=== PATIENT | male | born 1995 | race Caucasian/White ===

== ENCOUNTER 2018-01-24 08:36 | Emergency (ER) | payer SELFPAY ==
--- NOTE | 2018-01-24 09:44 | EDPHYS ---
Physician Documentation [facility] Name: Nilesh Ordonez Age: 22 yrs Sex: Male : 1995 Arrival Date: 01/24/2018 Time: 08:39 Bed 7 Private MD: out of town, doctor ED Physician Poncho Calderón HPI: 01/24 09:47 This 22 yrs old Male presents to ER via Ambulatory with complaints of Ear kdr Pain, Vomiting, Cough. 09:47 The patient presents with pain, mild. The complaints affect the right ear. Onset: The kdr symptoms/episode began/occurred The patient states that he has had intermittent cough, congestion for the past month. Over the last few days, he has had increasing right ear pain. He denies any other related s/s. Modifying factors: The symptoms are alleviated by nothing, the symptoms are aggravated by nothing. Associated signs and symptoms: Pertinent positives: cough, Pertinent negatives: fever, lightheadedness, nausea, sinus trouble, shortness of breath, sore throat, tinnitus, vertigo, vomiting. Severity of symptoms: At their worst the symptoms were mild moderate just prior to arrival, in the emergency department the symptoms are unchanged. The patient has experienced similar episodes in the past, a few times. The patient has not recently seen a physician. Historical: - Allergies: 08:53 NKA; iw - Home Meds: 08:53 albuterol sulfate 2.5 mg /3 mL (0.083 %) Inhl nebu QID PRN [Active]; ProAir HFA 90 iw mcg/actuation inhalation HFAA 2 puffs [Active]; - PMHx: 08:53 Asthma; iw - PSHx: 08:53 None; iw - Immunization history:: Adult Immunizations unknown. - Social history:: Smoking status: Patient/guardian denies using tobacco. - Ebola Screening: : Patient negative for fever greater than or equal to 101.5 degrees Fahrenheit, and additional compatible Ebola Virus Disease symptoms Patient denies exposure to infectious person Patient denies travel to an Ebola-affected area in the 21 days before illness onset No symptoms or risks identified at this time. ROS: 09:47 Constitutional: Negative for fever, chills, and weight loss, Eyes: Negative for injury, kdr pain, redness, and discharge, Neck: Negative for injury, pain, and swelling, Cardiovascular: Negative for chest pain, palpitations, and edema, Respiratory: Negative for shortness of breath, cough, wheezing, and pleuritic chest pain, Abdomen/GI: Negative for abdominal pain, nausea, vomiting, diarrhea, and constipation, Back: Negative for injury and pain. 09:47 ENT: Positive for ear pain, of the right ear. Exam: 09:47 Constitutional: This is a well developed, well nourished patient who is awake, alert, kdr and in no acute distress. Head/Face: Normocephalic, atraumatic. Eyes: Pupils equal round and reactive to light, extra-ocular motions intact. Lids and lashes normal. Conjunctiva and sclera are non-icteric and not injected. Cornea within normal limits. Periorbital areas with no swelling, redness, or edema. Neck: Trachea midline, no thyromegaly or masses palpated, and no cervical lymphadenopathy. Supple, full range of motion without nuchal rigidity, or vertebral point tenderness. No Meningismus. Chest/axilla: Normal chest wall appearance and motion. Nontender with no deformity. No lesions are appreciated. Cardiovascular: Regular rate and rhythm with a normal S1 and S2. No gallops, murmurs, or rubs. Normal PMI, no JVD. No pulse deficits. 09:47 ENT: External ear(s): are unremarkable, Ear canal(s): are normal, TM's: bulging, dullness, on the right, Examination of the other ear shows no obvious abnormality, Mouth: is normal, Posterior pharynx: is normal, Voice: is normal. Vital Signs: 08:53 BP 132 / 78; Pulse 82; Resp 16 S; Temp 98.2(O); Pulse Ox 100% on R/A; Weight 145.15 kg; iw Height 5 ft. 11 in. (180.34 cm); Pain 8/10; 08:53 Body Mass Index 44.63 (145.15 kg, 180.34 cm) iw MDM: 09:43 Patient medically screened. kdr 09:47 Data reviewed: vital signs, nurses notes. Counseling: I had a detailed discussion with kdr the patient and/or guardian regarding: the historical points, exam findings, and any diagnostic results supporting the discharge/admit diagnosis, the need for outpatient follow up. Special discussion: I discussed with the patient/guardian in detail that at this point there is no indication for admission to the hospital. It is understood, however, that if the symptoms persist or worsen the patient needs to return immediately for re-evaluation. ED course: The patient was stable and non-toxic in the ED. D/w patient the need for ENT follow-up. Administered Medications: No medications were administered Disposition: 01/24/18 09:43 Discharged to Home. Impression: Acute upper respiratory infection, unspecified, Viral illness, right ear pain/congestion. - Condition is Stable. - Discharge Instructions: Viral Infections, Upper Respiratory Infection, Adult, [id number]. - Prescriptions for Zyrtec 10 mg Oral Tablet - take 1 tablet by ORAL route once daily As needed; 20 tablet. Tramadol 50 mg Oral Tablet - take 1 tablet by ORAL route every 8 hours as needed; 12 tablet. Medrol (Soham) 4 mg Oral Tablets, Dose Pack - take 1 tablet by ORAL route as directed - follow package instructions; 1 packet. - Medication Reconciliation Form, Thank You Letter form. - Follow up: Private Physician; When: 2 - 3 days; Reason: If symptoms return, Further diagnostic work-up, Recheck today's complaints, Continuance of care, Re-evaluation by your physician. Follow up: Nargis Silva MD; When: 1 - 2 days; Reason: If symptoms return, Further diagnostic work-up, Recheck today's complaints, Continuance of care, Re-evaluation by your physician. - Problem is new. - Symptoms are unchanged. Signatures: Poncho Calderón MD MD [facility] Dolores Larose RN RN Chelsey Hall RN RN Corrections: (The following items were deleted from the chart) 09:43 09:43 01/24/2018 09:43 Discharged to Home. Impression: Acute upper respiratory kdr infection, unspecified; Viral illness, right ear pain/congestion. Condition is Stable. Forms are Medication Reconciliation Form, Thank You Letter, Antibiotic Education, Prescription Opioid Use. Follow up: Private Physician; When: 2 - 3 days; Reason: If symptoms return, Further diagnostic work-up, Recheck today's complaints, Continuance of care, Re-evaluation by your physician. Follow up: Nargis Silva; When: 1 - 2 days; Reason: If symptoms return, Further diagnostic work-up, Recheck today's complaints, Continuance of care, Re-evaluation by your physician. kdr 09:55 09:43 01/24/2018 09:43 Discharged to Home. Impression: Acute upper respiratory hb infection, unspecified; Viral illness, right ear pain/congestion. Condition is Stable. Forms are Medication Reconciliation Form, Thank You Letter, Antibiotic Education, Prescription Opioid Use. Follow up: Private Physician; When: 2 - 3 days; Reason: If symptoms return, Further diagnostic work-up, Recheck today's complaints, Continuance of care, Re-evaluation by your physician. Follow up: Nargis Silva; When: 1 - 2 days; Reason: If symptoms return, Further diagnostic work-up, Recheck today's complaints, Continuance of care, Re-evaluation by your physician. Problem is new. Symptoms are unchanged. kdr
--- NOTE | 2018-01-24 09:44 | ER ---
Nurse's Notes [facility] Name: Nilesh Ordonez Age: 22 yrs Sex: Male : 1995 Arrival Date: 01/24/2018 Time: 08:39 Bed 7 Private MD: out of town, doctor Diagnosis: Acute upper respiratory infection, unspecified;Viral illness, right ear pain/congestion Presentation: 01/24 08:49 Presenting complaint: Patient states: c/o right ear pain since this morning, also has iw had cough X 3-4 weeks, productive, has been taking OTC meds with no relief, pt states he vomits phlegm every morning, denies fever. Transition of care: patient was not received from another setting of care. Onset of symptoms was December 2017. Risk Assessment: Do you want to hurt yourself or someone else? Patient reports no desire to harm self or others. Initial Sepsis Screen: Does the patient meet any 2 criteria? No. Patient's initial sepsis screen is negative. Does the patient have a suspected source of infection? No. Patient's initial sepsis screen is negative. Care prior to arrival: None. 08:49 Method Of Arrival: Ambulatory iw 08:49 Acuity: IRVIN 3 iw Historical: - Allergies: 08:53 NKA; iw - Home Meds: 08:53 albuterol sulfate 2.5 mg /3 mL (0.083 %) Inhl nebu QID PRN [Active]; ProAir HFA 90 iw mcg/actuation inhalation HFAA 2 puffs [Active]; - PMHx: 08:53 Asthma; iw - PSHx: 08:53 None; iw - Immunization history:: Adult Immunizations unknown. - Social history:: Smoking status: Patient/guardian denies using tobacco. - Ebola Screening: : Patient negative for fever greater than or equal to 101.5 degrees Fahrenheit, and additional compatible Ebola Virus Disease symptoms Patient denies exposure to infectious person Patient denies travel to an Ebola-affected area in the 21 days before illness onset No symptoms or risks identified at this time. Screenin:15 Abuse screen: Denies threats or abuse. Denies injuries from another. Nutritional hb screening: No deficits noted. Tuberculosis screening: No symptoms or risk factors identified. Fall Risk None identified. Assessment: 09:00 General: Appears in no apparent distress. Behavior is calm, cooperative. Pain: Pain hb currently is 8 out of 10 on a pain scale. Neuro: Level of Consciousness is awake, alert, obeys commands, Oriented to person, place, time, situation. Cardiovascular: Capillary refill < 3 seconds Patient's skin is warm and dry. Respiratory: Airway is patent Trachea midline Respiratory effort is even, unlabored, Respiratory pattern is regular, symmetrical, Breath sounds are clear bilaterally. EENT: Reports pain in right ear. Vital Signs: 08:53 BP 132 / 78; Pulse 82; Resp 16 S; Temp 98.2(O); Pulse Ox 100% on R/A; Weight 145.15 kg; iw Height 5 ft. 11 in. (180.34 cm); Pain 8/10; 08:53 Body Mass Index 44.63 (145.15 kg, 180.34 cm) iw ED Course: 08:39 Patient arrived in ED. mr 08:39 out of town, doctor is Private Physician. mr 08:52 Triage completed. iw 08:53 Arm band placed on. iw 09:00 Patient has correct armband on for positive identification. Bed in low position. Call hb light in reach. Side rails up X 1. 09:15 Chelsey Hall, RN is Primary Nurse. hb 09:27 Poncho Calderón MD is Attending Physician. kdr 09:42 Nargis Silva MD is Referral Physician. kdr 09:54 No provider procedures requiring assistance completed. Patient did not have IV access hb during this emergency room visit. Administered Medications: No medications were administered Outcome: 09:43 Discharge ordered by . kdr 09:54 Discharged to home ambulatory, with friend. hb 09:54 Condition: stable 09:54 Discharge instructions given to patient, Instructed on discharge instructions, follow up and referral plans. medication usage, Demonstrated understanding of instructions, follow-up care, medications, Prescriptions given X 3. 09:55 Patient left the ED. hb Signatures: Poncho Calderón MD MD kdr Rivera, Maria mr Williams, Irene, RN RN iw Chelsey Hall, RN RN hb
== END 2018-01-24 09:55 | disposition home or self-care (01) ==
LOC: ER 08:36
DX: J06.9 Acute upper respiratory infection, unspecified (principal); J45.909 Unspecified asthma, uncomplicated; B34.9 Viral infection, unspecified; H92.01 Otalgia, right ear
CPT/HCPCS: 99282

== ENCOUNTER 2018-03-28 21:13 | Emergency (ER) | payer SELFPAY ==
[2018-03-28] MEDS ORDERED: NA CHLORIDE 0.9% 1,000 ML ONE (22:10)
[2018-03-28 22:20] LABS: Absolute Lymphocytes (CBC) 1.6 K/uL (0.7-4.9); Absolute Monocytes 0.7 K/uL (0.1-1.3); Absolute Neutrophil 7.3 K/uL (1.8-8.0); Basophils % 0.5 % (0-1.3); Eosinophils % 1.8 % (0-4.4); Hematocrit 46.4 % (39.6-49.0); Lymphocytes % 16.6 % (15.3-44.8); MCH 27.8 pg (27.0-35.0); RBC Red Blood Cell Count 5.59 M/uL (4.33-5.43)
[2018-03-28 22:26] LABS: Urine Blood NEGATIVE (NEG); Urine Glucose NEGATIVE (NEG); Urine Protein TRACE (NEG); Urine Specific Gravity 1.025 (1.005-1.030)
[2018-03-28 22:33] LABS: ALT/SGPT 53 U/L (12-78); AST/SGOT 44 U/L (15-37); Albumin 3.7 g/dL (3.4-5.0); Alkaline Phosphatase 80 U/L (45-117); Amylase Level 22 U/L (25-115); BUN Blood Urea Nitrogen 10 mg/dL (7-18); Bicarbonate 30 mmol/L (21-32); Bilirubin Direct 0.2 mg/dL (0-0.2); Glucose Level 179 mg/dL (74-106); Lipase 71 U/L (73-393); Potassium 3.4 mmol/L (3.5-5.1); Protein, Total 8.1 g/dL (6.4-8.2); Sodium Level 136 mmol/L (136-145)
[2018-03-28 22:41] LABS: Urine Culture Reflex Order NOT NEEDED
[2018-03-28 22:42] LABS: Urine Bacteria <20 /HPF (NONE SEEN); Urine RBC <5 /HPF (NONE SEEN)
--- NOTE | 2018-03-28 23:09 | ER ---
Nurse's Notes [facility] Name: Nilesh Ordonez Age: 23 yrs Sex: Male : 1995 Arrival Date: 03/28/2018 Time: 21:13 Bed 7 Private MD: Diagnosis: Vomiting;Fever, unspecified;Obesity, unspecified;Hypokalemia Presentation: 03/28 21:20 Presenting complaint: Patient states: Vomiting yesterday x 3 episodes and diarrhea aj since 0500 this AM with headache and reported low grade fever of 100.0. Transition of care: patient was not received from another setting of care. Onset of symptoms was March 27, 2018. Risk Assessment: Do you want to hurt yourself or someone else? Patient reports no desire to harm self or others. Initial Sepsis Screen: Does the patient meet any 2 criteria? No. Patient's initial sepsis screen is negative. Does the patient have a suspected source of infection? No. Patient's initial sepsis screen is negative. Care prior to arrival: None. 21:20 Method Of Arrival: Ambulatory aj 21:20 Acuity: IRVIN 3 aj Triage Assessment: 21:22 General: Appears in no apparent distress. comfortable, obese, Behavior is calm, aj cooperative, appropriate for age. Pain: Complains of pain in face. Neuro: Level of Consciousness is awake, alert, obeys commands, Oriented to person, place, time, situation, Appropriate for age. Respiratory: Reports shortness of breath on exertion Airway is patent Respiratory effort is even, unlabored, Respiratory pattern is regular, symmetrical, GI: Reports diarrhea, nausea, vomiting. Derm: Skin is intact, is healthy with good turgor, Skin is pink, warm \T\ dry. normal. Historical: - Allergies: 21:22 NKA; aj - Home Meds: 21:22 albuterol sulfate 2.5 mg /3 mL (0.083 %) Inhl nebu QID PRN [Active]; Singulair Oral aj [Active]; ProAir HFA 90 mcg/actuation inhalation HFAA 2 puffs [Active]; Singulair 10 mg Oral tab 1 tab once daily [Active]; Caitlyn 180 mg Oral tab 1 tab once daily [Active]; - PMHx: 21:22 Asthma; Seasonal Allergies; aj - PSHx: 21:22 None; aj - Immunization history:: Adult Immunizations up to date. - Social history:: Smoking status: Patient/guardian denies using tobacco, Patient uses alcohol, occasionally. - Ebola Screening: : Patient negative for fever greater than or equal to 101.5 degrees Fahrenheit, and additional compatible Ebola Virus Disease symptoms Patient denies exposure to infectious person Patient denies travel to an Ebola-affected area in the 21 days before illness onset No symptoms or risks identified at this time. Screenin:44 Abuse screen: Denies threats or abuse. Denies injuries from another. Nutritional lp1 screening: No deficits noted. Tuberculosis screening: No symptoms or risk factors identified. Fall Risk None identified. Assessment: 21:43 General: Appears in no apparent distress. Behavior is appropriate for age. Pain: lp1 Complains of pain in head Pain currently is 7 out of 10 on a pain scale. Quality of pain is described as aching. Neuro: Level of Consciousness is awake, alert, obeys commands, Gait is steady, Reports headache. Cardiovascular: Patient's skin is warm and dry. Respiratory: Reports shortness of breath on exertion Respiratory effort is even, unlabored, Breath sounds are clear bilaterally. GI: Abdomen is obese, Reports diarrhea, nausea, vomiting. : No signs and/or symptoms were reported regarding the genitourinary system. EENT: No signs and/or symptoms were reported regarding the EENT system. Derm: Skin is pink, warm \T\ dry. Musculoskeletal: Circulation, motion, and sensation intact. 03/29 00:15 Reassessment: Patient is alert, oriented x 3, equal unlabored respirations, skin bb warm/dry/pink. pt verbalized understanding of and agrees to plan of care discharge instructions given pt ambulated with steady gait to exit accompanied by family. Vital Signs: 03/28 21:22 BP 117 / 94; Pulse 96; Resp 20; Temp 98.4; Pulse Ox 98% on R/A; Weight 147.42 kg; aj Height 5 ft. 11 in. (180.34 cm); 22:09 BP 130 / 60; Pulse 102; Resp 18; Pulse Ox 98% on R/A; mt 03/29 00:17 BP 122 / 80; Pulse 96; Resp 18 S; Temp 98.3(O); Pulse Ox 97% on R/A; bb 03/28 21:22 Body Mass Index 45.33 (147.42 kg, 180.34 cm) ED Course: 03/28 21:13 Patient arrived in ED. ds1 21:21 Triage completed. aj 21:22 Arm band placed on left wrist. Patient placed in an exam room. 21:40 Foster Morris MD is Attending Physician. [facility] 21:43 Shabnam Price, JOSE is Primary Nurse. lp1 22:09 Urine collected: clean catch specimen, josh colored. Inserted saline lock: 22 gauge in lp1 left antecubital area, using aseptic technique. Blood collected. 22:13 Patient has correct armband on for positive identification. Placed in gown. Bed in low lp1 position. Pulse ox on. NIBP on. 22:42 Patient moved to radiology via wheelchair. lp1 22:47 Chest Pa And Lat (2 Views) XRAY In Process Unspecified. EDFL 23:04 Flu and/or RSV swab sent to lab. lp1 23:26 No provider procedures requiring assistance completed. [facility] 03/29 00:17 IV discontinued, intact, bleeding controlled, No redness/swelling at site. Pressure bb dressing applied. Administered Medications: 03/28 22:10 Drug: NS 0.9% 1000 ml Route: IV; Rate: 1000 ml; Site: left antecubital; 1 03/29 00:16 Follow up: IV Status: Order to discontinue infusion; IV Intake: 900ml 03/28 22:13 CANCELLED (Duplicate Order): NS 0.9% 1000 ml IV at 1 bolus Per protocol; 1000 mL bolus [facility] 03/29 00:04 Drug: Potassium Effervescent Tablet 25 mEq Route: PO; bb 00:16 Follow up: Response: No adverse reaction bb 00:05 Not Given (Patient Refused): Zofran 4 mg IVP once; over 2 minutes bb Intake: 00:16 IV: 900ml; Total: 900ml. bb Outcome: 03/28 23:08 Discharge ordered by . [facility] 03/29 00:17 Discharged to home ambulatory, with family. bb Condition: stable Discharge instructions given to patient, Instructed on discharge instructions, follow up and referral plans. medication usage, Demonstrated understanding of instructions, follow-up care, medications, Prescriptions given X 1. 00:18 Patient left the ED. bb Signatures: Dispatcher [employer] EDMS ElizondoRadha RN RN aj Anderson, Corey, MD MD cha Sanford, Demi ds1 Erin Lyles, RN RN bb Shabnam Price RN RN lp1 Cathie Urbina ms
--- NOTE | 2018-03-28 23:09 | EDPHYS ---
Physician Documentation [facility] Name: Nilesh Ordonez Age: 23 yrs Sex: Male : 1995 Arrival Date: 03/28/2018 Time: 21:13 Bed 7 Private MD: ED Physician Foster Morris HPI: 03/28 22:13 This 23 yrs old Male presents to ER via Ambulatory with complaints of padmini Nausea/Vomiting/Diarrhea, Headache. 22:13 The patient presents to the emergency department with nausea, vomiting. Onset: The padmini symptoms/episode began/occurred 2 day(s) ago. Possible causes: unknown. The symptoms are aggravated by nothing. The symptoms are alleviated by nothing. Associated signs and symptoms: The patient has no apparent associated signs or symptoms. Severity of symptoms: At their worst the symptoms were. The patient has not experienced similar symptoms in the past. Historical: - Allergies: 21:22 NKA; aj - Home Meds: 21:22 albuterol sulfate 2.5 mg /3 mL (0.083 %) Inhl nebu QID PRN [Active]; Singulair Oral aj [Active]; ProAir HFA 90 mcg/actuation inhalation HFAA 2 puffs [Active]; Singulair 10 mg Oral tab 1 tab once daily [Active]; Caitlyn 180 mg Oral tab 1 tab once daily [Active]; - PMHx: 21:22 Asthma; Seasonal Allergies; aj - PSHx: 21:22 None; aj - Immunization history:: Adult Immunizations up to date. - Social history:: Smoking status: Patient/guardian denies using tobacco, Patient uses alcohol, occasionally. - Ebola Screening: : Patient negative for fever greater than or equal to 101.5 degrees Fahrenheit, and additional compatible Ebola Virus Disease symptoms Patient denies exposure to infectious person Patient denies travel to an Ebola-affected area in the 21 days before illness onset No symptoms or risks identified at this time. ROS: 22:14 Constitutional: Negative for fever, chills, and weight loss, Eyes: Negative for injury, padmini pain, redness, and discharge, ENT: Negative for injury, pain, and discharge, Neck: Negative for injury, pain, and swelling, Cardiovascular: Negative for chest pain, palpitations, and edema, Back: Negative for injury and pain, : Negative for injury, bleeding, discharge, and swelling, MS/Extremity: Negative for injury and deformity, Skin: Negative for injury, rash, and discoloration, Neuro: Negative for headache, weakness, numbness, tingling, and seizure. 22:14 Respiratory: Positive for cough. 22:14 Abdomen/GI: Positive for nausea and vomiting. Exam: 22:14 Constitutional: This is a well developed, well nourished patient who is awake, alert, padmini and in no acute distress. Head/Face: Normocephalic, atraumatic. Eyes: Pupils equal round and reactive to light, extra-ocular motions intact. Lids and lashes normal. Conjunctiva and sclera are non-icteric and not injected. Cornea within normal limits. Periorbital areas with no swelling, redness, or edema. ENT: Nares patent. No nasal discharge, no septal abnormalities noted. Tympanic membranes are normal and external auditory canals are clear. Oropharynx with no redness, swelling, or masses, exudates, or evidence of obstruction, uvula midline. Mucous membranes moist. Neck: Trachea midline, no thyromegaly or masses palpated, and no cervical lymphadenopathy. Supple, full range of motion without nuchal rigidity, or vertebral point tenderness. No Meningismus. Chest/axilla: Normal chest wall appearance and motion. Nontender with no deformity. No lesions are appreciated. Cardiovascular: Regular rate and rhythm with a normal S1 and S2. No gallops, murmurs, or rubs. Normal PMI, no JVD. No pulse deficits. Respiratory: Lungs have equal breath sounds bilaterally, clear to auscultation and percussion. No rales, rhonchi or wheezes noted. No increased work of breathing, no retractions or nasal flaring. Abdomen/GI: Soft, non-tender, with normal bowel sounds. No distension or tympany. No guarding or rebound. No evidence of tenderness throughout. Back: No spinal tenderness. No costovertebral tenderness. Full range of motion. Male : Normal genitalia with no discharge or lesions. Skin: Warm, dry with normal turgor. Normal color with no rashes, no lesions, and no evidence of cellulitis. MS/ Extremity: Pulses equal, no cyanosis. Neurovascular intact. Full, normal range of motion. Neuro: Awake and alert, GCS 15, oriented to person, place, time, and situation. Cranial nerves II-XII grossly intact. Motor strength 5/5 in all extremities. Sensory grossly intact. Cerebellar exam normal. Normal gait. Psych: Awake, alert, with orientation to person, place and time. Behavior, mood, and affect are within normal limits. 22:14 Musculoskeletal/extremity: Tendon exam: specific tendon testing normal through active and passive range of motion DVT Exam: No signs of deep vein thrombosis. no pain, no swelling, no tenderness, negative Homans' sign noted on exam, no appreciated bluish discoloration, no erythema, no increased warmth. 22:16 Neck: ROM/movement: is normal, no acute changes, Meningeal signs: are not present, padmini Kernig's sign is negative, Brudzinski's sign is negative. Vital Signs: 21:22 BP 117 / 94; Pulse 96; Resp 20; Temp 98.4; Pulse Ox 98% on R/A; Weight 147.42 kg; Height 5 ft. 11 in. (180.34 cm); 22:09 BP 130 / 60; Pulse 102; Resp 18; Pulse Ox 98% on R/A; md 03/29 00:17 BP 122 / 80; Pulse 96; Resp 18 S; Temp 98.3(O); Pulse Ox 97% on R/A; 03/28 21:22 Body Mass Index 45.33 (147.42 kg, 180.34 cm) MDM: 03/28 21:40 Patient medically screened. [facility] 22:15 Data reviewed: vital signs, nurses notes, lab test result(s), radiologic studies, CT [facility] scan. 03/28 21:31 Order name: Amylase, Serum; Complete Time: 23:07 03/28 21:31 Order name: Basic Metabolic Panel; Complete Time: 23:07 03/28 21:31 Order name: CBC with Diff; Complete Time: 23: 03/28 21:31 Order name: Creatinine for Radiology; Complete Time: 23: 03/28 21:31 Order name: Hepatic Function; Complete Time: 23:03/28 21:31 Order name: Lipase; Complete Time: 23:07 03/28 21:31 Order name: Urine Microscopic Only; Complete Time: 23:07 03/28 22:06 Order name: Urine Dipstick--Ancillary (enter results); Complete Time: 23:07 ms 03/28 22:13 Order name: Chest Pa And Lat (2 Views) XRAY [facility] 03/28 22:13 Order name: Blood Culture Adult (2) [facility] 03/28 22:17 Order name: Urine Culture [facility] 03/28 22:17 Order name: Flu [facility] 03/28 21:31 Order name: IV Saline Lock; Complete Time: 22:03 03/28 21:31 Order name: Labs collected and sent; Complete Time: 22:03 03/28 21:31 Order name: Urine Dipstick-Ancillary (obtain specimen); Complete Time: 22:43 bb Administered Medications: 22:10 Drug: NS 0.9% 1000 ml Route: IV; Rate: 1000 ml; Site: left antecubital; 1 03/29 00:16 Follow up: IV Status: Order to discontinue infusion; IV Intake: 900ml 03/28 22:13 CANCELLED (Duplicate Order): NS 0.9% 1000 ml IV at 1 bolus Per protocol; 1000 mL bolus [facility] 03/29 00:04 Drug: Potassium Effervescent Tablet 25 mEq Route: PO; bb 00:16 Follow up: Response: No adverse reaction bb 00:05 Not Given (Patient Refused): Zofran 4 mg IVP once; over 2 minutes bb Disposition: 03/28/18 23:08 Discharged to Home. Impression: Vomiting, Fever, unspecified, Obesity, unspecified, Hypokalemia. - Condition is Fair. - Discharge Instructions: Potassium Content of Foods, Fever, Adult, Nausea and Vomiting, Adult, Obesity, Adult, Nausea and Vomiting, Adult, [id number], Hypokalemia, Obesity, Adult, [id number]. - Prescriptions for Zofran 4 mg Oral Tablet - take 1 tablet by ORAL route every 12 hours As needed; 20 tablet. - Medication Reconciliation Form, Thank You Letter, Antibiotic Education, Prescription Opioid Use, Work release form form. - Follow up: Private Physician; When: 2 - 3 days; Reason: Recheck today's complaints, Continuance of care, Re-evaluation by your physician. - Problem is new. - Symptoms have improved. Signatures: Dispatcher [employer] EDRadha Bhatti RN RN aj Anderson, Corey, MD MD cha Ballard, Brenda, RN RN Shabnam Espinal, RN RN lp1 Corrections: (The following items were deleted from the chart) 03/28 22:13 22:13 NS 0.9% 1000 ml IV at 1 bolus Per protocol; 1000 mL bolus ordered. padmini lp1 03/29 00:18 03/28 23:08 03/28/2018 23:08 Discharged to Home. Impression: Vomiting; Fever, bb unspecified; Obesity, unspecified; Hypokalemia. Condition is Fair. Discharge Instructions: Fever, Adult, Nausea and Vomiting, Adult, Obesity, Adult, Nausea and Vomiting, Adult, [id number], Obesity, Adult, [id number]. Prescriptions for Zofran 4 mg Oral Tablet - take 1 tablet by ORAL route every 12 hours As needed; 20 tablet. and Forms are Medication Reconciliation Form, Thank You Letter, Antibiotic Education, Prescription Opioid Use. Follow up: Private Physician; When: 2 - 3 days; Reason: Recheck today's complaints, Continuance of care, Re-evaluation by your physician. Problem is new. Symptoms have improved. padmini
[2018-03-29] MEDS ORDERED: POTASSIUM 25 MEQ EFFERV TAB ONE (00:08)
--- NOTE | 2018-03-29 07:10 | RAD REPORT ---
EXAM DESCRIPTION: RAD - Chest Pa And Lat (2 Views) - 03/28/2018 10:54 pm CLINICAL HISTORY: Abdominal pain, cough, popping, fever COMPARISON: May 2017 TECHNIQUE: PA and lateral views of the chest were obtained. FINDINGS: The lungs are underinflated. Interstitial markings are prominent at least in part due to t he shallow inspiration. Medial left base markings are prominent but not clearly different. Heart si ze is normal and central vasculature is within normal limits. No pleural effusion or pneumothorax se en. No acute bony finding noted. No aortic abnormality. IMPRESSION: No definite acute cardiopulmonary process seen. Shallow inspiration accentuates lung markings potentially masking early infiltrate.
== END 2018-03-29 00:18 | disposition home or self-care (01) ==
LOC: ER 21:13
DX: E87.6 Hypokalemia (principal); R50.9 Fever, unspecified; E66.9 Obesity, unspecified; J45.909 Unspecified asthma, uncomplicated
CPT/HCPCS: 36415; 71046; 80048; 80076; 81003; 81015; 82150; 83690; 85025; 87040; 87086; 87088; 87804; 96360; 96361; 99284; J7030

== ENCOUNTER 2018-04-06 11:49 | Emergency (ER) | payer SELFPAY ==
[2018-04-06 12:42] LABS: Urine Blood NEGATIVE (NEG); Urine Glucose NEGATIVE (NEG); Urine Protein NEGATIVE (NEG); Urine Specific Gravity 1.025 (1.005-1.030)
--- NOTE | 2018-04-06 12:44 | ER ---
Nurse's Notes [facility] Name: Nilesh Ordonez Age: 23 yrs Sex: Male : 1995 Arrival Date: 04/06/2018 Time: 11:51 Bed 13 Private MD: Diagnosis: Cadidiasis of the penile head Presentation: 04/06 11:54 Presenting complaint: Patient states: "I think I have a yeast infection." Pt points to sv the groin. Transition of care: patient was not received from another setting of care. Onset of symptoms was April 05, 2018. Care prior to arrival: None. 11:54 Method Of Arrival: Ambulatory sv 11:54 Acuity: IRVIN 5 sv 12:15 Onset: The symptoms/episode began/occurred acutely. Anaphylaxis evaluation, no signs or jl7 symptoms of anaphylaxis were noted. Risk Assessment: Do you want to hurt yourself or someone else? Patient reports no desire to harm self or others. Initial Sepsis Screen: Does the patient meet any 2 criteria? No. Patient's initial sepsis screen is negative. Does the patient have a suspected source of infection? No. Patient's initial sepsis screen is negative. Historical: - Allergies: 11:55 NKA; sv - Home Meds: 11:55 Singulair Oral [Active]; albuterol sulfate 2.5 mg /3 mL (0.083 %) Inhl nebu QID PRN sv [Active]; Caitlyn 180 mg Oral tab 1 tab once daily [Active]; ProAir HFA 90 mcg/actuation inhalation HFAA 2 puffs [Active]; - PMHx: 11:55 Asthma; seasonal allergies; sv - PSHx: 11:55 None; sv - Immunization history:: Adult Immunizations up to date. - Social history:: Smoking status: Patient/guardian denies using tobacco. - Ebola Screening: : No symptoms or risks identified at this time. - Family history:: not pertinent. - Hospitalizations: : No recent hospitalization is reported. Screenin:15 Abuse screen: Denies threats or abuse. Denies injuries from another. Nutritional jl7 screening: No deficits noted. Tuberculosis screening: No symptoms or risk factors identified. Fall Risk None identified. Assessment: 12:15 General: Appears in no apparent distress. uncomfortable, Behavior is calm, cooperative, jl7 appropriate for age. Pain: Denies pain. Neuro: Level of Consciousness is awake, alert, obeys commands, Oriented to person, place, time, situation. Cardiovascular: Patient's skin is warm and dry. Respiratory: Airway is patent Respiratory effort is even, unlabored, Breath sounds are clear bilaterally. GI: No signs and/or symptoms were reported involving the gastrointestinal system. : Penile discharge is white, Reports penile itching. Derm: Skin is pink, warm \\T\\ dry. Vital Signs: 11:56 BP 138 / 92; Pulse 87; Resp 18; Temp 97.8; Pulse Ox 99% ; Weight 147.42 kg; Height 5 sv ft. 11 in. (180.34 cm); 12:55 BP 135 / 90; Pulse 85; Resp 16 S; Pulse Ox 99% on R/A; jl7 11:56 Body Mass Index 45.33 (147.42 kg, 180.34 cm) sv ED Course: 11:51 Patient arrived in ED. as 11:55 Triage completed. sv 11:56 Arm band placed on right wrist. sv 12:00 Rao Norton MD is Attending Physician. wa 12:15 Patient has correct armband on for positive identification. Bed in low position. Call jl7 light in reach. Side rails up X 1. Pulse ox on. NIBP on. 12:17 Marylou Smiley RN is Primary Nurse. jl7 12:32 Urine collected: clean catch specimen, josh colored. jl7 13:06 No provider procedures requiring assistance completed. Patient did not have IV access jl7 during this emergency room visit. Administered Medications: No medications were administered Point of Care Testing: Blood Glucose: 12:32 Blood Glucose: 180 mg/dL; jl7 Ranges: Outcome: 12:43 Discharge ordered by . wa 13:06 Discharged to home ambulatory. jl7 13:06 Condition: stable 13:06 Discharge instructions given to patient, Instructed on discharge instructions, follow up and referral plans. medication usage, Demonstrated understanding of instructions, follow-up care, medications, Prescriptions given X 2. 13:07 Patient left the ED. jl7 Signatures: Nargis Thornton RN Ce Landin Jahala, RN RN jl7 Appiah, William, MD MD wa
--- NOTE | 2018-04-06 12:44 | EDPHYS ---
Physician Documentation [facility] Name: Nilesh Ordonez Age: 23 yrs Sex: Male : 1995 Arrival Date: 04/06/2018 Time: 11:51 Bed 13 Private MD: ED Physician Rao Norton HPI: 04/06 12:29 This 23 yrs old Male presents to ER via Ambulatory with complaints of Itching.wa 12:29 The patient presents with "I think I have a yeast infection". Onset: The wa symptoms/episode began/occurred 2 day(s) ago. Modifying factors: The symptoms are alleviated by nothing, the symptoms are aggravated by nothing. Associated signs and symptoms: Pertinent positives: itching of penile head. denies dysuria or frequency, Pertinent negatives: abdominal pain, diarrhea, dysuria, fever, hematuria, nausea, vomiting. Severity of symptoms: At their worst the symptoms were moderate, in the emergency department the symptoms are actually worse. The patient has not experienced similar symptoms in the past. The patient has not recently seen a physician. c/o itching and white discharge at head of penis. not circumcised. states only sexually active with fiancee, unprotected. Historical: - Allergies: 11:55 NKA; sv - Home Meds: 11:55 Singulair Oral [Active]; albuterol sulfate 2.5 mg /3 mL (0.083 %) Inhl nebu QID PRN sv [Active]; Caitlyn 180 mg Oral tab 1 tab once daily [Active]; ProAir HFA 90 mcg/actuation inhalation HFAA 2 puffs [Active]; - PMHx: 11:55 Asthma; seasonal allergies; sv - PSHx: 11:55 None; sv - Immunization history:: Adult Immunizations up to date. - Social history:: Smoking status: Patient/guardian denies using tobacco. - Ebola Screening: : No symptoms or risks identified at this time. - Family history:: not pertinent. - Hospitalizations: : No recent hospitalization is reported. ROS: 12:33 Constitutional: Negative for fever, chills, and weight loss, Eyes: Negative for injury, wa pain, redness, and discharge, ENT: Negative for injury, pain, and discharge, Neck: Negative for injury, pain, and swelling, Cardiovascular: Negative for chest pain, palpitations, and edema, Respiratory: Negative for shortness of breath, cough, wheezing, and pleuritic chest pain, Abdomen/GI: Negative for abdominal pain, nausea, vomiting, diarrhea, and constipation, Back: Negative for injury and pain, MS/Extremity: Negative for injury and deformity, Skin: Negative for injury, rash, and discoloration, Neuro: Negative for headache, weakness, numbness, tingling, and seizure. 12:33 : Positive for penile head rash and itching, Negative for urinary symptoms, urinary frequency, hematuria, burning with urination, difficulty urinating, foul smelling urine. Exam: 12:34 Constitutional: This is a well developed, well nourished patient who is awake, alert, wa and in no acute distress. Head/Face: Normocephalic, atraumatic. Eyes: Pupils equal round and reactive to light, extra-ocular motions intact. Lids and lashes normal. Conjunctiva and sclera are non-icteric and not injected. Cornea within normal limits. Periorbital areas with no swelling, redness, or edema. ENT: Nares patent. No nasal discharge, no septal abnormalities noted. Tympanic membranes are normal and external auditory canals are clear. Oropharynx with no redness, swelling, or masses, exudates, or evidence of obstruction, uvula midline. Mucous membranes moist. Neck: Trachea midline, no thyromegaly or masses palpated, and no cervical lymphadenopathy. Supple, full range of motion without nuchal rigidity, or vertebral point tenderness. No Meningismus. Cardiovascular: Regular rate and rhythm with a normal S1 and S2. No gallops, murmurs, or rubs. Normal PMI, no JVD. No pulse deficits. Respiratory: Lungs have equal breath sounds bilaterally, clear to auscultation and percussion. No rales, rhonchi or wheezes noted. No increased work of breathing, no retractions or nasal flaring. Abdomen/GI: Soft, non-tender, with normal bowel sounds. No distension or tympany. No guarding or rebound. No evidence of tenderness throughout. Back: No spinal tenderness. No costovertebral tenderness. Full range of motion. Skin: Warm, dry with normal turgor. Normal color with no rashes, no lesions, and no evidence of cellulitis. MS/ Extremity: Pulses equal, no cyanosis. Neurovascular intact. Full, normal range of motion. Neuro: Awake and alert, GCS 15, oriented to person, place, time, and situation. Cranial nerves II-XII grossly intact. Motor strength 5/5 in all extremities. Sensory grossly intact. Cerebellar exam normal. Normal gait. Psych: Awake, alert, with orientation to person, place and time. Behavior, mood, and affect are within normal limits. 12:34 : Male external genitalia: noted discharge at head of penis consistent with evette. Vital Signs: 11:56 BP 138 / 92; Pulse 87; Resp 18; Temp 97.8; Pulse Ox 99% ; Weight 147.42 kg; Height 5 sv ft. 11 in. (180.34 cm); 12:55 BP 135 / 90; Pulse 85; Resp 16 S; Pulse Ox 99% on R/A; jl7 11:56 Body Mass Index 45.33 (147.42 kg, 180.34 cm) sv MDM: 12:00 Patient medically screened. nd 12:35 Differential diagnosis: evette at head of penis. denies h/o DM. will accucheck and UA. nd needs treatment of candidiasis. 12:42 Data reviewed: vital signs, nurses notes. Test interpretation: by ED physician or nd midlevel provider: UA normal. 12:42 Test interpretation: by ED physician or midlevel provider: accucheck 180. nd 04/06 12:21 Order name: Urine Microscopic Only nd 04/06 12:39 Order name: Urine Dipstick--Ancillary (enter results) [facility] 04/06 12:21 Order name: Urine Dipstick-Ancillary (obtain specimen); Complete Time: 12:32 nd 04/06 12:21 Order name: Accucheck Blood Glucose; Complete Time: 12:32 nd 04/06 12:57 Order name: Urine Culture EDMS Administered Medications: No medications were administered Point of Care Testing: Blood Glucose: 12:32 Blood Glucose: 180 mg/dL; jl7 Ranges: Critical Glucose Levels:Adult <50 mg/dl or >400 mg/dl <40 mg/dl or >180 mg/dl Disposition: 04/06/18 12:43 Discharged to Home. Impression: Cadidiasis of the penile head. - Condition is Stable. - Prescriptions for Clotrimazole 1 % Topical Cream - Apply to affected area 1 application by TOPICAL route every 12 hours; 15 gram. Diflucan 150 mg Oral Tablet - take 1 tablet by ORAL route one time for 1 day; 1 tablet. - Medication Reconciliation Form, Thank You Letter, Antibiotic Education, Prescription Opioid Use form. - Follow up: Private Physician; When: 2 - 3 days; Reason: Re-evaluation by your physician. - Problem is new. - Symptoms are unchanged. - Notes: pull foreskin back gently and do sitz baths as described. apply topical cream until completely resolved. you need to see your doctor to be ruled out for diabetes Signatures: Dispatcher [employer] EDNargis Guan, RN RN sv Marylou Smiley RN RN jl7 Rao Norton MD MD wa Corrections: (The following items were deleted from the chart) 13:07 12:43 04/06/2018 12:43 Discharged to Home. Impression: Cadidiasis of the penile head. jl7 Condition is Stable. Forms are Medication Reconciliation Form, Thank You Letter, Antibiotic Education, Prescription Opioid Use. Follow up: Private Physician; When: 2 - 3 days; Reason: Re-evaluation by your physician. Problem is new. Symptoms are unchanged. wa
[2018-04-06 12:56] LABS: Urine Bacteria <20 /HPF (NONE SEEN); Urine Culture Reflex Order REFLEXED; Urine RBC <5 /HPF (NONE SEEN)
== END 2018-04-06 13:07 | disposition home or self-care (01) ==
LOC: ER 11:49
DX: B37.49 Other urogenital candidiasis (principal); J45.909 Unspecified asthma, uncomplicated
CPT/HCPCS: 81003; 81015; 82962; 87086; 87088; 99283

== ENCOUNTER 2018-05-26 17:52 | Emergency (ER) | payer SELFPAY ==
[2018-05-26] MEDS ORDERED: NA CHLORIDE 0.9% 1,000 ML ONE (18:47)
[2018-05-26 19:01] LABS: Absolute Lymphocytes (CBC) 3.5 K/uL (0.7-4.9); Absolute Monocytes 0.6 K/uL (0.1-1.3); Absolute Neutrophil 7.4 K/uL (1.8-8.0); Basophils % 0.7 % (0-1.3); Hematocrit 44.6 % (39.6-49.0); Lymphocytes % 29.9 % (15.3-44.8); MCH 27.9 pg (27.0-35.0); MCV 82.4 fL (80-100); MPV 11.5 fL (7.6-11.3); RBC Red Blood Cell Count 5.41 M/uL (4.33-5.43)
--- NOTE | 2018-05-26 19:14 | RAD REPORT ---
EXAM DESCRIPTION: RAD - Chest Pa And Lat (2 Views) - 05/26/2018 6:44 pm CLINICAL HISTORY: Cough and congestion COMPARISON: March 28 TECHNIQUE: PA and lateral views of the chest were obtained. FINDINGS: The lungs are clear. Heart size is normal and central vasculature is within normal limit s. No pleural effusion or pneumothorax seen. No acute bony finding noted. No aortic abnormality. IMPRESSION: No acute cardiopulmonary process. No significant change from comparison.
[2018-05-26 19:20] LABS: Urine Blood 1+ (NEG); Urine Glucose 3+ (NEG); Urine Protein NEGATIVE (NEG); Urine Specific Gravity 1.015 (1.005-1.030)
[2018-05-26 19:38] LABS: BUN Blood Urea Nitrogen 11 mg/dL (7-18); Bicarbonate 27 mmol/L (21-32); Glucose Level 391 mg/dL (74-106); Potassium 4.1 mmol/L (3.5-5.1); Sodium Level 136 mmol/L (136-145)
--- NOTE | 2018-05-26 19:48 | EDPHYS ---
Physician Documentation [facility] Name: Nilesh Ordonez Age: 23 yrs Sex: Male : 1995 Arrival Date: 05/26/2018 Time: 17:55 Bed 19 Private MD: ED Physician Foster Morris HPI: 05/26 18:18 This 23 yrs old Male presents to ER via Ambulatory with complaints of jmm Testicular Problem. 18:18 The patient presents with redness. Onset: The symptoms/episode began/occurred jmm gradually, 1 week(s) ago. Modifying factors: The symptoms are alleviated by nothing, the symptoms are aggravated by nothing. Associated signs and symptoms: Pertinent negatives: fever. Patient complains of cough for approx 1 week with a rash to his penis. Patient has had a similar episode before and has applied antifungal cream with no relief. Patient denies fever, vomiting, shortness of breath. . Historical: - Allergies: 17:58 NKA; la1 - Home Meds: 18:24 albuterol sulfate 2.5 mg /3 mL (0.083 %) Inhl nebu QID PRN [Active]; Caitlyn 180 mg hj Oral tab 1 tab once daily [Active]; ProAir HFA 90 mcg/actuation inhalation HFAA 2 puffs [Active]; Singulair Oral [Active]; Singulair 10 mg Oral tab 1 tab once daily [Active]; - PMHx: 17:58 Asthma; seasonal allergies; la1 - PSHx: 18:24 None; hj - Immunization history:: Adult Immunizations up to date. - Social history:: Smoking status: Patient/guardian denies using tobacco. - Ebola Screening: : No symptoms or risks identified at this time. ROS: 18:18 Constitutional: Negative for fever, chills, and weight loss, Cardiovascular: Negative jmm for chest pain, palpitations, and edema. 18:18 Respiratory: Positive for cough. 18:18 Skin: Positive for rash. 18:18 All other systems are negative. Exam: 18:18 Constitutional: This is a well developed, well nourished patient who is awake, alert, jmm and in no acute distress. Head/Face: atraumatic. Chest/axilla: Normal chest wall appearance and motion. Cardiovascular: Regular rate and rhythm. No edema appreciated 18:18 ENT: TM's: are normal, Posterior pharynx: is normal. 18:18 Respiratory: the patient does not display signs of respiratory distress, Respirations: normal, Breath sounds: are clear throughout. 18:18 Abdomen/GI: Inspection: abdomen appears normal, Bowel sounds: normal, Palpation: abdomen is soft and non-tender. 18:18 Skin: erythema noted to the glans penis. 18:18 Neuro: Orientation: is normal, Mentation: is normal, Memory: is normal. 18:18 Psych: Behavior/mood is pleasant, cooperative. Vital Signs: 17:58 BP 149 / 84; Pulse 106; Resp 18; Temp 97.6; Pulse Ox 98% on R/A; Weight 136.08 kg; la1 Height 5 ft. 11 in. (180.34 cm); 19:00 BP 138 / 72; Pulse 94; Resp 18; Pulse Ox 98% on R/A; lp1 17:58 Body Mass Index 41.84 (136.08 kg, 180.34 cm) la1 MDM: 18:18 Patient medically screened. [facility] 19:46 Data reviewed: vital signs, nurses notes. Counseling: I had a detailed discussion with violeta the patient and/or guardian regarding: the historical points, exam findings, and any diagnostic results supporting the discharge/admit diagnosis, lab results, the need for outpatient follow up, to return to the emergency department if symptoms worsen or persist or if there are any questions or concerns that arise at home. 19:46 Data interpreted: Pulse oximetry: on room air is 98 %. Interpretation: normal. [facility] 19:46 ED course: Patient does not have an anion gap. Vitals normal. I do not currently [facility] suspect dka. patient prescribed initial dose of metformin. Patient states he will follow up with his PCP on Monday for reevaluation. Patient also prescribed nystatin for candidal penile infection. Patient given strict return precautions. Patient understood and agrees with the plan of care. . 05/26 18:33 Order name: CBC with Diff; Complete Time: 19:13 [facility] 05/26 18:33 Order name: BMP; Complete Time: 19:39 [facility] 05/26 18:22 Order name: Fingerstick Glucose; Complete Time: 18:31 [facility] 05/26 18:22 Order name: Chest Pa And Lat (2 Views) XRAY; Complete Time: 19:28 [facility] 05/26 18:47 Order name: Urine Dipstick--Ancillary (enter results); Complete Time: 19:28 ag 05/26 18:22 Order name: Urine Dipstick-Ancillary (obtain specimen); Complete Time: 18:30 [facility] 05/26 18:33 Order name: Saline Lock; Complete Time: 18:55 jm Administered Medications: 18:55 Drug: NS 0.9% 1000 ml Route: IV; Rate: 1 bolus; Site: right forearm; hj 20:13 Follow up: IV Status: Completed infusion; IV Intake: 1000ml lp1 Point of Care Testing: Blood Glucose: 18:29 Blood Glucose: 369 mg/dL; mh5 Ranges: Critical Glucose Levels:Adult <50 mg/dl or >400 mg/dl <40 mg/dl or >180 mg/dl Disposition: 05/26/18 19:47 Discharged to Home. Impression: Hyperglycemia, unspecified, Candidiasis of other urogenital sites. - Condition is Stable. - Discharge Instructions: Hyperglycemia, Jock Itch. - Prescriptions for nystatin 100,000 unit/gram Topical ointment - apply 1 application by TOPICAL route 2 times per day; 1 tube. Metformin 500 mg Oral Tablet Sustained Release 24 hr - take 1 tablet by ORAL route once daily with evening meal; 20 tablet. - Medication Reconciliation Form, Thank You Letter, Antibiotic Education, Prescription Opioid Use form. - Follow up: Private Physician; When: 2 - 3 days; Reason: Recheck today's complaints, Continuance of care, Re-evaluation by your physician. - Notes: Please follow up with your primary care provider in 1 to 2 days for reevaluation. Please return to the ED if you develop shortness of breath, vomiting, or any other concerning symptoms. Addendum: 05/28/2018 07:19 Co-signature as Attending Physician, Foster Morris MD I agree with the assessment and c gaston plan of care. Signatures: Dispatcher [employer] Foster Ahn MD MD cha Mickail, Joel, PA PA Shabnam Alexander, RN RN lp1 Michael Catalan RN RN la1 Thomas Vann RN RN hj Corrections: (The following items were deleted from the chart) 05/26 20:13 19:47 05/26/2018 19:47 Discharged to Home. Impression: Hyperglycemia, unspecified; lp1 Candidiasis of other urogenital sites. Condition is Stable. Forms are Medication Reconciliation Form, Thank You Letter, Antibiotic Education, Prescription Opioid Use. Follow up: Private Physician; When: 2 - 3 days; Reason: Recheck today's complaints, Continuance of care, Re-evaluation by your physician. violeta
--- NOTE | 2018-05-26 19:48 | ER ---
Nurse's Notes [facility] Name: Nilesh Ordonez Age: 23 yrs Sex: Male : 1995 Arrival Date: 05/26/2018 Time: 17:55 Bed 19 Private MD: Diagnosis: Hyperglycemia, unspecified;Candidiasis of other urogenital sites Presentation: 05/26 17:57 Presenting complaint: Patient states: Cough congestion and rash on genitals. Transition la1 of care: patient was not received from another setting of care. Onset of symptoms was May 26, 2018. Risk Assessment: Do you want to hurt yourself or someone else? Patient reports no desire to harm self or others. Initial Sepsis Screen: Does the patient meet any 2 criteria? No. Patient's initial sepsis screen is negative. Does the patient have a suspected source of infection? No. Patient's initial sepsis screen is negative. Care prior to arrival: None. 17:57 Method Of Arrival: Ambulatory la1 17:57 Acuity: IRVIN 4 la1 Triage Assessment: 18:22 General: Appears in no apparent distress. uncomfortable, Behavior is calm, cooperative, hj appropriate for age. Pain: Complains of pain in testicle. Historical: - Allergies: 17:58 NKA; la1 - Home Meds: 18:24 albuterol sulfate 2.5 mg /3 mL (0.083 %) Inhl nebu QID PRN [Active]; Caitlyn 180 mg hj Oral tab 1 tab once daily [Active]; ProAir HFA 90 mcg/actuation inhalation HFAA 2 puffs [Active]; Singulair Oral [Active]; Singulair 10 mg Oral tab 1 tab once daily [Active]; - PMHx: 17:58 Asthma; seasonal allergies; la1 - PSHx: 18:24 None; hj - Immunization history:: Adult Immunizations up to date. - Social history:: Smoking status: Patient/guardian denies using tobacco. - Ebola Screening: : No symptoms or risks identified at this time. Screenin:22 Abuse screen: Denies threats or abuse. Denies injuries from another. Nutritional hj screening: No deficits noted. Tuberculosis screening: No symptoms or risk factors identified. Fall Risk None identified. Assessment: 18:17 Reassessment: see triage for assessment;. hj 19:30 General: Appears in no apparent distress. Neuro: Level of Consciousness is awake, lp1 alert, obeys commands. Cardiovascular: Patient's skin is warm and dry. Respiratory: Respiratory effort is even, unlabored. GI: Abdomen is obese. : No signs and/or symptoms were reported regarding the genitourinary system. EENT: No signs and/or symptoms were reported regarding the EENT system. Derm: Skin is pink, warm \T\ dry. Musculoskeletal: Circulation, motion, and sensation intact. Vital Signs: 17:58 BP 149 / 84; Pulse 106; Resp 18; Temp 97.6; Pulse Ox 98% on R/A; Weight 136.08 kg; la1 Height 5 ft. 11 in. (180.34 cm); 19:00 BP 138 / 72; Pulse 94; Resp 18; Pulse Ox 98% on R/A; lp1 17:58 Body Mass Index 41.84 (136.08 kg, 180.34 cm) la1 ED Course: 17:55 Patient arrived in ED. tw3 17:58 Triage completed. la1 17:59 Arm band placed on left wrist. la1 18:03 Rene Aguayo PA is PHCP. [facility] 18:03 Foster Morris MD is Attending Physician. [facility] 18:19 Thomas Vann, RN is Primary Nurse. hj 18:23 Patient has correct armband on for positive identification. Bed in low position. Call hj light in reach. Side rails up X 1. Adult w/ patient. 18:44 Chest Pa And Lat (2 Views) XRAY In Process Unspecified. EDMS 18:55 Initial lab(s) drawn, by me, sent to lab. Inserted saline lock: 22 gauge in right hj forearm, using aseptic technique. Blood collected. 19:08 Urine collected: clean catch specimen, cloudy. 5 19:55 X-ray completed. jb2 20:12 No provider procedures requiring assistance completed. IV discontinued, No lp1 redness/swelling at site. Pressure dressing applied. Administered Medications: 18:55 Drug: NS 0.9% 1000 ml Route: IV; Rate: 1 bolus; Site: right forearm; hj 20:13 Follow up: IV Status: Completed infusion; IV Intake: 1000ml lp1 Point of Care Testing: Blood Glucose: 18:29 Blood Glucose: 369 mg/dL; 5 Ranges: Intake: 20:13 IV: 1000ml; Total: 1000ml. lp1 Outcome: 19:47 Discharge ordered by . violeta 20:12 Discharged to home ambulatory. lp1 20:12 Condition: good 20:12 Discharge instructions given to patient, Instructed on discharge instructions, follow up and referral plans. medication usage, Demonstrated understanding of instructions, follow-up care, medications, Prescriptions given X 2. 20:13 Patient left the ED. lp1 Signatures: Dispatcher [employer] EDMS Rene Aguayo PA PA jmm Buechter, Jesse 2 Shabnam Price RN RN lp1 Michael Catalan RN RN la1 Thomas Vann RN RN Berta Fay 5 Luci Arellano 3 Corrections: (The following items were deleted from the chart) 17:58 17:57 Acuity: IRVIN 5 la1 la1
== END 2018-05-26 20:13 | disposition home or self-care (01) ==
LOC: ER 17:52
DX: B37.49 Other urogenital candidiasis (principal); R73.9 Hyperglycemia, unspecified; J45.909 Unspecified asthma, uncomplicated
CPT/HCPCS: 36415; 71046; 80048; 81003; 82962; 85025; 96360; 99284; J7030

== ENCOUNTER 2018-05-30 19:12 | Emergency (ER) | payer SELFPAY ==
--- NOTE | 2018-05-30 21:05 | EDPHYS ---
Physician Documentation [facility] Name: Nilesh Ordonez Age: 23 yrs Sex: Male : 1995 Arrival Date: 05/30/2018 Time: 19:13 Bed 19 Private MD: ED Physician Foster Morris HPI: 05/30 21:00 This 23 yrs old Male presents to ER via Ambulatory with complaints of Penile pm1 Problem. 21:00 The patient presents with rash to penile area. pm1 21:00 Onset: The symptoms/episode began/occurred 11 day(s) ago. Modifying factors: The pm1 symptoms are alleviated by nothing, the symptoms are aggravated by nothing. Associated signs and symptoms: Pertinent negatives: abdominal pain, dysuria, fever, nausea, vomiting. Severity of symptoms: in the emergency department the symptoms are unchanged. The patient has experienced a previous episode, approximately 2 months ago. The patient has been recently seen at the [facility] Emergency Department, this week, same complaint. Patient seen here 4 days ago and diagnosed with hyperglycemia and candidal infection of urogenital area. Prescribed nystatin topical and metformin. Patient has not started taking metformin. Patient reports no improvement and returning for reevaluation . Historical: - Allergies: 19:31 NKA; fc - Home Meds: 19:31 albuterol sulfate 2.5 mg /3 mL (0.083 %) Inhl nebu QID PRN [Active]; ProAir HFA 90 fc mcg/actuation inhalation HFAA 2 puffs [Active]; Singulair 10 mg oral tab 1 tab once daily [Active]; - PMHx: 19:31 Asthma; seasonal allergies; fc - PSHx: 19:31 None; fc - Immunization history:: Last tetanus immunization: up to date Flu vaccine is not up to date. - Social history:: Smoking status: Patient/guardian denies using tobacco, Patient/guardian denies using alcohol, street drugs. - Ebola Screening: : Patient negative for fever greater than or equal to 101.5 degrees Fahrenheit, and additional compatible Ebola Virus Disease symptoms Patient denies exposure to infectious person Patient denies travel to an Ebola-affected area in the 21 days before illness onset. ROS: 21:00 Constitutional: Negative for fever, chills, and weight loss, Eyes: Negative for injury, pm1 pain, redness, and discharge, ENT: Negative for injury, pain, and discharge, Neck: Negative for injury, pain, and swelling, Cardiovascular: Negative for chest pain, palpitations, and edema, Respiratory: Negative for shortness of breath, cough, wheezing, and pleuritic chest pain, Abdomen/GI: Negative for abdominal pain, nausea, vomiting, diarrhea, and constipation, Back: Negative for injury and pain, MS/Extremity: Negative for injury and deformity. 21:00 Neuro: Negative for headache, weakness, numbness, tingling, and seizure. 21:00 Skin: Positive for rash, of the groin. Exam: 21:00 Constitutional: This is a well developed, well nourished patient who is awake, alert, pm1 and in no acute distress. Head/Face: Normocephalic, atraumatic. Eyes: Pupils equal round and reactive to light, extra-ocular motions intact. Lids and lashes normal. Conjunctiva and sclera are non-icteric and not injected. Cornea within normal limits. Periorbital areas with no swelling, redness, or edema. ENT: Nares patent. No nasal discharge, no septal abnormalities noted. Tympanic membranes are normal and external auditory canals are clear. Oropharynx with no redness, swelling, or masses, exudates, or evidence of obstruction, uvula midline. Mucous membranes moist. Neck: Trachea midline, no thyromegaly or masses palpated, and no cervical lymphadenopathy. Supple, full range of motion without nuchal rigidity, or vertebral point tenderness. No Meningismus. Chest/axilla: Normal chest wall appearance and motion. Nontender with no deformity. No lesions are appreciated. Cardiovascular: Regular rate and rhythm with a normal S1 and S2. No gallops, murmurs, or rubs. Normal PMI, no JVD. No pulse deficits. Respiratory: Lungs have equal breath sounds bilaterally, clear to auscultation and percussion. No rales, rhonchi or wheezes noted. No increased work of breathing, no retractions or nasal flaring. Abdomen/GI: Soft, non-tender, with normal bowel sounds. No distension or tympany. No guarding or rebound. No evidence of tenderness throughout. Back: No spinal tenderness. No costovertebral tenderness. Full range of motion. 21:00 Skin: Warm, dry with normal turgor. Normal color with no rashes, no lesions, and no evidence of cellulitis. MS/ Extremity: Pulses equal, no cyanosis. Neurovascular intact. Full, normal range of motion. 21:00 : Male external genitalia: red scaly rash to glans of penis and distal shaft. 21:00 Neuro: Orientation: is normal, Motor: is normal, Gait: is steady, at a normal pace, without difficulty. Vital Signs: 19:31 BP 142 / 104; Pulse 104; Resp 20; Temp 97.9(O); Pulse Ox 98% on R/A; Weight 136.08 kg fc (R); Height 5 ft. 11 in. (180.34 cm) (R); Pain 5/10; 20:52 BP 140 / 83; Pulse 89; Resp 18; Pulse Ox 99% ; ea 21:24 BP 138 / 70; Pulse 80; Resp 18; Temp 98; Pulse Ox 98% on R/A; Pain 4/10; ea 19:31 Body Mass Index 41.84 (136.08 kg, 180.34 cm) MDM: 19:44 Patient medically screened. pm1 20:16 Data reviewed: vital signs. Data interpreted: Pulse oximetry: on room air is 98 %. pm1 Interpretation: normal. 21:04 Counseling: I had a detailed discussion with the patient and/or guardian regarding: the pm1 historical points, exam findings, and any diagnostic results supporting the discharge/admit diagnosis, the need for outpatient follow up, to return to the emergency department if symptoms worsen or persist or if there are any questions or concerns that arise at home. 05/30 20:14 Order name: Finger Stick; Complete Time: 20:18 pm1 Administered Medications: No medications were administered Point of Care Testing: Blood Glucose: 20:17 Blood Glucose: 302 mg/dL; ea Ranges: Critical Glucose Levels:Adult <50 mg/dl or >400 mg/dl <40 mg/dl or >180 mg/dl Disposition: 05/31 06:47 Co-signature as Attending Physician, Foster Morris MD I agree with the assessment and padmini plan of care. Disposition: 05/30/18 21:05 Discharged to Home. Impression: Hyperglycemia, unspecified, Candidiasis of other urogenital sites. - Condition is Stable. - Discharge Instructions: Hyperglycemia, Blood Glucose Monitoring, Adult, Genital Yeast Infection, Male. - Prescriptions for Clotrimazole 1 % Topical Cream - Apply to affected area 1 application by TOPICAL route every 12 hours; 15 gram. Diflucan 150 mg Oral Tablet - take 1 tablet by ORAL route one time for 1 day; 1 tablet. Metformin 500 mg Oral Tablet Sustained Release 24 hr - take 1 tablet by ORAL route once daily with evening meal; 20 tablet. - Medication Reconciliation Form, Thank You Letter, Antibiotic Education form. - Follow up: Emergency Department; When: As needed; Reason: Worsening of condition. Follow up: Private Physician; When: 2 - 3 days; Reason: Recheck today's complaints, Continuance of care, Re-evaluation by your physician. - Problem is new. - Symptoms have improved. Signatures: Foster Morris MD MD cha Chretien, Felicia RN JOSE fc Samir Whalen NP [employer] TECHNICIAN pm1 Gardenia Machado RN RN ea Corrections: (The following items were deleted from the chart) 05/30 21:06 21:05 05/30/2018 21:05 Discharged to Home. Impression: Tinea cruris; Hyperglycemia, pm1 unspecified. Condition is Stable. Forms are Medication Reconciliation Form, Thank You Letter, Antibiotic Education, Prescription Opioid Use. Follow up: Emergency Department; When: As needed; Reason: Worsening of condition. Follow up: Private Physician; When: 2 - 3 days; Reason: Recheck today's complaints, Continuance of care, Re-evaluation by your physician. Problem is new. Symptoms have improved. pm1 21:25 21:06 05/30/2018 21:05 Discharged to Home. Impression: Hyperglycemia, unspecified; ea Candidiasis of other urogenital sites. Condition is Stable. Forms are Medication Reconciliation Form, Thank You Letter, Antibiotic Education, Prescription Opioid Use. Follow up: Emergency Department; When: As needed; Reason: Worsening of condition. Follow up: Private Physician; When: 2 - 3 days; Reason: Recheck today's complaints, Continuance of care, Re-evaluation by your physician. Problem is new. Symptoms have improved. pm1
--- NOTE | 2018-05-30 21:05 | ER ---
Nurse's Notes [facility] Name: Nilesh Ordonez Age: 23 yrs Sex: Male : 1995 Arrival Date: 05/30/2018 Time: 19:13 Bed 19 Private MD: Diagnosis: Hyperglycemia, unspecified;Candidiasis of other urogenital sites Presentation: 05/30 19:29 Presenting complaint: Patient states: that he was seen on Sat and dx with jock itch and fc given Nystatin. Today the skin is now burning. Does not burn with urination just when touched. Transition of care: patient was not received from another setting of care. Onset of symptoms was May 24, 2018. Risk Assessment: Do you want to hurt yourself or someone else? Patient reports no desire to harm self or others. Initial Sepsis Screen: Does the patient meet any 2 criteria? HR > 90 bpm. No. Patient's initial sepsis screen is negative. Does the patient have a suspected source of infection? No. Patient's initial sepsis screen is negative. Care prior to arrival: None. 19:29 Method Of Arrival: Ambulatory 19:29 Acuity: IRVIN 5 fc Historical: - Allergies: 19:31 NKA; fc - Home Meds: 19:31 albuterol sulfate 2.5 mg /3 mL (0.083 %) Inhl nebu QID PRN [Active]; ProAir HFA 90 fc mcg/actuation inhalation HFAA 2 puffs [Active]; Singulair 10 mg oral tab 1 tab once daily [Active]; - PMHx: 19:31 Asthma; seasonal allergies; fc - PSHx: 19:31 None; fc - Immunization history:: Last tetanus immunization: up to date Flu vaccine is not up to date. - Social history:: Smoking status: Patient/guardian denies using tobacco, Patient/guardian denies using alcohol, street drugs. - Ebola Screening: : Patient negative for fever greater than or equal to 101.5 degrees Fahrenheit, and additional compatible Ebola Virus Disease symptoms Patient denies exposure to infectious person Patient denies travel to an Ebola-affected area in the 21 days before illness onset. Screenin:32 Abuse screen: Denies threats or abuse. Nutritional screening: No deficits noted. fc Tuberculosis screening: No symptoms or risk factors identified. Fall Risk None identified. Assessment: 19:39 General: Appears in no apparent distress. Behavior is calm, cooperative, appropriate ea for age. Pain: Complains of pain in groin. Neuro: Level of Consciousness is awake, alert, obeys commands, Oriented to person, place, time, situation. Cardiovascular: Reports Patient's skin is warm and dry. Respiratory: Airway is patent Respiratory effort is even, unlabored, Respiratory pattern is regular, symmetrical. GI: No signs and/or symptoms were reported involving the gastrointestinal system. : Reports "redness on penis head". Derm: Skin is pink, warm \\T\\ dry. Reports " I was diagnosed with jock itch but it's on the tip of my penis and it philip". 20:53 Reassessment: Patient and/or family updated on plan of care and expected duration. Pain ea level reassessed. Patient is alert, oriented x 3, equal unlabored respirations, skin warm/dry/pink. 21:23 Reassessment: Patient and/or family updated on plan of care and expected duration. Pain ea level reassessed. Patient is alert, oriented x 3, equal unlabored respirations, skin warm/dry/pink. Discharge instructions given to patient, verbalized the understanding of instruciton. Vital Signs: 19:31 BP 142 / 104; Pulse 104; Resp 20; Temp 97.9(O); Pulse Ox 98% on R/A; Weight 136.08 kg fc (R); Height 5 ft. 11 in. (180.34 cm) (R); Pain 5/10; 20:52 BP 140 / 83; Pulse 89; Resp 18; Pulse Ox 99% ; ea 21:24 BP 138 / 70; Pulse 80; Resp 18; Temp 98; Pulse Ox 98% on R/A; Pain 4/10; ea 19:31 Body Mass Index 41.84 (136.08 kg, 180.34 cm) ED Course: 19:13 Patient arrived in ED. ag3 19:30 Triage completed. fc 19:31 Arm band placed on Patient placed in an exam room, on a stretcher. fc 19:32 Patient has correct armband on for positive identification. Bed in low position. Call light in reach. 19:32 No provider procedures requiring assistance completed. fc 19:38 Gardenia Machado, JOSE is Primary Nurse. ea 19:38 Samir Whalen NP is PHCP. pm1 19:38 Foster Morris MD is Attending Physician. pm1 21:24 Patient did not have IV access during this emergency room visit. ea Administered Medications: No medications were administered Point of Care Testing: Blood Glucose: 20:17 Blood Glucose: 302 mg/dL; ea Ranges: Outcome: 21:05 Discharge ordered by . pm1 21:24 Discharged to home ambulatory, with significant other. ea 21:24 Condition: improved 21:24 Discharge instructions given to patient, Instructed on discharge instructions, follow up and referral plans. medication usage, Demonstrated understanding of instructions, follow-up care, medications, Prescriptions given X 3. 21:25 Patient left the ED. ea Signatures: Charo Louis RN RN fc Marinas, Patrick, NP DIRECTOR [facility] pm1 Gardenia Machado RN RN ea Gomez, Alice ag3
== END 2018-05-30 21:25 | disposition home or self-care (01) ==
LOC: ER 19:12
DX: B37.49 Other urogenital candidiasis (principal); R73.9 Hyperglycemia, unspecified; J45.909 Unspecified asthma, uncomplicated
CPT/HCPCS: 82962; 99282

== ENCOUNTER 2018-08-26 17:35 | Emergency (ER) | payer OTHER ==
--- NOTE | 2018-08-26 18:53 | RAD REPORT ---
EXAM DESCRIPTION: RAD - Chest Pa And Lat (2 Views) - 08/26/2018 6:21 pm CLINICAL HISTORY: COUGH Chest pain. COMPARISON: Chest Pa And Lat (2 Views) dated 05/26/2018; Chest Pa And Lat (2 Views) dated 03/28/2018; Chest Pa And Lat (2 Views) dated 05/27/2017 FINDINGS: Mild ill-defined left retrocardiac lung opacities are noted, suspicious for mild developin g pneumonia. The lungs are otherwise clear. The heart is normal in size. No displaced fractures. IMPRESSION: Mild developing left retrocardiac pneumonia suspected.
--- NOTE | 2018-08-26 19:17 | EDPHYS ---
Physician Documentation [facility] Name: Nilesh Ordonez Age: 23 yrs Sex: Male : 1995 Arrival Date: 08/26/2018 Time: 17:40 Bed 16 Private MD: None, None ED Physician Checo Bliss HPI: 08/26 19:14 This 23 yrs old Male presents to ER via Ambulatory with complaints of Chest snw Congestion, Cough. 19:14 Onset: The symptoms/episode began/occurred suddenly, 1 week(s) ago, and became snw persistent. Associated signs and symptoms: Pertinent positives: congestion, cough, shortness of breath, wheezing. Modifying factors: The patient symptoms are alleviated by nothing. It is unknown whether or not the patient has had similar symptoms in the past. The patient has not recently seen a physician. has nebs and singulair and jeramy and inhalers at home. Historical: - Allergies: 17:46 NKA; aj1 - Home Meds: 17:46 albuterol sulfate 2.5 mg /3 mL (0.083 %) Inhl nebu QID PRN [Active]; Singulair 10 mg aj1 Oral tab 1 tab once daily [Active]; - PMHx: 17:46 Asthma; seasonal allergies; aj1 - Immunization history:: Flu vaccine is up to date. - Social history:: Smoking status: Patient/guardian denies using tobacco. - Ebola Screening: : Patient denies travel to an Ebola-affected area in the 21 days before illness onset. ROS: 19:13 Eyes: Negative for injury, pain, redness, and discharge, ENT: Negative for injury, snw pain, and discharge, Neck: Negative for injury, pain, and swelling, Cardiovascular: Negative for chest pain, palpitations, and edema. 19:13 Abdomen/GI: Negative for abdominal pain, nausea, vomiting, diarrhea, and constipation, Back: Negative for injury and pain, : Negative for injury, bleeding, discharge, and swelling, MS/Extremity: Negative for injury and deformity, Skin: Negative for injury, rash, and discoloration, Neuro: Negative for headache, weakness, numbness, tingling, and seizure. 19:13 Constitutional: Positive for body aches, fatigue, malaise. 19:13 Respiratory: Positive for cough, shortness of breath, wheezing. Exam: 19:07 Head/Face: Normocephalic, atraumatic. Eyes: Pupils equal round and reactive to light, snw extra-ocular motions intact. Lids and lashes normal. Conjunctiva and sclera are non-icteric and not injected. Cornea within normal limits. Periorbital areas with no swelling, redness, or edema. ENT: Nares patent. No nasal discharge, no septal abnormalities noted. Tympanic membranes are erythematous and external auditory canals are clear. Oropharynx with no redness, swelling, or masses, exudates, or evidence of obstruction, uvula midline. Mucous membranes moist. Neck: Trachea midline, no thyromegaly or masses palpated, and no cervical lymphadenopathy. Supple, full range of motion without nuchal rigidity, or vertebral point tenderness. No Meningismus. Chest/axilla: Normal chest wall appearance and motion. Nontender with no deformity. No lesions are appreciated. Cardiovascular: Regular rate and rhythm with a normal S1 and S2. No gallops, murmurs, or rubs. Normal PMI, no JVD. No pulse deficits. 19:07 Abdomen/GI: Soft, non-tender, with normal bowel sounds. No distension or tympany. No guarding or rebound. No evidence of tenderness throughout. Back: No spinal tenderness. No costovertebral tenderness. Full range of motion. Skin: Warm, dry with normal turgor. Normal color with no rashes, no lesions, and no evidence of cellulitis. MS/ Extremity: Pulses equal, no cyanosis. Neurovascular intact. Full, normal range of motion. Neuro: Awake and alert, GCS 15, oriented to person, place, time, and situation. Cranial nerves II-XII grossly intact. Motor strength 5/5 in all extremities. Sensory grossly intact. Cerebellar exam normal. Normal gait. 19:07 Constitutional: The patient appears alert, anxious, obese, uncomfortable, unkempt. 19:07 Respiratory: the patient does not display signs of respiratory distress, Respirations: normal, Breath sounds: bronchial sounds, that are moderate, are heard in the right greater than left, + upper airway congestion. wheezing: bronchitic cough, + wheezing, right middle lobe with rhonchi. Vital Signs: 17:46 BP 133 / 64; Pulse 95; Resp 20; Temp 98.0; Pulse Ox 98% on R/A; Weight 161.03 kg (R); aj1 Height 5 ft. 11 in. (180.34 cm) (R); Pain 10/10; 19:28 BP 126 / 69; Pulse 90; Resp 18; Pulse Ox 100% on Nebulizer Mask; aa1 17:46 Body Mass Index 49.51 (161.03 kg, 180.34 cm) aj MDM: 18:49 Patient medically screened. snw 19:48 Data reviewed: vital signs, nurses notes. Data interpreted: Pulse oximetry: on room air snw is 100 %. Interpretation: normal. 08/26 17:48 Order name: Flu; Complete Time: 19:57 [facility] 08/26 17:48 Order name: Strep; Complete Time: 19:57 [facility] 08/26 17:48 Order name: XRAY Chest Pa And Lat (2 Views); Complete Time: 19:03 [facility] 08/26 19:55 Order name: Throat Culture EDMS Administered Medications: 19:27 Drug: Zithromax 500 mg Route: PO; aa1 20:05 Follow up: Response: No adverse reaction aa1 19:28 Drug: Albuterol - atroVENT (3:1) (2.5 mg - 0.5 mg) 3 ml Route: Nebulizer; aa1 20:05 Follow up: Response: No adverse reaction; Marked relief of symptoms aa1 19:28 Drug: Rocephin (cefTRIAXone) 1 grams Route: IM; Site: left deltoid; aa1 20:05 Follow up: Response: No adverse reaction aa1 Disposition: 08/26/18 19:16 Discharged to Home. Impression: Pneumonia, unspecified organism, Acute suppurative otitis media, Asthma. - Condition is Stable. - Discharge Instructions: Asthma, Adult, Otitis Media, Adult, Fever, Adult, Cool Mist Vaporizer, Cough, Adult, Asthma Attack Prevention, Adult. - Prescriptions for Zithromax 500 mg Oral Tablet - take 1 tablet by ORAL route once daily for 5 days; 5 tablet. Albuterol Sulfate 2.5 mg /3 mL (0.083 %) Inhalation Solution for Nebulization - inhale 1 unit by NEBULIZATION route every 4 hours for 7 days; 1 box. Albuterol Sulfate 90 mcg/actuation - inhale 1-2 puff by INHALATION route every 4-6 hours; 1 Inhaler. - Work release form, Medication Reconciliation Form, Thank You Letter, Antibiotic Education, Prescription Opioid Use form. - Follow up: Private Physician; When: 2 - 3 days; Reason: Recheck today's complaints, Continuance of care, Re-evaluation by your physician. Follow up: Emergency Department; When: As needed; Reason: Worsening of condition. Addendum: 08/31/2018 01:28 Co-signature as Attending Physician, Checo Bliss MD. g s Signatures: Dispatcher [employer] EDAlysha Ortiz RN RN aj1 Mireille Miguel RN RN aa1 Corrine Molina, SCREW MACHINE SET UP OPERATOR TOOL-C SCREW MACHINE SET UP OPERATOR TOOL-Csnw Checo Bliss MD MD Corrections: (The following items were deleted from the chart) 08/26 20:08 19:16 08/26/2018 19:16 Discharged to Home. Impression: Pneumonia, unspecified organism; aa1 Acute suppurative otitis media; Asthma. Condition is Stable. Forms are Medication Reconciliation Form, Thank You Letter, Antibiotic Education, Prescription Opioid Use. Follow up: Private Physician; When: 2 - 3 days; Reason: Recheck today's complaints, Continuance of care, Re-evaluation by your physician. Follow up: Emergency Department; When: As needed; Reason: Worsening of condition. snw
--- NOTE | 2018-08-26 19:17 | ER ---
Nurse's Notes [facility] Name: Nilesh Ordonez Age: 23 yrs Sex: Male : 1995 Arrival Date: 08/26/2018 Time: 17:40 Bed 16 Private MD: None, None Diagnosis: Pneumonia, unspecified organism;Acute suppurative otitis media;Asthma Presentation: 08/26 17:43 Presenting complaint: Patient states: "I've had this cough for about a week and a half aj1 now, its getting worse. I've taken Mucinex and Delsym and nothing helps. My whole body aches." Denies N/V/D. Reports fever at home of 100.4. Transition of care: patient was not received from another setting of care. Onset of symptoms was August 2018. Risk Assessment: Do you want to hurt yourself or someone else? Patient reports no desire to harm self or others. Initial Sepsis Screen: Does the patient meet any 2 criteria? HR > 90 bpm. No. Patient's initial sepsis screen is negative. Does the patient have a suspected source of infection? Yes: Productive cough/pneumonia. Care prior to arrival: None. 17:43 Method Of Arrival: Ambulatory aj1 17:43 Acuity: IRVIN 4 aj1 Triage Assessment: 17:46 General: Appears in no apparent distress. uncomfortable, Behavior is calm, cooperative, aj1 appropriate for age. Pain: Complains of pain in chest, abdomen, right leg and left leg Pain currently is 10 out of 10 on a pain scale. Neuro: Level of Consciousness is awake, alert, obeys commands. Cardiovascular: Patient's skin is warm and dry. Respiratory: Airway is patent Respiratory effort is even, unlabored, Respiratory pattern is regular, symmetrical. Historical: - Allergies: 17:46 NKA; aj1 - Home Meds: 17:46 albuterol sulfate 2.5 mg /3 mL (0.083 %) Inhl nebu QID PRN [Active]; Singulair 10 mg aj1 Oral tab 1 tab once daily [Active]; - PMHx: 17:46 Asthma; seasonal allergies; aj1 - Immunization history:: Flu vaccine is up to date. - Social history:: Smoking status: Patient/guardian denies using tobacco. - Ebola Screening: : Patient denies travel to an Ebola-affected area in the 21 days before illness onset. Screenin:00 Abuse screen: Denies threats or abuse. Nutritional screening: No deficits noted. rb1 Tuberculosis screening: No symptoms or risk factors identified. Fall Risk None identified. Assessment: 18:00 General: Appears in no apparent distress. comfortable, Behavior is calm, cooperative, rb1 Reports fever for feeling ill for. Pain: Complains of pain in generalized bodyaches. Neuro: Level of Consciousness is awake, alert, obeys commands, Oriented to person, place, time, situation. Cardiovascular: Capillary refill < 3 seconds is brisk in bilateral fingers. Respiratory: Reports shortness of breath cough that is productive, Yellow sputum Airway is patent Respiratory effort is even, unlabored, Respiratory pattern is regular, symmetrical. GI: Reports Soft stools. : No signs and/or symptoms were reported regarding the genitourinary system. Derm: Skin is pink, warm \\T\\ dry. Musculoskeletal: Range of motion: intact in all extremities. 18:00 Pain: Pain began 0100 this morning. rb1 19:28 Reassessment: Patient appears in no apparent distress at this time. Patient and/or aa1 family updated on plan of care and expected duration. Pain level reassessed. Patient is alert, oriented x 3, equal unlabored respirations, skin warm/dry/pink. Neb tx initiated. Pt ordered for d/c however flu \\T\\ strep tests have not yet resulted. Will hold d/c until results have posted. 20:06 Reassessment: Patient appears in no apparent distress at this time. Patient is alert, aa1 oriented x 3, equal unlabored respirations, skin warm/dry/pink. Flu \\T\\ strep resulted; ok to d/c at this time. Discussed d/c \\T\\ f/u instructions with pt; denies questions or concerns at this time Patient states feeling better. Vital Signs: 17:46 BP 133 / 64; Pulse 95; Resp 20; Temp 98.0; Pulse Ox 98% on R/A; Weight 161.03 kg (R); aj1 Height 5 ft. 11 in. (180.34 cm) (R); Pain 10/10; 19:28 BP 126 / 69; Pulse 90; Resp 18; Pulse Ox 100% on Nebulizer Mask; aa1 17:46 Body Mass Index 49.51 (161.03 kg, 180.34 cm) aj1 ED Course: 17:40 Patient arrived in ED. sb2 17:40 None, None is Private Physician. sb2 17:46 Triage completed. aj1 17:46 Arm band placed on Patient placed in waiting room, Patient notified of wait time. aj1 18:00 Patient has correct armband on for positive identification. Bed in low position. Call rb1 light in reach. Side rails up X 1. Pulse ox on. NIBP on. 18:02 Corrine Molina FNP-C is PHCP. snw 18:02 Checo Bliss MD is Attending Physician. snw 18:02 Marina Grissom, JOSE is Primary Nurse. rb1 18:19 XRAY Chest Pa And Lat (2 Views) In Process Unspecified. EDMS 18:55 Report given to JOSE Kendrick. rb1 20:06 No provider procedures requiring assistance completed. Patient did not have IV access aa1 during this emergency room visit. Administered Medications: 19:27 Drug: Zithromax 500 mg Route: PO; aa1 20:05 Follow up: Response: No adverse reaction aa1 19:28 Drug: Albuterol - atroVENT (3:1) (2.5 mg - 0.5 mg) 3 ml Route: Nebulizer; aa1 20:05 Follow up: Response: No adverse reaction; Marked relief of symptoms aa1 19:28 Drug: Rocephin (cefTRIAXone) 1 grams Route: IM; Site: left deltoid; aa1 20:05 Follow up: Response: No adverse reaction aa1 Outcome: 19:16 Discharge ordered by MD. snw 20:06 Discharged to home ambulatory, with significant other. aa1 20:06 Condition: good 20:06 Discharge instructions given to patient, significant other, Instructed on discharge instructions, follow up and referral plans. medication usage, Demonstrated understanding of instructions, follow-up care, medications, Prescriptions given X 3. 20:08 Patient left the ED. aa1 Signatures: Dispatcher [employer] EDMS Alysha Orozco RN RN aj1 Mireille Miguel RN RN aa1 Corrine Molina FNP-C INSPECTOR ELEVATORS-Csnw Marina Grissom, RN RN rb1 Paty Ruffin sb2 Corrections: (The following items were deleted from the chart) 19:01 18:00 Respiratory: Reports shortness of breath cough that is Airway is patent rb1 Respiratory effort is even, unlabored, Respiratory pattern is regular, symmetrical, rb1 : 18:00 GI: No signs and/or symptoms were reported involving the gastrointestinal system. rb1 rb1
[2018-08-26] MEDS ORDERED: LIDOCAINE 2% MPF 5 ML VIAL ONE (19:26)
[2018-08-26] MEDS ORDERED: CEFTRIAXONE 1000 MG/VIAL ONE (19:27)
[2018-08-26] MEDS ORDERED: ALBUTEROL 2.5 MG/3 ML NEB SOL ONE (19:27)
[2018-08-26] MEDS ORDERED: AZITHROMYCIN 250 MG TAB ONE (19:27)
[2018-08-26] MEDS ORDERED: IPRATROPIUM BROM 0.5MG/2.5ML ONE (19:27)
== END 2018-08-26 20:08 | disposition home or self-care (01) ==
LOC: ER 17:35
DX: J18.9 Pneumonia, unspecified organism (principal); H66.009 Acute suppurative otitis media without spontaneous rupture of ear drum, unspecified ear; J45.909 Unspecified asthma, uncomplicated; J30.2 Other seasonal allergic rhinitis
CPT/HCPCS: 71046; 87070; 87081; 87804; 94640; 96372; 99284

== ENCOUNTER 2018-11-23 12:46 | Emergency (ER) | payer OTHER ==
[2018-11-23] MEDS ORDERED: NA CHLORIDE 0.9% 0 ML ONE (14:09)
--- NOTE | 2018-11-23 14:19 | EDPHYS ---
Physician Documentation [facility] Name: Nilesh Ordonez Age: 23 yrs Sex: Male : 1995 Arrival Date: 11/23/2018 Time: 12:50 Bed 20 Private MD: None, None ED Physician Poncho Calderón HPI: 11/23 13:37 This 23 yrs old Male presents to ER via Ambulatory with complaints of Penile jmm Problem. 13:37 Onset: The symptoms/episode began/occurred gradually, 3 day(s) ago. Modifying factors: jmm The symptoms are alleviated by nothing, the symptoms are aggravated by nothing. This is a 23 year old male with a history hyperglycemia that presents to the ED with complaints of penile irritation. Patient states he applied nystatin from a previous infection with little relief. Patient denies fever. Denies abdominal pain. Denies dysuria. . Historical: - Allergies: 12:56 NKA; sg - Home Meds: 12:56 albuterol sulfate 2.5 mg /3 mL (0.083 %) Inhl nebu QID PRN [Active]; Singulair 10 mg sg Oral tab 1 tab once daily [Active]; Caitlyn Oral [Active]; - PMHx: 12:56 Asthma; seasonal allergies; sg - PSHx: 12:56 None; sg - Immunization history:: Adult Immunizations. - Social history:: Smoking status: Patient/guardian denies using tobacco. - Ebola Screening: : Patient negative for fever greater than or equal to 101.5 degrees Fahrenheit, and additional compatible Ebola Virus Disease symptoms Patient denies exposure to infectious person Patient denies travel to an Ebola-affected area in the 21 days before illness onset No symptoms or risks identified at this time. ROS: 13:37 Constitutional: Negative for fever, chills, and weight loss, Cardiovascular: Negative jmm for chest pain, palpitations, and edema, Respiratory: Negative for shortness of breath, cough, wheezing, and pleuritic chest pain. 13:37 : Positive for penile pain. 13:37 All other systems are negative. Exam: 13:37 Constitutional: This is a well developed, well nourished patient who is awake, alert, jmm and in no acute distress. Head/Face: atraumatic. Eyes: EOMI, no conjunctival erythema appreciated ENT: Moist Mucus Membranes Neck: Trachea midline, Supple Chest/axilla: Normal chest wall appearance and motion. Cardiovascular: Regular rate and rhythm. No edema appreciated Respiratory: Normal respirations, no respiratory distress appreciated Abdomen/GI: Non distended, soft 13:37 Skin: erythema noted to the glans, penis is retractable. 13:37 Neuro: Orientation: is normal, Mentation: is normal, Memory: is normal, Gait: is steady. 13:37 Psych: Behavior/mood is pleasant, cooperative. Vital Signs: 12:53 BP 127 / 79; Pulse 87; Resp 17; Temp 99.0; Pulse Ox 100% ; Weight 111.13 kg; Height 5 sg ft. 10 in. (177.80 cm); Pain 0/10; 12:53 Body Mass Index 35.15 (111.13 kg, 177.80 cm) sg MDM: 13:37 Patient medically screened. [facility] 14:17 Data reviewed: vital signs, nurses notes. Counseling: I had a detailed discussion with [facility] the patient and/or guardian regarding: the historical points, exam findings, and any diagnostic results supporting the discharge/admit diagnosis, the need for outpatient follow up, to return to the emergency department if symptoms worsen or persist or if there are any questions or concerns that arise at home. 14:26 ED course: Patient is alert and non toxic in appearance in the ED. patient is advised [facility] to follow up with pcp for reevaluation of blood glucose. patient is otherwise given strict return precautions. patient understood and agrees with the plan of care. . 11/23 14:08 Order name: Finger Stick; Complete Time: 14:19 [facility] Administered Medications: 14:19 Not Given (Patient Refused): NS 0.9% 1000 ml IV at 1 bolus Per protocol; 1000 mL bolus em 14:26 Drug: DiFLUcan 150 mg Route: PO; em 14:26 Follow up: Response: Medication administered at discharge. em Point of Care Testing: Blood Glucose: 14:15 Blood Glucose: 177 mg/dL; em Ranges: Critical Glucose Levels:Adult <50 mg/dl or >400 mg/dl <40 mg/dl or >180 mg/dl Disposition: 11/23/18 14:19 Discharged to Home. Impression: Candidiasis. - Condition is Stable. - Prescriptions for nystatin 100,000 unit/gram Topical ointment - apply 1 application by TOPICAL route 3 times per day; 1 Container. - Medication Reconciliation Form, Thank You Letter, Antibiotic Education, Prescription Opioid Use form. - Follow up: Private Physician; When: 2 - 3 days; Reason: Recheck today's complaints, Continuance of care, Re-evaluation by your physician. - Notes: Please follow up with your primary care provider in 1 to 2 days for reevaluation. Please return to the ED if you develop increased swelling, fever, or any other concerning conditions. Addendum: 11/26/2018 08:18 Co-signature as Attending Physician, Poncho Calderón MD I agree with the assessment and k dr plan of care. Signatures: Dispatcher [employer] EDBarrie Crowe RN RN Poncho Mason MD MD kdr Mickail, Joel, PA PA [facility] Ozzie Jasso, VICE PRESIDENT OF OPERATIONS VICE PRESIDENT OF OPERATIONS em Corrections: (The following items were deleted from the chart) 11/23 14:19 13:37 Urine Dipstick-Ancillary ordered. [facility] em 14:20 13:38 COMPREHENSIVE METABOLIC PANEL+C.LAB.BRZ ordered. [facility] EDMS 14:20 13:38 CBC+H.LAB.BRZ ordered. [facility] EDMS 14:30 14:19 11/23/2018 14:19 Discharged to Home. Impression: Candidiasis. Condition is em Stable. Forms are Medication Reconciliation Form, Thank You Letter, Antibiotic Education, Prescription Opioid Use. Follow up: Private Physician; When: 2 - 3 days; Reason: Recheck today's complaints, Continuance of care, Re-evaluation by your physician. [facility]
--- NOTE | 2018-11-23 14:19 | ER ---
Nurse's Notes [facility] Name: Nilesh Ordonez Age: 23 yrs Sex: Male : 1995 Arrival Date: 11/23/2018 Time: 12:50 Bed 20 Private MD: None, None Diagnosis: Candidiasis Presentation: 11/23 12:54 Presenting complaint: Patient states: I had some peeling around the head of my penis, sg and itching. I think it might be a yeast infection. My was seen and recently started on a pill to treat yeast infections, but mine hasnt really gotten any better. denies N/V/D/fever, reports applying hydrocortisone cream to the area. Transition of care: patient was not received from another setting of care. Onset of symptoms was November 23, 2018. Risk Assessment: Do you want to hurt yourself or someone else? Patient reports no desire to harm self or others. Initial Sepsis Screen: Does the patient meet any 2 criteria? No. Patient's initial sepsis screen is negative. Does the patient have a suspected source of infection? No. Patient's initial sepsis screen is negative. Care prior to arrival: None. 12:54 Method Of Arrival: Ambulatory sg 12:54 Acuity: IRVIN 4 sg Historical: - Allergies: 12:56 NKA; sg - Home Meds: 12:56 albuterol sulfate 2.5 mg /3 mL (0.083 %) Inhl nebu QID PRN [Active]; Singulair 10 mg sg Oral tab 1 tab once daily [Active]; Caitlyn Oral [Active]; - PMHx: 12:56 Asthma; seasonal allergies; sg - PSHx: 12:56 None; sg - Immunization history:: Adult Immunizations. - Social history:: Smoking status: Patient/guardian denies using tobacco. - Ebola Screening: : Patient negative for fever greater than or equal to 101.5 degrees Fahrenheit, and additional compatible Ebola Virus Disease symptoms Patient denies exposure to infectious person Patient denies travel to an Ebola-affected area in the 21 days before illness onset No symptoms or risks identified at this time. Screenin:24 Abuse screen: Denies threats or abuse. Nutritional screening: No deficits noted. em Tuberculosis screening: No symptoms or risk factors identified. Fall Risk None identified. Assessment: 13:24 General: Appears in no apparent distress. comfortable, Behavior is calm, cooperative, em Denies fever. Pain: Denies pain. Neuro: Level of Consciousness is awake, alert, obeys commands, Oriented to person, place, time, situation. Cardiovascular: Capillary refill < 3 seconds Patient's skin is warm and dry. Respiratory: Airway is patent Respiratory effort is even, unlabored, Respiratory pattern is regular, symmetrical. : Reports itchiness on penis, request that only the provider inspect region Denies burning with urination, discharge, urinary frequency. Derm: Skin is intact, is healthy with good turgor, Skin is pink, warm \T\ dry. Musculoskeletal: Circulation, motion, and sensation intact. Capillary refill < 3 seconds, Range of motion: intact in all extremities. 13:50 Reassessment: Patient appears in no apparent distress at this time. I agree with above iw assessment by Ozzie Jasso LVN. 14:00 Reassessment: pt currently refuses IV and labs, only wants a finger stick and to be em given a pill, provider notified, new medication orders received. Vital Signs: 12:53 BP 127 / 79; Pulse 87; Resp 17; Temp 99.0; Pulse Ox 100% ; Weight 111.13 kg; Height 5 sg ft. 10 in. (177.80 cm); Pain 0/10; 12:53 Body Mass Index 35.15 (111.13 kg, 177.80 cm) ED Course: 12:50 Patient arrived in ED. mr 12:50 None, None is Private Physician. mr 12:55 Triage completed. sg 12:57 Arm band placed on. sg 13:15 Ozzie Jasso LVN is Primary Nurse. em 13:24 Patient has correct armband on for positive identification. Placed in gown. Bed in low em position. Call light in reach. Adult w/ patient. 13:30 Rene Aguayo PA is PHCP. [facility] 13:30 Poncho Calderón MD is Attending Physician. [facility] 14:29 No provider procedures requiring assistance completed. Patient did not have IV access em during this emergency room visit. Administered Medications: 14:19 Not Given (Patient Refused): NS 0.9% 1000 ml IV at 1 bolus Per protocol; 1000 mL bolus em 14:26 Drug: DiFLUcan 150 mg Route: PO; em 14:26 Follow up: Response: Medication administered at discharge. em Point of Care Testing: Blood Glucose: 14:15 Blood Glucose: 177 mg/dL; em Ranges: Outcome: 14:19 Discharge ordered by . [facility] 14:29 Discharged to home ambulatory, with family. em 14:29 Condition: good 14:29 Discharge instructions given to patient, Instructed on discharge instructions, follow up and referral plans. medication usage, Demonstrated understanding of instructions, follow-up care, medications, Prescriptions given X 1. 14:30 Patient left the ED. em Signatures: Barrie Betts, RN RN sg Rene Aguayo PA PA jmm Rivera, Mary mr Ozzie Jasso, BUILDINGS AND GROUNDS SUPERINTENDENT BUILDINGS AND GROUNDS SUPERINTENDENT em Dolores Larose, RN RN iw
[2018-11-23] MEDS ORDERED: FLUCONAZOLE 100 MG TAB ONE (14:30)
== END 2018-11-23 14:30 | disposition home or self-care (01) ==
LOC: ER 12:46
DX: B37.9 Candidiasis, unspecified (principal); J45.909 Unspecified asthma, uncomplicated; J30.2 Other seasonal allergic rhinitis
CPT/HCPCS: 82962; 99283; J7030

== ENCOUNTER 2018-12-19 20:38 | Emergency (ER) | payer OTHER ==
--- NOTE | 2018-12-19 22:39 | EDPHYS ---
Physician Documentation [facility] Name: Nilesh Ordonez Age: 23 yrs Sex: Male : 1995 Arrival Date: 12/19/2018 Time: 20:44 Bed 11 Private MD: ED Physician Checo Bliss HPI: 12/20 01:16 This 23 yrs old Male presents to ER via Ambulatory with complaints of Cough, kb Fever, Chest Pain. 01:16 The patient or guardian reports cough, that is intermittent, described as moderate, kb with no sputum. Onset: The symptoms/episode began/occurred 5 day(s) ago. Severity of symptoms: At their worst the symptoms were moderate, in the emergency department the symptoms are unchanged. Modifying factors: The symptoms are alleviated by nothing, the symptoms are aggravated by nothing. Associated signs and symptoms: Pertinent positives: fever, rhinorrhea, sore throat, Pertinent negatives: chest pain, diarrhea, ear ache, nausea, vomiting. The patient has not experienced similar symptoms in the past. The patient has not recently seen a physician. Historical: - Allergies: 12/19 21:00 NKA; aj1 - Home Meds: 21:00 Caitlyn Oral [Active]; albuterol sulfate 2.5 mg /3 mL (0.083 %) Inhl nebu QID PRN aj1 [Active]; Singulair 10 mg Oral tab 1 tab once daily [Active]; - PMHx: 21:00 Asthma; seasonal allergies; aj1 - PSHx: 21:00 None; aj1 - Immunization history:: Flu vaccine is not up to date. - Social history:: Smoking status: Patient/guardian denies using tobacco. - Ebola Screening: : Patient denies travel to an Ebola-affected area in the 21 days before illness onset. ROS: 12/20 01:16 ENT: Negative for injury, pain, and discharge, Neck: Negative for injury, pain, and kb swelling, Cardiovascular: Negative for chest pain, palpitations, and edema, Abdomen/GI: Negative for abdominal pain, nausea, vomiting, diarrhea, and constipation, Back: Negative for injury and pain, MS/Extremity: Negative for injury and deformity, Skin: Negative for injury, rash, and discoloration, Neuro: Negative for headache, weakness, numbness, tingling, and seizure. Constitutional: Positive for body aches, chills, fatigue, fever, malaise, Negative for poor PO intake, weight loss. Respiratory: Positive for cough, Negative for dyspnea on exertion, hemoptysis, orthopnea, pleurisy, shortness of breath, sputum production, wheezing. Exam: 01:15 Constitutional: This is a well developed, well nourished patient who is awake, alert, kb and in no acute distress. Head/Face: Normocephalic, atraumatic. Chest/axilla: Normal chest wall appearance and motion. Nontender with no deformity. No lesions are appreciated. Cardiovascular: Regular rate and rhythm with a normal S1 and S2. No gallops, murmurs, or rubs. Normal PMI, no JVD. No pulse deficits. Abdomen/GI: Soft, non-tender, with normal bowel sounds. No distension or tympany. No guarding or rebound. No evidence of tenderness throughout. Back: No spinal tenderness. No costovertebral tenderness. Full range of motion. Skin: Warm, dry with normal turgor. Normal color with no rashes, no lesions, and no evidence of cellulitis. MS/ Extremity: Pulses equal, no cyanosis. Neurovascular intact. Full, normal range of motion. Neuro: Awake and alert, GCS 15, oriented to person, place, time, and situation. Cranial nerves II-XII grossly intact. Motor strength 5/5 in all extremities. Sensory grossly intact. Cerebellar exam normal. Normal gait. 01:15 Respiratory: the patient does not display signs of respiratory distress, Respirations: normal, Breath sounds: wheezing: expiratory that is mild, is heard in the right posterior upper lobe, clears after cough. Vital Signs: 12/19 21:00 BP 146 / 78; Pulse 94; Resp 20; Temp 98.6; Pulse Ox 96% on R/A; Weight 149.69 kg (R); aj1 Height 5 ft. 11 in. (180.34 cm) (R); Pain 7/10; 21:55 BP 133 / 64; Pulse 90; Resp 21; Temp 100; Pulse Ox 96% on R/A; de 21:00 Body Mass Index 46.03 (149.69 kg, 180.34 cm) aj1 MDM: 21:46 Patient medically screened. kb 22:14 Data reviewed: vital signs, nurses notes. Data interpreted: Pulse oximetry: on room air kb is 96 %. Interpretation: normal. Counseling: I had a detailed discussion with the patient and/or guardian regarding: the historical points, exam findings, and any diagnostic results supporting the discharge/admit diagnosis, lab results, radiology results, the need for outpatient follow up, a family practitioner, to return to the emergency department if symptoms worsen or persist or if there are any questions or concerns that arise at home. 22:39 ED course: Pt is upset because he wants antibiotics. Pt educated that his symptoms do kb not indicate a bacterial infection and antibiotics are not indicated for viral illnesses. Daughter being seen as well and positive for flu B. 12/20 01:17 ED course: two children at home were recently diagnosed with flu. kb 12/19 21:02 Order name: Flu; Complete Time: 21:38 aj 12/19 21:02 Order name: Strep; Complete Time: 21:38 aj 12/19 21:02 Order name: Chest Pa And Lat (2 Views) XRAY [facility] 12/19 21:36 Order name: Throat Culture [facility] 12/19 21:02 Order name: EKG - Nurse/Tech; Complete Time: 21:02 Administered Medications: 12/19 22:43 Not Given (Patient Refused): Albuterol 2.5 mg Inhalation once de 22:43 Not Given (Patient Refused): AtroVENT Aerosol 0.5 mg Inhalation once de Disposition: 12/20 02:10 Co-signature as Attending Physician, Checo Bliss MD. Disposition: 12/19/18 22:38 Discharged to Home. Impression: Bronchitis, not specified as acute or chronic. - Condition is Stable. - Discharge Instructions: Acute Bronchitis, [id number], Viral Respiratory Infection, [id number]. - Prescriptions for Tessalon Perles 100 mg Oral Capsule - take 1 capsule by ORAL route every 8 hours As needed; 15 capsule. - Medication Reconciliation Form, Thank You Letter, Antibiotic Education, Prescription Opioid Use form. - Follow up: Emergency Department; When: As needed; Reason: Worsening of condition. Follow up: Private Physician; When: 2 - 3 days; Reason: Recheck today's complaints, Continuance of care, Re-evaluation by your physician. Signatures: Dispatcher [employer] [facility] Cayla Herring FNP-C FNP-CkAlysha Mace, RN RN aj1 Erin Lyles RN RN bb Checo Bliss MD MD gs Espinosa, Donnalyn RN de Corrections: (The following items were deleted from the chart) 12/19 22:48 22:38 12/19/2018 22:38 Discharged to Home. Impression: Bronchitis, not specified as bb acute or chronic. Condition is Stable. Forms are Medication Reconciliation Form, Thank You Letter, Antibiotic Education, Prescription Opioid Use. Follow up: Emergency Department; When: As needed; Reason: Worsening of condition. Follow up: Private Physician; When: 2 - 3 days; Reason: Recheck today's complaints, Continuance of care, Re-evaluation by your physician. kb
--- NOTE | 2018-12-19 22:39 | ER ---
Nurse's Notes [facility] Name: Nilesh Ordonez Age: 23 yrs Sex: Male : 1995 Arrival Date: 12/19/2018 Time: 20:44 Bed 11 Private MD: Diagnosis: Bronchitis, not specified as acute or chronic Presentation: 12/19 20:56 Presenting complaint: Patient states: "I've been having a real bad cough and every time aj1 I cough I get chest pain, and I can't eat that much, I had some Mac and Cheese but that was it. I've been coughing up a lot of phlegm." Patient also reports fever, TMax of 101. Patient reports that he took Tylenol at 1400 today. States that he took a breathing treatment an hour ago. Breath sounds CTA. Transition of care: patient was not received from another setting of care. Onset of symptoms was December 16, 2018. Risk Assessment: Do you want to hurt yourself or someone else? Patient reports no desire to harm self or others. Initial Sepsis Screen: Does the patient meet any 2 criteria? HR > 90 bpm. No. Patient's initial sepsis screen is negative. Does the patient have a suspected source of infection? Yes: Productive cough/pneumonia. Care prior to arrival: None. 20:56 Method Of Arrival: Ambulatory aj1 20:56 Acuity: IRVIN 4 aj1 Triage Assessment: 21:00 General: Appears in no apparent distress. comfortable, Behavior is calm, cooperative, aj1 appropriate for age. Pain: Complains of pain in chest. Neuro: Level of Consciousness is awake, alert, obeys commands. Cardiovascular: Reports chest pain, with coughing Patient's skin is warm and dry. Respiratory: Reports cough that is productive, Airway is patent Respiratory effort is even, unlabored, Respiratory pattern is regular, symmetrical, Breath sounds are clear bilaterally. Historical: - Allergies: 21:00 NKA; aj1 - Home Meds: 21:00 Caitlyn Oral [Active]; albuterol sulfate 2.5 mg /3 mL (0.083 %) Inhl nebu QID PRN aj1 [Active]; Singulair 10 mg Oral tab 1 tab once daily [Active]; - PMHx: 21:00 Asthma; seasonal allergies; aj1 - PSHx: 21:00 None; aj1 - Immunization history:: Flu vaccine is not up to date. - Social history:: Smoking status: Patient/guardian denies using tobacco. - Ebola Screening: : Patient denies travel to an Ebola-affected area in the 21 days before illness onset. Screenin:41 Abuse screen: Denies threats or abuse. Nutritional screening: No deficits noted. de Tuberculosis screening: No symptoms or risk factors identified. Fall Risk None identified. Assessment: 22:04 General: Appears uncomfortable, obese, Behavior is calm, cooperative, Reports chills de for fever for feeling ill for Denies. Pain: Complains of pain in chest Pain does not radiate. Pain currently is 6 out of 10 on a pain scale. Quality of pain is described as squeezing, Pain began Is intermittent, Aggravated by cough. Pain:. Neuro: No deficits noted. Cardiovascular: Chest pain is described as quality is tightness is aggravated by coughing. Respiratory: Reports cough that is productive, whitish secretion. 22:45 Reassessment: Patient is alert, oriented x 3, equal unlabored respirations, skin bb warm/dry/pink. pt angry states he wants to leave states provider refused to give him antibiotics and he will go some where else. Offered pt to be seen by another provider here and pt stated no he wants to leave. Cayla Herring GRINDER DRESSER notified pt discharged. Vital Signs: 21:00 BP 146 / 78; Pulse 94; Resp 20; Temp 98.6; Pulse Ox 96% on R/A; Weight 149.69 kg (R); aj1 Height 5 ft. 11 in. (180.34 cm) (R); Pain 7/10; 21:55 BP 133 / 64; Pulse 90; Resp 21; Temp 100; Pulse Ox 96% on R/A; de 21:00 Body Mass Index 46.03 (149.69 kg, 180.34 cm) aj1 ED Course: 20:44 Patient arrived in ED. es 20:59 Triage completed. aj1 21:00 Arm band placed on Patient placed in waiting room. EKG completed in triage. Results aj1 shown to MD. 21:31 Chest Pa And Lat (2 Views) XRAY In Process Unspecified. EDMS 21:32 X-ray completed. Patient tolerated procedure well. Patient moved back from radiology. ls3 21:32 Cayla Herring FNP-C is [facility]. kb 21:32 Checo Bliss MD is Attending Physician. kb 22:01 Misael Best, RN is Primary Nurse. de 22:41 Patient has correct armband on for positive identification. Pulse ox on. de 22:41 No provider procedures requiring assistance completed. Patient did not have IV access de during this emergency room visit. Patient maintains SpO2 saturation greater than 95% on room air. Administered Medications: 22:43 Not Given (Patient Refused): Albuterol 2.5 mg Inhalation once de 22:43 Not Given (Patient Refused): AtroVENT Aerosol 0.5 mg Inhalation once de Outcome: 22:38 Discharge ordered by . kb 22:47 Discharged to home ambulatory, with family. bb 22:47 Condition: stable 22:47 Discharge instructions given to patient, Instructed on discharge instructions, follow up and referral plans. medication usage, Demonstrated understanding of instructions, follow-up care, medications, Prescriptions given X 1. 22:48 Patient left the ED. bb Signatures: Dispatcher [employer] [facility] Cayla Herring FNP-C FNP-CkAlysha Mace, RN RN aj1 Deedee Hunter Brenda RN RN Misael Cardenas, RN Valeria Burnett ls3
[2018-12-19] MEDS ORDERED: IPRATROPIUM BROM 0.5MG/2.5ML ONE (22:47)
[2018-12-19] MEDS ORDERED: ALBUTEROL 2.5 MG/3 ML NEB SOL ONE (22:47)
--- NOTE | 2018-12-20 06:39 | RAD REPORT ---
EXAM DESCRIPTION: RAD - Chest Pa And Lat (2 Views) - 12/19/2018 9:33 pm CLINICAL HISTORY: Chest pain, cough, fever COMPARISON: August 2018, May 2018 TECHNIQUE: PA and lateral views of the chest were obtained. FINDINGS: The lungs are clear. Heart size is normal and central vasculature is within normal limit s. No pleural effusion or pneumothorax seen. No acute bony finding noted. No aortic abnormality. No significant change from comparison. IMPRESSION: No acute cardiopulmonary process.
--- NOTE | 2018-12-20 08:34 | EKG ---
Test Date: 2018-12-19 Test Time: 21:06:24 Museum Archivist: JEWELL MEASUREMENT RESULTS: Intervals: Rate: 90 [place]: 146 QRSD: 88 QT: 344 QTc: 420 [place]: P: 40 [place]: 146 QRS: 44 T: 32 INTERPRETIVE STATEMENTS: Normal sinus rhythm Low voltage QRS Borderline ECG No previous ECG available for comparison Electronically Signed On 12-20-18 08:33:50 CDT by Julito Gage
== END 2018-12-19 22:48 | disposition home or self-care (01) ==
LOC: ER 20:38
DX: J40 Bronchitis, not specified as acute or chronic (principal)
CPT/HCPCS: 71046; 87070; 87081; 87804; 93005; 99284

== ENCOUNTER 2019-02-21 07:18 | Emergency (ER) | payer OTHER, SELFPAY ==
--- OUTSIDE RECORDS SUMMARY | 2019-02-21 07:21 | XMS REPORT ---
:1995 [facility] Address [address] [place] [address] Care Team Providers Name Role Phone Unavailable Unavailable Unavailable Problems This patient has no known problems. Allergies, Adverse Reactions, Alerts This patient has no known allergies or adverse reactions. Medications This patient has no known medications.
--- NOTE | 2019-02-21 08:16 | EDPHYS ---
Physician Documentation [facility] Name: Nilesh Ordonez Age: 23 yrs Sex: Male : 1995 Arrival Date: 02/21/2019 Time: 07:21 Bed 13 Private MD: ED Physician Poncho Calderón HPI: 02/21 08:09 This 23 yrs old Male presents to ER via Ambulatory with complaints of snw Vomiting/Diarrhea, Rash. 08:09 The patient presents to the emergency department with nausea, vomiting, diarrhea, + snw heat rash. Onset: The symptoms/episode began/occurred suddenly, 4 day(s) ago, and improved pt states he needs note to return to work. Possible causes: stomach virus or heat exhaustion. Associated signs and symptoms: Pertinent positives: diarrhea, nausea, vomiting, abdominal cramps and heat rash. It is unknown whether or not the patient has had similar symptoms in the past. The patient has not recently seen a physician. pt requests work note. Historical: - Allergies: 07:41 NKA; ph - Home Meds: 07:41 albuterol sulfate 2.5 mg /3 mL (0.083 %) Inhl nebu QID PRN [Active]; Caitlyn Oral ph [Active]; Singulair 10 mg Oral tab 1 tab once daily [Active]; - PMHx: 07:41 Asthma; seasonal allergies; ph - PSHx: 07:41 None; ph - Immunization history:: Adult Immunizations unknown. - Social history:: Smoking status: Patient/guardian denies using tobacco. - Ebola Screening: : No symptoms or risks identified at this time. ROS: 08:09 Constitutional: Negative for fever, chills, and weight loss, Eyes: Negative for injury, snw pain, redness, and discharge, ENT: Negative for injury, pain, and discharge, Neck: Negative for injury, pain, and swelling, Cardiovascular: Negative for chest pain, palpitations, and edema, Respiratory: Negative for shortness of breath, cough, wheezing, and pleuritic chest pain, Abdomen/GI: Positive for abdominal pain, nausea, vomiting, diarrhea, this week, needs a return to work note. denies constipation, Back: Negative for injury and pain, : Negative for injury, bleeding, discharge, and swelling, MS/Extremity: Negative for injury and deformity, Neuro: Negative for headache, weakness, numbness, tingling, and seizure. 08:09 Skin: Positive for "heat rash". snw Exam: 08:08 Constitutional: This is a well developed, well nourished patient who is awake, alert, snw and in no acute distress. Head/Face: Normocephalic, atraumatic. Eyes: Pupils equal round and reactive to light, extra-ocular motions intact. Lids and lashes normal. Conjunctiva and sclera are non-icteric and not injected. Cornea within normal limits. Periorbital areas with no swelling, redness, or edema. ENT: Nares patent. No nasal discharge, no septal abnormalities noted. Tympanic membranes are normal and external auditory canals are clear. Oropharynx with no redness, swelling, or masses, exudates, or evidence of obstruction, uvula midline. Mucous membranes moist. Neck: Trachea midline, no thyromegaly or masses palpated, and no cervical lymphadenopathy. Supple, full range of motion without nuchal rigidity, or vertebral point tenderness. No Meningismus. Chest/axilla: Normal chest wall appearance and motion. Nontender with no deformity. No lesions are appreciated. Cardiovascular: Regular rate and rhythm with a normal S1 and S2. No gallops, murmurs, or rubs. Normal PMI, no JVD. No pulse deficits. Respiratory: Lungs have equal breath sounds bilaterally, clear to auscultation and percussion. No rales, rhonchi or wheezes noted. No increased work of breathing, no retractions or nasal flaring. Abdomen/GI: Soft, non-tender, with normal bowel sounds. No distension or tympany. No guarding or rebound. No evidence of tenderness throughout. Back: No spinal tenderness. No costovertebral tenderness. Full range of motion. MS/ Extremity: Pulses equal, no cyanosis. Neurovascular intact. Full, normal range of motion. Neuro: Awake and alert, GCS 15, oriented to person, place, time, and situation. Cranial nerves II-XII grossly intact. Motor strength 5/5 in all extremities. Sensory grossly intact. Cerebellar exam normal. Normal gait. Psych: Awake, alert, with orientation to person, place and time. Behavior, mood, and affect are within normal limits. 08:08 Skin: Appearance: normal except for affected area, heat rash, and is diffusely located. Vital Signs: 07:39 BP 115 / 89; Pulse 74; Resp 18; Temp 97.5; Pulse Ox 96% on R/A; Weight 151.95 kg; ph Height 5 ft. 11 in. (180.34 cm); 08:30 BP 123 / 78; Pulse 72; Resp 18; Temp 98.0; Pulse Ox 97% on R/A; ph 07:39 Body Mass Index 46.72 (151.95 kg, 180.34 cm) ph MDM: 07:36 Patient medically screened. snw 08:12 Data reviewed: vital signs, nurses notes. Data interpreted: Pulse oximetry: on room air snw is 96 %. Interpretation: acceptable. Counseling: I had a detailed discussion with the patient and/or guardian regarding: the historical points, exam findings, and any diagnostic results supporting the discharge/admit diagnosis, the need for outpatient follow up, to return to the emergency department if symptoms worsen or persist or if there are any questions or concerns that arise at home. Special discussion: I have referred the patient to see his PCP for further evaluation of high blood pressure. Based on the history and exam findings, there is no indication for further emergent testing or inpatient evaluation. I discussed with the patient/guardian the need to see the primary care provider for further evaluation of the symptoms. ED course: pt with hx of asthma, allergies, eczema. Thinks he has heat rash from working outdoors. Suggested increased hydration and spray on antiperspirant to minimize rash. Administered Medications: No medications were administered Disposition: 08:35 Co-signature as Attending Physician, Poncho Calderón MD I agree with the assessment and kdr plan of care. Disposition: 02/21/19 08:15 Discharged to Home. Impression: Nausea and vomiting, Diarrhea, unspecified, Rash and other nonspecific skin eruption. - Condition is Stable. - Discharge Instructions: Allergies, Adult, Food Choices to Help Relieve Diarrhea, Adult, Diarrhea, Adult, Hypertension, Nausea and Vomiting, Adult, Rash, Hyperhidrosis, Rehydration, Adult. - Prescriptions for Zofran 4 mg Oral Tablet - take 1 tablet by ORAL route every 12 hours As needed; 20 tablet. - Work release form, Medication Reconciliation Form, Thank You Letter, Antibiotic Education, Prescription Opioid Use form. - Follow up: Private Physician; When: 2 - 3 days; Reason: Recheck today's complaints, Continuance of care, Re-evaluation by your physician. Follow up: Emergency Department; When: As needed; Reason: Worsening of condition. Signatures: Poncho Calderón MD MD kdr Corrine Molina, CHINESE INSTRUCTOR-C CHINESE INSTRUCTOR-Csnw Gracy Weaver RN RN ph Corrections: (The following items were deleted from the chart) 08:10 08:09 Constitutional: Negative for fever, chills, and weight loss, Eyes: Negative for snw injury, pain, redness, and discharge, ENT: Negative for injury, pain, and discharge, Neck: Negative for injury, pain, and swelling, Cardiovascular: Negative for chest pain, palpitations, and edema, Respiratory: Negative for shortness of breath, cough, wheezing, and pleuritic chest pain, Abdomen/GI: Positive for abdominal pain, nausea, vomiting, diarrhea, this week, needs a return to work note. denies constipation, Back: Negative for injury and pain, : Negative for injury, bleeding, discharge, and swelling, MS/Extremity: Negative for injury and deformity, Neuro: Negative for headache, weakness, numbness, tingling, and seizure, snw 08:35 08:15 02/21/2019 08:15 Discharged to Home. Impression: Nausea and vomiting; Diarrhea, ph unspecified; Rash and other nonspecific skin eruption. Condition is Stable. Forms are Medication Reconciliation Form, Thank You Letter, Antibiotic Education, Prescription Opioid Use. Follow up: Private Physician; When: 2 - 3 days; Reason: Recheck today's complaints, Continuance of care, Re-evaluation by your physician. Follow up: Emergency Department; When: As needed; Reason: Worsening of condition. snw
--- NOTE | 2019-02-21 08:16 | ER ---
Nurse's Notes [facility] Name: Nilesh Ordonez Age: 23 yrs Sex: Male : 1995 Arrival Date: 02/21/2019 Time: 07:21 Bed 13 Private MD: Diagnosis: Nausea and vomiting;Diarrhea, unspecified;Rash and other nonspecific skin eruption Presentation: 02/21 07:34 Presenting complaint: Patient states: Sent home from work 3 days ago for N/V/D and rash ph to entire body, denies abdominal pain or fever, states, " I haven't thrown up in about 24 hours.". Transition of care: patient was not received from another setting of care. Onset of symptoms was February 21, 2019. Risk Assessment: Do you want to hurt yourself or someone else? Patient reports no desire to harm self or others. Initial Sepsis Screen: Does the patient meet any 2 criteria? No. Patient's initial sepsis screen is negative. Does the patient have a suspected source of infection? No. Patient's initial sepsis screen is negative. Care prior to arrival: None. 07:34 Method Of Arrival: Ambulatory ph 07:34 Acuity: IRVIN 3 ph Historical: - Allergies: 07:41 NKA; ph - Home Meds: 07:41 albuterol sulfate 2.5 mg /3 mL (0.083 %) Inhl nebu QID PRN [Active]; Caitlyn Oral ph [Active]; Singulair 10 mg Oral tab 1 tab once daily [Active]; - PMHx: 07:41 Asthma; seasonal allergies; ph - PSHx: 07:41 None; ph - Immunization history:: Adult Immunizations unknown. - Social history:: Smoking status: Patient/guardian denies using tobacco. - Ebola Screening: : No symptoms or risks identified at this time. Screenin:45 Abuse screen: Denies threats or abuse. Denies injuries from another. Nutritional ph screening: No deficits noted. Tuberculosis screening: No symptoms or risk factors identified. Fall Risk None identified. Assessment: 07:45 General: Appears in no apparent distress. comfortable, obese, Behavior is calm, ph cooperative, appropriate for age, Denies fever. Pain: Denies pain. Neuro: Level of Consciousness is awake, alert, obeys commands, Oriented to person, place, time, situation, Denies weakness dizziness. Cardiovascular: Capillary refill < 3 seconds in bilateral fingers Patient's skin is warm and dry. Respiratory: Airway is patent Respiratory effort is even, unlabored, Respiratory pattern is regular, symmetrical. GI: Abdomen is non-distended, obese, Abd is soft and non tender X 4 quads. Reports diarrhea, nausea, vomiting, Patient currently denies abdominal pain. : No signs and/or symptoms were reported regarding the genitourinary system. Derm: Skin is intact, Skin is pink, warm \\T\\ dry. Rash noted that is red, raised, on back, chest, right arm, left arm, right leg and left leg. Musculoskeletal: Circulation, motion, and sensation intact. Range of motion: intact in all extremities. Vital Signs: 07:39 BP 115 / 89; Pulse 74; Resp 18; Temp 97.5; Pulse Ox 96% on R/A; Weight 151.95 kg; ph Height 5 ft. 11 in. (180.34 cm); 08:30 BP 123 / 78; Pulse 72; Resp 18; Temp 98.0; Pulse Ox 97% on R/A; ph 07:39 Body Mass Index 46.72 (151.95 kg, 180.34 cm) ph ED Course: 07:21 Patient arrived in ED. as 07:34 Gracy Weaver, RN is Primary Nurse. ph 07:36 Corrine Molina FNP-C is PHCP. snw 07:36 Poncho Calderón MD is Attending Physician. snw 07:39 Triage completed. ph 07:42 Arm band placed on Patient placed in an exam room, on a stretcher, on pulse oximetry. ph 07:45 Patient has correct armband on for positive identification. Bed in low position. Call ph light in reach. Pulse ox on. NIBP on. Door closed. Noise minimized. Warm blanket given. Head of bed elevated. 08:35 No provider procedures requiring assistance completed. Patient did not have IV access ph during this emergency room visit. Administered Medications: No medications were administered Outcome: 08:15 Discharge ordered by . snw 08:35 Patient left the ED. ph 08:35 Discharged to home ambulatory. ph 08:35 Condition: good 08:35 Discharge instructions given to patient, Instructed on discharge instructions, follow up and referral plans. medication usage, Demonstrated understanding of instructions, follow-up care, medications, Prescriptions given X 1. Signatures: Corrine Molina, ANIL-C DIRECTOR OF FUNDRAISING-Csnw Ce Tubbs Patricia, RN RN ph Corrections: (The following items were deleted from the chart) 10:25 07:45 Derm: Skin is intact, Skin is pink, warm \\T\\ dry. ph ph
== END 2019-02-21 08:35 | disposition home or self-care (01) ==
LOC: ER 07:18
DX: R19.7 Diarrhea, unspecified (principal); R21 Rash and other nonspecific skin eruption; J45.909 Unspecified asthma, uncomplicated
CPT/HCPCS: 99283

== ENCOUNTER 2019-02-24 02:14 | Emergency (ER) | payer SELFPAY ==
--- OUTSIDE RECORDS SUMMARY | 2019-02-24 02:16 | XMS REPORT ---
:1995 Author Organization [facility] Address [address] [place] [address] Care Team Providers Name Role Phone Unavailable Unavailable Unavailable Problems This patient has no known problems. Allergies, Adverse Reactions, Alerts This patient has no known allergies or adverse reactions. Medications This patient has no known medications.
--- NOTE | 2019-02-24 02:43 | ER ---
Nurse's Notes [facility] Name: Nilesh Ordonez Age: 23 yrs Sex: Male : 1995 Arrival Date: 02/24/2019 Time: 02:15 Bed 7 Private MD: Diagnosis: Otitis media, unspecified, right ear Presentation: 02/24 02:30 Presenting complaint: Patient states: R ear pain x 2 days. Transition of care: patient aa1 was not received from another setting of care. Onset of symptoms was February 23, 2019. Risk Assessment: Do you want to hurt yourself or someone else? Patient reports no desire to harm self or others. Initial Sepsis Screen: Does the patient meet any 2 criteria? No. Patient's initial sepsis screen is negative. Does the patient have a suspected source of infection? No. Patient's initial sepsis screen is negative. Care prior to arrival: None. 02:30 Method Of Arrival: Ambulatory aa1 02:30 Acuity: IRVIN 4 aa1 Triage Assessment: 02:31 General: Appears in no apparent distress. comfortable, Behavior is calm, cooperative, aa1 appropriate for age. Historical: - Allergies: 02:31 NKA; aa1 - Home Meds: 02:31 Caitlyn Oral [Active]; Singulair 10 mg Oral tab 1 tab once daily [Active]; aa1 - PMHx: 02:31 Asthma; seasonal allergies; aa1 - PSHx: 02:31 None; aa1 - Immunization history:: Flu vaccine is up to date. - Social history:: Smoking status: Patient/guardian denies using tobacco. - Ebola Screening: : No symptoms or risks identified at this time. Screenin:50 Abuse screen: Denies threats or abuse. Nutritional screening: No deficits noted. jd3 Tuberculosis screening: No symptoms or risk factors identified. Fall Risk Ambulatory Aid- None/Bed Rest/Nurse Assist (0 pts). Gait- Normal/Bed Rest/Wheelchair (0 pts) Mental Status- Oriented to own ability (0 pts). Total Miller Fall Scale indicates No Risk (0-24 pts). Assessment: 02:49 General: Appears in no apparent distress. comfortable, Behavior is calm, cooperative, jd3 appropriate for age. Pain: Complains of pain in right ear Quality of pain is described as aching. Neuro: Level of Consciousness is awake, alert, obeys commands, Oriented to person, place, time, situation. Cardiovascular: Capillary refill < 3 seconds Patient's skin is warm and dry. Respiratory: Airway is patent Respiratory effort is even, unlabored, Respiratory pattern is regular, symmetrical. GI: No signs and/or symptoms were reported involving the gastrointestinal system. : No signs and/or symptoms were reported regarding the genitourinary system. EENT: Tympanic membrane reddened on right ear Ear canal w/ drainage noted from right ear. Derm: Skin is intact, Skin is dry, Skin is normal, Skin temperature is warm. Musculoskeletal: Circulation, motion, and sensation intact. Range of motion: intact in all extremities. 02:52 Reassessment: Patient appears in no apparent distress at this time. Patient and/or jd3 family updated on plan of care and expected duration. Pain level reassessed. Patient is alert, oriented x 3, equal unlabored respirations, skin warm/dry/pink. reported understanding of discharge instructions. Vital Signs: 02:31 BP 126 / 81; Pulse 78; Resp 18; Temp 97.6; Pulse Ox 98% on R/A; Weight 151.95 kg; aa1 Height 5 ft. 11 in. (180.34 cm); Pain 10/10; 02:31 Body Mass Index 46.72 (151.95 kg, 180.34 cm) aa1 ED Course: 02:15 Patient arrived in ED. ds1 02:28 Foster Garcia PA is PHCP. cp 02:28 Checo Bliss MD is Attending Physician. cp 02:31 Triage completed. aa1 02:31 Arm band placed on right wrist. aa1 02:38 Haroon Houston RN is Primary Nurse. jd3 02:50 Patient has correct armband on for positive identification. Bed in low position. Call jd3 light in reach. Side rails up X 1. 02:51 No provider procedures requiring assistance completed. Patient did not have IV access jd3 during this emergency room visit. Administered Medications: 02:44 Drug: Augmentin 875 mg Route: PO; jd3 02:52 Follow up: Response: No adverse reaction jd3 02:44 Drug: Tylenol 1000 mg Route: PO; jd3 02:52 Follow up: Response: No adverse reaction jd3 02:44 Drug: Ibuprofen 800 mg Route: PO; jd3 02:52 Follow up: Response: No adverse reaction jd3 Outcome: 02:43 Discharge ordered by . romelia 02:51 Discharged to home ambulatory. jd3 02:51 Condition: stable 02:51 Discharge instructions given to patient, Instructed on discharge instructions, follow up and referral plans. medication usage, Demonstrated understanding of instructions, follow-up care, medications, Prescriptions given X 2. 02:53 Patient left the ED. jd3 Signatures: Mireille Cheney RN RN aa1 Jacquelyn Guzman ds1 Foster Garcia PA PA cp Davies, Jonathon, RN RN jd3
--- NOTE | 2019-02-24 02:43 | EDPHYS ---
Physician Documentation [facility] Name: Nilesh Ordonez Age: 23 yrs Sex: Male : 1995 Arrival Date: 02/24/2019 Time: 02:15 Bed 7 Private MD: ED Physician Checo Bliss HPI: 02/24 02:37 This 23 yrs old Male presents to ER via Ambulatory with complaints of Ear cp Pain. 02:37 The patient presents with pain, that is acute, tenderness. The complaints affect the cp right ear. Onset: The symptoms/episode began/occurred yesterday. Associated signs and symptoms: Pertinent negatives: cough, fever, sinus trouble, sore throat, vertigo. Historical: - Allergies: 02:31 NKA; aa1 - Home Meds: 02:31 Caitlyn Oral [Active]; Singulair 10 mg Oral tab 1 tab once daily [Active]; aa1 - PMHx: 02:31 Asthma; seasonal allergies; aa1 - PSHx: 02:31 None; aa1 - Immunization history:: Flu vaccine is up to date. - Social history:: Smoking status: Patient/guardian denies using tobacco. - Ebola Screening: : No symptoms or risks identified at this time. ROS: 02:38 Eyes: Negative for injury, pain, redness, and discharge. cp 02:38 Constitutional: Negative for body aches, chills, fever, poor PO intake. 02:38 ENT: Positive for ear pain, Negative for drainage from ear(s), sinus congestion, sinus pain, sore throat, difficulty swallowing, difficulty handling secretions. 02:38 Neck: Negative for pain with movement, pain at rest, stiffness. 02:38 Respiratory: Negative for cough, shortness of breath, wheezing. 02:38 Skin: Negative for rash. 02:38 Neuro: Negative for dizziness, headache. 02:38 All other systems are negative. Exam: 02:39 Head/Face: Normocephalic, atraumatic. cp 02:39 Constitutional: The patient appears in no acute distress, alert, awake, non-toxic, well developed, well nourished, obese. 02:39 Eyes: Periorbital structures: appear normal, Conjunctiva: normal, no exudate, no injection, Lids and lashes: appear normal, bilaterally. 02:39 ENT: External ear(s): pain with movement, that is mild, of the right preauricular area, Ear canal(s): cerumen impaction, that is mild, bilaterally, TM's: erythema, that is mild, on the right, Examination of the other ear shows no obvious abnormality, Nose: is normal, Mouth: Lips: moist, Oral mucosa: pink and intact, moist, Posterior pharynx: is normal, airway is patent, no erythema, no exudate, Tonsils: no enlargement, no erythema, no exudate. 02:39 Neck: ROM/movement: is normal, is supple, without pain, no range of motions limitations, no nuchal rigidity. 02:39 Chest/axilla: Inspection: normal. 02:39 Cardiovascular: Rate: normal. 02:39 Respiratory: the patient does not display signs of respiratory distress, Respirations: normal. 02:39 Skin: no rash present. Vital Signs: 02:31 BP 126 / 81; Pulse 78; Resp 18; Temp 97.6; Pulse Ox 98% on R/A; Weight 151.95 kg; aa1 Height 5 ft. 11 in. (180.34 cm); Pain 10/10; 02:31 Body Mass Index 46.72 (151.95 kg, 180.34 cm) aa1 MDM: 02:31 Patient medically screened. cp 02:35 Differential diagnosis: otitis media, otitis externa, ruptured TM, foreign body, cp cerumen impaction. 02:43 Data reviewed: vital signs, nurses notes, and as a result, I will discharge patient. cp 02:43 Counseling: I had a detailed discussion with the patient and/or guardian regarding: the cp historical points, exam findings, and any diagnostic results supporting the discharge/admit diagnosis, to return to the emergency department if symptoms worsen or persist or if there are any questions or concerns that arise at home. Administered Medications: 02:44 Drug: Augmentin 875 mg Route: PO; jd3 02:52 Follow up: Response: No adverse reaction jd3 02:44 Drug: Tylenol 1000 mg Route: PO; jd3 02:52 Follow up: Response: No adverse reaction jd3 02:44 Drug: Ibuprofen 800 mg Route: PO; jd3 02:52 Follow up: Response: No adverse reaction jd3 Disposition: 02/24/19 02:43 Discharged to Home. Impression: Otitis media, unspecified, right ear. - Condition is Stable. - Discharge Instructions: Otitis Media, Adult. - Prescriptions for Amoxicillin 875 mg Oral Tablet - take 1 tablet by ORAL route every 12 hours for 10 days; 20 tablet. Ibuprofen 800 mg Oral Tablet - take 1 tablet by ORAL route every 8 hours As needed take with food; 30 tablet. - Medication Reconciliation Form, Thank You Letter, Antibiotic Education, Prescription Opioid Use form. - Follow up: Private Physician; When: 2 - 3 days; Reason: Worsening of condition. - Problem is new. - Symptoms have improved. Addendum: 02/26/2019 09:43 Co-signature as Attending Physician, Checo Bliss MD. g s Signatures: Mireille Cheney RN RN aa1 Foster Garcia PA PA cp Starr, Gregory, MD MD gs Haroon Houston RN RN jd3 Corrections: (The following items were deleted from the chart) 02/24 02:53 02:43 02/24/2019 02:43 Discharged to Home. Impression: Otitis media, unspecified, right jd3 ear. Condition is Stable. Forms are Medication Reconciliation Form, Thank You Letter, Antibiotic Education, Prescription Opioid Use. Follow up: Private Physician; When: 2 - 3 days; Reason: Worsening of condition. Problem is new. Symptoms have improved. cp
[2019-02-24] MEDS ORDERED: ACETAMINOPHEN 500 MG TAB ONE (02:57)
[2019-02-24] MEDS ORDERED: IBUPROFEN 400 MG TAB ONE (02:57)
[2019-02-24] MEDS ORDERED: AMOX/K CLAV 875 MG TAB ONE (02:58)
== END 2019-02-24 02:53 | disposition home or self-care (01) ==
LOC: ER 02:14
DX: H66.91 Otitis media, unspecified, right ear (principal)
CPT/HCPCS: 99283

== ENCOUNTER 2020-02-13 14:04 | Emergency (ER) | payer SELFPAY ==
--- OUTSIDE RECORDS SUMMARY | 2020-02-13 18:57 | XMS REPORT | Continuity of Care Document ---
:1995 Author Organization [facility] Address [address] [place] [address] Dr. Feldman [address] [place] [id number] Care Team Providers Name Role Phone Unavailable Unavailable Unavailable Problems This patient has no known problems. Allergies, Adverse Reactions, Alerts This patient has no known allergies or adverse reactions. Medications This patient has no known medications. Procedures This patient has no known procedures. Results This patient has no known results.
== END 2020-02-13 15:18 | disposition left against medical advice (07) ==
LOC: ER 14:04
DX: Z02.89 Encounter for other administrative examinations (principal); Z53.21 Procedure and treatment not carried out due to patient leaving prior to being seen by health care provider

== ENCOUNTER 2020-03-30 04:45 | Emergency (ER) | payer SELFPAY ==
--- OUTSIDE RECORDS SUMMARY | 2020-03-30 04:47 | XMS REPORT | Continuity of Care Document ---
:1995 Author Organization [facility] Address [address] Feldman [address] [place] [id number] Care Team Providers Name Role Phone Unavailable Unavailable Unavailable Problems This patient has no known problems. Allergies, Adverse Reactions, Alerts This patient has no known allergies or adverse reactions. Medications This patient has no known medications. Procedures This patient has no known procedures. Results This patient has no known results.
--- NOTE | 2020-03-30 06:31 | EDPHYS ---
Physician Documentation [facility] Name: Nilesh Ordonez Age: 25 yrs Sex: Male : 1995 Arrival Date: 03/30/2020 Time: 04:45 Bed 18 Private MD: ED Physician Ronal Lanza HPI: 03/30 06:24 This 25 yrs old Male presents to ER via Ambulatory with complaints of Poss jmm Yeast Infection. 06:24 The patient presents with swelling, tenderness. Onset: The symptoms/episode jmm began/occurred gradually, 1 week(s) ago. Modifying factors: The symptoms are alleviated by nothing, the symptoms are aggravated by nothing. This is a 25 year old male with a history of asthma, hyperglycemia that presents to the ED with complaints of penile irriation. Denies discharge. Patient states hydrocortisone OTC cream ineffective. . Historical: - Allergies: 05:42 NKA; mt2 - Home Meds: 05:42 Caitlyn Oral [Active]; albuterol sulfate 2.5 mg /3 mL (0.083 %) Inhl nebu QID PRN for mt2 Acute Asthma Attack [Active]; - PMHx: 05:42 Asthma; seasonal allergies; mt2 - Immunization history:: Adult Immunizations up to date. - Social history:: Smoking status: Patient denies any tobacco usage or history of. Patient/guardian denies using alcohol, street drugs. ROS: 06:24 Constitutional: Negative for fever, chills, and weight loss, Cardiovascular: Negative jmm for chest pain, palpitations, and edema, Respiratory: Negative for shortness of breath, cough, wheezing, and pleuritic chest pain. 06:24 Skin: Positive for erythema. 06:24 All other systems are negative. Exam: 06:24 Constitutional: This is a well developed, well nourished patient who is awake, alert, jmm and in no acute distress. Head/Face: atraumatic. Eyes: EOMI, no conjunctival erythema appreciated ENT: Moist Mucus Membranes Neck: Trachea midline, Supple Chest/axilla: Normal chest wall appearance and motion. Cardiovascular: Regular rate and rhythm. No edema appreciated Respiratory: Normal respirations, no respiratory distress appreciated Abdomen/GI: Non distended, soft Back: Normal ROM 06:24 Skin: erythema noted to the glans of the penis. no discharge or drainage appreciated. 06:24 Neuro: Orientation: is normal, Mentation: is normal, Memory: is normal. 06:24 Psych: Behavior/mood is pleasant, cooperative. Vital Signs: 05:00 BP 120 / 72; Pulse 84; Resp 18; Temp 97.9(O); Pulse Ox 100% on R/A; Weight 154.22 kg; mt2 Pain 5/10; MDM: 06:24 Patient medically screened. [facility] 06:27 Data reviewed: vital signs, nurses notes. Counseling: I had a detailed discussion with violeta the patient and/or guardian regarding: the historical points, exam findings, and any diagnostic results supporting the discharge/admit diagnosis, the need for outpatient follow up, to return to the emergency department if symptoms worsen or persist or if there are any questions or concerns that arise at home. Refusal of service: The patient/guardian displays adequate decision making capability and despite a detailed discussion of alternatives, benefits, risks, and consequences refuses: all lab tests. ED course: PE findings consistent with candidal infection. I have taken care of the patient the patient in the past with elevated hyperglyemia in the past. Patient refused labs for further evaluation. Patient is given strict return precautions. Patient understood and agrees with the plan of care. . Administered Medications: 06:29 Drug: DiFLUcan 150 mg Route: PO; vc 06:31 Follow up: Response: No adverse reaction vc Disposition: 06:40 Co-signature as Attending Physician, Ronal Lanza MD I agree with the assessment and tw4 plan of care. Disposition: 03/30/20 06:30 Discharged to Home. Impression: Balanitis. - Condition is Stable. - Discharge Instructions: Balanitis. - Prescriptions for nystatin 100,000 unit/gram Topical ointment - apply 1 application by TOPICAL route 2 times per day; 1 tube. - Medication Reconciliation Form, Thank You Letter, Antibiotic Education, Prescription Opioid Use form. - Follow up: Private Physician; When: 2 - 3 days; Reason: Recheck today's complaints, Continuance of care, Re-evaluation by your physician. Signatures: Rene Aguayo PA PA jmm Wadley, Terrence, MD MD tw4 Gisell Silva RN RN vc Jaylin Gann RN RN mt2 Corrections: (The following items were deleted from the chart) 06:37 06:30 03/30/2020 06:30 Discharged to Home. Impression: Balanitis. Condition is Stable. mt2 Forms are Medication Reconciliation Form, Thank You Letter, Antibiotic Education, Prescription Opioid Use. Follow up: Private Physician; When: 2 - 3 days; Reason: Recheck today's complaints, Continuance of care, Re-evaluation by your physician. violeta
--- NOTE | 2020-03-30 06:31 | ER ---
Nurse's Notes [facility] Name: Nilesh Ordonez Age: 25 yrs Sex: Male : 1995 Arrival Date: 03/30/2020 Time: 04:45 Bed 18 Private MD: Diagnosis: Balanitis Presentation: 03/30 05:00 Chief complaint: Patient states: PER PT "I TH NK I HAVE A YEAST INFECTION. X 1 WEEK. mt2 DENIES DISCHARGE. NOTICE :ONE RED SPOT ON PENIS AREA. USE CORTISONE CREAM NOT EFFECTIVE. Coronavirus screen: At this time, the client does not indicate any symptoms associated with coronavirus-19. Ebola Screen: No symptoms or risks identified at this time. Initial Sepsis Screen: Does the patient meet any 2 criteria? No. Patient's initial sepsis screen is negative. Does the patient have a suspected source of infection? No. Patient's initial sepsis screen is negative. Risk Assessment: Do you want to hurt yourself or someone else? Patient reports no desire to harm self or others. Onset of symptoms was March 22, 2020. 05:00 Method Of Arrival: Ambulatory mt2 05:00 Acuity: IRVIN 4 mt2 Triage Assessment: 05:00 General: Appears uncomfortable, Behavior is cooperative. Pain: Complains of pain in mt2 groin. : Reports pain PENIS. Historical: - Allergies: 05:42 NKA; mt2 - Home Meds: 05:42 Caitlyn Oral [Active]; albuterol sulfate 2.5 mg /3 mL (0.083 %) Inhl nebu QID PRN for mt2 Acute Asthma Attack [Active]; - PMHx: 05:42 Asthma; seasonal allergies; mt2 - Immunization history:: Adult Immunizations up to date. - Social history:: Smoking status: Patient denies any tobacco usage or history of. Patient/guardian denies using alcohol, street drugs. Screenin:43 Abuse screen: Denies threats or abuse. Nutritional screening: No deficits noted. mt2 Tuberculosis screening: No symptoms or risk factors identified. Fall Risk None identified. Assessment: 06:36 Reassessment: Patient is alert, oriented x 3, equal unlabored respirations, skin mt2 warm/dry/pink. Patient states symptoms have improved. General: Appears in no apparent distress. comfortable, Behavior is cooperative. Pain: Denies pain. Vital Signs: 05:00 BP 120 / 72; Pulse 84; Resp 18; Temp 97.9(O); Pulse Ox 100% on R/A; Weight 154.22 kg; mt2 Pain 5/10; ED Course: 04:45 Patient arrived in ED. cl3 05:14 Jaylin Gann, RN is Primary Nurse. mt2 05:15 Placed in gown. Bed in low position. Call light in reach. Side rails up X 1. mt2 05:41 Triage completed. mt2 05:42 Arm band placed on right wrist. mt2 06:09 Rene Aguayo PA is PHCP. moe 06:09 Ronal Lanza MD is Attending Physician. [facility] 06:30 No provider procedures requiring assistance completed. Patient did not have IV access vc during this emergency room visit. Administered Medications: 06:29 Drug: DiFLUcan 150 mg Route: PO; vc 06:31 Follow up: Response: No adverse reaction vc Outcome: 06:30 Discharge ordered by MD. [facility] 06:30 Discharged to home ambulatory. vc 06:30 Condition: good 06:35 Discharge instructions given to mt2 06:35 Instructed on discharge instructions, follow up and referral plans. medication usage, Demonstrated understanding of instructions, follow-up care, medications, Prescriptions given X 1. 06:37 Patient left the ED. mt2 Signatures: Rene Aguayo PA PA jmm Lewis, Charde cl3 Gisell Silva RN RN vc Jaylin Gann, JOSE RN mt2
[2020-03-30] MEDS ORDERED: FLUCONAZOLE 100 MG TAB ONE (06:38)
[2020-03-30 06:42] VITALS: BP 120/72; TEMP 97.9; O2SAT 100
== END 2020-03-30 06:37 | disposition home or self-care (01) ==
LOC: ER 04:45
DX: N48.1 Balanitis (principal); J45.909 Unspecified asthma, uncomplicated
CPT/HCPCS: 99283

== ENCOUNTER 2021-01-27 17:27 | Emergency (ER) | payer SELFPAY ==
--- OUTSIDE RECORDS SUMMARY | 2021-01-27 17:30 | XMS REPORT | Continuity of Care Document ---
:1995 Author Organization [facility] t Address [address] [place] [address] Dr. Feldman [address] [place] [id number] Care Team Providers Name Role Phone Unavailable Unavailable Unavailable Problems This patient has no known problems. Allergies, Adverse Reactions, Alerts This patient has no known allergies or adverse reactions. Medications This patient has no known medications. Procedures This patient has no known procedures. Results This patient has no known results.
--- NOTE | 2021-01-27 20:06 | ER ---
Nurse's Notes [facility] Name: Nilesh Ordonez Age: 25 yrs Sex: Male : 1995 Arrival Date: 01/27/2021 Time: 17:58 Bed 16 Private MD: Diagnosis: Hyperglycemia, unspecified Presentation: 01/27 18:09 Chief complaint: Patient states: Had sex with my exgf. she said she has a UTI. I have ca1 been itching at my genitals and there's skin on the foreskin. Denies penile discharge. Denies urinary S/S. Coronavirus screen: Client denies travel out of the [place] in the last 14 days. At this time, the client does not indicate any symptoms associated with coronavirus-19. Ebola Screen: Patient negative for fever greater than or equal to 101.5 degrees Fahrenheit, and additional compatible Ebola Virus Disease symptoms Patient denies exposure to infectious person. Patient denies travel to an Ebola-affected area in the 21 days before illness onset. No symptoms or risks identified at this time. Initial Sepsis Screen: Does the patient meet any 2 criteria? No. Patient's initial sepsis screen is negative. Does the patient have a suspected source of infection? No. Patient's initial sepsis screen is negative. Risk Assessment: Do you want to hurt yourself or someone else? Patient reports no desire to harm self or others. Onset of symptoms was January 27, 2021. 18:09 Method Of Arrival: Ambulatory ca1 18:09 Acuity: IRVIN 4 ca1 Historical: - Allergies: 18:11 NKA; ca1 - PMHx: 18:11 Asthma; seasonal allergies; ca1 - PSHx: 18:11 None; ca1 - Immunization history:: Client reports having NOT received the Covid vaccine. Flu vaccine is not up to date. - Social history:: Smoking status: Patient denies any tobacco usage or history of. Screenin:14 Abuse screen: Denies threats or abuse. Denies injuries from another. Nutritional ad5 screening: No deficits noted. Tuberculosis screening: No symptoms or risk factors identified. Fall Risk None identified. Assessment: 19:38 General: Appears in no apparent distress. Behavior is calm, cooperative, appropriate ad5 for age. Pain: Denies pain. Neuro: No deficits noted. Level of Consciousness is awake, alert, obeys commands. Cardiovascular: No deficits noted. Capillary refill < 3 seconds Patient's skin is warm and dry. Respiratory: No deficits noted. Airway is patent Respiratory effort is even, unlabored, Respiratory pattern is regular, symmetrical. : Reports penile itching and scaling skin to area. Vital Signs: 18:09 BP 127 / 80; Pulse 78; Resp 18 S; Temp 98.4(O); Pulse Ox 99% on R/A; Weight 136.08 kg ca1 (R); Height 5 ft. 11 in. (180.34 cm) (R); Pain 0/10; 19:55 BP 143 / 100; Pulse 89; Resp 18 S; Pulse Ox 98% on R/A; ad5 18:09 Body Mass Index 41.84 (136.08 kg, 180.34 cm) ca1 ED Course: 17:58 Patient arrived in ED. am2 18:10 Triage completed. ca1 18:11 Arm band placed on right wrist. ca1 18:41 Rene Aguayo PA is PHCP. [facility] 18:41 Poncho Calderón MD is Attending Physician. moe 19:25 Elliot Palencia is Primary Nurse. ad5 19:38 Patient has correct armband on for positive identification. Bed in low position. Call ad5 light in reach. Pulse ox on. NIBP on. 20:15 No provider procedures requiring assistance completed. Patient did not have IV access ad5 during this emergency room visit. Administered Medications: 19:53 Drug: DiFLUcan (fluconazole) 150 mg Route: PO; ad5 Outcome: 20:05 Discharge ordered by . violeta 20:15 Discharged to home ambulatory. ad5 20:15 Condition: stable 20:15 Discharge instructions given to patient, Instructed on discharge instructions, follow up and referral plans. medication usage, Demonstrated understanding of instructions, follow-up care, medications. 20:16 Patient left the ED. ad5 Signatures: Rene Aguayo PA PA jmm Moreno, Amanda am2 Michelle Leary RN RN Elliot Mon ad5
--- NOTE | 2021-01-27 20:06 | EDPHYS ---
Physician Documentation [facility] Name: Nilesh Ordonez Age: 25 yrs Sex: Male : 1995 Arrival Date: 01/27/2021 Time: 17:58 Bed 16 Private MD: ED Physician Poncho Calderón HPI: 01/27 20:02 This 25 yrs old Male presents to ER via Ambulatory with complaints of yeast jmm infection. 20:02 Onset: The symptoms/episode began/occurred gradually. Modifying factors: The symptoms jmm are alleviated by nothing, the symptoms are aggravated by nothing. Associated signs and symptoms: Pertinent positives: dysuria, Pertinent negatives: fever. The patient has not experienced similar symptoms in the past. This is a 25 year old male with a history of dm, asthma that presents to the ED with complaints of irritation to the head of his penis. Patient has applied nystatin which has allowed for relief. Denies fever. . Historical: - Allergies: 18:11 NKA; ca1 - PMHx: 18:11 Asthma; seasonal allergies; ca1 - PSHx: 18:11 None; ca1 - Immunization history:: Client reports having NOT received the Covid vaccine. Flu vaccine is not up to date. - Social history:: Smoking status: Patient denies any tobacco usage or history of. ROS: 20:02 Constitutional: Negative for fever, chills, and weight loss, Cardiovascular: Negative jmm for chest pain, palpitations, and edema, Respiratory: Negative for shortness of breath, cough, wheezing, and pleuritic chest pain. 20:02 : Positive for urinary symptoms. 20:02 All other systems are negative. Exam: 20:02 Constitutional: This is a well developed, well nourished patient who is awake, alert, jmm and in no acute distress. Head/Face: atraumatic. Eyes: EOMI, no conjunctival erythema appreciated ENT: Moist Mucus Membranes Neck: Trachea midline, Supple Chest/axilla: Normal chest wall appearance and motion. Cardiovascular: Regular rate and rhythm. No edema appreciated Respiratory: Normal respirations, no respiratory distress appreciated Abdomen/GI: Non distended, soft Back: Normal ROM 20:02 MS/ Extremity: Moves all extremities, no obvious deformities appreciated, no edema noted to the lower extremities Neuro: Awake and alert, normal gait Psych: Behavior is normal, Mood is normal, Patient is cooperative and pleasant 20:02 Skin: mild erythema noted to the head of the penis, no discharge appreciated. Vital Signs: 18:09 BP 127 / 80; Pulse 78; Resp 18 S; Temp 98.4(O); Pulse Ox 99% on R/A; Weight 136.08 kg ca1 (R); Height 5 ft. 11 in. (180.34 cm) (R); Pain 0/10; 19:55 BP 143 / 100; Pulse 89; Resp 18 S; Pulse Ox 98% on R/A; ad5 18:09 Body Mass Index 41.84 (136.08 kg, 180.34 cm) ca1 MDM: 19:33 Patient medically screened. [facility] 20:04 Data reviewed: vital signs, nurses notes. Counseling: I had a detailed discussion with violeta the patient and/or guardian regarding: the historical points, exam findings, and any diagnostic results supporting the discharge/admit diagnosis, lab results, the need for outpatient follow up, to return to the emergency department if symptoms worsen or persist or if there are any questions or concerns that arise at home. ED course: Patient is alert and non toxic in appearance in the ED. patient advised to follow up with pcp and otherwise given strict return precautions. patient understood and agrees with the plan of care.. 01/27 20:01 Order name: Glucose, Ancillary Testing; Complete Time: 20:02 EDSD 01/27 19:48 Order name: Finger Stick; Complete Time: 19:49 [facility] 01/27 20:02 Order name: Urine Dipstick-Ancillary (obtain specimen) [facility] Administered Medications: 19:53 Drug: DiFLUcan (fluconazole) 150 mg Route: PO; ad5 Disposition: 01/28 07:29 Co-signature as Attending Physician, Poncho Calderón MD I agree with the assessment and kdr plan of care. Disposition: 01/27/21 20:05 Discharged to Home. Impression: Hyperglycemia, unspecified. - Condition is Stable. - Discharge Instructions: Hyperglycemia, Preventing Type 2 Diabetes Mellitus. - Prescriptions for Metformin 500 mg Oral Tablet - take 1 tablet by ORAL route once daily for 7 days Then take 1 tablet with morning meals AND evening meals; 21 tablet. - Medication Reconciliation Form, Thank You Letter, Antibiotic Education, Prescription Opioid Use, Work release form form. - Follow up: Private Physician; When: 2 - 3 days; Reason: Recheck today's complaints, Continuance of care, Re-evaluation by your physician. Signatures: Poncho Calderón MD MD kdr Mickail, Joel, PA PA jmm Acob, Cheryl, RN RN Elliot Mon ad5 Corrections: (The following items were deleted from the chart) 01/27 20:16 20:05 01/27/2021 20:05 Discharged to Home. Impression: Hyperglycemia, unspecified. ad5 Condition is Stable. Forms are Medication Reconciliation Form, Thank You Letter, Antibiotic Education, Prescription Opioid Use. Follow up: Private Physician; When: 2 - 3 days; Reason: Recheck today's complaints, Continuance of care, Re-evaluation by your physician. violeta
[2021-01-27] MEDS ORDERED: FLUCONAZOLE 100 MG TAB ONE (20:11)
[2021-01-27 20:42] VITALS: TEMP 98.4
[2021-01-27 20:43] VITALS: BP 143/100; O2SAT 98
== END 2021-01-27 20:16 | disposition home or self-care (01) ==
LOC: ER 17:27
DX: R73.9 Hyperglycemia, unspecified (principal)
CPT/HCPCS: 82947

== ENCOUNTER 2021-02-01 04:12 | Emergency (ER) | payer SELFPAY ==
--- OUTSIDE RECORDS SUMMARY | 2021-02-01 04:15 | XMS REPORT | Continuity of Care Document ---
:1995 Author Organization [facility] t Address [address] [place] [address] Dr. Feldman [address] [place] [id number] Care Team Providers Name Role Phone Unavailable Unavailable Unavailable Problems This patient has no known problems. Allergies, Adverse Reactions, Alerts This patient has no known allergies or adverse reactions. Medications This patient has no known medications. Procedures This patient has no known procedures. Results This patient has no known results.
[2021-02-01] MEDS ORDERED: IBUPROFEN 400 MG TAB ONE (04:59)
--- NOTE | 2021-02-01 06:21 | ER ---
Nurse's Notes [facility] Name: Nilesh Ordonez Age: 25 yrs Sex: Male : 1995 Arrival Date: 02/01/2021 Time: 04:17 Bed 14 Private MD: Diagnosis: Exudative Pharyngitis, Tonsillitis Presentation: 02/01 04:24 Chief complaint: Patient states: sore throat, shortness of breath for a few days, em denies fever. Coronavirus screen: Client denies travel out of the [place] in the last 14 days. Ebola Screen: Patient negative for fever greater than or equal to 101.5 degrees Fahrenheit, and additional compatible Ebola Virus Disease symptoms Patient denies exposure to infectious person. Patient denies travel to an Ebola-affected area in the 21 days before illness onset. No symptoms or risks identified at this time. Initial Sepsis Screen: Does the patient meet any 2 criteria? HR > 90 bpm. No. Patient's initial sepsis screen is negative. Does the patient have a suspected source of infection? No. Patient's initial sepsis screen is negative. Risk Assessment: Do you want to hurt yourself or someone else? Patient reports no desire to harm self or others. Onset of symptoms was February 01, 2021. 04:24 Method Of Arrival: Ambulatory em 04:24 Acuity: IRVIN 4 em Historical: - Allergies: 04:26 NKA; em - PMHx: 04:26 Asthma; seasonal allergies; em - PSHx: 04:26 None; em - Immunization history:: Adult Immunizations up to date. - Social history:: Smoking status: Patient denies any tobacco usage or history of. Screenin:41 Abuse screen: Denies threats or abuse. Nutritional screening: No deficits noted. em Tuberculosis screening: No symptoms or risk factors identified. Fall Risk None identified. Assessment: 04:24 General: Appears in no apparent distress. comfortable, Behavior is calm, cooperative, em appropriate for age, Denies fever. Pain: Complains of pain in throat Pain currently is 8 out of 10 on a pain scale. Neuro: Level of Consciousness is awake, alert, obeys commands, Oriented to person, place, time, situation. Cardiovascular: Capillary refill < 3 seconds Patient's skin is warm and dry. Respiratory: Airway is patent Respiratory effort is even, unlabored, Respiratory pattern is regular, symmetrical. Derm: Skin is intact, is healthy with good turgor, Skin is pink, warm \T\ dry. Musculoskeletal: Capillary refill < 3 seconds, Range of motion: intact in all extremities. Vital Signs: 04:24 BP 125 / 86; Pulse 92; Resp 18; Temp 97.2(O); Pulse Ox 97% on R/A; Weight 136.08 kg; em Height 5 ft. 11 in. (180.34 cm); Pain 8/10; 04:24 Body Mass Index 41.84 (136.08 kg, 180.34 cm) em ED Course: 04:17 Patient arrived in ED. am4 04:24 Edson Winn MD is Attending Physician. [facility] 04:26 Triage completed. em 04:26 Arm band placed on. em 04:41 Patient has correct armband on for positive identification. Bed in low position. Call em light in reach. 04:41 COVID swab sent to lab. Flu and/or RSV swab sent to lab. Strep swab sent to lab. em 04:42 No provider procedures requiring assistance completed. Patient did not have IV access em during this emergency room visit. 05:46 Ozzie Jasso, RN is Primary Nurse. em Administered Medications: 04:40 Drug: Ibuprofen 800 mg Route: PO; em 06:14 Follow up: Response: No adverse reaction em Outcome: 06:20 Discharge ordered by . [facility] 06:27 Discharged to home ambulatory. em 06:27 Condition: stable 06:27 Discharge instructions given to patient, Instructed on discharge instructions, follow up and referral plans. medication usage, Demonstrated understanding of instructions, follow-up care, medications, Prescriptions given X 2. 06:27 Patient left the ED. em Signatures: Ozzie Jasso, RN RN em Edson Winn MD MD [facility] Sandhya Tubbs [facility]
--- NOTE | 2021-02-01 06:21 | EDPHYS ---
Physician Documentation [facility] Name: Nilesh Ordonez Age: 25 yrs Sex: Male : 1995 Arrival Date: 02/01/2021 Time: 04:17 Bed 14 Private MD: ED Physician Edson Winn HPI: 02/01 04:38 This 25 yrs old Male presents to ER via Ambulatory with complaints of Sore mh7 Throat, Breathing Difficulty. 04:38 The patient presents with sore throat. The patient describes throat pain as constant. mh7 Onset: The symptoms/episode began/occurred 2 day(s) ago. Severity of symptoms: At their worst the symptoms were moderate, yesterday, in the emergency department the symptoms are unchanged. Modifying factors: The symptoms are alleviated by nothing, the symptoms are aggravated by nothing. Associated signs and symptoms: Pertinent positives: shortness of breath due to sore throat, Pertinent negatives chest pain, chills, cough, diarrhea, dysphagia, earache, fever, flu-like symptoms, headache, nausea, rhinorrhea, vomiting. The patient has experienced similar episodes in the past, a few times. Historical: - Allergies: 04:26 NKA; em - PMHx: 04:26 Asthma; seasonal allergies; em - PSHx: 04:26 None; em - Immunization history:: Adult Immunizations up to date. - Social history:: Smoking status: Patient denies any tobacco usage or history of. ROS: 04:38 Constitutional: Negative for fever, chills, and weight loss, Eyes: Negative for injury, mh7 pain, redness, and discharge, Neck: Negative for injury, pain, and swelling, Cardiovascular: Negative for chest pain, palpitations, and edema, Respiratory: Negative for shortness of breath, cough, wheezing, and pleuritic chest pain, Abdomen/GI: Negative for abdominal pain, nausea, vomiting, diarrhea, and constipation, Back: Negative for injury and pain, : Negative for injury, bleeding, discharge, and swelling, MS/Extremity: Negative for injury and deformity, Skin: Negative for injury, rash, and discoloration, Neuro: Negative for headache, weakness, numbness, tingling, and seizure, Psych: Negative for depression, anxiety, suicide ideation, homicidal ideation, and hallucinations, Allergy/Immunology: Negative for hives, rash, and allergies, Endocrine: Negative for neck swelling, polydipsia, polyuria, polyphagia, and marked weight changes, Hematologic/Lymphatic: Negative for swollen nodes, abnormal bleeding, and unusual bruising. Exam: 04:38 Constitutional: This is a well developed, well nourished patient who is awake, alert, mh7 and in no acute distress. Head/Face: Normocephalic, atraumatic. Eyes: Pupils equal round and reactive to light, extra-ocular motions intact. Lids and lashes normal. Conjunctiva and sclera are non-icteric and not injected. Cornea within normal limits. Periorbital areas with no swelling, redness, or edema. 04:38 Neck: Trachea midline, no thyromegaly or masses palpated, and no cervical lymphadenopathy. Supple, full range of motion without nuchal rigidity, or vertebral point tenderness. No Meningismus. 04:38 Chest/axilla: Normal chest wall appearance and motion. Nontender with no deformity. No lesions are appreciated. Cardiovascular: Regular rate and rhythm with a normal S1 and S2. No gallops, murmurs, or rubs. Normal PMI, no JVD. No pulse deficits. Respiratory: Lungs have equal breath sounds bilaterally, clear to auscultation and percussion. No rales, rhonchi or wheezes noted. No increased work of breathing, no retractions or nasal flaring. Abdomen/GI: Soft, non-tender, with normal bowel sounds. No distension or tympany. No guarding or rebound. No evidence of tenderness throughout. Back: No spinal tenderness. No costovertebral tenderness. Full range of motion. Skin: Warm, dry with normal turgor. Normal color with no rashes, no lesions, and no evidence of cellulitis. MS/ Extremity: Pulses equal, no cyanosis. Neurovascular intact. Full, normal range of motion. Neuro: Awake and alert, GCS 15, oriented to person, place, time, and situation. Cranial nerves II-XII grossly intact. Motor strength 5/5 in all extremities. Sensory grossly intact. Cerebellar exam normal. Normal gait. Psych: Awake, alert, with orientation to person, place and time. Behavior, mood, and affect are within normal limits. 04:38 ENT: Posterior pharynx: Airway: normal, Tonsils: bilaterally enlarged, with erythema, with exudate, Uvula: normal, swelling, is not appreciated, erythema, that is mild, exudate, that is mild, peritonsillar mass, is not appreciated, pooling of secretions, is not appreciated, Dental exam: normal, Voice: is normal. 04:38 ENT: External ear(s): are unremarkable, Ear canal(s): are normal, TM's: are normal, Nose: is normal. Vital Signs: 04:24 BP 125 / 86; Pulse 92; Resp 18; Temp 97.2(O); Pulse Ox 97% on R/A; Weight 136.08 kg; em Height 5 ft. 11 in. (180.34 cm); Pain 8/10; 04:24 Body Mass Index 41.84 (136.08 kg, 180.34 cm) em MDM: 06:15 Differential diagnosis: group A strep tonsillitis, influenza, pharyngitis, tonsillitis, mh7 uvulitis, viral syndrome. Data reviewed: vital signs, nurses notes, lab test result(s), Flu: negative. Data interpreted: Pulse oximetry: on room air is 98 %. Interpretation: normal. Counseling: I had a detailed discussion with the patient and/or guardian regarding: the historical points, exam findings, and any diagnostic results supporting the discharge/admit diagnosis, lab results, the need for outpatient follow up, to return to the emergency department if symptoms worsen or persist or if there are any questions or concerns that arise at home. Response to treatment: the patient's symptoms have resolved after treatment, the patient's blood pressure is in an acceptable range, mental status has returned to baseline, the patient no longer shows bradycardia, the patient is not short of breath, the patient is not tachycardic, the patient's pain is gone, the patient's temperature has normalized. 06:20 Patient medically screened. mh7 02/01 04:28 Order name: Flu 02/01 04:28 Order name: Strep 02/01 04:28 Order name: Influenza Screen (A ; Complete Time: 06:15 EDMS 02/01 04:28 Order name: Group A Streptococcus Rapid Sc; Complete Time: 06:15 EDMS 02/01 05:32 Order name: Throat Culture EDOR 02/01 05:57 Order name: SARS-COV-2 RT PCR; Complete Time: 06:15 EDMS Administered Medications: 04:40 Drug: Ibuprofen 800 mg Route: PO; em 06:14 Follow up: Response: No adverse reaction em Disposition: 02/01/21 06:20 Discharged to Home. Impression: Exudative Pharyngitis, Tonsillitis. - Condition is Stable. - Discharge Instructions: Tonsillitis, [id number]-lj-[id number], Pharyngitis, Xnjw-jx-Oaur. - Prescriptions for penicillin V potassium 500 mg Oral tablet - take 1 tablet by ORAL route every 8 hours; 30 tablet. Ibuprofen 800 mg Oral Tablet - take 1 tablet by ORAL route every 8 hours As needed take with food; 15 tablet. - Work release form, Medication Reconciliation Form, Thank You Letter, Antibiotic Education, Prescription Opioid Use form. - Follow up: Private Physician; When: 1 - 2 days; Reason: Worsening of condition, Recheck today's complaints, Continuance of care, Re-evaluation by your physician. - Problem is new. - Symptoms have improved. Signatures: Dispatcher [employer] [facility] Ozzie Jasso RN RN em Holmes, Maurice, MD MD mh7 Corrections: (The following items were deleted from the chart) 04:54 04:28 CORONAVIRUS+MR.LAB.BRZ ordered. [facility] 06:27 06:20 02/01/2021 06:20 Discharged to Home. Impression: Exudative Pharyngitis, em Tonsillitis. Condition is Stable. Forms are Medication Reconciliation Form, Thank You Letter, Antibiotic Education, Prescription Opioid Use. Follow up: Private Physician; When: 1 - 2 days; Reason: Worsening of condition, Recheck today's complaints, Continuance of care, Re-evaluation by your physician. Problem is new. Symptoms have improved. mh7
[2021-02-01 06:33] VITALS: BP 125/86; TEMP 97.2; O2SAT 97
== END 2021-02-01 06:27 | disposition home or self-care (01) ==
LOC: ER 04:12
DX: J03.90 Acute tonsillitis, unspecified (principal); Z20.822 Contact with and (suspected) exposure to COVID-19; J45.909 Unspecified asthma, uncomplicated
CPT/HCPCS: 87070; 87081; 87804; 99283; U0003

== ENCOUNTER 2021-02-03 10:30 | Emergency (ER) | payer SELFPAY ==
--- OUTSIDE RECORDS SUMMARY | 2021-02-03 10:31 | XMS REPORT | Continuity of Care Document ---
:1995 Author Organization [facility] t Address [address] [place] [address] Dr. Feldman [address] [place] [id number] Care Team Providers Name Role Phone Unavailable Unavailable Unavailable Problems This patient has no known problems. Allergies, Adverse Reactions, Alerts This patient has no known allergies or adverse reactions. Medications This patient has no known medications. Procedures This patient has no known procedures. Results This patient has no known results.
[2021-02-03] MEDS ORDERED: BENZONATATE 100 MG CAP PO ONE (12:01)
--- NOTE | 2021-02-03 12:27 | RAD REPORT ---
EXAM DESCRIPTION: RAD - Chest Pa And Lat (2 Views) - 02/03/2021 12:21 pm CLINICAL HISTORY: COUGH Chest pain. COMPARISON: Chest Pa And Lat (2 Views) dated 12/19/2018; Chest Pa And Lat (2 Views) dated 08/26/2018; C hest Pa And Lat (2 Views) dated 05/26/2018; Chest Pa And Lat (2 Views) dated 03/28/2018 FINDINGS: The lungs are grossly clear. The heart is normal in size. No displaced fractures.
--- NOTE | 2021-02-03 12:39 | EDPHYS ---
Physician Documentation [facility] Name: Nilesh Ordonez Age: 25 yrs Sex: Male : 1995 Arrival Date: 02/03/2021 Time: 10:32 Bed 26 Private MD: ED Physician Kole Ballard HPI: 02/03 11:25 This 25 yrs old Male presents to ER via Ambulatory with complaints of Cough. cp 11:25 The patient or guardian reports cough, described as moderate. Onset: The cp symptoms/episode began/occurred last week. 11:25 Associated signs and symptoms: Pertinent positives: sore throat, fever yesterday, cp Pertinent negatives: chest pain, diarrhea, vomiting. Severity of symptoms: in the emergency department the symptoms are unchanged despite home interventions. 11:25 Patient reports he is currently taking penicillin for sore throat that was prescribed 2 cp days ago, but cough is worse and that he had fever of 101 yesterday. Historical: - Allergies: 10:46 NKA; tw2 - Home Meds: 10:46 albuterol sulfate 2.5 mg /3 mL (0.083 %) Inhl nebu QID PRN for Acute Asthma Attack tw2 [Active]; Caitlyn Oral [Active]; - PMHx: 10:46 Asthma; seasonal allergies; tw2 - PSHx: 10:46 None; tw2 - Immunization history:: Adult Immunizations. - Social history:: Smoking status: . ROS: 11:30 Constitutional: Negative for body aches, chills, fever, poor PO intake. cp 11:30 Eyes: Negative for injury, pain, redness, and discharge. cp 11:30 ENT: Positive for sore throat, Negative for drainage from ear(s), ear pain, difficulty swallowing, difficulty handling secretions. 11:30 Cardiovascular: Negative for chest pain. 11:30 Respiratory: Positive for cough, "sounds productive", Negative for wheezing. 11:30 Abdomen/GI: Negative for abdominal pain, nausea, vomiting, and diarrhea. 11:30 Back: Negative for radiated pain. 11:30 Skin: Negative for rash. 11:30 Neuro: Negative for altered mental status, headache, weakness. 11:30 All other systems are negative. Exam: 11:35 Constitutional: The patient appears in no acute distress, alert, awake, cp non-diaphoretic, non-toxic, well developed, well nourished, obese. 11:35 Head/Face: Normocephalic, atraumatic. cp 11:35 Eyes: Periorbital structures: appear normal, Conjunctiva: normal, no exudate, no cp injection, Sclera: no appreciated abnormality, Lids and lashes: appear normal, bilaterally. 11:35 ENT: External ear(s): are unremarkable, Nose: is normal, Mouth: Lips: moist, Oral mucosa: moist, Posterior pharynx: Airway: no evidence of obstruction, patent. 11:35 Neck: ROM/movement: is normal, is supple, without pain, no range of motions cp limitations, no meningismus, Lymph nodes: no appreciated lymphadenopathy. 11:35 Chest/axilla: Inspection: normal, Palpation: is normal, no crepitus, no tenderness. 11:35 Cardiovascular: Rate: normal, Rhythm: regular. 11:35 Respiratory: the patient does not display signs of respiratory distress, Respirations: normal, no use of accessory muscles, no retractions, labored breathing, is not present, Breath sounds: bronchial sounds, that are mild, are heard diffusely, decreased breath sounds, are not appreciated, stridor, is not appreciated, wheezing: is not appreciated. 11:35 Abdomen/GI: Exam negative for discomfort, distension, guarding, Inspection: abdomen appears normal. 11:35 Back: pain, is absent, ROM is normal. Vital Signs: 10:44 BP 139 / 84; Pulse 90; Resp 19; Temp 97.9(TE); Pulse Ox 100% on R/A; tw2 MDM: 11:13 Patient medically screened. cp 11:40 Differential diagnosis: bronchitis, pneumonia, asthma exacerbation. cp 12:39 Data reviewed: vital signs, nurses notes, radiologic studies, plain films. cp 12:39 Test interpretation: by ED physician or midlevel provider: plain radiologic studies. cp Counseling: I had a detailed discussion with the patient and/or guardian regarding: the historical points, exam findings, and any diagnostic results supporting the discharge/admit diagnosis, radiology results, to return to the emergency department if symptoms worsen or persist or if there are any questions or concerns that arise at home. 02/03 11:19 Order name: XRAY Chest Pa And Lat (2 Views) cp 02/03 12:27 Order name: FRAN; Complete Time: 12:38 EDKY 02/03 12:38 Interpretation: Report reviewed. cp Administered Medications: 11:42 Drug: Tessalon Perle (benzonatate) 200 mg Route: PO; vg1 12:52 Follow up: Response: No adverse reaction vg1 Disposition: 02/03/21 12:39 Discharged to Home. Impression: Acute bronchitis. - Condition is Stable. - Discharge Instructions: Acute Bronchitis, Adult. - Prescriptions for Tessalon Perles 100 mg Oral Capsule - take 2 capsule by ORAL route every 8 hours As needed; 30 capsule. Zithromax Z- Soham 250 mg Oral Tablet - take 1 tablet by ORAL route as directed for 5 days Day 1 - take two (2) tablets one time. Day 2, 3, 4 , 5 take one (1) tablet once daily.; 6 tablet. Albuterol Sulfate 90 mcg/actuation - inhale 1-2 puff by INHALATION route every 4-6 hours; 1 Inhaler. - Medication Reconciliation Form, Work release form, Thank You Letter, Antibiotic Education, Prescription Opioid Use form. - Follow up: Private Physician; When: 2 - 3 days; Reason: Recheck today's complaints. - Problem is an ongoing problem. - Symptoms are unchanged. Addendum: 02/08/2021 07:02 Co-signature as Attending Physician, Kole Ballard MD. r n Signatures: Dispatcher [employer] [facility] Kole Ballard MD MD rn Page, Corey, PA PA cp Chioma Powell RN RN tw2 Lynnette Sequeira RN RN vg1 Corrections: (The following items were deleted from the chart) 02/03 12:49 12:39 02/03/2021 12:39 Discharged to Home. Impression: Acute bronchitis. Condition is tw2 Stable. Forms are Work release form, Medication Reconciliation Form, Thank You Letter, Antibiotic Education, Prescription Opioid Use. Follow up: Private Physician; When: 2 - 3 days; Reason: Recheck today's complaints. Problem is an ongoing problem. Symptoms are unchanged. cp
--- NOTE | 2021-02-03 12:39 | ER ---
Nurse's Notes [facility] Name: Nilesh Ordonez Age: 25 yrs Sex: Male : 1995 Arrival Date: 02/03/2021 Time: 10:32 Bed 26 Private MD: Diagnosis: Acute bronchitis Presentation: 02/03 10:44 Chief complaint: Patient states: i came in Monday with tonsillitis and it seems like it tw2 has gotten worse. my throat feels better but my cough is worse and congestion. Chief complaint: Patient states: my job said they wont let me come back to work because i did spike a fever yesterday. Coronavirus screen: cough unrelated to allergies, Client presents with at least one sign or symptom that may indicate coronavirus-19. Standard/surgical mask placed on the client. Provider contacted for isolation considerations. Ebola Screen: Patient denies travel to an Ebola-affected area in the 21 days before illness onset. Initial Sepsis Screen: Does the patient meet any 2 criteria? No. Patient's initial sepsis screen is negative. Does the patient have a suspected source of infection? No. Patient's initial sepsis screen is negative. Risk Assessment: Do you want to hurt yourself or someone else? Patient reports no desire to harm self or others. Onset of symptoms was February 03, 2021. 10:44 Method Of Arrival: Ambulatory tw2 10:44 Acuity: IRVIN 4 tw2 Triage Assessment: 10:46 General: Appears in no apparent distress. obese, well groomed, Behavior is calm, tw2 cooperative, appropriate for age. Pain: Denies pain. EENT: Reports nasal congestion nasal discharge. Historical: - Allergies: 10:46 NKA; tw2 - Home Meds: 10:46 albuterol sulfate 2.5 mg /3 mL (0.083 %) Inhl nebu QID PRN for Acute Asthma Attack tw2 [Active]; Caitlyn Oral [Active]; - PMHx: 10:46 Asthma; seasonal allergies; tw2 - PSHx: 10:46 None; tw2 - Immunization history:: Adult Immunizations. - Social history:: Smoking status: . Screenin:43 Abuse screen: Denies threats or abuse. Nutritional screening: No deficits noted. vg1 Tuberculosis screening: No symptoms or risk factors identified. Fall Risk No fall in past 12 months (0 pts). No secondary diagnosis (0 pts). No IV (0 pts). Ambulatory Aid- None/Bed Rest/Nurse Assist (0 pts). Gait- Normal/Bed Rest/Wheelchair (0 pts) Mental Status- Oriented to own ability (0 pts). Total Miller Fall Scale indicates No Risk (0-24 pts). Assessment: 11:42 General: Appears in no apparent distress. comfortable, Behavior is calm, cooperative. vg1 Neuro: Level of Consciousness is awake, alert, obeys commands, Oriented to person, place, time, situation. Cardiovascular: Patient's skin is warm and dry. Respiratory: Airway is patent Respiratory effort is even, unlabored, Breath sounds are clear bilaterally. GI: No signs and/or symptoms were reported involving the gastrointestinal system. : No signs and/or symptoms were reported regarding the genitourinary system. EENT: Throat is reddened. Derm: Skin is intact, is healthy with good turgor. Musculoskeletal: Circulation, motion, and sensation intact. 11:42 Pain: Denies pain. vg1 12:45 Reassessment: Patient appears in no apparent distress at this time. No changes from tw2 previously documented assessment. Patient and/or family updated on plan of care and expected duration. Pain level reassessed. Patient is alert, oriented x 3, equal unlabored respirations, skin warm/dry/pink. Vital Signs: 10:44 BP 139 / 84; Pulse 90; Resp 19; Temp 97.9(TE); Pulse Ox 100% on R/A; tw2 ED Course: 10:32 Patient arrived in ED. ds1 10:45 Triage completed. tw2 10:47 Arm band placed on. tw2 11:07 Foster Garcia PA is PHCP. cp 11:07 Kole Ballard MD is Attending Physician. cp 11:38 Lynnette Sequeira, JOSE is Primary Nurse. vg1 11:43 Patient has correct armband on for positive identification. Bed in low position. Call vg1 light in reach. Side rails up X 1. 12:45 No apparent distress. tw2 12:45 No provider procedures requiring assistance completed. Patient did not have IV access tw2 during this emergency room visit. Administered Medications: 11:42 Drug: Tessalon Perle (benzonatate) 200 mg Route: PO; vg1 12:52 Follow up: Response: No adverse reaction vg1 Outcome: 12:39 Discharge ordered by . romelia 12:45 Discharged to home ambulatory. tw2 12:45 Condition: stable 12:45 Discharge instructions given to patient, Instructed on discharge instructions, follow up and referral plans. medication usage, Demonstrated understanding of instructions, follow-up care, medications, Prescriptions given X 3. 12:49 Patient left the ED. tw2 Signatures: Jacquelyn Guzman ds1 Foster Garcia PA PA cp Wise, Tara, RN RN tw2 Lynnette Sequeira RN RN vg1 Corrections: (The following items were deleted from the chart) 11:59 11:42 Respiratory: Airway is patent Respiratory effort is even, unlabored, vg1 vg1
[2021-02-03 12:54] VITALS: BP 139/84; TEMP 97.9; O2SAT 100
== END 2021-02-03 12:49 | disposition home or self-care (01) ==
LOC: ER 10:30
DX: J20.9 Acute bronchitis, unspecified (principal)
CPT/HCPCS: 71046; 99283

== ENCOUNTER 2021-02-15 09:48 | Emergency (ER) | payer SELFPAY ==
--- OUTSIDE RECORDS SUMMARY | 2021-02-15 10:42 | XMS REPORT | Continuity of Care Document ---
:1995 Author Organization [facility] Address [address] [place] [address] Dr. Feldman [address] [place] [id number] Care Team Providers Name Role Phone Unavailable Unavailable Unavailable Problems This patient has no known problems. Allergies, Adverse Reactions, Alerts This patient has no known allergies or adverse reactions. Medications This patient has no known medications. Procedures This patient has no known procedures. Results This patient has no known results.
--- NOTE | 2021-02-15 11:00 | ER ---
Nurse's Notes [facility] Name: Nilesh Ordonez Age: 25 yrs Sex: Male : 1995 Arrival Date: 02/15/2021 Time: 09:50 Bed 18 Private MD: Diagnosis: Hyperglycemia, unspecified;Candidal balanitis Presentation: 02/15 10:07 Chief complaint: Patient states: Dx with yeast infection on 01/27/21, took the pill and jl7 have been putting the Nystatin cream on it but it's still there. Coronavirus screen: Client denies travel out of the [place] in the last 14 days. At this time, the client does not indicate any symptoms associated with coronavirus-19. Ebola Screen: No symptoms or risks identified at this time. Initial Sepsis Screen: Does the patient meet any 2 criteria? No. Patient's initial sepsis screen is negative. Does the patient have a suspected source of infection? No. Patient's initial sepsis screen is negative. Risk Assessment: Do you want to hurt yourself or someone else? Patient reports no desire to harm self or others. Onset of symptoms was January 27, 2021. 10:07 Method Of Arrival: Ambulatory jl7 10:07 Acuity: IRVIN 3 jl7 Historical: - Allergies: 10:10 NKA; jl7 - PMHx: 10:10 Asthma; seasonal allergies; jl7 - Immunization history:: Adult Immunizations unknown. - Social history:: Smoking status: Patient denies any tobacco usage or history of. Screenin:46 Abuse screen: Denies threats or abuse. Nutritional screening: No deficits noted. vg1 Tuberculosis screening: No symptoms or risk factors identified. Fall Risk None identified. Assessment: 10:30 General: Appears in no apparent distress. comfortable, Behavior is calm, cooperative. vg1 Pain: Complains of pain in penis Pain currently is 7 out of 10 on a pain scale. Pain began a couple of months. Neuro: Level of Consciousness is awake, alert, obeys commands, Oriented to person, place, time, situation. Cardiovascular: Patient's skin is warm and dry. Respiratory: Airway is patent Respiratory effort is even, unlabored. GI: No signs and/or symptoms were reported involving the gastrointestinal system. : No signs and/or symptoms were reported regarding the genitourinary system. EENT: No signs and/or symptoms were reported regarding the EENT system. Derm: Skin is intact, is healthy with good turgor. Musculoskeletal: Circulation, motion, and sensation intact. 11:59 Reassessment: Patient appears in no apparent distress at this time. No changes from vg1 previously documented assessment. Patient and/or family updated on plan of care and expected duration. Pain level reassessed. Patient is alert, oriented x 3, equal unlabored respirations, skin warm/dry/pink. Vital Signs: 10:07 BP 117 / 81; Pulse 77; Resp 17; Temp 98.1; Pulse Ox 98% on R/A; Weight 136.08 kg; jl7 Height 5 ft. 11 in. (180.34 cm); Pain 7/10; 10:07 Body Mass Index 41.84 (136.08 kg, 180.34 cm) jl7 ED Course: 09:50 Patient arrived in ED. rg4 10:10 Triage completed. jl7 10:10 Arm band placed on right wrist. jl7 10:22 Cay[facility] Herring [facility]C [facility] kb 10:22 Foster Morris MD is Attending Physician. kb 10:25 Lynnette Sequeira, RN is Primary Nurse. vg1 10:46 Patient has correct armband on for positive identification. Bed in low position. Call vg1 light in reach. 10:46 No provider procedures requiring assistance completed. Patient did not have IV access vg1 during this emergency room visit. Administered Medications: 10:45 Drug: DiFLUcan (fluconazole) 200 mg Route: PO; vg1 11:59 Follow up: Response: No adverse reaction vg1 Outcome: 11:00 Discharge ordered by . kb 11:59 Discharged to home ambulatory. vg1 11:59 Condition: stable 11:59 Discharge instructions given to patient, Instructed on discharge instructions, follow up and referral plans. Demonstrated understanding of instructions, follow-up care. 11:59 Patient left the ED. vg1 Signatures: Cayla Herring FNP-C FNP-Ckb Garcia, Rubi rg4 Marylou Smiley RN RN jl7 Lynnette Sequeira RN RN vg1
--- NOTE | 2021-02-15 11:00 | EDPHYS ---
Physician Documentation [facility] Name: Nilesh Ordonez Age: 25 yrs Sex: Male : 1995 Arrival Date: 02/15/2021 Time: 09:50 Bed 18 Private MD: SHARLENE Physician Foster Morris HPI: 02/15 10:39 This 25 yrs old Male presents to ER via Ambulatory with complaints of Itching.kb 10:39 The patient's rash thought to be caused by yeast. The rash is located on the head of kb penis. The rash can be described as erythematous. Onset: The symptoms/episode began/occurred 2 week(s) ago. Associated signs and symptoms: Pertinent positives: itching, Pain. Severity of symptoms: At their worst the symptoms were mild moderate in the emergency department the symptoms are unchanged. Treatment given at home: OTC lotion/cream nystatin. The patient has experienced similar episodes in the past, several times. The patient has not recently seen a physician. Pt reports he has a yeast infection on penis that started about 2 weeks ago. States he was seen here and given a pill and nystatin but symptoms continue. Also reports using monostat. Has had this several times in the past. States he hasn't been diagnosed with diabetes, but his sugar runs in the 300s. States he was given a prescription for metformin, but his father told him not to take that because of some law suit that is going on. States "I'm trying to get into a program so I can see my dad's doctor because he knows what medicine I need. It's something that would cost $500 out of pocket." Discussed lifestyle changes with pt for management until he is able to get into this dr. Pt states he has cut soda and bread out of his diet, as well as other things. . Historical: - Allergies: 10:10 NKA; jl7 - PMHx: 10:10 Asthma; seasonal allergies; jl7 - Immunization history:: Adult Immunizations unknown. - Social history:: Smoking status: Patient denies any tobacco usage or history of. ROS: 10:48 Constitutional: Negative for fever, chills, and weight loss. kb 10:48 Skin: Positive for rash, of the head of penis. 10:48 All other systems are negative. Exam: 10:48 Constitutional: This is a well developed, well nourished patient who is awake, alert, kb and in no acute distress. Head/Face: Normocephalic, atraumatic. ENT: Moist Mucous membranes Respiratory: Respirations even and unlabored. No increased work of breathing, no retractions or nasal flaring. MS/ Extremity: Pulses equal, no cyanosis. Neurovascular intact. Full, normal range of motion. Neuro: Awake and alert, GCS 15, oriented to person, place, time, and situation. Moves all extremities. Normal gait. Psych: Awake, alert, with orientation to person, place and time. Behavior, mood, and affect are within normal limits. 10:48 Skin: rash can be described as erythematous, consistent with candidiasis, on the head of penis. Vital Signs: 10:07 BP 117 / 81; Pulse 77; Resp 17; Temp 98.1; Pulse Ox 98% on R/A; Weight 136.08 kg; jl7 Height 5 ft. 11 in. (180.34 cm); Pain 7/10; 10:07 Body Mass Index 41.84 (136.08 kg, 180.34 cm) jl7 MDM: 10:22 Patient medically screened. kb 10:39 Data reviewed: vital signs, nurses notes. Data interpreted: Pulse oximetry: on room air kb is 98 %. Interpretation: normal. Counseling: I had a detailed discussion with the patient and/or guardian regarding: the historical points, exam findings, and any diagnostic results supporting the discharge/admit diagnosis, the need for outpatient follow up, a family practitioner, to return to the emergency department if symptoms worsen or persist or if there are any questions or concerns that arise at home. 02/15 10:56 Order name: Glucose, Ancillary Testing; Complete Time: 10:58 EDMS 02/15 10:36 Order name: Blood Glucose Level; Complete Time: 10:44 kb Administered Medications: 10:45 Drug: DiFLUcan (fluconazole) 200 mg Route: PO; vg1 11:59 Follow up: Response: No adverse reaction vg1 Disposition: 13:26 Co-signature as Attending Physician, Foster Morris MD I agree with the assessment and padmini plan of care. Disposition Summary: 02/15/21 11:00 Discharge Ordered Location: Home kb Condition: Stable kb Diagnosis - Hyperglycemia, unspecified kb - Candidal balanitis kb Followup: kb - With: Emergency Department - When: As needed - Reason: Worsening of condition Followup: kb - With: Private Physician - When: 2 - 3 days - Reason: Recheck today's complaints, Continuance of care, Re-evaluation by your physician Discharge Instructions: - Discharge Summary Sheet kb - Hyperglycemia, [id number] kb - Genital Yeast Infection, Male kb Forms: - Medication Reconciliation Form kb - Thank You Letter kb - Antibiotic Education kb - Prescription Opioid Use kb Signatures: Dispatcher [employer] EDCayla Arec, ANIL-C TEST PULLER-Foster Pastor MD MD cha Leal, Jahala, RN RN jl7 Lynnette Sequeira, RN RN vg1
[2021-02-15] MEDS ORDERED: FLUCONAZOLE 100 MG TAB ONE (11:01)
[2021-02-15 12:12] VITALS: BP 117/81; TEMP 98.1; O2SAT 98
== END 2021-02-15 11:59 | disposition home or self-care (01) ==
LOC: ER 09:48
DX: B37.42 Candidal balanitis (principal); R73.9 Hyperglycemia, unspecified
CPT/HCPCS: 82947; 99283

== ENCOUNTER 2021-05-18 22:22 | Emergency (ER) | payer SELFPAY ==
[2021-05-18 23:47] LABS: Urine Blood Negative (Negative); Urine Glucose 3+ (Negative); Urine Protein Negative (Negative)
--- NOTE | 2021-05-19 00:19 | EDPHYS ---
Physician Documentation [facility] Name: Nilesh Ordonez Age: 26 yrs Sex: Male : 1995 Arrival Date: 05/18/2021 Time: 22:23 Bed 18 Private MD: ED Physician Ghada Hernandez HPI: 05/19 00:11 This 26 yrs old Male presents to ER via Ambulatory with complaints of Yeast pm1 infection to groin. 00:11 The patient presents with Rash and itching. Onset: The symptoms/episode began/occurred pm1 2 day(s) ago. Modifying factors: The symptoms are alleviated by nothing, the symptoms are aggravated by nothing. Associated signs and symptoms: Pertinent negatives: fever. Severity of symptoms: in the emergency department the symptoms are unchanged. The patient has experienced similar episodes in the past, several times. The patient has not recently seen a physician. Patient presented to ER requesting medication by mouth to help with yeast infection to groin area. Patient has been applying nystatin without improvement. Historical: - Allergies: 05/18 23:20 NKA; df1 - Home Meds: 23:20 albuterol sulfate 2.5 mg /3 mL (0.083 %) Inhl nebu QID PRN for Acute Asthma Attack df1 [Active]; glimepiride 4 mg Oral tab 1 tab once daily [Active]; - PMHx: 23:20 Asthma; seasonal allergies; Diabetes mellitus; df1 - PSHx: 23:20 None; df1 - Immunization history:: Adult Immunizations up to date. - Social history:: Smoking status: Patient denies any tobacco usage or history of. ROS: 05/19 00:11 Constitutional: Negative for fever, chills, and weight loss, Cardiovascular: Negative pm1 for chest pain, palpitations, and edema, Respiratory: Negative for shortness of breath, cough, wheezing, and pleuritic chest pain, Abdomen/GI: Negative for abdominal pain, nausea, vomiting, diarrhea, and constipation, MS/Extremity: Negative for injury and deformity. Neuro: Negative for headache, weakness, numbness, tingling, and seizure. Skin: Positive for rash, of the groin. Exam: 00:11 Constitutional: This is a well developed, well nourished patient who is awake, alert, pm1 and in no acute distress. Head/Face: Normocephalic, atraumatic. 00:11 MS/ Extremity: Pulses equal, no cyanosis. Neurovascular intact. Full, normal range of motion. 00:11 Cardiovascular: Exam negative for acute changes, Rate: normal, Rhythm: regular, Pulses: no pulse deficits are appreciated. 00:11 Respiratory: Exam negative for acute changes, respiratory distress, shortness of breath. 00:11 : Male external genitalia: Patient is not circumisioned. penile discharge, is absent, tenderness, is not appreciated, Rash consistent with dialysis to glans of penis. 00:11 Neuro: Exam negative for acute changes, Orientation: is normal, Mentation: is normal, Motor: is normal, moves all fours. Vital Signs: 05/18 23:17 BP 151 / 83; Pulse 87; Resp 18; Temp 98.0; Pulse Ox 99% on R/A; Weight 136.08 kg; df1 Height 5 ft. 8 in. (172.72 cm); Pain 5/10; 05/19 00:32 BP 140 / 72; Pulse 80; Resp 18; Temp 98.0; Pulse Ox 100% on R/A; Pain 6/10; kc4 05/18 23:17 Body Mass Index 45.61 (136.08 kg, 172.72 cm) df1 MDM: 00:11 Patient medically screened. pm1 00:17 Data reviewed: vital signs. Data interpreted: Pulse oximetry: on room air is 99 %. pm1 Interpretation: normal. Counseling: I had a detailed discussion with the patient and/or guardian regarding: the historical points, exam findings, and any diagnostic results supporting the discharge/admit diagnosis, the need for outpatient follow up, a family practitioner, to return to the emergency department if symptoms worsen or persist or if there are any questions or concerns that arise at home. 05/18 23:47 Order name: Urine Dipstick-Ancillary; Complete Time: 23:57 EDMS 05/18 23:44 Order name: Urine Dipstick-Ancillary (obtain specimen); Complete Time: 23:47 df1 Administered Medications: 00:32 Drug: DiFLUcan (fluconazole) 200 mg Route: PO; kc4 00:35 Follow up: Response: No adverse reaction kc4 Disposition Summary: 10/06/21 00:18 Discharge Ordered Location: Home pm1 Problem: new pm1 Symptoms: have improved pm1 Condition: Stable pm1 Diagnosis - Balanitis pm1 Followup: pm1 - With: Emergency Department - When: As needed - Reason: Worsening of condition Followup: pm1 - With: Private Physician - When: 2 - 3 days - Reason: Recheck today's complaints, Continuance of care, Re-evaluation by your physician Discharge Instructions: - Discharge Summary Sheet pm1 - Balanitis pm1 Forms: - Medication Reconciliation Form pm1 - Thank You Letter pm1 - Antibiotic Education pm1 - Prescription Opioid Use pm1 Prescriptions: - Clotrimazole 1 % Topical Cream - Apply to affected area 1 application by TOPICAL route every 12 hours; 15 gram; pm1 Refills: 0, Product Selection Permitted Addendum: 05/20/2021 03:02 Co-signature as Attending Physician, Ghada Hernandez MD. m a2 Signatures: Dispatcher [employer] EDMS Samir Whalen, FLOR OUTSIDE MACHINIST pm1 Ghada Hernandez MD MD ma2 Luisa Crawley 4 Lorie Monsivais df1
--- NOTE | 2021-05-19 00:19 | ER ---
Nurse's Notes [facility] Name: Nilesh Ordonez Age: 26 yrs Sex: Male : 1995 Arrival Date: 05/18/2021 Time: 22:23 Bed 18 Private MD: Diagnosis: Balanitis Presentation: 05/18 23:17 Chief complaint: Patient states: yeast infection to groin x 2 days. Coronavirus screen: df1 Vaccine status: Patient reports being unvaccinated. The client reports previous COVID testing was negative. Date of collection: March 2021. Ebola Screen: Patient negative for fever greater than or equal to 101.5 degrees Fahrenheit, and additional compatible Ebola Virus Disease symptoms Patient denies exposure to infectious person. Patient denies travel to an Ebola-affected area in the 21 days before illness onset. Initial Sepsis Screen: Does the patient meet any 2 criteria? No. Patient's initial sepsis screen is negative. Risk Assessment: Do you want to hurt yourself or someone else? Patient reports no desire to harm self or others. Onset of symptoms was May 18, 2021. 23:17 Method Of Arrival: Ambulatory df1 23:17 Acuity: IRVIN 4 df1 23:20 Note Pt states itching/yeast infection to groin x 2 days. Using Nystatin at home with df1 no improvement. H/O DM. 23:53 Initial Sepsis Screen: Does the patient have a suspected source of infection? No. df1 Patient's initial sepsis screen is negative. Triage Assessment: 23:53 General: Appears in no apparent distress. Behavior is calm, cooperative. Pain: Denies df1 pain. Historical: - Allergies: 23:20 NKA; df1 - Home Meds: 23:20 albuterol sulfate 2.5 mg /3 mL (0.083 %) Inhl nebu QID PRN for Acute Asthma Attack df1 [Active]; glimepiride 4 mg Oral tab 1 tab once daily [Active]; - PMHx: 23:20 Asthma; seasonal allergies; Diabetes mellitus; df1 - PSHx: 23:20 None; df1 - Immunization history:: Adult Immunizations up to date. - Social history:: Smoking status: Patient denies any tobacco usage or history of. Screenin:52 Abuse screen: Denies threats or abuse. Nutritional screening: No deficits noted. df1 Tuberculosis screening: No symptoms or risk factors identified. Fall Risk None identified. Assessment: 23:59 Reassessment: Pt ambulate to room 18 , report received . Waiting on further orders. dc2 05/19 00:32 Reassessment: Patient is alert, oriented x 3, equal unlabored respirations, skin kc4 warm/dry/pink. Vital Signs: 05/18 23:17 BP 151 / 83; Pulse 87; Resp 18; Temp 98.0; Pulse Ox 99% on R/A; Weight 136.08 kg; df1 Height 5 ft. 8 in. (172.72 cm); Pain 5/10; 05/19 00:32 BP 140 / 72; Pulse 80; Resp 18; Temp 98.0; Pulse Ox 100% on R/A; Pain 6/10; kc4 05/18 23:17 Body Mass Index 45.61 (136.08 kg, 172.72 cm) df1 ED Course: 05/18 22:23 Patient arrived in ED. 23:20 Triage completed. df1 23:52 Patient has correct armband on for positive identification. df1 23:53 Arm band placed on right wrist. df1 23:55 Samir Whalen NP is PHCP. pm1 23:55 Ghada Hernandez MD is Attending Physician. pm1 23:59 Julia Rivas, JOSE is Primary Nurse. dc2 05/19 00:33 No provider procedures requiring assistance completed. Patient did not have IV access kc4 during this emergency room visit. Administered Medications: 00:32 Drug: DiFLUcan (fluconazole) 200 mg Route: PO; kc4 00:35 Follow up: Response: No adverse reaction kc4 Outcome: 00:18 Discharge ordered by . pm1 00:33 Discharged to home ambulatory. kc4 00:33 Condition: stable 00:33 Discharge instructions given to patient, significant other, Instructed on discharge instructions, follow up and referral plans. medication usage, Demonstrated understanding of instructions, follow-up care, medications, Prescriptions given X 1. 00:35 Patient left the ED. kc4 Signatures: Samir Whalen NP CONSULTING UTILITY FORESTER pm1 Tran Carvajal Kourtney kc4 Lorie Monsivais df1 Julia Rivas, JOSE RN dc2
[2021-05-19 00:40] VITALS: TEMP 98
[2021-05-19 00:41] VITALS: BP 140/72; O2SAT 100
[2021-05-19] MEDS ORDERED: FLUCONAZOLE 100 MG TAB ONE (00:47)
== END 2021-05-19 00:35 | disposition home or self-care (01) ==
LOC: ER 22:22
DX: N48.1 Balanitis (principal); E11.9 Type 2 diabetes mellitus without complications
CPT/HCPCS: 81003; 99283

== ENCOUNTER 2021-06-30 09:29 | Emergency (ER) | payer SELFPAY ==
--- OUTSIDE RECORDS SUMMARY | 2021-06-30 09:32 | XMS REPORT | Continuity of Care Document ---
:1995 Author Organization [facility] t Address [address] [place] [address] [address] [place] [address] Care Team Providers Name Role Phone Pcp, Does Not Have A Primary Care Physician SULEIMAN Attending Clinician Unavailable Suleiman MA Attending Clinician Gabriel WEINSTEIN Attending Clinician Unavailable Gabriel Son Attending Clinician Payers Payer Name Policy Type Policy Number Effective Date Expiration Date Janak leger [facility] [id number] 2018 00:00:00 Problems Condition Condition Condition Status Onset Resolution Last Treating Co mments Source Name Details Category Date Date Treatment Clinician Date No known No known Disease Unive rs active active ity of problems problems [facility] Allergies, Adverse Reactions, Alerts Allergy Allergy Status Severity Reaction(s) Onset Inactive Treating Comm ents Source Name Type Date Date Clinician NO KNOWN Drug Active Univers ALLERGIE Class ity of S [facility] Social History Social Habit Start Date Stop Date Quantity Comments Source Exposure to Not sure [facility] SARS-CoV-2 (event) Medica l Branch Sex Assigned At [birth year] [facility] 00:00:00 00:00:00 Medical [place] Smoking Status Start Date Stop Date Source Unknown if ever smoked [facility] Medications Ordered Filled Start Stop Current Ordering Indication Dosage Frequency Signature Comments Components Source Medication Medication Date Date Medication? Clinician (SIG) Name Name predniSONE 2020-08- No 40mg 40 mg, Univ ers (DELTASONE) 0-27 10-27 Oral, ity of tablet 40 04:15: 04:19 [place]CE[place] dose, On Medical Tue Branch 06/08/21 at 2315, RAY amoxicillin 2020-08- No 500mg 500 mg, U nivers (TRIMOX) 0-27 10-27 Oral, ity of capsule 500 04:15: 04:20 [place] dose, On Medical Tue Branch 06/08/21 at 2315, RAY
Re ason for Anti-Infec tive: Documented Infection< br>Documen thanh Infection Site: HEENT
D uration of Therapy: 7 days amoxicillin 2020-08- Yes [id number] 500mg Take 1 Univers 500 mg 0- 11-03 capsule by ity of capsule 00:00: 04:59 mouth 3 [place] 00 :00 (three) Medical times Branch daily for 7 days. predniSONE 2020-08- Yes [id number] 20mg Take 1 Univers 20 mg 0- 10-30 tablet by ity of tablet 00:00: 04:59 mouth 2 [place] 00 :00 (two) Medical times Branch daily for 3 days. ALBUTEROL Yes Inhale. Unive rs INHALE 5-09 ity of 01:35: [address] montelukast Yes 10mg Take 10 mg Univers (SINGULAIR) 5-09 by mouth ity of 10 mg 01:35: daily. [address] ALBUTEROL 0 Yes Inhale. Unive rs INHALE 5-09 ity of 01:35: [address] montelukast Yes 10mg Take 10 mg Univers (SINGULAIR) 5-09 by mouth ity of 10 mg 01:35: daily. [address] benzonatate Yes [id number] 200mg Take 1 Univers 200 mg 5-09 capsule by ity of capsule 00:00: mouth 3 [place] 00 (three) Medical times Branch daily as needed for Cough. ibuprofen Yes [id number] 800mg Take 1 U nivers 800 mg 5-09 tablet by ity of tablet 00:00: mouth [place] 00 every 8 Medical (eight) Branch hours as needed for Temp > 38.5 C (PAIN). benzonatate Yes [id number] 200mg Take 1 Univers 200 mg 5-09 capsule by ity of capsule 00:00: mouth 3 00 (three) Medical times Branch daily as needed for Cough. ibuprofen 2019-0 Yes [id number] 800mg Take 1 U nivers 800 mg 5-09 tablet by ity of tablet 00:00: mouth [place] 00 every 8 Medical (eight) Branch hours as needed for Temp > 38.5 C (PAIN). Vital Signs Vital Name Observation Time Observation Value Comments Source Systolic blood 2021-06-28 15:22:00 115 mm[Hg] [facility] Diastolic blood 2021-06-28 15:22:00 79 [facility]Hg[facility] 2021-06-28 15:22:00 83 /min [facility] Body temperature 2021-06-28 15:22:00 36.78 [facility] 2021-06-28 15:22:00 22 /min [facility] Body weight 2021-06-28 15:22:00 136.079 kg [facility] BMI 2021-06-28 15:22:00 41.84 kg/m2 [facility] Oxygen saturation in 2021-06-28 15:22:00 97 /min University of Arterial blood by [facility] Pulse oximetry Branch Heart rate 2021-06-09 04:18:20 99 /[facility] Body temperature 2021-06-09 04:18:20 37.33 [facility] Res[facility] rate 2021-06-09 04:18:20 20 /min [facility] Oxygen saturation in 2021-06-09 04:18:20 97 /min University of Arterial blood by [facility] Pulse oximetry Branch Systolic blood 2021-06-09 02:25:00 139 mm[Hg] [facility] Diastolic blood 2021-06-09 02:25:00 84 mm[Hg] [facility] Body height 2021-06-09 02:25:00 180.3 cm Universi ty [facility] Body weight 2021-06-09 02:25:00 136.079 [facility] BMI 2021-06-09 02:25:00 41.84 kg/m2 [facility] Medical [place] Procedures Procedure Date / Time Performed Performing Clinician Sour e RAPID STREP SCREEN 2021-06-28 16:07:00 Shantel Henriquez [facility] FOR GROUP A Medical Branch CONSENT/REFUSAL FOR 2021-06-28 15:15:16 Doctor Unassigned, No [facility] [place] [facility] AND Name Medical Branch TREATMENT RAPID STREP SCREEN 2021-06-09 02:28:00 Ismael Francois [facility] FOR GROUP A Medical Branch NOTICE OF PRIVACY 2021-06-09 02:17:09 Doctor Unassigned, No Univ [facility]ity [facility] PRACTICES Name Medical Branch CONSENT/REFUSAL FOR 2021-06-09 02:07:03 Doctor [facility]assigned, No [facility] Name [facility] Branch TREATMENT Encounters Start End Encounter Admission Attending Care Care Encounter Source Date/Time Date/Time Type Type Clinicians Facility Department ID 2021-06-28 2021-06-28 Emergency X [facility] ERT [id number] Univers 09:24:00 12:01:00 SHANTLE candace [facility] 2021-06-28 2021-06-28 Emergency [facility] [id number] Univers 09:24:00 12:01:00 Shantel CUEVAS [id number] i ty of [place] [id number] [facility] [id number] [place] [id number] Branch 2021-06-08 2021-06-08 Emergency X [facility] ERT [id number] Univers 21:32:00 23:24:00 NILDA candace of [facility] 2021-06-08 2021-06-08 Emergency [facility] [id number] Univers 21:32:00 23:24:00 Nilda Cuevas [id number] i ty of [place] [id number] [facility] [id number] [place] [address] Branch Results This patient has no known results.
[2021-06-30 10:45] LABS: SARS-COV-2 RT PCR NEGATIVE (NEGATIVE)
--- NOTE | 2021-06-30 10:57 | EDPHYS ---
Physician Documentation [facility] Name: Nilesh Ordonez Age: 26 yrs Sex: Male : 1995 Arrival Date: 06/30/2021 Time: 09:32 Bed 13 Private MD: ED Physician Kole Ballard HPI: 06/30 11:05 This 26 yrs old Male presents to ER via Ambulatory with complaints of Cough, kb Sore Throat, Chest Pain, Shortness Of Breath. 11:05 The patient or guardian reports cough, difficulty breathing. Onset: The kb symptoms/episode began/occurred 4 day(s) ago. Severity of symptoms: At their worst the symptoms were moderate, in the emergency department the symptoms are unchanged. Modifying factors: The symptoms are alleviated by nothing, the symptoms are aggravated by nothing. Associated signs and symptoms: Pertinent positives: sore throat. The patient has not experienced similar symptoms in the past. The patient has not recently seen a physician. Pt reports sore throat for 4 days; cough, congestion, slight shortness of breath and chest pain with cough for 2 days. . Historical: - Allergies: 09:41 NKA; aa5 - Home Meds: 09:59 glimepiride 4 mg Oral tab 1 tab once daily [Active]; kd3 10:01 albuterol sulfate 2.5 mg /3 mL (0.083 %) Inhl nebu QID PRN for Acute Asthma Attack kd3 [Active]; - PMHx: 09:41 Asthma; diabetes mellitus; seasonal allergies; aa5 - PSHx: 09:41 None; aa5 - Immunization history:: Client reports having NOT received the Covid vaccine. - Social history:: Smoking status: Patient denies any tobacco usage or history of. Smoking status: Patient denies any tobacco usage or history of. ROS: 11:08 Constitutional: Negative for fever, chills, and weight loss. kb 11:08 ENT: Positive for sore throat. 11:08 Respiratory: Positive for cough, shortness of breath, Negative for dyspnea on exertion, hemoptysis, orthopnea, pleurisy, sputum production, wheezing. 11:08 All other systems are negative. Exam: 11:08 Constitutional: This is a well developed, well nourished patient who is awake, alert, kb and in no acute distress. Head/Face: Normocephalic, atraumatic. ENT: Moist Mucous membranes Cardiovascular: Regular rate and rhythm with a normal S1 and S2. No gallops, murmurs, or rubs. No pulse deficits. Respiratory: Respirations even and unlabored. No increased work of breathing, no retractions or nasal flaring. Abdomen/GI: Soft, non-tender. No distention Skin: Warm, dry with normal turgor. Normal color. MS/ Extremity: Pulses equal, no cyanosis. Neurovascular intact. Full, normal range of motion. Neuro: Awake and alert, GCS 15, oriented to person, place, time, and situation. Moves all extremities. Normal gait. Psych: Awake, alert, with orientation to person, place and time. Behavior, mood, and affect are within normal limits. Vital Signs: 09:34 BP 126 / 84; Pulse 92; Resp 18; Temp 98.4(O); Pulse Ox 96% on R/A; Weight 136.08 kg aa5 (R); Height 5 ft. 11 in. (180.34 cm) (R); 11:09 BP 119 / 84; Pulse 68; Resp 16; Pulse Ox 100% on R/A; kd3 09:34 Body Mass Index 41.84 (136.08 kg, 180.34 cm) aa5 MDM: 09:37 Patient medically screened. kb 11:07 Data reviewed: vital signs, nurses notes. Data interpreted: Pulse oximetry: on room air kb is 96 %. Interpretation: normal. Counseling: I had a detailed discussion with the patient and/or guardian regarding: the historical points, exam findings, and any diagnostic results supporting the discharge/admit diagnosis, lab results, the need for outpatient follow up, a family practitioner, to return to the emergency department if symptoms worsen or persist or if there are any questions or concerns that arise at home. 06/30 09:40 Order name: COVID-19/FLU A+B (Document "Date of Onset" if Symptomatic); Complete Time: kb 10:47 06/30 09:40 Order name: Strep; Complete Time: 10:14 kb 06/30 10:14 Order name: Throat Culture EDMS Administered Medications: No medications were administered Disposition: 11:35 Co-signature as Attending Physician, Kole Ballard MD I agree with the assessment and rn plan of care. Attestation: The patient's history, exam findings, diagnostics, and a summary of any interventions or procedures was reviewed in detail with Cayla KIM. Disposition Summary: 06/30/21 10:56 Discharge Ordered Location: Home kb Condition: Stable kb Diagnosis - Acute upper respiratory infection, unspecified kb Followup: kb - With: Emergency Department - When: As needed - Reason: Worsening of condition Followup: kb - With: Private Physician - When: 2 - 3 days - Reason: Recheck today's complaints, Continuance of care, Re-evaluation by your physician Discharge Instructions: - Discharge Summary Sheet kb - Upper Respiratory Infection, Adult, [id number] kb - Viral Respiratory Infection, [id number] kb Forms: - Medication Reconciliation Form kb - Thank You Letter kb - Antibiotic Education kb - Prescription Opioid Use kb - Work release form bd Signatures: Dispatcher [employer] EDDC Cayla Herring FNP-C FNP-Kole Mayers MD MD rn Calderon, Audri, RN RN aa5 Ileana Cerrato, RN RN kd3
--- NOTE | 2021-06-30 10:57 | ER ---
Nurse's Notes [facility] Name: Nilesh Ordonez Age: 26 yrs Sex: Male : 1995 Arrival Date: 06/30/2021 Time: 09:32 Bed 13 Private MD: Diagnosis: Acute upper respiratory infection, unspecified Presentation: 06/30 09:34 Chief complaint: Patient states: productive cough, sore throat, mild chest pain, and aa5 SOB x 3-4 days ago. 09:34 Coronavirus screen: cough unrelated to allergies, shortness of breath. Ebola Screen: No aa5 symptoms or risks identified at this time. Initial Sepsis Screen: Does the patient meet any 2 criteria? HR > 90 bpm. Does the patient have a suspected source of infection? Yes: Productive cough/pneumonia. Risk Assessment: Do you want to hurt yourself or someone else? Patient reports no desire to harm self or others. Onset of symptoms was June 2021. 09:34 Acuity: IRVIN 3 aa5 09:34 Method Of Arrival: Ambulatory aa5 Triage Assessment: 09:57 General: Appears in no apparent distress. Behavior is calm, cooperative, appropriate kd3 for age. Historical: - Allergies: 09:41 NKA; aa5 - Home Meds: 09:59 glimepiride 4 mg Oral tab 1 tab once daily [Active]; kd3 10:01 albuterol sulfate 2.5 mg /3 mL (0.083 %) Inhl nebu QID PRN for Acute Asthma Attack kd3 [Active]; - PMHx: 09:41 Asthma; diabetes mellitus; seasonal allergies; aa5 - PSHx: 09:41 None; aa5 - Immunization history:: Client reports having NOT received the Covid vaccine. - Social history:: Smoking status: Patient denies any tobacco usage or history of. Smoking status: Patient denies any tobacco usage or history of. Screenin:56 Abuse screen: Denies threats or abuse. Denies injuries from another. Nutritional kd3 screening: No deficits noted. Tuberculosis screening: No symptoms or risk factors identified. Fall Risk None identified. Assessment: 09:56 Pain: Complains of pain in chest. Respiratory: Airway is patent Breath sounds are clear kd3 bilaterally. EENT: Throat is reddened. 09:58 Respiratory: Respiratory effort is even, unlabored. kd3 Vital Signs: 09:34 BP 126 / 84; Pulse 92; Resp 18; Temp 98.4(O); Pulse Ox 96% on R/A; Weight 136.08 kg aa5 (R); Height 5 ft. 11 in. (180.34 cm) (R); 11:09 BP 119 / 84; Pulse 68; Resp 16; Pulse Ox 100% on R/A; kd3 09:34 Body Mass Index 41.84 (136.08 kg, 180.34 cm) aa5 ED Course: 09:32 Patient arrived in ED. as 09:37 Cayla Herring FNP-C is PHCP. kb 09:37 Kole Ballard MD is Attending Physician. kb 09:39 Arm band placed on. aa5 09:41 Triage completed. aa5 09:56 Patient has correct armband on for positive identification. Bed in low position. Call kd3 light in reach. 09:56 COVID-19/FLU A+B (Document "Date of Onset" if Symptomatic) Sent. kd3 09:56 Strep Sent. kd3 10:53 Throat Culture Sent. kd3 11:18 No provider procedures requiring assistance completed. Patient did not have IV access kd3 during this emergency room visit. Administered Medications: No medications were administered Outcome: 10:56 Discharge ordered by . kb 11:18 Discharged to home ambulatory, with family. kd3 11:18 Condition: stable 11:18 Discharge instructions given to patient, Instructed on discharge instructions, follow up and referral plans. Demonstrated understanding of instructions, follow-up care. 11:19 Patient left the ED. kd3 Signatures: Cayla Herring FNP-C FNP-Ckb Martinez, Amelia as Calderon, Audri, RN RN aa5 Ileana Cerrato, RN RN kd3
[2021-06-30 11:24] VITALS: TEMP 98.4
[2021-06-30 11:26] VITALS: BP 119/84; O2SAT 100
== END 2021-06-30 11:19 | disposition home or self-care (01) ==
LOC: ER 09:29
DX: J06.9 Acute upper respiratory infection, unspecified (principal); E11.9 Type 2 diabetes mellitus without complications
CPT/HCPCS: 0240U; 87070; 87081; 99283

== ENCOUNTER 2021-12-10 00:25 | Emergency (ER) | payer BC, SELFPAY ==
--- OUTSIDE RECORDS SUMMARY | 2021-12-10 00:30 | XMS REPORT | Continuity of Care Document ---
:1995 Author Organization [facility] t Address [address] [place] [address] [address] [place] [address] Care Team Providers Name Role Phone Pcp, Does Not Have A Primary Care Physician SULEIMAN Attending Clinician Unavailable Suleiman MA Attending Clinician Gabriel WEINSTEIN Attending Clinician Unavailable Gabriel Son Attending Clinician Payers Payer Name Policy Type Policy Number Effective Date Expiration Date Janak leger [facility] [id number] 2018 00:00:00 Problems Condition Condition Condition Status Onset Resolution Last Treating Co mments Source Name Details Category Date Date Treatment Clinician Date No known No known Disease Unive rs active active ity of problems problems [facility] Allergies, Adverse Reactions, Alerts Allergy Allergy Status Severity Reaction(s) Onset Inactive Treating Comm ents Source Name Type Date Date Clinician NO KNOWN Drug Active Univers ALLERGIE Class ity of S [facility] Social History Social Habit Start Date Stop Date Quantity Comments Source Exposure to Not sure [facility] SARS-CoV-2 (event) Medica l Branch Sex Assigned At [birth year] [facility] 00:00:00 00:00:00 [facility] [place] Smoking Status Start Date Stop Date Source Unknown if ever smoked [facility] Medications Ordered Filled Start Stop Current Ordering Indication Dosage Frequency Signature Comments Components Source Medication Medication Date Date Medication? Clinician (SIG) Name Name predniSONE 2020-08- No 40mg 40 mg, Univ ers (DELTASONE) 0-27 10-27 Oral, ity of tablet 40 04:15: 04:19 [place] dose, On Medical e Branch 06/08/21 at 2315, RAY amoxicillin 2020-08- No 500mg 500 mg, U nivers (TRIMOX) 0-27 10-27 Oral, ity of capsule 500 04:15: 04[place]20 [place] dose, On Medical e Branch 06/08/21 at 2315, RAY
Re ason for Anti-Infec tive: Documented Infection< br>Documen thanh Infection Site: HEENT
D uration of Therapy: 7 days amoxicillin 2020-08- No [id number] 500mg Take 1 Univers 500 mg 0 11-03 capsule by ity of capsule 00:00: 04:59 mouth 3 [place] 00 :00 (three) Medical times [place] daily for 7 days. predniSONE 2020-08 No [id number] 20mg Take 1 Univers 20 mg 0- 10-30 tablet by ity of tablet 00:00: 04:59 mouth 2 [place] 00 :00 (two) Medical times Branch daily for 3 days. ALBUTEROL 0 Yes Inhale. Unive rs INHALE 5-09 ity of 01:35: [address] montelukast 0 Yes 10mg Take 10 mg Univers (SINGULAIR) 5-09 by mouth ity of 10 mg 01:35: daily. [address] ALBUTEROL 0 Yes Inhale. Unive rs INHALE 5-09 ity of 01:35: [address] montelukast Yes 10mg Take 10 mg Univers (SINGULAIR) 5-09 by mouth ity of 10 mg 01:35: daily. [address] benzonatate Yes [id number] 200mg Take 1 Univers 200 mg 5-09 capsule by ity of capsule 00:00: mouth 3 [place] 00 (three) Medical times Branch daily as needed for Cough. ibuprofen Yes [id number] 800mg Take 1 U nivers 800 mg 5-09 tablet by ity of tablet 00:00: mouth [place] 00 every 8 Medical (eight) Branch hours as needed for Temp > 38.5 C (PAIN). benzonatate Yes [id number] 200mg Take 1 Univers 200 mg 5-09 capsule by ity of capsule 00:00: mouth 3 00 (three) Medical times Branch daily as needed for Cough. ibuprofen 2019-0 Yes [id number] 800mg Take 1 U nivers 800 mg 5-09 tablet by ity of tablet 00:00: mouth [place] 00 every 8 Medical (eight) Branch hours as needed for Temp > 38.5 C (PAIN). Vital Signs Vital Name Observation Time Observation Value Comments Source Systolic blood 2021-06-28 15:22:00 115 mm[Hg] Univer sity of [facility] Diastolic blood 2021-06-28 15:22:00 79 [facility]Hg[facility] 2021-06-28 15:22:00 83 /min [facility] Body temperature 2021-06-28 15:22:00 36.78 [facility]ina [facility] Res[facility] rate 2021-06-28 15:22:00 22 /min [facility] Body weight 2021-06-28 15:22:[address] [facility] BMI 2021-06-28 15:22:00 41.84 kg/m2 [facility] Oxygen saturation in 2021-06-28 15:22:00 97 /min University of Arterial blood by [facility] Pulse oximetry Branch Heart rate 2021-06-09 04:18:20 99 [facility] 2021-06-09 04:18:20 37.33 Sakina [facility] Respiratory rate 2021-06-09 04:18:20 20 /min [facility] Oxygen saturation in 2021-06-09 04:18:20 97 /min University of Arterial blood by [facility] Pulse oximetry Branch Systolic blood 2021-06-09 02:25:00 139 mm[Hg] Univer sity of [facility] Diastolic blood 2021-06-09 02:25:00 84 mm[Hg] [facility] Body height 2021-06-09 02:25:00 180.3 cm Universi ty [facility] Body weight 2021-06-09 02:25:00 136.079 [facility] BMI 2021-06-09 02:25:00 41.84 kg/m2 [facility] Medical [place] Procedures Procedure Date / Time Performed Performing Clinician Sour e RAPID STREP SCREEN 2021-06-28 16:07:00 Shantel Henriquez [facility] FOR GROUP A Medical Branch CONSENT/REFUSAL FOR 2021-06-28 15:15:16 Doctor Unassigned, No [facility] [place] DIAGNOSIS AND Name Medical Branch TREATMENT RAPID STREP SCREEN 2021-06-09 02:28:00 Ismael Francois [facility] FOR GROUP A Medical Branch NOTICE OF PRIVACY 2021-06-09 02:17:09 Doctor Unassigned, No Univ ersity [facility] PRACTICES Name Medical Branch CONSENT/REFUSAL FOR 2021-06-09 02:07:03 [facility] Name [facility] Branch TREATMENT Encounters Start End Encounter Admission Attending Care Care Encounter Source Date/Time Date/Time Type Type Clinicians Facility Department ID 2021-06-28 2021-06-28 Emergency X [facility] ERT [id number] Univers 09:24:00 12:01:00 SHANTEL candace [facility] 2021-06-28 2021-06-28 Emergency [facility] [id number] Univers 09:24:00 12:01:00 Shantel CUEVAS [id number] i ty of [place] [id number] [facility] [id number] [place] [id number] Branch 2021-06-08 2021-06-08 Emergency X [facility] ERT [id number] Univers 21:32:00 23:24:00 NILDA candace of [facility] 2021-06-08 2021-06-08 Emergency [facility] [id number] Univers 21:32:00 23:24:00 Nilda Cuevas [id number] i ty of [place] [id number] [facility] [id number] [place] [address] Branch Results This patient has no known results.
[2021-12-10 02:43] LABS: Urine Blood Negative (Negative); Urine Glucose 1+ (Negative); Urine Protein Negative (Negative); Urine Specific Gravity >=1.030 (1.005-1.030); Urine pH 5.5 (5.0-7.0)
--- NOTE | 2021-12-10 02:58 | ER ---
Nurse's Notes [facility] Name: Nilesh Ordonez Age: 26 yrs Sex: Male : 1995 Arrival Date: 12/10/2021 Time: 00:29 Bed 24 Private MD: Diagnosis: Balanitis Presentation: 12/10 00:42 Chief complaint: Patient states: States, "I think I have a yeast infection on my ll3 scrotum again, Its been going on for 4-5 days, states its itchy". Coronavirus screen: Vaccine status: Patient reports receiving the 2nd dose of the covid vaccine. At this time, the client does not indicate any symptoms associated with coronavirus-19. Ebola Screen: No symptoms or risks identified at this time. Initial Sepsis Screen: Does the patient meet any 2 criteria? No. Patient's initial sepsis screen is negative. Does the patient have a suspected source of infection? No. Patient's initial sepsis screen is negative. Risk Assessment: Do you want to hurt yourself or someone else? Patient reports no desire to harm self or others. Onset of symptoms was December 05, 2021. 00:42 Method Of Arrival: Ambulatory ll3 00:42 Acuity: IRVIN 4 ll3 Triage Assessment: 00:47 General: Appears uncomfortable, Behavior is calm, cooperative. Pain: Complains of pain ll3 in groin Pain currently is 3 out of 10 on a pain scale. Derm: Reports States may have another yeast infection, c/o of pain and itchiness. Historical: - Allergies: 00:47 NKA; ll3 - Home Meds: 00:47 albuterol sulfate 2.5 mg /3 mL (0.083 %) Inhl nebu QID PRN for Acute Asthma Attack ll3 [Active]; - PMHx: 00:47 Asthma; diabetes mellitus; seasonal allergies; ll3 - PSHx: 00:47 None; ll3 - Immunization history:: Client reports receiving the 2nd dose of the Covid vaccine. - Social history:: Smoking status: Patient denies any tobacco usage or history of. Screenin:31 Abuse screen: Denies threats or abuse. Nutritional screening: No deficits noted. ll3 Tuberculosis screening: No symptoms or risk factors identified. 03:20 Fall Risk None identified. ll3 Assessment: 01:26 General: See triage assessment. ll3 03:19 Reassessment: Patient appears in no apparent distress at this time. No changes from ll3 previously documented assessment. Patient and/or family updated on plan of care and expected duration. Pain level reassessed. Patient is alert, oriented x 3, equal unlabored respirations, skin warm/dry/pink. Patient denies pain at this time. Vital Signs: 00:42 BP 107 / 70; Pulse 80; Resp 17; Temp 97.5(TE); Pulse Ox 98% on R/A; Weight 151.95 kg ll3 (R); Height 5 ft. 11 in. (180.34 cm) (R); Pain 3/10; 03:19 BP 124 / 86; Pulse 70; Resp 16; Pulse Ox 99% on R/A; ll3 00:42 Body Mass Index 46.72 (151.95 kg, 180.34 cm) ll3 ED Course: 00:29 Patient arrived in ED. kz 00:47 Triage completed. ll3 00:47 Arm band placed on left wrist. Patient notified of wait time. ll3 01:25 Tevin Reardon, RN is Primary Nurse. ll3 01:31 Patient has correct armband on for positive identification. Placed in gown. Bed in low ll3 position. Call light in reach. Side rails up X 1. 01:42 Edson Winn MD is Attending Physician. [facility] 03:20 No provider procedures requiring assistance completed. Patient did not have IV access ll3 during this emergency room visit. intact, bleeding controlled, No redness/swelling at site. Pressure dressing applied. Administered Medications: No medications were administered Outcome: 02:58 Discharge ordered by . [facility] 03:20 Discharged to home ambulatory. ll3 03:20 Condition: stable 03:20 Discharge instructions given to patient, Instructed on discharge instructions, follow up and referral plans. medication usage, Demonstrated understanding of instructions, follow-up care, medications, Prescriptions given X 1. 03:20 Patient left the ED. ll3 Signatures: Edson Winn MD MD [id number] Loubet, Lynsea, RN RN 3 Elizabeth [place]
--- NOTE | 2021-12-10 02:59 | EDPHYS ---
Physician Documentation [facility] Name: Nilesh Ordonez Age: 26 yrs Sex: Male : 1995 Arrival Date: 12/10/2021 Time: 00:29 Bed 24 Private MD: ED Physician Edson Winn HPI: 12/10 02:45 This 26 yrs old Male presents to ER via Ambulatory with complaints of Testicular mh7 Problem. 02:45 The patient presents with yeast infection on penis. mh7 02:45 Onset: The symptoms/episode began/occurred 5 day(s) ago. mh7 02:45 Modifying factors: The symptoms are alleviated by nothing, the symptoms are aggravated mh7 by nothing. Associated signs and symptoms: Pertinent positives: itching, Pertinent negatives: abdominal pain, constipation, diarrhea, dysuria, fever, hematuria, nausea, vomiting. Severity of symptoms: At their worst the symptoms were moderate, 3 day(s) ago, in the emergency department the symptoms are unchanged. The patient has experienced similar episodes in the past, multiple times. Historical: - Allergies: 00:47 NKA; ll3 - Home Meds: 00:47 albuterol sulfate 2.5 mg /3 mL (0.083 %) Inhl nebu QID PRN for Acute Asthma Attack ll3 [Active]; - PMHx: 00:47 Asthma; diabetes mellitus; seasonal allergies; ll3 - PSHx: 00:47 None; ll3 - Immunization history:: Client reports receiving the 2nd dose of the Covid vaccine. - Social history:: Smoking status: Patient denies any tobacco usage or history of. ROS: 02:45 Constitutional: Negative for fever, chills, and weight loss, Eyes: Negative for injury, mh7 pain, redness, and discharge, ENT: Negative for injury, pain, and discharge, Neck: Negative for injury, pain, and swelling, Cardiovascular: Negative for chest pain, palpitations, and edema, Respiratory: Negative for shortness of breath, cough, wheezing, and pleuritic chest pain, Abdomen/GI: Negative for abdominal pain, nausea, vomiting, diarrhea, and constipation, Back: Negative for injury and pain, MS/Extremity: Negative for injury and deformity, Neuro: Negative for headache, weakness, numbness, tingling, and seizure, Psych: Negative for depression, anxiety, suicide ideation, homicidal ideation, and hallucinations, Allergy/Immunology: Negative for hives, rash, and allergies, Endocrine: Negative for neck swelling, polydipsia, polyuria, polyphagia, and marked weight changes, Hematologic/Lymphatic: Negative for swollen nodes, abnormal bleeding, and unusual bruising. Exam: 02:45 Constitutional: This is a well developed, well nourished patient who is awake, alert, mh7 and in no acute distress. Head/Face: Normocephalic, atraumatic. Eyes: Pupils equal round and reactive to light, extra-ocular motions intact. Lids and lashes normal. Conjunctiva and sclera are non-icteric and not injected. Cornea within normal limits. Periorbital areas with no swelling, redness, or edema. Neck: Trachea midline, no thyromegaly or masses palpated, and no cervical lymphadenopathy. Supple, full range of motion without nuchal rigidity, or vertebral point tenderness. No Meningismus. Chest/axilla: Normal chest wall appearance and motion. Nontender with no deformity. No lesions are appreciated. Cardiovascular: Regular rate and rhythm with a normal S1 and S2. No gallops, murmurs, or rubs. Normal PMI, no JVD. No pulse deficits. Respiratory: Lungs have equal breath sounds bilaterally, clear to auscultation and percussion. No rales, rhonchi or wheezes noted. No increased work of breathing, no retractions or nasal flaring. Abdomen/GI: Soft, non-tender, with normal bowel sounds. No distension or tympany. No guarding or rebound. No evidence of tenderness throughout. Back: No spinal tenderness. No costovertebral tenderness. Full range of motion. MS/ Extremity: Pulses equal, no cyanosis. Neurovascular intact. Full, normal range of motion. Neuro: Awake and alert, GCS 15, oriented to person, place, time, and situation. Cranial nerves II-XII grossly intact. Motor strength 5/5 in all extremities. Sensory grossly intact. Cerebellar exam normal. Normal gait. Psych: Awake, alert, with orientation to person, place and time. Behavior, mood, and affect are within normal limits. 02:45 Skin: Warm, dry with normal turgor. Normal color with no rashes, no lesions, and no evidence of cellulitis. 02:45 : CVA tenderness, is absent, Male external genitalia: Patient is not circumisioned. erythema, of the shaft of penis is seen, that is mild, penile discharge, is absent, puncture, is not present, swelling: is not appreciated, tenderness, is not appreciated, ulceration, is not present, Bladder: is normal, Sexual behavior: the patient is not sexually active. Vital Signs: 00:42 BP 107 / 70; Pulse 80; Resp 17; Temp 97.5(TE); Pulse Ox 98% on R/A; Weight 151.95 kg ll3 (R); Height 5 ft. 11 in. (180.34 cm) (R); Pain 3/10; 03:19 BP 124 / 86; Pulse 70; Resp 16; Pulse Ox 99% on R/A; ll3 00:42 Body Mass Index 46.72 (151.95 kg, 180.34 cm) ll3 MDM: 02:56 Differential diagnosis: UTI, urethritis, balanitis. Data reviewed: vital signs, nurses [facility] notes, lab test result(s), finger stick glucose, urinalysis. Data interpreted: Pulse oximetry: on room air is 98 %. Interpretation: normal. Counseling: I had a detailed discussion with the patient and/or guardian regarding: the historical points, exam findings, and any diagnostic results supporting the discharge/admit diagnosis, lab results, the need for outpatient follow up, to return to the emergency department if symptoms worsen or persist or if there are any questions or concerns that arise at home. Response to treatment: the patient's symptoms have markedly improved after treatment. Refusal of service: The patient/guardian displays adequate decision making capability and despite a detailed discussion of alternatives, benefits, risks, and consequences refuses: all lab tests. 02:[address] [facility] 12/10 02:01 Order name: Glucose, Ancillary Testing; Complete Time: 02:51 EDMS 12/10 02:44 Order name: Urine Dipstick-Ancillary; Complete Time: 02:51 EDMS 12/10 02:34 Order name: Urine Dipstick-Ancillary (obtain specimen); Complete Time: 03:06 [facility] Administered Medications: No medications were administered Disposition Summary: 12/10/21 02:58 Discharge Ordered Location: Home [facility] Problem: an acute exacerbation [facility] Symptoms: have improved [facility] Condition: Stable mh7 Diagnosis - Balanitis [facility] Followup: [facility] - With: Private Physician - When: 1 - 2 days - Reason: Worsening of condition, Recheck today's complaints, Continuance of care, Re-evaluation by your physician Discharge Instructions: - Discharge Summary Sheet [facility] - Balanitis [facility] Forms: - Medication Reconciliation Form [facility] - Thank You Letter [facility] - Antibiotic Education [facility] - Prescription Opioid Use [facility] Prescriptions: - Clotrimazole 1 % Topical Cream - Apply to affected area 1 application by TOPICAL route every 12 hours; 15 gram; [facility] Refills: 0, Product Selection Permitted Signatures: Edson Winn MD MD [facility] Tevin Reardon RN RN ll3 Corrections: (The following items were deleted from the chart) 02:52 02:51 This 26 yrs old Male presents to ER via Ambulatory with complaints of Testicular mh7 Problem. [facility]
[2021-12-10 04:28] VITALS: TEMP 97.5
[2021-12-10 04:29] VITALS: BP 124/86; O2SAT 99
== END 2021-12-10 03:20 | disposition home or self-care (01) ==
LOC: ER 00:25
DX: N48.1 Balanitis (principal); E11.9 Type 2 diabetes mellitus without complications; J45.909 Unspecified asthma, uncomplicated
CPT/HCPCS: 81003; 82947; 99282

== ENCOUNTER 2022-04-16 09:55 | Emergency (ER) | payer BC, OTHER ==
--- OUTSIDE RECORDS SUMMARY | 2022-04-16 09:58 | XMS REPORT | Continuity of Care Document ---
:1995 Author Organization [facility] t Address [address] [place] [address] Care Team Providers Name Role Phone Pcp, Patient Does Not Have A Primary Care Physician +[id number] ABHI Attending Clinician Unavailable SHANTEL BEARDEN Attending Clinician Unavailable Shantel Raymundo Attending Clinician NILDA WEINSTEIN Attending Clinician Unavailable Nilda Son Attending Clinician ABHI Admitting Clinician Unavailable Payers Payer Name Policy Type Policy Number Effective Date Expiration Date Janak leger [facility] [id number] 2018 00:00:00 Problems Condition Condition Condition Status Onset Resolution Last Treating Co mments Source Name Details Category Date Date Treatment Clinician Date No known No known Disease Unive rs active active ity of problems problems [facility] Allergies, Adverse Reactions, Alerts Allergy Allergy Status Severity Reaction(s) Onset Inactive Treating Comm ents Source Name Type Date Date Clinician NO KNOWN Drug Active Univers ALLERGIE Class ity of S [facility] Social History Social Habit Start Date Stop Date Quantity Comments Source Exposure to Not sure [facility] SARS-CoV-2 (event) Medica l Branch Sex Assigned At [birth year] [facility] 00:00:00 00:00:00 [facility] Smoking Status Start Date Stop Date Source Unknown if ever smoked [facility] Medications Ordered Filled Start Stop Current Ordering Indication Dosage Frequency Signature Comments Components Source Medication Medication Date Date Medication? Clinician (SIG) Name Name predniSONE 2020-08- No 40mg 40 mg, Univ ers (DELTASONE) 006-09 Oral, ity of tablet 40 04:15: 04:19 [place]CE[place] dose, On Medical e Branch 06/08/21 at 2315, RAY amoxicillin 2020-08 No 500mg 500 mg, U nivers (TRIMOX) 06-09 Oral, ity of capsule 500 04:15: 04:20 [place] dose, On Medical e Branch 06/08/21 at 2315, RAY
Re ason for Anti-Infec tive: Documented Infection< br>Documen thanh Infection Site: HEENT
D uration of Therapy: 7 days amoxicillin 2020-08- No [id number] 500mg Take 1 Univers 500 mg 03 capsule by ity of capsule 00:00: 04:59 mouth 3 [place] 00 :00 (three) Medical times Branch daily for 7 days. predniSONE 2020-08 No [id number] 20mg Take 1 Univers 20 mg -30 tablet by ity of tablet 00:00: 04:59 mouth 2 [place] 00 :00 (two) Medical times Branch daily for 3 days. [facility] ity of 01:35: [address] montelukast Yes 10mg Take 10 mg Univers (SINGULAIR) 5-09 by mouth ity of 10 mg 01:35: daily. [address] ALBUTEROL Yes [facility]-09 ity of 01:35: [address] montelukast Yes 10mg Take 10 mg Univers (SINGULAIR) 5-09 by mouth ity of 10 mg 01:35: daily. [address] benzonatate Yes [id number] 200mg Take 1 Univers 200 mg 5-09 capsule by ity of capsule 00:00: mouth 3 [place] 00 (three) Medical times Branch daily as needed for Cough. ibuprofen Yes [id number] 800mg Take 1 U nivers 800 mg 5-09 tablet by ity of tablet 00:00: mouth [place] 00 every 8 Medical (eight) Branch hours as needed for Temp > 38.5 C (PAIN). benzonatate 2018- Yes [id number] 200mg Take 1 Univers 200 mg 5- capsule by ity of capsule 00:00: mouth 3 [place] 00 (three) Medical times Branch daily as needed for Cough. ibuprofen 2018- Yes [id number] 800mg Take 1 U nivers 800 mg 5-09 tablet by ity of tablet 00:00: mouth [place] 00 every 8 Medical (eight) Branch hours as needed for Temp > 38.5 C (PAIN). Vital Signs Vital Name Observation Time Observation Value Comments Source Systolic blood 2021-06-28 15:22:00 115 mm[Hg] [facility]iver [facility] Diastolic blood 2021-06-28 15:22:00 79 mm[Hg] Unive [facility] Heart rate 2021-06-28 15:22:00 83 /min [facility] Body temperature 2021-06-28 15:22:00 36.78 Sakina [facility] Respiratory rate 2021-06-28 15:22:00 22 /min [facility] Body weight 2021-06-28 15:22:00 136.079 kg [facility] BMI 2021-06-28 15:22:00 41.84 kg/m2 [facility] Oxygen saturation in 2021-06-28 15:22:00 97 /min [place] of Arterial blood by [facility] [place] Pulse oximetry Branch Heart rate 2021-06-09 04:18:20 99 /min [facility] Body temperature 2021-06-09 04:18:20 37.33 Sakina [facility] Respiratory rate 2021-06-09 04:18:20 20 /min [facility] Oxygen saturation in 2021-06-09 04:18:20 97 /min [facility] of Arterial blood by [facility] [place] Pulse oximetry Branch Systolic blood 2021-06-09 02:25:00 139 mm[Hg] Univer sity [facility] Diastolic blood 2021-06-09 02:25:00 84 mm[facility]Hg] [facility] height 2021-06-09 02:25:00 180.3 cm [facility] Body weight 2021-06-09 02:25:00 136.079 kg [facility] BMI 2021-06-09 02:25:00 41.84 kg/m2 [facility] Procedures Procedure Date / Time Performed Performing Clinician Sour e RAPID STREP SCREEN 2021-06-28 16:07:00 Shantel Bearden [facility] FOR GROUP A Medical Branch CONSENT/REFUSAL FOR 2021-06-28 15:15:16 Doctor Unassigned, No [facility] [place] [facility] AND Name Medical Branch TREATMENT RAPID STREP SCREEN 2021-06-09 02:28:00 Ismael Francois [facility] FOR GROUP A Medical Branch NOTICE OF PRIVACY 2021-06-09 02:17:09 Doctor Unassigned, No [facility] [place] PRACTICES Name Medical Branch CONSENT/REFUSAL FOR 2021-06-09 02:07:03 Doctor Unassigned, No [facility] [place] DIAGNOSIS AND Name Medical Branch TREATMENT Encounters Start End Encounter Admission Attending Care Care Encounter Source Date/Time Date/Time Type Type Clinicians Facility Department ID 2022-03-09 2022-03-09 Outpatient AMBREEN_FAR [facility] [place] [address] 00:00:00 00:00:00 LORENA 0727 da [facility] Outre h Program 2021-06-28 2021-06-28 [facility] [id number] Univers 09:24:00 12:01:00 SHANTEL maria [facility] 2021-06-28 2021-06-28 [facility] [id number] Univers 09:24:00 12:01:00 Shantel CUEVAS [id number] i ty [facility] [id number] [facility] [id number] [facility] 084 Branch 2021-06-08 2021-06-08 [facility] [id number] Univers 21:32:00 23:24:00 NILDA maria [facility] 2021-06-08 2021-06-08 [facility] [id number] Univers 21:32:00 23:24:00 Nilda Cuevas [id number] i ty Keith [id number] [facility] [id number] [facility] 084 Branch Results This patient has no known results.
[2022-04-16] MEDS ORDERED: dexAMETHasone 10 MG/ML VIAL ONE (11:15)
[2022-04-16] MEDS ORDERED: PEN G BENZ LA 1.2MU/2ML SYRINGE IM ONE (11:16)
--- NOTE | 2022-04-16 12:29 | ER ---
Nurse's Notes [facility] Name: Nilesh Ordonez Age: 27 yrs Sex: Male : 1995 Arrival Date: 04/16/2022 Time: 09:55 Bed 11 Private MD: Diagnosis: Acute pharyngitis, unspecified Presentation: 04/16 10:14 Chief complaint: Patient states: sore throat since last night, sweats last night , + iw cough. Coronavirus screen: Client presents with at least one sign or symptom that may indicate coronavirus-19. Ebola Screen: Patient negative for fever greater than or equal to 101.5 degrees Fahrenheit, and additional compatible Ebola Virus Disease symptoms Patient denies exposure to infectious person. Patient denies travel to an Ebola-affected area in the 21 days before illness onset. No symptoms or risks identified at this time. Initial Sepsis Screen: Does the patient meet any 2 criteria? No. Patient's initial sepsis screen is negative. Does the patient have a suspected source of infection? No. Patient's initial sepsis screen is negative. Risk Assessment: Do you want to hurt yourself or someone else? Patient reports no desire to harm self or others. Onset of symptoms was April 15, 2022. 10:14 Method Of Arrival: Ambulatory iw 10:14 Acuity: IRVIN 4 iw Historical: - Allergies: 10:15 NKA; iw - Home Meds: 10:15 Glipizide Oral [Active]; iw - PMHx: 10:15 Asthma; diabetes mellitus; seasonal allergies; iw - PSHx: 10:15 None; iw - Immunization history:: Client reports receiving the 2nd dose of the Covid vaccine. - Social history:: Smoking status: . Screenin:00 Abuse screen: Denies threats or abuse. Denies injuries from another. Nutritional iw screening: No deficits noted. Tuberculosis screening: No symptoms or risk factors identified. Fall Risk None identified. Assessment: 10:16 General: Appears distressed, Behavior is calm, cooperative. Pain: Complains of pain in iw throat. Respiratory: Airway is patent Respiratory effort is even, unlabored, Breath sounds are clear. EENT: Throat. Vital Signs: 10:14 BP 117 / 71; Pulse 75; Resp 16; Temp 98.1; Pulse Ox 98% on R/A; iw ED Course: 09:55 Patient arrived in ED. am2 10:15 Triage completed. iw 10:15 Arm band placed on. iw 10:16 Dolores Larose, RN is Primary Nurse. iw 10:16 Patient has correct armband on for positive identification. iw 10:21 Corrine Liu FNP-C is PHCP. snw 10:21 Poncho Calderón MD is Attending Physician. snw 12:35 No provider procedures requiring assistance completed. Patient did not have IV access iw during this emergency room visit. Administered Medications: 11:42 Drug: Decadron (dexamethasone) 10 mg {Note: given PO.} Route: IM; Site: Other; iw 12:10 Follow up: Response: No adverse reaction iw 11:42 Drug: Bicillin L-A (penicillin G Benzathine) 1.2 million units Route: IM; Site: left iw deltoid; 12:10 Follow up: Response: No adverse reaction iw Medication: 10:16 VIS not applicable for this client. iw Outcome: 12:29 Discharge ordered by . snw 12:36 Discharged to home ambulatory. iw 12:36 Condition: good 12:36 Discharge instructions given to patient, Instructed on discharge instructions, follow up and referral plans. Demonstrated understanding of instructions, follow-up care, Prescriptions given X 2. 12:37 Patient left the ED. iw Signatures: Corrine Liu FNP-C TELETYPEWRITER OPERATOR-Csnw Dolores Larose RN RN iw Radha Saldaña am2 Corrections: (The following items were deleted from the chart) 15:59 12:36 Discharge instructions given to patient, Instructed on discharge instructions, iw follow up and referral plans. Demonstrated understanding of instructions, follow-up care, iw
--- NOTE | 2022-04-16 12:29 | EDPHYS ---
Physician Documentation [facility] Name: Nilesh Ordonez Age: 27 yrs Sex: Male : 1995 Arrival Date: 04/16/2022 Time: 09:55 Bed 11 Private MD: ED Physician Poncho Calderón HPI: 04/16 10:37 This 27 yrs old Male presents to ER via Ambulatory with complaints of Sore Throat. snw 10:37 The patient presents with sore throat. The patient describes throat pain as raw, snw scratchy. Onset: The symptoms/episode began/occurred suddenly. Severity of symptoms: At their worst the symptoms were moderate. Modifying factors: The symptoms are alleviated by nothing, the symptoms are aggravated by swallowing. The patient has not experienced similar symptoms in the past. The patient has not recently seen a physician. Historical: - Allergies: 10:15 NKA; iw - Home Meds: 10:15 Glipizide Oral [Active]; iw - PMHx: 10:15 Asthma; diabetes mellitus; seasonal allergies; iw - PSHx: 10:15 None; iw - Immunization history:: Client reports receiving the 2nd dose of the Covid vaccine. - Social history:: Smoking status: . ROS: 10:36 Constitutional: Negative for fever, chills, and weight loss, Eyes: Negative for injury, snw pain, redness, and discharge, Neck: Negative for injury, pain, and swelling, Cardiovascular: Negative for chest pain, palpitations, and edema, Respiratory: Negative for shortness of breath, cough, wheezing, and pleuritic chest pain, Abdomen/GI: Negative for abdominal pain, nausea, vomiting, diarrhea, and constipation, Back: Negative for injury and pain, : Negative for injury, bleeding, discharge, and swelling, MS/Extremity: Negative for injury and deformity, Skin: Negative for injury, rash, and discoloration, Neuro: Negative for headache, weakness, numbness, tingling, and seizure, Psych: Negative for depression, anxiety, suicide ideation, homicidal ideation, and hallucinations. 10:36 ENT: Positive for hoarseness, sore throat. Exam: 10:35 Constitutional: This is a well developed, well nourished patient who is awake, alert, snw and in no acute distress. Head/Face: Normocephalic, atraumatic. Eyes: Pupils equal round and reactive to light, extra-ocular motions intact. Lids and lashes normal. Conjunctiva and sclera are non-icteric and not injected. Cornea within normal limits. Periorbital areas with no swelling, redness, or edema. Neck: Trachea midline, no thyromegaly or masses palpated, and no cervical lymphadenopathy. Supple, full range of motion without nuchal rigidity, or vertebral point tenderness. No Meningismus. Chest/axilla: Normal chest wall appearance and motion. Nontender with no deformity. No lesions are appreciated. Cardiovascular: Regular rate and rhythm with a normal S1 and S2. No gallops, murmurs, or rubs. Normal PMI, no JVD. No pulse deficits. Respiratory: Lungs have equal breath sounds bilaterally, clear to auscultation and percussion. No rales, rhonchi or wheezes noted. No increased work of breathing, no retractions or nasal flaring. Abdomen/GI: Soft, non-tender, with normal bowel sounds. No distension or tympany. No guarding or rebound. No evidence of tenderness throughout. Back: No spinal tenderness. No costovertebral tenderness. Full range of motion. Skin: Warm, dry with normal turgor. Normal color with no rashes, no lesions, and no evidence of cellulitis. MS/ Extremity: Pulses equal, no cyanosis. Neurovascular intact. Full, normal range of motion. Neuro: Awake and alert, GCS 15, oriented to person, place, time, and situation. Cranial nerves II-XII grossly intact. Motor strength 5/5 in all extremities. Sensory grossly intact. Cerebellar exam normal. Normal gait. Psych: Awake, alert, with orientation to person, place and time. Behavior, mood, and affect are within normal limits. 10:35 ENT: External ear(s): are unremarkable, Ear canal(s): cerumen impaction, that is moderate, bilaterally, TM's: are normal, Nose: is normal, Mouth: is normal, Posterior pharynx: swelling, erythema, that is moderate, Voice: mildly. Vital Signs: 10:14 BP 117 / 71; Pulse 75; Resp 16; Temp 98.1; Pulse Ox 98% on R/A; iw MDM: 10:21 Patient medically screened. snw 12:29 Data reviewed: vital signs, nurses notes. Data interpreted: Pulse oximetry: on room air snw is 98 %. Interpretation: normal. Counseling: I had a detailed discussion with the patient and/or guardian regarding: the historical points, exam findings, and any diagnostic results supporting the discharge/admit diagnosis, lab results, the need for further work-up and treatment in the hospital, to return to the emergency department if symptoms worsen or persist or if there are any questions or concerns that arise at home. Special discussion: Based on the history and exam findings, there is no indication for further emergent testing or inpatient evaluation. I discussed with the patient/guardian the need to see the primary care provider for further evaluation of the symptoms. 04/16 10:35 Order name: Strep; Complete Time: 12:25 snw 04/16 12:09 Order name: Throat Culture EDMS Administered Medications: 11:42 Drug: Decadron (dexamethasone) 10 mg {Note: given PO.} Route: IM; Site: Other; iw 12:10 Follow up: Response: No adverse reaction iw 11:42 Drug: Bicillin L-A (penicillin G Benzathine) 1.2 million units Route: IM; Site: left iw deltoid; 12:10 Follow up: Response: No adverse reaction iw Disposition: 13:09 Co-signature as Attending Physician, Poncho Calderón MD I agree with the assessment and kdr plan of care. Disposition Summary: 04/16/22 12:29 Discharge Ordered Location: Home snw Condition: Stable snw Diagnosis - Acute pharyngitis, unspecified snw Followup: snw - With: Emergency Department - When: As needed - Reason: Worsening of condition Followup: snw - With: Private Physician - When: 2 - 3 days - Reason: Recheck today's complaints, Continuance of care, Re-evaluation by your physician Discharge Instructions: - Discharge Summary Sheet snw - Pharyngitis snw - Sore Throat snw Forms: - Medication Reconciliation Form snw - Thank You Letter snw - Antibiotic Education snw - Prescription Opioid Use snw - Work release form em1 Prescriptions: - Zyrtec 10 mg Oral Tablet - take 1 tablet by ORAL route once daily As needed; 20 tablet; Refills: 0, snw Product Selection Permitted - Tramadol 50 mg Oral Tablet - take 1 tablet by ORAL route every 8 hours as needed; 12 tablet; Refills: 0, snw Product Selection Permitted Signatures: Dispatcher [employer] Poncho Salmeron MD MD kdr Waters, Shelly, UNIVERSAL WINDING MACHINE OPERATOR-C UNIVERSAL WINDING MACHINE OPERATOR-Csnw Dolores Larose RN RN iw
[2022-04-16 12:42] VITALS: BP 117/71; TEMP 98.1; O2SAT 98
== END 2022-04-16 12:37 | disposition home or self-care (01) ==
LOC: ER 09:55
DX: J02.9 Acute pharyngitis, unspecified (principal); E11.9 Type 2 diabetes mellitus without complications
CPT/HCPCS: 87070; 87081; 96372; 99283; J0561; J1100

== ENCOUNTER 2022-05-01 18:43 | Emergency (ER) | payer OTHER ==
--- OUTSIDE RECORDS SUMMARY | 2022-05-01 18:46 | XMS REPORT | Continuity of Care Document ---
:1995 Author Organization [facility] t Address [address] [place] [address] Care Team Providers Name Role Phone Pcp, Patient Does Not Have A Primary Care Physician +[phone] FABIÁN POLLARD Attending Clinician Unavailable Fabián Pollard DO Attending Clinician ABHI Attending Clinician Unavailable ITZ HENRIQUEZ Attending Clinician Unavailable Itz Raymundo Attending Clinician TELLY WEINSTEIN Attending Clinician Unavailable Telly Son Attending Clinician ABHI Admitting Clinician Unavailable Payers Payer Name Policy Type Policy Number Effective Date Expiration Date S [facility] [id number] 2022 PPO/POS 00:00:00 FORMERLY [facility] [id number] 2018 00:00:00 Problems Condition Condition Condition Status Onset Resolution Last Treating Co mments Source Name Details Category Date Date Treatment Clinician Date No known No known Disease Unive rs active active ity of problems problems [facility] Allergies, Adverse Reactions, Alerts Allergy Allergy Status Severity Reaction(s) Onset Inactive Treating Comm ents Source Name Type Date Date Clinician NO KNOWN Drug Active Univers ALLERGIE Class ity of S [facility] Social History Social Habit Start Date Stop Date Quantity Comments Source Exposure to 2022-04-09 2022-04-19 Unable to assess Univers ity of SARS-CoV-2 00:00:00 16:37:00 [facility] [place] Sex Assigned At [birth year] Universit y of 00:00:00 00:00:00 [place] [facility] Smoking Status Start Date Stop Date Source Tobacco smoking consumption [facility] unknown Branch Medications Ordered Filled Start Stop Current Ordering Indication Dosage Frequency Signature Comments Components Source Medication Medication Date Date Medication? Clinician (SIG) Name Name acetaminoph No 650mg 650 mg, U nivers en 04-19- Oral, ity of (TYLENOL) 21:45: 21:51 ONCE, 1 [place] tablet 650 [place] :00 dose, On Medic al mg 04/19/22 Branch at 1645, RAY benzocaine- Yes [id number] 1{lozen Take 1 Univers menthoL 04-19 ge} Lozenge by ity of (CEPACOL 00:00: mouth [place] SORE 00 every 4 Medical THROAT, (four) Branch GREGORY-MEN,) hours as lozenge needed for Sore throat. predniSONE 2020-08 No 40mg 40 mg, Univ ers (DELTASONE) 06-09 Oral, ity of tablet 40 04:15: 04:19 [...]
D uration of Therapy: 7 days amoxicillin 2020-08 No [id number] 500mg Take 1 Univers 500 mg 0- 11-03 capsule by ity of capsule 00:00: 04:59 mouth 3 [place] 00 :00 (three) Medical times Branch daily for 7 days. predniSONE 2020-08 No [id number] 20mg Take 1 Univers 20 mg 0- 10-30 tablet by ity of tablet 00:00: 04:59 mouth 2 [place] 00 :00 (two) Medical times Branch daily for 3 days. ALBUTEROL 0 Yes Inhale. Unive rs INHALE 5-09 ity of 01:35: [address] montelukast 0 Yes 10mg Take 10 mg Univers (SINGULAIR) 5-09 by mouth ity of 10 mg 01:35: daily. [place] tablet [address] [place] [address] ALBUTEROL 0 Yes Inhale. Unive rs INHALE 5-09 ity of 01:35: [address] montelukast 0 Yes 10mg Take 10 mg Univers (SINGULAIR) 5-09 by mouth ity of 10 mg 01:35: daily. [place] tablet [address] [place] [address] ALBUTEROL 0 Yes Inhale. Unive rs INHALE 5-09 ity of 01:35: [address] montelukast 0 Yes 10mg Take 10 mg Univers (SINGULAIR) 5-09 by mouth ity of 10 mg 01:35: daily. [address] benzonatate 0 Yes [id number] 200mg Take 1 Univers 200 mg 5-09 capsule by ity of capsule 00:00: mouth 3 [place] 00 (three) Medical times Branch daily as needed for Cough. ibuprofen Yes [id number] 800mg Take 1 U nivers 800 mg 5-09 tablet by ity of tablet 00:00: mouth [place] 00 every 8 Medical (eight) Branch hours as needed for Temp > 38.5 C (PAIN). benzonatate 0 Yes [id number] 200mg Take 1 Univers 200 mg 5-09 capsule by ity of capsule 00:00: mouth 3 [place] 00 (three) Medical times Branch daily as needed for Cough. ibuprofen Yes [id number] 800mg Take 1 U nivers 800 mg 5-09 tablet by ity of tablet 00:00: mouth [place] 00 every 8 Medical (eight) Branch hours as needed for Temp > 38.5 C (PAIN). benzonatate 0 Yes [id number] 200mg Take 1 Univers 200 mg 5-09 capsule by ity of capsule 00:00: mouth 3 [place] 00 (three) Medical times Branch daily as needed for Cough. ibuprofen 0 Yes [id number] 800mg Take 1 U nivers 800 mg 5-09 tablet by ity of tablet 00:00: mouth [place] 00 every 8 Medical (eight) Branch hours as needed for Temp > 38.5 C (PAIN). Vital Signs Vital Name Observation Time Observation Value Comments Source Body height 2022-04-19 21:43:00 180.3 cm [facility] [place] [facility] Body weight 2022-04-19 21:43:00 149.687 kg [facility] [place] [facility] BMI 2022-04-19 21:43:00 46.03 kg/m2 [facility] [place] [facility] Systolic blood 2022-04-19 21:42:00 142 mm[Hg] Univer sity of pressure [place] [facility] Diastolic blood 2022-04-19 21:42:00 92 mm[Hg] Unive rsity of pressure [facility] Heart rate 2022-04-19 21:42:00 85 /min [facility] [place] [facility] Body temperature 2022-04-19 21:42:00 36.22 Sakina Univ [facility] [place] [facility] Respiratory rate 2022-04-19 21:42:00 18 /min Univ [facility] [place] [facility] Oxygen saturation in 2022-04-19 21:42:00 97 /min University of Arterial blood by [facility] Pulse oximetry Branch Systolic blood 2021-06-28 15:22:00 115 mm[Hg] Univer sity of pressure [facility] Diastolic blood 2021-06-28 15:22:00 79 mm[Hg] Unive rsity of pressure [facility] Heart rate 2021-06-28 15:22:00 83 /min [facility] [place] [facility] Body temperature 2021-06-28 15:22:00 36.78 Sakina [facility] [place] [facility] Respiratory rate 2021-06-28 15:22:00 22 /min Univ [facility] [place] [facility] Body weight 2021-06-28 15:22:00 136.079 kg [facility] [place] [facility] BMI 2021-06-28 15:22:00 41.84 kg/m2 [facility] Oxygen saturation in 2021-06-28 15:22:00 97 /min University of Arterial blood by [facility] Pulse oximetry Branch Heart rate 2021-06-09 04:18:20 99 /min [facility] [place] [facility] Body temperature 2021-06-09 04:18:20 37.33 Sakina [facility] [place] [facility] Respiratory rate 2021-06-09 04:18:20 20 /min [facility] in 2021-06-09 04:18:20 97 /min [facility] Arterial blood by [facility] Pulse oximetry Branch Systolic blood 2021-06-09 02:25:00 139 mm[Hg] Yahir sity of pressure [facility] Diastolic blood 2021-06-09 02:25:00 84 mm[Hg] Aida rsity of pressure [facility] Body height 2021-06-09 02:25:00 180.3 cm [facility] Body weight 2021-06-09 02:25:00 136.079 kg [facility] BMI 2021-06-09 02:25:00 41.84 kg/m2 [facility] Procedures Procedure Date / Time Performed Performing Clinician Sour e RAPID INFLUENZA A/B 2022-04-19 21:45:00 Fabián Pollard [facility] COVID-19 (ID NOW 2022-04-19 21:45:00 Fabián Pollard [facility] RAPID TESTING) Medical Branch CONSENT/REFUSAL FOR 2022-04-19 21:42:40 Doctor Unassigned, No [facility] [place] DIAGNOSIS AND Name Medical Branch TREATMENT RAPID STREP SCREEN 2021-06-28 16:07:00 Itz Henriquez [facility] FOR GROUP A Medical Branch CONSENT/REFUSAL FOR 2021-06-28 15:15:16 Doctor Unassigned, No [facility] [place] DIAGNOSIS AND Name Medical Branch TREATMENT RAPID STREP SCREEN 2021-06-09 02:28:00 Ismael Francois [facility] FOR GROUP A Medical Branch NOTICE OF PRIVACY 2021-06-09 02:17:09 Doctor Unassigned, No [facility] [place] PRACTICES Name Medical Branch CONSENT/REFUSAL FOR 2021-06-09 02:07:03 Doctor Unassigned, No [facility] [place] DIAGNOSIS AND Name Medical Branch TREATMENT Encounters Start End Encounter Admission Attending Care Care Encounter Source Date/Time Date/Time Type Type Clinicians Facility Department ID 2022-04-19 2022-04-19 Emergency X SYMONE POLLARD ERT [id number] Univers 16:47:00 18:08:00 FABIÁN maria [facility] 2022-04-19 2022-04-19 Emergency Pollard, [facility] [id number] Univers 16:47:00 18:08:00 Fabián CUEVAS [id number] i ty of [facility] [id number] [facility] [id number] [place] [id number] Branch 2022-03-09 2022-03-09 Outpatient AMBREEN_FAR [facility] [id number] 00:00:00 00:00:00 HANA 0727 da [facility] 2021-06-28 2021-06-28 Emergency X HENRIQUEZ, [facility] ERT [id number] Univers 09:24:00 12:01:00 ITZ winter [facility] 2021-06-28 2021-06-28 Emergency [facility] [id number] Univers 09:24:00 12:01:00 Itz CUEVAS [id number] i ty of [facility] [id number] [facility] [id number] [place] [address] Branch 2021-06-08 2021-06-08 Emergency X [facility] ERT [id number] Univers 21:32:00 23:24:00 TELLY candace [facility] 2021-06-08 2021-06-08 Emergency [facility] [id number] Univers 21:32:00 23:24:00 Telly Cuevas [id number] i ty of [place] [id number] [facility] [id number] [place] [address] Branch Results This patient has no known results.
[2022-05-01] MEDS ORDERED: FLUCONAZOLE 100 MG TAB ONE (19:17)
[2022-05-01 19:29] LABS: Urine Blood Negative (Negative); Urine Glucose 3+ (Negative); Urine Protein Negative (Negative); Urine Specific Gravity 1.025 (1.005-1.030)
--- NOTE | 2022-05-01 19:45 | ER ---
Nurse's Notes [facility] Name: Nilesh Ordonez Age: 27 yrs Sex: Male : 1995 Arrival Date: 05/01/2022 Time: 18:44 Bed 12 Private MD: Diagnosis: Balanitis Presentation: 05/01 19:01 Chief complaint: Patient states: "I think I have a yeast infection, the head of my hb penis is red and the skin is hard to pull back." Reports pain and itching x 1 week. Coronavirus screen: At this time, the client does not indicate any symptoms associated with coronavirus-19. Ebola Screen: No symptoms or risks identified at this time. Risk Assessment: Do you want to hurt yourself or someone else? Patient reports no desire to harm self or others. Onset of symptoms was April 24, 2022. 19:01 Method Of Arrival: Ambulatory hb 19:01 Acuity: IRVIN 4 hb 19:37 Initial Sepsis Screen: Does the patient meet any 2 criteria? No. Patient's initial hb sepsis screen is negative. Does the patient have a suspected source of infection? No. Patient's initial sepsis screen is negative. Triage Assessment: 19:03 General: Appears in no apparent distress. Behavior is calm, cooperative. Pain: Pain hb currently is 6 out of 10 on a pain scale. Neuro: Level of Consciousness is awake, alert, obeys commands, Oriented to person, place, time, situation. Cardiovascular: Patient's skin is warm and dry. Respiratory: Respiratory effort is even, unlabored, Respiratory pattern is regular, symmetrical. Historical: - Allergies: 19:02 NKA; hb - Home Meds: 19:37 albuterol sulfate 2.5 mg /3 mL (0.083 %) Inhl nebu QID PRN for Acute Asthma Attack hb [Active]; glimepiride 4 mg Oral tab 1 tab once daily [Active]; Glipizide Oral [Active]; - PMHx: 19:02 Asthma; diabetes mellitus; seasonal allergies; hb - PSHx: 19:37 None; hb - Immunization history:: Adult Immunizations up to date. - Social history:: Smoking status: Patient denies any tobacco usage or history of. Screenin:34 Abuse screen: Denies threats or abuse. Nutritional screening: No deficits noted. Tuberculosis screening: No symptoms or risk factors identified. Fall Risk None identified. Assessment: 19:20 General: Appears in no apparent distress. comfortable, Behavior is calm, cooperative, kl appropriate for age. Pain: Complains of pain in penis. Neuro: No deficits noted. Cardiovascular: No deficits noted. Respiratory: No deficits noted. GI: No deficits noted. : Reports pain and redness to penis. EENT: No deficits noted. Vital Signs: 19:01 BP 129 / 83; Pulse 89; Resp 16; Temp 97.8; Pulse Ox 98% on R/A; Weight 149.69 kg; hb Height 5 ft. 11 in. (180.34 cm); Pain 6/10; 19:01 Body Mass Index 46.03 (149.69 kg, 180.34 cm) ED Course: 18:44 Patient arrived in ED. am2 18:51 Rene Aguayo PA is PHCP. violeta 18:51 Juan José Sandra DO is Attending Physician. [facility] 19:02 Triage completed. hb 19:02 Arm band placed on. hb 19:34 No provider procedures requiring assistance completed. Urine collected: clean catch specimen, clear. Patient did not have IV access during this emergency room visit. 19:37 Patient has correct armband on for positive identification. Administered Medications: 19:08 Drug: DiFLUcan (fluconazole) 150 mg Route: PO; hb Medication: 19:37 VIS not applicable for this client. Point of Care Testing: Blood Glucose: 19:06 Blood Glucose: 313 mg/dL; hb Ranges: Outcome: 19:45 Discharge ordered by MD. [facility] 19:50 Discharged to home ambulatory, with family. 19:50 Condition: good 19:50 Discharge instructions given to patient, Instructed on discharge instructions, follow up and referral plans. medication usage, Demonstrated understanding of instructions, follow-up care, medications, Prescriptions given X 1. 19:50 Patient left the ED. Signatures: Prema Suarez RN RN kl Mickail, Joel, PA PA jmm Baxter, Heather, RN RN Radha Saldaña am2 Corrections: (The following items were deleted from the chart) 19:03 19:01 Chief complaint: Patient states: "The head of my penis is red and the skin is hb hard to pull back." Reports pain and itching x 1 week. 19:37 19:03 Pain: Pain currently is 8 out of 10 on a pain scale. [facility]
--- NOTE | 2022-05-01 19:45 | EDPHYS ---
Physician Documentation [facility] Name: Nilesh Ordonez Age: 27 yrs Sex: Male : 1995 Arrival Date: 05/01/2022 Time: 18:44 Bed 12 Private MD: ED Physician Juan José Sandra HPI: 05/01 19:43 This 27 yrs old Male presents to ER via Ambulatory with complaints of Penile Problem. [facility] 19:43 Onset: The symptoms/episode began/occurred gradually, 3 day(s) ago. This is a [facility] 27-year-old male with history diabetes mellitus, asthma the presents emerged department with complaints of of swelling and redness to the tip of his penis. This is occurred multiple times in the past. Patient has been diagnosed with the candidiasis multiple times. Patient states this is normally resolved after oral Diflucan and topical antifungal fungal agents. Patient denies shortness of breath, vomiting, excessive urination.. Historical: - Allergies: 19:02 NKA; hb - Home Meds: 19:37 albuterol sulfate 2.5 mg /3 mL (0.083 %) Inhl nebu QID PRN for Acute Asthma Attack hb [Active]; glimepiride 4 mg Oral tab 1 tab once daily [Active]; Glipizide Oral [Active]; - PMHx: 19:02 Asthma; diabetes mellitus; seasonal allergies; hb - PSHx: 19:37 None; hb - Immunization history:: Adult Immunizations up to date. - Social history:: Smoking status: Patient denies any tobacco usage or history of. ROS: 19:43 Constitutional: Negative for fever, chills, and weight loss, Cardiovascular: Negative jmm for chest pain, palpitations, and edema, Respiratory: Negative for shortness of breath, cough, wheezing, and pleuritic chest pain. 19:43 : Positive for urinary symptoms. 19:43 All other systems are negative. Exam: 19:43 Constitutional: This is a well developed, well nourished patient who is awake, alert, jmm and in no acute distress. Head/Face: atraumatic. Eyes: EOMI, no conjunctival erythema appreciated ENT: Moist Mucus Membranes Neck: Trachea midline, Supple Chest/axilla: Normal chest wall appearance and motion. Cardiovascular: Regular rate and rhythm. No edema appreciated Respiratory: Normal respirations, no respiratory distress appreciated Abdomen/GI: Non distended Back: Normal ROM Skin: General appearance color normal 19:43 MS/ Extremity: Moves all extremities, no obvious deformities appreciated, no edema noted to the lower extremities Neuro: Awake and alert Psych: Behavior is normal, Mood is normal, Patient is cooperative and pleasant 19:43 : Erythema noted to the glans. Vital Signs: 19:01 BP 129 / 83; Pulse 89; Resp 16; Temp 97.8; Pulse Ox 98% on R/A; Weight 149.69 kg; hb Height 5 ft. 11 in. (180.34 cm); Pain 6/10; 19:01 Body Mass Index 46.03 (149.69 kg, 180.34 cm) hb MDM: 19:03 Patient medically screened. violeta 19:44 Data reviewed: vital signs, nurses notes. Counseling: I had a detailed discussion with violeta the patient and/or guardian regarding: the historical points, exam findings, and any diagnostic results supporting the discharge/admit diagnosis, lab results, the need for outpatient follow up, to return to the emergency department if symptoms worsen or persist or if there are any questions or concerns that arise at home. ED course: Patient is alert nontoxic in appearance in the ED. Patient is able to urinate without difficulty. Patient is having his blood glucose managed outpatient by his PCP. Patient advised follow with PCP and otherwise given strict return precautions. Patient understood agrees to plan of care.. 05/01 19:17 Order name: Glucose, Ancillary Testing; Complete Time: 19:20 EDIN 05/01 19:29 Order name: Urine Dipstick-Ancillary; Complete Time: 19:30 EDIN 05/01 19:14 Order name: Urine Dipstick-Ancillary (obtain specimen); Complete Time: 19:36 violeta Administered Medications: 19:08 Drug: DiFLUcan (fluconazole) 150 mg Route: PO; hb Point of Care Testing: Blood Glucose: 19:06 Blood Glucose: 313 mg/dL; hb Ranges: Critical Glucose Levels:Adult <50 mg/dl or >400 mg/dl <40 mg/dl or >180 mg/dl Disposition Summary: 05/01/22 19:45 Discharge Ordered Location: Home violeta Condition: Stable violeta Diagnosis - Balanitis violeta Followup: violeta - With: Private Physician - When: 2 - 3 days - Reason: Recheck today's complaints, Continuance of care, Re-evaluation by your physician Discharge Instructions: - Discharge Summary Sheet violeta mcdaniel Forms: - Medication Reconciliation Form violeta - Thank You Letter violeta - Antibiotic Education violeta - Prescription Opioid Use violeta Prescriptions: - Clotrimazole 1 % Topical Cream - Apply to affected area 1 application by TOPICAL route every 12 hours; 15 gram; violeta Refills: 0, Product Selection Permitted Addendum: 05/03/2022 03:41 Co-signature as Attending Physician, Juan José Sandra DO I was immediately available onsite m s3 in the emergency department for consultation in the care of the patient. Signatures: Rene Aguayo PA PA jmm Baxter, Heather, JOSE RN Juan José Stockton DO DO ms3
[2022-05-03 04:30] VITALS: BP 129/83; TEMP 97.8; O2SAT 98
== END 2022-05-01 19:50 | disposition home or self-care (01) ==
LOC: ER 18:43
DX: N48.1 Balanitis (principal)
CPT/HCPCS: 81003; 82947; 99283

== ENCOUNTER 2022-06-09 12:23 | Emergency (ER) | payer OTHER ==
--- OUTSIDE RECORDS SUMMARY | 2022-06-09 12:40 | XMS REPORT | Continuity of Care Document ---
:1995 Author Organization [facility] t Address [address] [place] [address] Care Team Providers Name Role Phone Pcp, [...] Policy Number Effective Date Expiration Date S [facility] [id number] 2022 PPO/POS 00:00:00 [facility] [id number] 2018 00:00:00 Problems Condition Condition Condition Status Onset Resolution Last Treating Co mments Source Name Details Category Date Date Treatment Clinician Date No known No known Disease Unive rs active active ity of problems problems [facility] Allergies, Adverse Reactions, Alerts Allergy Allergy Status Severity Reaction(s) Onset Inactive Treating Comm ents Source Name Type Date Date Clinician NO KNOWN Drug Active Univers ALLERGIE Class ity of S [facility] Social History Social Habit Start Date Stop Date Quantity Comments Source Exposure to 2022-04-09 2022-04-19 Unable to assess Univers ity of SARS-CoV-2 00:00:00 16:37:00 [place] [facility]event[facility] Sex Assigned At [birth year] Universit y of 00:00:00 00:00:00 [place] [facility] Smoking Status Start Date Stop Date Source Tobacco smoking consumption [facility] [place] [facility] unknown [facility] Medications Ordered Filled Start Stop Current Ordering Indication Dosage Frequency Signature Comments Components Source Medication Medication Date Date Medication? Clinician (SIG) Name Name acetaminoph No 650mg 650 mg, U nivers en 04-19 09- Oral, ity of (TYLENOL) 21:45: 21:51 ONCE, 1 [place] tablet 650 00 :00 dose, On Medic al mg 04/19/22 Branch at 1645, RAY benzocaine- Yes [id number] 1{lozen Take 1 Univers menthoL 04-19 ge} Lozenge by ity of (CEPACOL 00:00: mouth [place] SORE 00 every 4 Medical THROAT, (four) Branch GREGORY-MEN,) hours as lozenge needed for Sore throat. predniSONE 2020-08 No 40mg 40 mg, Univ ers (DELTASONE) 0-09 06- Oral, ity of tablet 40 04:15: 04:19 ONCE, 1 [place] mg 00 :00 dose, On Medical [facility] Branch 06/08/21 at 2315, RAY amoxicillin 2020-08 No 500mg 500 mg, U nivers (TRIMOX) 0-09 06-27 Oral, ity of capsule 500 04:15: 04:20 [place] 1 [place] mg 00 :[place] dose, On [facility] Branch 06/08/21 at 2315, RAY
Re ason for Anti-Infec tive: Documented Infection< br>Documen thanh Infection Site: HEENT
D uration of Therapy: 7 days amoxicillin 2020-08- No [id number] 500mg Take 1 Univers 500 mg 0- 11-03 capsule by ity of capsule 00:00: 04:59 mouth 3 [place] 00 :00 (three) Medical times Branch daily for 7 days. predniSONE 2020-08- No [id number] 20mg Take 1 Univers 20 mg 0- 10-30 tablet by ity of tablet 00:00: 04:59 mouth 2 [place] 00 :00 (two) Medical times Branch daily for 3 days. ALBUTEROL [id number] Yes Inhale. Unive rs INHALE 5-09 ity of 01:35: [place] [address] Medical [place] montelukast 0 Yes 10mg Take 10 mg Univers (SINGULAIR) 5-09 by mouth ity of 10 mg 01:35: daily. [place] tablet 50 Medical [place] ALBUTEROL 2018-0 Yes Inhale. Unive rs INHALE 5-09 ity of 01:35: [address] montelukast 0 Yes 10mg Take 10 mg Univers (SINGULAIR) 5-09 by mouth ity of 10 mg 01:35: daily. [place] tablet [address] [place] [address] ALBUTEROL 0 Yes Inhale. Unive rs INHALE 5-09 ity of 01:35: [address] montelukast 0 Yes 10mg Take 10 mg Univers (SINGULAIR) 5-09 by mouth ity of 10 mg 01:35: daily. [address] benzonatate 0 Yes [id number] 200mg Take 1 Univers 200 mg 5-09 capsule by ity of capsule 00:00: mouth 3 [place] 00 (three) Medical times Branch daily as needed for Cough. ibuprofen Yes [id number] 800mg Take 1 U nivers 800 mg 5-09 tablet by ity of tablet 00:00: mouth [place] 00 every 8 Medical (eight) Branch hours as needed for Temp > 38.5 C (PAIN). benzonatate 0 Yes [id number] 200mg Take 1 Univers 200 mg 5-09 capsule by ity of capsule 00:00: mouth 3 [place] 00 (three) Medical times Branch daily as needed for Cough. ibuprofen 0 Yes [id number] 800mg Take 1 U nivers 800 mg 5-09 tablet by ity of tablet 00:00: mouth [place] 00 every 8 Medical (eight) Branch hours as needed for Temp > 38.5 C (PAIN). benzonatate 2018-0 Yes [id number] 200mg Take 1 Univers 200 mg 5-09 capsule by ity of capsule 00:00: mouth 3 [place] 00 (three) Medical times Branch daily as needed for Cough. ibuprofen 2018-0 Yes [id number] 800mg Take 1 U nivers 800 mg 5-09 tablet by ity of tablet 00:00: mouth [place] 00 every 8 Medical (eight) Branch hours as needed for Temp > 38.5 C (PAIN). Vital Signs Vital Name Observation Time Observation Value Comments Source Body height 2022-04-19 21:43:00 180.3 cm [facility] [place] [facility] Body weight 2022-04-19 21:43:00 149.687 kg [facility] [place] [facility] BMI 2022-04-19 21:43:00 46.03 kg/m2 [facility] [place] [facility] Systolic blood 2022-04-19 21:42:00 142 mm[Hg] Univer sity of pressure [place] [facility] Diastolic blood 2022-04-19 21:42:00 92 mm[Hg] Unive rsity of pressure [place] [facility] Heart rate 2022-04-19 21:42:00 85 /min Universi ty [facility] Body temperature 2022-04-19 21:42:00 36.22 [facility] Branch Respiratory rate 2022-04-19 21:42:00 18 /min [facility] ersity of [facility] Branch Oxygen saturation in 2022-04-19 21:42:00 97 /min University of Arterial blood by [facility] Pulse oximetry Branch Systolic blood 2021-06-28 15:22:00 115 mm[Hg] Univer sity of pressure [place] [facility] Diastolic blood 2021-06-28 15:22:00 79 mm[Hg] Unive rsity of pressure [place] [facility] Heart rate 2021-06-28 15:22:00 83 /min [facility] [place] [facility] [place] Body temperature 2021-06-28 15:22:00 36.78 [facility] [place] [facility] Respiratory rate 2021-06-28 15:22:00 22 /min [facility] [place] [facility] Body weight 2021-06-28 15:22:00 136.079 kg [facility] [place] [facility] BMI 2021-06-28 15:22:00 41.84 kg/m2 Universi ty [facility] Branch Oxygen saturation in 2021-06-28 15:22:00 97 /min University of Arterial blood by [facility] Pulse oximetry Branch Heart rate 2021-06-09 04:18:20 99 /min [facility] [place] [facility] Body temperature 2021-06-09 04:18:20 37.33 [facility] 2021-06-09 04:18:20 20 /min [facility] Oxygen saturation in 2021-06-09 04:18:20 97 /min [facility] Arterial blood by [facility] Pulse oximetry Branch Systolic blood 2021-06-09 02:25:00 139 mm[Hg] Yahir sity of pressure [facility] Diastolic blood 2021-06-09 02:25:00 84 mm[Hg] Aida rsity of pressure [facility] Body height 2021-06-09 02:25:00 180.3 cm [facility] Body weight 2021-06-09 02:25:00 136.079 kg [facility] BMI 2021-06-09 02:25:00 41.84 kg/m2 [facility] Procedures Procedure Date / Time Performed Performing Clinician Sour e RAPID INFLUENZA A/B 2022-04-19 21:45:00 Fabián Pollard [facility] COVID-19 (ID NOW 2022-04-19 21:45:00 Fabián Pollard [facility] RAPID TESTING) Medical Branch CONSENT/REFUSAL FOR 2022-04-19 21:42:40 Doctor Unassigned, No [facility] [place] DIAGNOSIS AND Name Medical Branch TREATMENT RAPID STREP SCREEN 2021-06-28 16:07:00 Itz Henriquez [facility] FOR GROUP A Medical Branch CONSENT/REFUSAL FOR 2021-06-28 15:15:16 Doctor Unassigned, No [facility] [place] DIAGNOSIS AND Name Medical Branch TREATMENT RAPID STREP SCREEN 2021-06-09 02:28:00 Ismael Francois [facility] FOR GROUP A Medical Branch NOTICE OF PRIVACY 2021-06-09 02:17:09 Doctor Unassigned, No [facility] [place] PRACTICES Name Medical Branch CONSENT/REFUSAL FOR 2021-06-09 02:07:03 Doctor Unassigned, No [facility] [place] DIAGNOSIS AND Name Medical Branch TREATMENT Encounters Start End Encounter Admission Attending Care Care Encounter Source Date/Time Date/Time Type Type Clinicians Facility Department ID 2022-04-19 2022-04-19 Emergency X SYMONE POLLARD [id number] Univers 16:47:00 18:08:00 FABIÁN maria [facility] 2022-04-19 2022-04-19 [facility] [id number] Univers 16:47:00 18:08:00 Fabián CUEVAS [id number] i ty of [place] [id number] [facility] [id number] [place] [id number] Branch 2022-03-09 2022-03-09 Outpatient [facility] [id number] 00:00:00 00:00:00 HANSheila 0727 [facility] 2021-06-28 2021-06-28 [facility] [id number] Univers 09:24:00 12:01:00 ITZ maria [facility] 2021-06-28 2021-06-28 [facility] [id number] Univers 09:24:00 12:01:00 Itz CUEVAS [id number] i ty of [place] [id number] [facility] [id number] [place] [id number] Branch 2021-06-08 2021-06-08 Emergency X [facility] ERT [id number] Univers 21:32:00 23:24:00 TELLY maria [facility] 2021-06-08 2021-06-08 Emergency [facility] [id number] Univers 21:32:00 23:24:00 Telly Cuevas [id number] i ty of [place] [id number] [facility] [id number] [place] [id number] Branch Results This patient has no known results.
[2022-06-09] MEDS ORDERED: FLUCONAZOLE 100 MG TAB ONE (13:18)
--- NOTE | 2022-06-09 13:34 | ER ---
Nurse's Notes [facility] Name: Nilesh Ordonez Age: 27 yrs Sex: Male : 1995 Arrival Date: 06/09/2022 Time: 12:33 Bed IW1 Private MD: Diagnosis: Balanitis Presentation: 06/09 12:52 Chief complaint: Patient states: C/O itchy, trouble pulling foreskin back. 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 States "this has happened to be before but I can't remember what it is called.". Coronavirus screen: At this time, the client does not indicate any symptoms associated with coronavirus-19. Ebola Screen: No symptoms or risks identified at this time. Initial Sepsis Screen: Does the patient meet any 2 criteria? No. Patient's initial sepsis screen is negative. Does the patient have a suspected source of infection? No. Patient's initial sepsis screen is negative. Risk Assessment: Do you want to hurt yourself or someone else? Patient reports no desire to harm self or others. Onset of symptoms was June 09, 2022. 12:52 Method Of Arrival: Ambulatory ld1 12:52 Acuity: IRVIN 3 ld1 Triage Assessment: 12:53 General: Appears in no apparent distress. comfortable, Behavior is calm, cooperative, ld1 appropriate for age. Pain: Complains of pain in head of penis, shaft of penis and meatus Pain does not radiate. Pain currently is 3 out of 10 on a pain scale. Quality of pain is described as squeezing. EENT: No signs and/or symptoms were reported regarding the EENT system. Neuro: Level of Consciousness is awake, alert, obeys commands, Oriented to person, place, time, situation, Appropriate for age. Cardiovascular: Capillary refill < 3 seconds Patient's skin is warm and dry. Respiratory: Airway is patent Respiratory effort is even, unlabored. GI: Abdomen is round non-distended. : No signs and/or symptoms were reported regarding the genitourinary system. Derm: No signs and/or symptoms reported regarding the dermatologic system. Musculoskeletal: No signs and/or symptoms reported regarding the musculoskeletal system. Historical: - Allergies: 12:52 NKA; ld1 - PMHx: 12:52 Asthma; diabetes mellitus; seasonal allergies; ld1 - Immunization history:: Adult Immunizations up to date, Client reports receiving the 2nd dose of the Covid vaccine. - Social history:: Smoking status: Patient denies any tobacco usage or history of. Patient/guardian denies using alcohol. Screenin:49 Abuse screen: Denies threats or abuse. Denies injuries from another. Nutritional ld1 screening: No deficits noted. Tuberculosis screening: No symptoms or risk factors identified. Fall Risk None identified. Assessment: 13:49 Reassessment: See triage assessment. ld1 Vital Signs: 12:52 BP 117 / 76; Pulse 71; Resp 18; Temp 97.6(TE); Pulse Ox 98% on R/A; Weight 146.06 kg; ld1 Height 5 ft. 11 in. (180.34 cm); Pain 3/10; 12:52 Body Mass Index 44.91 (146.06 kg, 180.34 cm) ld1 ED Course: 12:33 Patient arrived in ED. mr 12:53 Triage completed. ld1 12:53 Arm band placed on right wrist. ld1 12:55 Rene Aguayo PA is PHCP. [facility] 12:55 Foster Morris MD is Attending Physician. [facility] 13:49 Kerry Hogue, JOSE is Primary Nurse. ld1 13:49 Patient has correct armband on for positive identification. Call light in reach. Pulse ld1 ox on. NIBP on. Door closed. Noise minimized. 13:49 No provider procedures requiring assistance completed. Patient did not have IV access ld1 during this emergency room visit. Administered Medications: 13:18 Drug: DiFLUcan (fluconazole) 150 mg Route: PO; ld1 Medication: 13:50 VIS not applicable for this client. ld1 Outcome: 13:34 Discharge ordered by . [facility] 13:49 Discharged to home ambulatory. ld1 13:49 Condition: stable 13:49 Discharge instructions given to patient, Instructed on discharge instructions, follow up and referral plans. medication usage, Demonstrated understanding of instructions, follow-up care, medications, Prescriptions given X 2. 13:50 Patient left the ED. ld1 Signatures: Rene Aguayo PA PA [facility] Eduardo Erika mr Kerry Hogue, RN RN ld1
--- NOTE | 2022-06-09 13:34 | EDPHYS ---
Physician Documentation [facility] Name: Nilesh Ordonez Age: 27 yrs Sex: Male : 1995 Arrival Date: 06/09/2022 Time: 12:33 Bed IW1 Private MD: ED Physician Foster Morris HPI: 06/09 15:21 This 27 yrs old Male presents to ER via Ambulatory with complaints of Penile Problem. jm 15:21 The patient presents with swelling. Onset: The symptoms/episode began/occurred jmm gradually, 1 day(s) ago. This is a 27 year old male with a history of asthma, dm, that presents to the ED with complaints of penile swelling, painful retraction. Patient has had similar episodes in the past. States his BGL levels have been controlled. Denies sob, vomiting, nausea, abdominal pain. . Historical: - Allergies: 12:52 NKA; ld1 - PMHx: 12:52 Asthma; diabetes mellitus; seasonal allergies; ld1 - Immunization history:: Adult Immunizations up to date, Client reports receiving the 2nd dose of the Covid vaccine. - Social history:: Smoking status: Patient denies any tobacco usage or history of. Patient/guardian denies using alcohol. ROS: 15:21 Constitutional: Negative for fever, chills, and weight loss, Cardiovascular: Negative jmm for chest pain, palpitations, and edema, Respiratory: Negative for shortness of breath, cough, wheezing, and pleuritic chest pain. 15:21 Skin: Positive for erythema. 15:21 All other systems are negative. Exam: 15:21 Constitutional: This is a well developed, well nourished patient who is awake, alert, jmm and in no acute distress. Head/Face: atraumatic. Eyes: EOMI, no conjunctival erythema appreciated ENT: Moist Mucus Membranes Neck: Trachea midline, Supple Chest/axilla: Normal chest wall appearance and motion. Cardiovascular: Regular rate and rhythm. No edema appreciated Respiratory: Normal respirations, no respiratory distress appreciated Abdomen/GI: Non distended Back: Normal ROM Skin: General appearance color normal MS/ Extremity: Moves all extremities, no obvious deformities appreciated, no edema noted to the lower extremities Neuro: Awake and alert Psych: Behavior is normal, Mood is normal, Patient is cooperative and pleasant Vital Signs: 12:52 BP 117 / 76; Pulse 71; Resp 18; Temp 97.6(TE); Pulse Ox 98% on R/A; Weight 146.06 kg; ld1 Height 5 ft. 11 in. (180.34 cm); Pain 3/10; 12:52 Body Mass Index 44.91 (146.06 kg, 180.34 cm) ld1 MDM: 13:03 Patient medically screened. [facility] 13:29 Data reviewed: vital signs, nurses notes. Counseling: I had a detailed discussion with [facility] the patient and/or guardian regarding: the historical points, exam findings, and any diagnostic results supporting the discharge/admit diagnosis, the need for outpatient follow up, to return to the emergency department if symptoms worsen or persist or if there are any questions or concerns that arise at home. Administered Medications: 13:18 Drug: DiFLUcan (fluconazole) 150 mg Route: PO; ld1 Disposition Summary: 06/09/22 13:34 Discharge Ordered Location: Home [facility] Condition: Stable [facility] Diagnosis - Balanitis [facility] Followup: [facility] - With: Private Physician - When: 2 - 3 days - Reason: Recheck today's complaints, Continuance of care, Re-evaluation by your physician Discharge Instructions: - Discharge Summary Sheet [facility] - Balanitis [facility] Forms: - Medication Reconciliation Form [facility] - Thank You Letter [facility] - Antibiotic Education [facility] - Prescription Opioid Use [facility] Prescriptions: - Clotrimazole 1 % Topical Cream - Apply to affected area 1 application by TOPICAL route every 12 hours; 15 gram; [facility] Refills: 0, Product Selection Permitted - Fluconazole 150 mg Oral Tablet - take 1 tablet by ORAL route once daily; 3 tablet; Refills: 0, Product Selection [facility] Permitted Signatures: Foster Morris MD MD cha Mickail, Joel, PA PA jmm Dibbern, Lauren, RN RN ld1
[2022-06-09 13:58] VITALS: BP 117/76; TEMP 97.6; O2SAT 98
== END 2022-06-09 13:50 | disposition home or self-care (01) ==
LOC: ER 12:23
DX: N48.1 Balanitis (principal)
CPT/HCPCS: 99283

== ENCOUNTER 2022-07-16 19:33 | Emergency (ER) | payer OTHER ==
--- OUTSIDE RECORDS SUMMARY | 2022-07-16 19:37 | XMS REPORT | Continuity of Care Document ---
:1995 Author Organization [facility] t Address [address] [place] [address] Care Team Providers Name Role Phone Pcp, [...] Policy Number Effective Date Expiration Date S [facility] [id number] 2022 PPO/POS 00:00:00 FORMERLY [facility] [id number] 2018 00:00:00 Problems Condition Condition Condition Status Onset Resolution Last Treating Co mments Source Name Details Category Date Date Treatment Clinician Date No known No known Disease Unive rs active active ity of problems problems [facility] [place] Allergies, Adverse Reactions, Alerts Allergy Allergy Status Severity Reaction(s) Onset Inactive Treating Comm ents Source Name Type Date Date Clinician NO KNOWN Drug Active Univers ALLERGIE Class ity of S [facility] [place] Social History Social Habit Start Date Stop Date Quantity Comments Source Exposure to 2022-04-09 2022-04-19 Unable to assess Univers ity of SARS-CoV-2 00:00:00 16:37:00 [place] [facility] (event) Branch Sex Ass[birth year] At [birth year] Universit y of 00:00:00 00:00:00 [place] [facility] Smoking Status Start Date Stop Date Source Tobacco smoking consumption [facility] [place] [facility] unknown Branch Medications Ordered Filled Start Stop Current Ordering Indication Dosage Frequency Signature Comments Components Source Medication Medication Date Date Medication? Clinician (SIG) Name Name acetaminoph No 650mg 650 mg, U nivers en 04-19 09- Oral, ity of (TYLENOL) 21:45: 21:51 [place]CE, 1 [place] tablet 650 00 :00 dose, On Medic al mg 04/19/22 Branch at 1645, RAY benzocaine- Yes [id number] 1{lozen Take 1 Univers menthoL 04-19 ge} Lozenge by ity of (CEPACOL 00:00: mouth [place] SORE 00 every 4 Medical THROAT, (four) Branch GREGORY-MEN,) hours as lozenge needed for Sore throat. predniSONE 2020-08 No 40mg 40 mg, Univ ers (DELTASONE) 0-09 06- Oral, ity of tablet 40 04:15: 04:19 ONCE, 1 [place] mg 00 :00 dose, On Medical [facility] Branch 06/08/21 at 2315, RAY amoxicillin 2020-08 No 500mg 500 mg, U nivers (TRIMOX) 0-09 06-27 Oral, ity of capsule 500 04:15: 04:20 [place]CE[place] 1 [place] mg 00 :00 dose, On [facility] Branch 06/08/21 at 2315, RAY
Re ason for Anti-Infec tive: Documented Infection< br>Documen thanh Infection Site: HEENT
D uration of Therapy: 7 days amoxicillin 2020-08- No [id number] 500mg Take 1 Univers 500 mg 0- 11-03 capsule by ity of capsule 00:00: 04:59 mouth 3 [place] 00 :00 (three) Medical times Branch daily for 7 days. predniSONE 2020-08- No [id number] 20mg Take 1 Univers 20 mg 0- 10-30 tablet by ity of tablet 00:00: 04:59 mouth 2 [place] 00 :00 (two) Medical times Branch daily for 3 days. ALBUTEROL [id number] Yes Inhale. Unive rs INHALE 5-09 ity of 01:35: [place] [address] Medical [place] montelukast 0 Yes 10mg Take 10 mg Univers (SINGULAIR) 5-09 by mouth ity of 10 mg 01:35: daily. [place] tablet 50 Medical [place] ALBUTEROL 2018-0 Yes Inhale. Unive rs INHALE 5-09 ity of 01:35: [address] montelukast 0 Yes 10mg Take 10 mg Univers (SINGULAIR) 5-09 by mouth ity of 10 mg 01:35: daily. [place] tablet [address] [place] [address] ALBUTEROL 0 Yes Inhale. Unive rs INHALE 5-09 ity of 01:35: [address] montelukast 0 Yes 10mg Take 10 mg Univers (SINGULAIR) 5-09 by mouth ity of 10 mg 01:35: daily. [address] benzonatate 0 Yes [id number] 200mg Take 1 Univers 200 mg 5-09 capsule by ity of capsule 00:00: mouth 3 [place] 00 (three) Medical times Branch daily as needed for Cough. ibuprofen Yes [id number] 800mg Take 1 U nivers 800 mg 5-09 tablet by ity of tablet 00:00: mouth [place] 00 every 8 Medical (eight) Branch hours as needed for Temp > 38.5 C (PAIN). benzonatate 0 Yes [id number] 200mg Take 1 Univers 200 mg 5-09 capsule by ity of capsule 00:00: mouth 3 [place] 00 (three) Medical times Branch daily as needed for Cough. ibuprofen 0 Yes [id number] 800mg Take 1 U nivers 800 mg 5-09 tablet by ity of tablet 00:00: mouth [place] 00 every 8 Medical (eight) Branch hours as needed for Temp > 38.5 C (PAIN). benzonatate 2018-0 Yes [id number] 200mg Take 1 Univers 200 mg 5-09 capsule by ity of capsule 00:00: mouth 3 [place] 00 (three) Medical times Branch daily as needed for Cough. ibuprofen 2018-0 Yes [id number] 800mg Take 1 U nivers 800 mg [...] rate 2022-04-19 21:42:00 85 /min Universi ty [facility] Body temperature 2022-04-19 21:42:00 36.22 Sakina [facility] Respiratory rate 2022-04-19 21:42:00 18 /min [facility] ersity of [facility] Branch Oxygen saturation in 2022-04-19 21:42:00 97 /min University of Arterial blood by [facility] [place] [facility] Pulse oximetry Branch Systolic blood 2021-06-28 15:22:00 115 mm[Hg] Univer sity of pressure [place] [facility] Diastolic blood 2021-06-28 15:22:00 79 mm[Hg] Unive rsity of pressure [place] [facility] Heart rate 2021-06-28 15:22:00 83 /min [facility]i ty [facility] [place] [facility] [place] Body temperature 2021-06-28 15:22:00 36.78 Sakina [facility] [place] [facility] Respiratory rate 2021-06-28 15:22:00 22 /min Univ [facility] [place] [facility] Body weight 2021-06-28 15:22:00 136.079 kg [facility] [place] [facility] BMI 2021-06-28 15:22:00 41.84 kg/m2 Universi ty [facility] Branch Oxygen saturation in 2021-06-28 15:22:00 97 /min University of Arterial blood by [facility] [place] [facility] Pulse oximetry Branch Heart rate 2021-06-09 04:18:20 99 /min [facility] [place] [facility] Body temperature 2021-06-09 04:18:20 37.33 [facility]ina [facility] Respiratory rate 2021-06-09 04:18:20 20 /min [facility] Oxygen saturation in 2021-06-09 04:18:20 97 /min [facility] Arterial blood by [facility] [place] [facility] Pulse oximetry Branch Systolic blood 2021-06-09 02:25:00 139 mm[Hg] Yahir sity of pressure [facility] [place] Diastolic blood 2021-06-09 02:25:00 84 mm[Hg] Aida rsity of pressure [facility] [place] Body height 2021-06-09 02:25:00 180.3 cm [facility] Body weight 2021-06-09 02:25:00 136.079 kg [facility] BMI 2021-06-09 02:25:00 41.84 kg/m2 [facility] Procedures Procedure Date / Time Performed Performing Clinician Sour e RAPID INFLUENZA A/B 2022-04-19 21:45:00 Fabián Pollard [facility] COVID-19 (ID NOW 2022-04-19 21:45:00 Fabián Pollard [facility] RAPID TESTING) Medical Branch CONSENT/REFUSAL FOR 2022-04-19 21:42:40 Doctor Unassigned, No [facility] [place] DIAGNOSIS AND Name Medical Branch TREATMENT RAPID STREP SCREEN 2021-06-28 16:07:00 Itz Henriquez [facility] FOR GROUP A Medical Branch CONSENT/REFUSAL FOR 2021-06-28 15:15:16 Doctor Unassigned, No [facility] [place] DIAGNOSIS AND Name Medical Branch TREATMENT RAPID STREP SCREEN 2021-06-09 02:28:00 Ismael Francois [facility] FOR GROUP A Medical Branch NOTICE OF PRIVACY 2021-06-09 02:17:09 Doctor Unassigned, No [facility] [place] PRACTICES Name Medical Branch CONSENT/REFUSAL FOR 2021-06-09 02:07:03 Doctor Unassigned, No [facility] [place] DIAGNOSIS AND Name Medical Branch TREATMENT Encounters Start End Encounter Admission Attending Care Care Encounter Source Date/Time Date/Time Type Type Clinicians Facility Department ID 2022-04-19 2022-04-19 Emergency X SYMONE POLLARD [id number] Univers 16:47:00 18:08:00 FABIÁN maria [facility] 2022-04-19 2022-04-19 [facility] [id number] Univers 16:47:00 18:08:00 Fabián CUEVAS [id number] i ty of [place] [id number] [facility] [id number] [place] [id number] Branch 2022-03-09 2022-03-09 [facility] [id number] 00:00:00 00:00:00 HANSheila 0727 [facility] 2021-06-28 2021-06-28 [facility] [id number] Univers 09:24:00 12:01:00 ITZ maria [facility] 2021-06-28 2021-06-28 [facility] [id number] Univers 09:24:00 12:01:00 Itz CUEVAS [id number] i ty of [place] [id number] [facility] [id number] [place] [address] Branch 2021-06-08 2021-06-08 Emergency X [facility] ERT [id number] Univers 21:32:00 23:24:00 TELLY maria [facility] 2021-06-08 2021-06-08 Emergency [facility] [id number] Univers 21:32:00 23:24:00 Telly Cuevas [id number] i ty of [place] [id number] [facility] [id number] [place] [address] Branch Results This patient has no known results.
[2022-07-16] MEDS ORDERED: HYDROCODONE/CHLORPHEN 5 ML/OSYR ONE (20:18)
[2022-07-16 21:05] LABS: SARS-COV-2 RT PCR NEGATIVE (NEGATIVE)
--- NOTE | 2022-07-16 21:31 | ER ---
Nurse's Notes [facility] Name: Nilesh Ordonez Age: 27 yrs Sex: Male : 1995 Arrival Date: 07/16/2022 Time: 20:04 Bed 25 Private MD: Diagnosis: Influenza due to identified novel influenza A virus Presentation: 07/16 20:07 Chief complaint: Patient states: Pt reports cough, body aches, runny nose, congestion, kb3 chills x 4-5 days. Coronavirus screen: Vaccine status: Patient reports receiving the 2nd dose of the covid vaccine. Client denies travel out of the [place] in the last 14 days. Ebola Screen: Patient negative for fever greater than or equal to 101.5 degrees Fahrenheit, and additional compatible Ebola Virus Disease symptoms Patient denies exposure to infectious person. Patient denies travel to an Ebola-affected area in the 21 days before illness onset. Initial Sepsis Screen: Does the patient meet any 2 criteria? No. Patient's initial sepsis screen is negative. Does the patient have a suspected source of infection? No. Patient's initial sepsis screen is negative. Risk Assessment: Do you want to hurt yourself or someone else? Patient reports no desire to harm self or others. Onset of symptoms was July 13, 2022. 20:07 Method Of Arrival: Ambulatory kb3 20:07 Acuity: IRVIN 4 kb3 Triage Assessment: 20:10 General: Appears in no apparent distress. Behavior is calm, cooperative. Pain: kb3 Complains of pain in chest Pain does not radiate. Pain currently is 8 out of 10 on a pain scale. Quality of pain is described as burning, aching, Pain began 4-5 days Is continuous. Historical: - Allergies: 20:10 NKA; kb3 - Home Meds: 20:10 None [Active]; kb3 - PMHx: 20:10 Asthma; seasonal allergies; diabetes mellitus; kb3 - PSHx: 20:10 None; kb3 - Immunization history:: Adult Immunizations up to date, Client reports receiving the 2nd dose of the Covid vaccine, Last tetanus immunization: up to date. - Social history:: Smoking status: Patient denies any tobacco usage or history of. Screenin:12 Abuse screen: Denies threats or abuse. Denies injuries from another. Nutritional kb3 screening: No deficits noted. Tuberculosis screening: No symptoms or risk factors identified. Fall Risk None identified. Assessment: 20:12 Reassessment: Patient appears in no apparent distress at this time. General: See triage kb3 note. 21:18 General: Appears in no apparent distress. uncomfortable, Behavior is calm, cooperative, eh3 appropriate for age. Pain: Complains of pain in chest, throat Pain does not radiate. Pain currently is 5 out of 10 on a pain scale. Neuro: Level of Consciousness is awake, alert, obeys commands, Oriented to person, place, time, situation. Cardiovascular: Capillary refill < 3 seconds Patient's skin is warm and dry. Respiratory: Reports cough that is productive, pain with cough Airway is patent Respiratory effort is even, unlabored, Respiratory pattern is regular, symmetrical. GI: No signs and/or symptoms were reported involving the gastrointestinal system. Abdomen is round non-distended. : No signs and/or symptoms were reported regarding the genitourinary system. EENT: Reports nasal congestion pain when swallowing. Derm: No signs and/or symptoms reported regarding the dermatologic system. Musculoskeletal: No signs and/or symptoms reported regarding the musculoskeletal system. Circulation, motion, and sensation intact. Range of motion: intact in all extremities. Vital Signs: 20:07 BP 141 / 82; Pulse 100; Resp 20; Temp 100.6; Pulse Ox 99% ; Weight 144.7 kg; Height 5 kb3 ft. 11 in. (180.34 cm); Pain 8/10; 22:20 Temp 99.3(O); eh3 20:07 Body Mass Index 44.49 (144.70 kg, 180.34 cm) kb3 ED Course: 20:04 Patient arrived in ED. ja2 20:09 Corrine Liu FNP-C is PHCP. snw 20:09 Juan José Sandra DO is Attending Physician. snw 20:10 Triage completed. kb3 20:11 Arm band placed on left wrist. kb3 20:12 Patient has correct armband on for positive identification. kb3 20:12 No provider procedures requiring assistance completed. Patient did not have IV access kb3 during this emergency room visit. 21:18 Meron Weaver, RN is Primary Nurse. eh3 21:18 Patient has correct armband on for positive identification. Bed in low position. Call 3 light in reach. Side rails up X2. Pulse ox on. NIBP on. Door closed. Noise minimized. Warm blanket given. Administered Medications: 20:20 Drug: Tussionex Pennkinetic ER (chlorpheniramine-hydrocodone) Suspension 5 ml Route: PO;kb3 21:21 Follow up: Response: Pain is decreased eh3 Medication: 20:12 VIS not applicable for this client. kb3 Outcome: 21:30 Discharge ordered by MD. montes 22:19 Discharged to home ambulatory. eh3 22:19 Condition: stable 22:19 Discharge instructions given to patient, Instructed on discharge instructions, follow up and referral plans. medication usage, Demonstrated understanding of instructions, follow-up care, medications, Prescriptions given X 3. 22:20 Patient left the ED. 3 Signatures: Corrine Liu, BROADCAST OPERATIONS DIRECTOR-C BROADCAST OPERATIONS DIRECTOR-Csnw Matilde Cabrera Erin, RN RN 3 Elizabeth Levine, RN RN 3
--- NOTE | 2022-07-16 21:31 | EDPHYS ---
Physician Documentation [facility] Name: Nilesh Ordonez Age: 27 yrs Sex: Male : 1995 Arrival Date: 07/16/2022 Time: 20:04 Bed 25 Private MD: ED Physician Juan José Sandra HPI: 07/16 20:25 This 27 yrs old Male presents to ER via Ambulatory with complaints of Flu Symptoms. snw 20:25 The patient or guardian reports cough, that is constant, flu symptoms, low-grade fever, snw myalgias, no appetite. Onset: The symptoms/episode began/occurred gradually, 4 day(s) ago, and became persistent. Associated signs and symptoms: Pertinent positives: fever, rhinorrhea, sore throat. Severity of symptoms: At their worst the symptoms were moderate. It is unknown whether or not the patient has had similar symptoms in the past. The patient has not recently seen a physician. Historical: - Allergies: 20:10 NKA; kb3 - Home Meds: 20:10 None [Active]; kb3 - PMHx: 20:10 Asthma; seasonal allergies; diabetes mellitus; kb3 - PSHx: 20:10 None; kb3 - Immunization history:: Adult Immunizations up to date, Client reports receiving the 2nd dose of the Covid vaccine, Last tetanus immunization: up to date. - Social history:: Smoking status: Patient denies any tobacco usage or history of. ROS: 20:25 Eyes: Negative for injury, pain, redness, and discharge, ENT: Negative for injury, snw pain, and discharge, Neck: Negative for injury, pain, and swelling, Cardiovascular: Negative for chest pain, palpitations, and edema. 20:25 Abdomen/GI: Negative for abdominal pain, nausea, vomiting, diarrhea, and constipation, Back: Negative for injury and pain, : Negative for injury, bleeding, discharge, and swelling, MS/Extremity: Negative for injury and deformity, Skin: Negative for injury, rash, and discoloration, Neuro: Negative for headache, weakness, numbness, tingling, and seizure. 20:25 Constitutional: Positive for body aches, chills, fatigue, malaise, poor PO intake. 20:25 Respiratory: Positive for cough. Exam: 20:24 Constitutional: This is a well developed, well nourished patient who is awake, alert, snw and in no acute distress. Head/Face: Normocephalic, atraumatic. Eyes: Pupils equal round and reactive to light, extra-ocular motions intact. Lids and lashes normal. Conjunctiva and sclera are non-icteric and not injected. Cornea within normal limits. Periorbital areas with no swelling, redness, or edema. 20:24 Neck: Trachea midline, no thyromegaly or masses palpated, and no cervical lymphadenopathy. Supple, full range of motion without nuchal rigidity, or vertebral point tenderness. No Meningismus. Chest/axilla: Normal chest wall appearance and motion. Nontender with no deformity. No lesions are appreciated. Cardiovascular: Regular rate and rhythm with a normal S1 and S2. No gallops, murmurs, or rubs. Normal PMI, no JVD. No pulse deficits. 20:24 Abdomen/GI: Soft, non-tender, with normal bowel sounds. No distension or tympany. No guarding or rebound. No evidence of tenderness throughout. Back: No spinal tenderness. No costovertebral tenderness. Full range of motion. Skin: Warm, dry with normal turgor. Normal color with no rashes, no lesions, and no evidence of cellulitis. MS/ Extremity: Pulses equal, no cyanosis. Neurovascular intact. Full, normal range of motion. Neuro: Awake and alert, GCS 15, oriented to person, place, time, and situation. Cranial nerves II-XII grossly intact. Motor strength 5/5 in all extremities. Sensory grossly intact. Cerebellar exam normal. Normal gait. 20:24 ENT: Nose: nasal drainage, that is moderate, and is seen coming from both nares, that is clear, Posterior pharynx: erythema, that is mild, Voice: is normal. 20:24 Respiratory: the patient does not display signs of respiratory distress, Respirations: normal, Breath sounds: bronchial sounds, harsh cough. Vital Signs: 20:07 BP 141 / 82; Pulse 100; Resp 20; Temp 100.6; Pulse Ox 99% ; Weight 144.7 kg; Height 5 kb3 ft. 11 in. (180.34 cm); Pain 8/10; 22:20 Temp 99.3(O); eh3 20:07 Body Mass Index 44.49 (144.70 kg, 180.34 cm) kb3 MDM: 20:09 Patient medically screened. snw 21:31 Data reviewed: vital signs, nurses notes. Data interpreted: Pulse oximetry: on room air snw is 99 %. Interpretation: normal. Counseling: I had a detailed discussion with the patient and/or guardian regarding: the historical points, exam findings, and any diagnostic results supporting the discharge/admit diagnosis, lab results, the need for outpatient follow up, to return to the emergency department if symptoms worsen or persist or if there are any questions or concerns that arise at home. Response to treatment: the patient's symptoms have mildly improved after treatment. Special discussion: I have referred the patient to see his PCP for further evaluation of high blood pressure. Based on the history and exam findings, there is no indication for further emergent testing or inpatient evaluation. I discussed with the patient/guardian the need to see the primary care provider for further evaluation of the symptoms. 07/16 20:13 Order name: COVID-19/FLU A+B/RSV; Complete Time: 21:21 snw Administered Medications: 20:20 Drug: Tussionex Pennkinetic ER (chlorpheniramine-hydrocodone) Suspension 5 ml Route: PO;kb3 21:21 Follow up: Response: Pain is decreased eh3 Disposition: 22:40 Co-signature as Attending Physician, Juan José Sandra DO I was immediately available on-site ms3 in the Emergency Department for consultation in the care of the patient. Disposition Summary: 07/16/22 21:30 Discharge Ordered Location: Home snw Condition: Stable snw Diagnosis - Influenza due to identified novel influenza A virus snw Followup: snw - With: Emergency Department - When: As needed - Reason: Worsening of condition Followup: snw - With: Private Physician - When: 2 - 3 days - Reason: Recheck today's complaints, Continuance of care, Re-evaluation by your physician Discharge Instructions: - Discharge Summary Sheet snw - Fever, Adult snw - Influenza, Adult snw - Rehydration, Adult snw Forms: - Medication Reconciliation Form snw - Thank You Letter snw - Antibiotic Education snw - Prescription Opioid Use snw - Work release form snw Prescriptions: - Zyrtec 10 mg Oral Tablet - take 1 tablet by ORAL route once daily As needed; 20 tablet; Refills: 0, snw Product Selection Permitted - Tessalon Perles 100 mg Oral Capsule - take 1 capsule by ORAL route every 8 hours As needed; 15 capsule; Refills: 0, snw Product Selection Permitted - Pepcid 20 mg Oral Tablet - take 1 tablet by ORAL route once daily; 20 tablet; Refills: 0, Product snw Selection Permitted Signatures: Dispatcher [employer] EDCorrine Putnam, ACCOUNT INFORMATION CLERK-C ACCOUNT INFORMATION CLERK-Csnw Juan José Sandra DO DO ms3 Elizabeth Levine, RN RN kb3 Meron Weaver RN eh3
[2022-07-16 22:30] VITALS: BP 141/82; O2SAT 99
[2022-07-16 22:31] VITALS: TEMP 99.3
== END 2022-07-16 22:20 | disposition home or self-care (01) ==
LOC: ER 19:33
DX: J10.1 Influenza due to other identified influenza virus with other respiratory manifestations (principal); Z20.822 Contact with and (suspected) exposure to COVID-19
CPT/HCPCS: 0241U; 99283

== ENCOUNTER → 2023-08-03 | Emergency (ER) | payer SELFPAY ==
--- OUTSIDE RECORDS SUMMARY | 2023-08-03 17:48 | XMS REPORT | Continuity of Care Document ---
Author Name Unknown Address [address] [facility] [address] [place] [address] [facility] thconnect Address [address] [facility] [place] [address] Care Team Providers Care Communication Analyst Name Role Phone Pcp, Patient Does Not Have A Primary Care Physic nica FABIÁN POLLARD Attending Clinician Unavailable Fabián Pollard DO Attending Clinician [phone] ABHI Attending Clinician Unavailable ITZ BEARDEN Attending Clinician Unavailable Itz Raymundo Attending Clinician [phone] TELLY WEINSTEIN Attending Clinician Unavailable Telly Son Attending Clinician [phone] ABHI Admitting Clinician Unavailable Payers Payer Name Policy Type Policy Number Effective Date Expirati on Date Source [facility] PPO/POS [id number] 2022 00:00:00 [facility] STAR [id number] 2018 00:00:00 Problems Condition Name Condition Details Condition Category Status Onset Date Resolution Date Last Treatment Date Treating Clinician Comments Source No known active problems No known active problems Disease [facility] Allergies, Adverse Reactions, Alerts Allergy Name Allergy Type Status Severity Reaction(s) Onset Date Inactive Date Treating Clinician Comments Source NO KNOWN ALLERGIE S Drug Class Active [facility] Social History Social Habit Start Date Stop Date Quantity Comments Source Exposure to SARS-CoV-2 (event) 2022-04-09 00:00:00 2022-04-19 16:37:00 Unable to assess [facility] Sex Assigned At 1995 00:00:00 1995 00:00:00 [facility] Smoking Status Start Date Stop Date Source Tobacco smoking consumption unknown [facility] Medications Ordered Medication Name Filled Medication Name Start Date Stop Date Current Medication? Ordering Clinician Indication Dosage Frequency Signature (SIG) Comments Components Source acetaminoph en (TYLENOL) tablet 650 mg 04-19 21:45: 00 04-19 21:51 :00 No 650mg 650 mg, Oral, ONCE, 1 dose, On Mon04/19/22 at 1645, RAY [facility] benzocaine- menthoL (CEPACOL SORE THROAT, GREGORY-MEN,) lozenge 04-19 00:00: 00 Yes [id number] 1{lozen ge} Take 1 Lozenge by mouth every 4 (four) hours as needed for Sore throat. [facility] predniSONE (DELTASONE) tablet 40 mg 2020-08 04:15: 06-09 04:19 :00 No 40mg 40 mg, Oral, ONCE, 1 dose, On Mon06/08/21 at 2315, RAY [facility] amoxicillin (TRIMOX) capsule 500 mg 2020-08 04:15: 00 06-09 04:20 :00 No 500mg 500 mg, Oral, ONCE, 1 dose, On Mon06/08/21 at 2315, RAY
Re ason for Anti-Infec tive: Documented Infection< br>Documen thanh Infection Site: HEENT
D uration of Therapy: 7 days [facility] amoxicillin 500 mg capsule 2020-08 00:00: 00 06-16 04:59 :00 No [id number] 500mg Take 1 capsule by mouth 3 (three) times daily for 7 days. [facility] predniSONE 20 mg tablet 2020-08 00:00: 00 06-12 04:59 :00 No [id number] 20mg Take 1 tablet by mouth 2 (two) times daily for 3 days. [facility] ALBUTEROL INHALE 12-20 01:35: 50 Yes Inhale. [facility] montelukast (SINGULAIR) 10 mg tablet 12-20 01:35: 50 Yes 10mg Take 10 mg by mouth daily. [facility] ALBUTEROL INHALE 12-20 01:35: 50 Yes Inhale. [facility] montelukast (SINGULAIR) 10 mg tablet 12-20 01:35: 50 Yes 10mg Take 10 mg by mouth daily. [facility] ALBUTEROL INHALE 12-20 01:35: 50 Yes Inhale. [facility] montelukast (SINGULAIR) 10 mg tablet 12-20 01:35: 50 Yes 10mg Take 10 mg by mouth daily. [facility] benzonatate 200 mg capsule 12-20 00:00: 00 Yes [id number] 200mg Take 1 capsule by mouth 3 (three) times daily as needed for Cough. [facility] ibuprofen 800 mg tablet 12-20 00:00: 00 Yes [id number] 800mg Take 1 tablet by mouth every 8 (eight) hours as needed for Temp > 38.5 C (PAIN). [facility] benzonatate 200 mg capsule 12-20 00:00: 00 Yes [id number] 200mg Take 1 capsule by mouth 3 (three) times daily as needed for Cough. [facility] ibuprofen 800 mg tablet 12-20 00:00: 00 Yes [id number] 800mg Take 1 tablet by mouth every 8 (eight) hours as needed for Temp > 38.5 C (PAIN). [facility] benzonatate 200 mg capsule 12-20 00:00: 00 Yes [id number] 200mg Take 1 capsule by mouth 3 (three) times daily as needed for Cough. [facility] ibuprofen 800 mg tablet 12-20 00:00: 00 Yes [id number] 800mg Take 1 tablet by mouth every 8 (eight) hours as needed for Temp > 38.5 C (PAIN). [facility] Vital Signs Vital Name Observation Time Observation Value Comments [place] Body height 2022-04-19 21:43:00 180.3 cm [facility] Body weight 2022-04-19 21:43:00 149.687 kg [facility] BMI 2022-04-19 21:43:00 46.03 kg/m2 [facility] Systolic blood pressure 2022-04-19 21:42:00 142 mm[Hg] [facility] Diastolic blood pressure 2022-04-19 21:42:00 92 mm[Hg] [facility] Heart rate 2022-04-19 21:42:00 85 /min [facility] Body temperature 2022-04-19 21:42:00 36.22 Sakina [facility] Respiratory rate 2022-04-19 21:42:00 18 /min [facility] Oxygen saturation in Arterial blood by Pulse oximetry 2022-04-19 21:42:00 97 /min [facility] Systolic blood pressure 2021-06-28 15:22:00 115 mm[Hg] [facility] Diastolic blood pressure 2021-06-28 15:22:00 79 mm[Hg] [facility] Heart rate 2021-06-28 15:22:00 83 /min [facility] Body temperature 2021-06-28 15:22:00 36.78 Sakina [facility] Respiratory rate 2021-06-28 15:22:00 22 /min [facility] Body weight 2021-06-28 15:22:00 136.079 kg [facility] BMI 2021-06-28 15:22:00 41.84 kg/m2 [facility] Oxygen saturation in Arterial blood by Pulse oximetry 2021-06-28 15:22:00 97 /min [facility] Heart rate 2021-06-09 04:18:20 99 /min [facility] Body temperature 2021-06-09 04:18:20 37.33 Sakina [facility] Respiratory rate 2021-06-09 04:18:20 20 /min [facility] Oxygen saturation in Arterial blood by Pulse oximetry 2021-06-09 04:18:20 97 /min [facility] Systolic blood pressure 2021-06-09 02:25:00 139 mm[Hg] [facility] Diastolic blood pressure 2021-06-09 02:25:00 84 mm[Hg] [facility] Body height 2021-06-09 02:25:00 180.3 cm [facility] Body weight 2021-06-09 02:25:00 136.079 kg [facility] BMI 2021-06-09 02:25:00 41.84 kg/m2 [facility] Procedures Procedure Date / Time Performed Performing Clinicia n Source RAPID INFLUENZA A/B 2022-04-19 21:45:00 Huong Pollard [facility] COVID-19 (ID NOW RAPID TESTING) 2022-04-19 21:45:00 Fabián Pollard [facility] CONSENT/REFUSAL FOR DIAGNOSIS AND TREATMENT 2022-04-19 21:42:40 Doctor Unassigned, [place] [facility] RAPID STREP SCREEN FOR GROUP A 2021-06-28 16:07:00 Itz Bearden [facility] CONSENT/REFUSAL FOR DIAGNOSIS AND TREATMENT 2021-06-28 15:15:16 Doctor Unassigned, [place] [facility] RAPID STREP SCREEN FOR GROUP A 2021-06-09 02:28:00 Ismael Francois [facility] NOTICE OF PRIVACY PRACTICES 2021-06-09 02:17:09 Doctor Unassigned, [place] [facility] CONSENT/REFUSAL FOR DIAGNOSIS AND TREATMENT 2021-06-09 02:07:03 Doctor Unassigned, [place] [facility] Encounters Start Date/Time End Date/Time Encounter Type Admission Type Attending Clinicians Care Facility Care Department Encounter ID Source 2022-04-19 16:47:00 2022-04-19 18:08:00 Emergency X FABIÁN POLLARD ERT [id number] [facility] 2022-04-19 16:47:00 2022-04-19 18:08:00 Emergency Pollard, Fabián [facility] [id number] [facility] 2022-03-09 00:00:00 2022-03-09 00:00:00 Outpatient AMBREEN_CAMILA CARRILLO [facility] [id number] [place] [facility] 2021-06-28 09:24:00 2021-06-28 12:01:00 Emergency X ITZ BEARDEN [facility] ERT [id number] [facility] 2021-06-28 09:24:00 2021-06-28 12:01:00 Emergency Kristen Beardenanne [facility] [id number] [facility] 2021-06-08 21:32:00 2021-06-08 23:24:00 Emergency X TELLY WEINSTEIN [facility] ERT [id number] [facility] 2021-06-08 21:32:00 2021-06-08 23:24:00 Emergency Telly Weinstein [facility] [id number] [facility]
--- NOTE | 2023-08-03 18:13 | ER ---
[facility] Name: Nilesh Ordonez Age: 28 yrs Sex: Male : 1995 Arrival Date: 08/03/2023 Time: 17:41 Bed IW2 Private MD: Diagnosis: Balanitis Presentation: 08/03 18:04 Chief complaint: Patient states: Reports pain to foreskin area and redness to skin of ll1 penis for over 1 week. Nystatin and fungal pill hasn't fully helped. Coronavirus screen: Vaccine status: Patient reports receiving the 2nd dose of the covid vaccine. Client denies travel out of the [place] in the last 14 days. At this time, the client does not indicate any symptoms associated with coronavirus-19. Ebola Screen: Patient denies travel to an Ebola-affected area in the 21 days before illness onset. Initial Sepsis Screen: Does the patient meet any 2 criteria? No. Patient's initial sepsis screen is negative. Does the patient have a suspected source of infection? Yes: Skin breakdown/wound. Risk Assessment: Do you want to hurt yourself or someone else? Patient reports no desire to harm self or others. Onset of symptoms was June 25, 2023. 18:04 Method Of Arrival: Ambulatory ll1 18:04 Acuity: IRVIN 4 ll1 Triage Assessment: 18:06 General: Appears uncomfortable, Behavior is calm, cooperative, appropriate for age. ll1 Pain: Complains of pain in penis Pain currently is 10 out of 10 on a pain scale. Quality of pain is described as burning, aching. Derm: Penile redness, pain when removing foreskin. Historical: - Allergies: 18:00 NKA; ll1 - PMHx: 18:00 diabetes mellitus; Asthma; seasonal allergies; ll1 - PSHx: 18:04 None; ll1 - Immunization history:: Adult Immunizations up to date. - Social history:: Smoking status: Patient denies any tobacco usage or history of. - Family history:: not pertinent. Screenin:23 [facility] ED Fall Risk Assessment (Adult) Score/Fall Risk Level 0 - 2 = Low Risk ll1 Oriented to surroundings, Maintained a safe environment, Educated pt \T\ family on fall prevention, incl call for assistance when getting out of bed, Hourly rounding (assess needs \T\ fall precautionary measures) done. Abuse screen: Denies threats or abuse. Nutritional screening: No deficits noted. Tuberculosis screening: No symptoms or risk factors identified. Assessment: 18:22 Reassessment: No changes from previously documented assessment. Patient and/or family ll1 updated on plan of care and expected duration. Pain level reassessed. Vital Signs: 18:04 BP 126 / 81; Pulse 73; Resp 17; Temp 98.2; Pulse Ox 100% ; Weight 133.81 kg; Height 5 ll1 ft. 11 in. ; Pain 10/10; 18:04 Body Mass Index 41.14 (133.81 kg, 180.34 cm) ll1 18:04 Pain Scale: Adult ll1 ED Course: 17:43 Patient arrived in ED. mr 17:44 Tenzin Altamirano MD is Attending Physician. rt 17:59 Arm band placed on. ll1 18:06 Triage completed. ll1 18:23 Patient has correct armband on for positive identification. Provided Education on: n/a. ll1 18:23 No provider procedures requiring assistance completed. Patient did not have IV access ll1 during this emergency room visit. Administered Medications: No medications were administered Medication: 18:30 VIS not applicable for this client. ll1 Outcome: 18:12 Discharge ordered by . rt 18:23 Patient left the ED. iw 18:23 Discharged to home ambulatory, ll1 18:23 Condition: stable 18:23 Discharge instructions given to patient, Instructed on discharge instructions, follow up and referral plans. medication usage, Demonstrated understanding of instructions, follow-up care, medications, Prescriptions given X 2, Signatures: Erika Clark, Reg Reg mr Dolores Larose RN RN iw Roldan Suarez RN RN 1 Tenzin Altamirano MD MD rt
--- NOTE | 2023-08-03 18:13 | EDPHYS ---
Physician Documentation [facility] Name: Nilesh Ordonez Age: 28 yrs Sex: Male : 1995 Arrival Date: 08/03/2023 Time: 17:41 Bed IW2 Private MD: ED Physician Tenzin Altamirano HPI: 08/03 19:11 This 28 yrs old Male presents to ER via Ambulatory with complaints of Testicular rt Problem. 19:11 Patient with history of diabetes with multiple episodes of balanitis presents to the ED rt with a worsening of his balanitis symptoms, he has been using nystatin, states it is somewhat worsened today. Denies difficulty urinating, acute complaints states that his blood sugars well-controlled currently. Symptoms are mild in severity, no other aggravating or elevating factors.. Historical: - Allergies: 18:00 NKA; ll1 - PMHx: 18:00 diabetes mellitus; Asthma; seasonal allergies; ll1 - PSHx: 18:04 None; ll1 - Immunization history:: Adult Immunizations up to date. - Social history:: Smoking status: Patient denies any tobacco usage or history of. - Family history:: not pertinent. ROS: 19:11 Constitutional: Negative for fever, chills, and weight loss, Cardiovascular: Negative rt for chest pain, palpitations, and edema, Respiratory: Negative for shortness of breath, cough, wheezing, and pleuritic chest pain, Abdomen/GI: Negative for abdominal pain, nausea, vomiting, diarrhea, and constipation, Skin: Negative for injury, rash, and discoloration, Neuro: Negative for headache, weakness, numbness, tingling, and seizure, Psych: Negative for depression, anxiety, suicide ideation, homicidal ideation, and hallucinations, 19:11 : Positive for Skin irritation, discharge, Exam: 19:11 Constitutional: This is a well developed, well nourished patient who is awake, alert, rt and in no acute distress. Head/Face: Normocephalic, atraumatic. Chest/axilla: Normal chest wall appearance and motion. Nontender with no deformity. No lesions are appreciated. Cardiovascular: Regular rate and rhythm with a normal S1 and S2. No gallops, murmurs, or rubs. Normal PMI, no JVD. No pulse deficits. Respiratory: Lungs have equal breath sounds bilaterally, clear to auscultation and percussion. No rales, rhonchi or wheezes noted. No increased work of breathing, no retractions or nasal flaring. Abdomen/GI: Soft, non-tender, with normal bowel sounds. No distension or tympany. No guarding or rebound. No evidence of tenderness throughout. Skin: Warm, dry with normal turgor. Normal color with no rashes, no lesions, and no evidence of cellulitis. MS/ Extremity: Pulses equal, no cyanosis. Neurovascular intact. Full, normal range of motion. Neuro: Awake and alert, GCS 15, oriented to person, place, time, and situation. Cranial nerves II-XII grossly intact. Motor strength 5/5 in all extremities. Sensory grossly intact. Cerebellar exam normal. Normal gait. Psych: Awake, alert, with orientation to person, place and time. Behavior, mood, and affect are within normal limits. 19:11 : Testicles and scrotum within normal limits, there is nystatin cream on penis, no obvious discharge otherwise, mild skin irritation noted, no urethral discharge, Vital Signs: 18:04 BP 126 / 81; Pulse 73; Resp 17; Temp 98.2; Pulse Ox 100% ; Weight 133.81 kg; Height 5 ll1 ft. 11 in. ; Pain 10/10; 18:04 Body Mass Index 41.14 (133.81 kg, 180.34 cm) ll1 18:04 Pain Scale: Adult ll1 MDM: 18:04 Patient medically screened. rt 19:11 Differential diagnosis: Balanitis, hyperglycemia. Data reviewed: vital signs, nurses rt notes. Test considered but Not performed: Labs: Stable vital signs, no other symptoms, blood sugar is unremarkable, very minor balanitis seen on physical exam, blood work not indicated. Care significantly affected by the following chronic conditions: Diabetes. Counseling: I had a detailed discussion with the patient and/or guardian regarding the historical points, exam findings, and any diagnostic results supporting the discharge/admit diagnosis, the need for outpatient follow up, to return to the emergency department if symptoms worsen or persist or if there are any questions or concerns that arise at home. 08/03 18:22 Order name: Glucose, Ancillary Testing EDMS Administered Medications: No medications were administered Disposition Summary: 08/03/23 18:12 Discharge Ordered Notes: Location: Home rt Problem: an acute exacerbation rt Symptoms: are unchanged rt Condition: Stable rt Diagnosis - Balanitis rt Followup: rt - With: Private Physician - When: 2 - 3 days - Reason: Discharge Instructions: - Discharge Summary Sheet ll1 - Balanitis rt Forms: - Work release form ll1 - Medication Reconciliation Form rt - Thank You Letter rt - Antibiotic Education rt - Prescription Opioid Use rt - Patient Portal Instructions rt - Leadership Thank You Letter rt Prescriptions: - Clotrimazole 1 % Topical Cream - Apply to affected area 1 application TOPICAL route every 12 hours; 15 gram; rt Refills: 0, Product Selection Permitted - Fluconazole 200 mg Oral tablet - take 1 tablet ORAL route once daily; 5 tablet; Refills: 0, Product Selection rt Permitted Signatures: Roldan Suarez RN RN 1 Tenzin Altamirano MD MD rt
[2023-08-03 21:15] VITALS: BP 126/81; TEMP 98.2; O2SAT 100
== END ==
LOC: ER 17:41
DX: N48.1 Balanitis (principal)
CPT/HCPCS: 82947; 99283

== ENCOUNTER → 2023-10-04 | Emergency (ER) | payer SELFPAY ==
--- OUTSIDE RECORDS SUMMARY | 2023-10-04 09:18 | XMS REPORT | Continuity of Care Document ---
Author Name Unknown Address [address] [facility] [address] [place] [address] [facility] thconnect Address [address] [facility]. [address] [place] [address] Care Team Providers Care Jig Bore Tool Maker Name Role Phone Pcp, Patient Does Not Have A Primary Care Physic nica FABIÁN POLLARD Attending Clinician Unavailable Fabián Pollard DO Attending Clinician [phone] ABHI Attending Clinician Unavailable ITZ BEARDEN Attending Clinician Unavailable Itz Raymundo Attending Clinician TELLY WEINSTEIN Attending Clinician Unavailable Telly Son Attending Clinician [phone] ABHI Admitting Clinician Unavailable Payers Payer Name Policy Type Policy Number Effective Date Expirati on Date Source [facility] PPO/POS [id number] 2022 00:00:00 [facility] STAR [id number] 2018 00:00:00 Problems Condition Name Condition Details Condition Category Status Onset Date Resolution Date Last Treatment Date Treating Clinician Comments Source No known active problems No known active problems Disease Univers [facility] Allergies, Adverse Reactions, Alerts Allergy Name Allergy Type Status Severity Reaction(s) Onset Date Inactive Date Treating Clinician Comments Source NO KNOWN ALLERGIE S Drug Class Active Univers [facility] Social History Social Habit Start Date Stop Date Quantity Comments Source Exposure to SARS-CoV-2 (event) 2022-04-09 00:00:00 2022-04-19 16:37:00 Unable to assess [facility] Sex Assigned At 1995 00:00:00 1995 00:00:00 [facility] Smoking Status Start Date Stop Date Source Tobacco smoking consumption unknown [facility] Medications Ordered Medication Name Filled Medication Name Start Date Stop Date Current Medication? Ordering Clinician Indication Dosage Frequency Signature (SIG) Comments Components Source acetaminoph en (TYLENOL) tablet 650 mg 04-19 21:45: 00 04-19 21:51 :00 No 650mg 650 mg, Oral, ONCE, 1 dose, On Mon04/19/22 at 1645, RAY [facility] benzocaine- menthoL (CEPACOL SORE THROAT, GREGORY-MEN,) lozenge 04-19 00:00: 00 Yes [id number] 1{lozen ge} Take 1 Lozenge by mouth every 4 (four) hours as needed for Sore throat. [facility] predniSONE (DELTASONE) tablet 40 mg 2020-08 04:15: 06-09 04:19 :00 No 40mg 40 mg, Oral, ONCE, 1 dose, On Mon06/08/21 at 2315, RAY [facility] amoxicillin (TRIMOX) capsule 500 mg 2020-08 04:15: 00 06-09 04:20 :00 No 500mg 500 mg, Oral, ONCE, 1 dose, On Mon06/08/21 at 2315, RAY
Re ason for Anti-Infec tive: Documented Infection< br>Documen thanh Infection Site: HEENT
D uration of Therapy: 7 days [facility] amoxicillin 500 mg capsule 2020-08 00:00: 00 06-16 04:59 :00 No [id number] 500mg Take 1 capsule by mouth 3 (three) times daily for 7 days. [facility] predniSONE 20 mg tablet 2020-08 00:00: 00 06-12 04:59 :00 No [id number] 20mg Take 1 tablet by mouth 2 (two) times daily for 3 days. [facility] ALBUTEROL INHALE 12-20 01:35: 50 Yes Inhale. [facility] montelukast (SINGULAIR) 10 mg tablet 12-20 01:35: 50 Yes 10mg Take 10 mg by mouth daily. [facility] ALBUTEROL INHALE 12-20 01:35: 50 Yes Inhale. [facility] montelukast (SINGULAIR) 10 mg tablet 12-20 01:35: 50 Yes 10mg Take 10 mg by mouth daily. [facility] ALBUTEROL INHALE 12-20 01:35: 50 Yes Inhale. [facility] montelukast (SINGULAIR) 10 mg tablet 12-20 01:35: 50 Yes 10mg Take 10 mg by mouth daily. [facility] benzonatate 200 mg capsule 12-20 00:00: 00 Yes [id number] 200mg Take 1 capsule by mouth 3 (three) times daily as needed for Cough. [facility] ibuprofen 800 mg tablet 12-20 00:00: 00 Yes [id number] 800mg Take 1 tablet by mouth every 8 (eight) hours as needed for Temp > 38.5 C (PAIN). [facility] benzonatate 200 mg capsule 12-20 00:00: 00 Yes [id number] 200mg Take 1 capsule by mouth 3 (three) times daily as needed for Cough. [facility] ibuprofen 800 mg tablet 12-20 00:00: 00 Yes [id number] 800mg Take 1 tablet by mouth every 8 (eight) hours as needed for Temp > 38.5 C (PAIN). [facility] benzonatate 200 mg capsule 12-20 00:00: 00 Yes [id number] 200mg Take 1 capsule by mouth 3 (three) times daily as needed for Cough. [facility] ibuprofen 800 mg tablet 12-20 00:00: 00 Yes [id number] 800mg Take 1 tablet by mouth every 8 (eight) hours as needed for Temp > 38.5 C (PAIN). [facility] Vital Signs Vital Name Observation Time Observation Value Comments [place] Body height 2022-04-19 21:43:00 180.3 cm [facility] Body weight 2022-04-19 21:43:00 149.687 kg [facility] BMI 2022-04-19 21:43:00 46.03 kg/m2 [facility] Systolic blood pressure 2022-04-19 21:42:00 142 mm[Hg] [facility] Diastolic blood pressure 2022-04-19 21:42:00 92 mm[Hg] [facility] Heart rate 2022-04-19 21:42:00 85 /min [facility] Body temperature 2022-04-19 21:42:00 36.22 Sakina [facility] Respiratory rate 2022-04-19 21:42:00 18 /min [facility] Oxygen saturation in Arterial blood by Pulse oximetry 2022-04-19 21:42:00 97 /min [facility] Systolic blood pressure 2021-06-28 15:22:00 115 mm[Hg] [facility] Diastolic blood pressure 2021-06-28 15:22:00 79 mm[Hg] [facility] Heart rate 2021-06-28 15:22:00 83 /min [facility] Body temperature 2021-06-28 15:22:00 36.78 Sakina [facility] Respiratory rate 2021-06-28 15:22:00 22 /min [facility] Body weight 2021-06-28 15:22:00 136.079 kg [facility] BMI 2021-06-28 15:22:00 41.84 kg/m2 [facility] Oxygen saturation in Arterial blood by Pulse oximetry 2021-06-28 15:22:00 97 /min [facility] Heart rate 2021-06-09 04:18:20 99 /min [facility] Body temperature 2021-06-09 04:18:20 37.33 Sakina [facility] Respiratory rate 2021-06-09 04:18:20 20 /min [facility] Oxygen saturation in Arterial blood by Pulse oximetry 2021-06-09 04:18:20 97 /min [facility] Systolic blood pressure 2021-06-09 02:25:00 139 mm[Hg] [facility] Diastolic blood pressure 2021-06-09 02:25:00 84 mm[Hg] [facility] Body height 2021-06-09 02:25:00 180.3 cm [facility] Body weight 2021-06-09 02:25:00 136.079 kg [facility] BMI 2021-06-09 02:25:00 41.84 kg/m2 [facility] Procedures Procedure Date / Time Performed Performing Clinicia n Source RAPID INFLUENZA A/B 2022-04-19 21:45:00 Huong Pollard [facility] COVID-19 (ID NOW RAPID TESTING) 2022-04-19 21:45:00 Fabián Pollard [facility] CONSENT/REFUSAL FOR DIAGNOSIS AND TREATMENT 2022-04-19 21:42:40 Doctor Unassigned, [place] [facility] RAPID STREP SCREEN FOR GROUP A 2021-06-28 16:07:00 Itz Bearden [facility] CONSENT/REFUSAL FOR DIAGNOSIS AND TREATMENT 2021-06-28 15:15:16 Doctor Unassigned, [place] [facility] RAPID STREP SCREEN FOR GROUP A 2021-06-09 02:28:00 Ismael Francois [facility] NOTICE OF PRIVACY PRACTICES 2021-06-09 02:17:09 Doctor Unassigned, [place] [facility] CONSENT/REFUSAL FOR DIAGNOSIS AND TREATMENT 2021-06-09 02:07:03 Doctor Unassigned, [place] [facility] Encounters Start Date/Time End Date/Time Encounter Type Admission Type Attending Clinicians Care Facility Care Department Encounter ID Source 2022-04-19 16:47:00 2022-04-19 18:08:00 Emergency X FABIÁN POLLARD ERT [id number] [facility] 2022-04-19 16:47:00 2022-04-19 18:08:00 Emergency Pollard, Fabián [facility] [id number] [facility] 2022-03-09 00:00:00 2022-03-09 00:00:00 Outpatient AMBREEN_CAMILA CARRILLO [facility] [id number] [place] [facility] 2021-06-28 09:24:00 2021-06-28 12:01:00 Emergency X ITZ BEARDEN [facility] ERT [id number] [facility] 2021-06-28 09:24:00 2021-06-28 12:01:00 Emergency Kristen Beardenanne [facility] [id number] [facility] 2021-06-08 21:32:00 2021-06-08 23:24:00 Emergency X TELLY WEINSTEIN [facility] ERT [id number] [facility] 2021-06-08 21:32:00 2021-06-08 23:24:00 Emergency Telly Weinstein [facility] [id number] [facility]
--- NOTE | 2023-10-04 09:36 | EDPHYS ---
Physician Documentation [facility] Name: Nilesh Ordonez Age: 28 yrs Sex: Male : 1995 Arrival Date: 10/04/2023 Time: 09:15 Bed 12 Private MD: ED Physician Cesar Palacios HPI: 10/04 09:36 This 28 yrs old Male presents to ER via Ambulatory with complaints of Penile ec2 Problem. 09:36 Patient with history of diabetes arrives today due to concern for penile irritation and ec2 erythema along with white-colored penis. Patient reports history of balanitis. Patient reports no fevers or chills, nausea or vomiting, no other concerns.. Historical: - Allergies: 09:29 NKA; iw - PMHx: 09:29 Asthma; diabetes mellitus; seasonal allergies; iw ROS: 09:36 Constitutional: as per hpi ec2 Exam: 09:36 Constitutional: GEN: NAD Head: atraumatic Eyes: EOMI Ears: External ears are ec2 normal. CV: regular rate LUNGS: no respiratory distress ABD: non-distended. : Erythema noted at the head of the penis, some white coating is noted SKIN: no evidence of rashes MSK: no evidence of trauma NEURO: moves all extremities equally Vital Signs: 09:27 BP 131 / 73; Pulse 84; Resp 16; Temp 98.2; Pulse Ox 100% on R/A; Weight 134.72 kg; iw Height 5 ft. 11 in. ; 09:27 Body Mass Index 41.42 (134.72 kg, 180.34 cm) iw MDM: 09:28 Patient medically screened. ec2 09:36 Data reviewed: vital signs. ED course: Patient arrives today due to concern for penile ec2 complaints. Examination remarkable for findings as noted above. examination performed under nurse supervision, Dolores GARCIA. Presentation consistent with balanitis. Patient otherwise systemically well-appearing, do not feel lab work will be beneficial in the setting. Will discharge with prescription for Flagyl as well as single dose of fluconazole.. Administered Medications: No medications were administered Disposition Summary: 10/04/23 09:35 Discharge Ordered Notes: Location: Home ec2 Condition: Stable ec2 Diagnosis - Balanitis ec2 Followup: ec2 - With: Private Physician - When: - Reason: Re-evaluation by your physician Discharge Instructions: - Discharge Summary Sheet ec2 - Balanitis ec2 Forms: - Medication Reconciliation Form ec2 - Thank You Letter ec2 - Antibiotic Education ec2 - Prescription Opioid Use ec2 - Patient Portal Instructions ec2 - Leadership Thank You Letter ec2 Prescriptions: - Flagyl 500 mg Oral Tablet - take 1 tablet ORAL route every 12 hours for 7 days; 14 tablet; Refills: 0, ec2 Product Selection Permitted Signatures: Dolores Larose RN RN iw Cesar Palacios MD MD ec2
--- NOTE | 2023-10-04 09:36 | ER ---
Nurse's Notes [facility] Name: Nilesh Ordonez Age: 28 yrs Sex: Male : 1995 Arrival Date: 10/04/2023 Time: 09:15 Bed 12 Private MD: Diagnosis: Balanitis Presentation: 10/04 09:27 Chief complaint: Patient states: redness and swelling, itchiness at head of penis, has iw been coming and going for a few weeks , the cream I have at home isn't working. Coronavirus screen: At this time, the client does not indicate any symptoms associated with coronavirus-19. Ebola Screen: Patient negative for fever greater than or equal to 101.5 degrees Fahrenheit, and additional compatible Ebola Virus Disease symptoms Patient denies exposure to infectious person. Patient denies travel to an Ebola-affected area in the 21 days before illness onset. No symptoms or risks identified at this time. Initial Sepsis Screen: Does the patient meet any 2 criteria? No. Patient's initial sepsis screen is negative. Does the patient have a suspected source of infection? No. Patient's initial sepsis screen is negative. Risk Assessment: Do you want to hurt yourself or someone else? Patient reports no desire to harm self or others. 09:27 Method Of Arrival: Ambulatory iw 09:32 Acuity: IRVIN 4 iw Historical: - Allergies: 09:29 NKA; iw - PMHx: 09:29 Asthma; diabetes mellitus; seasonal allergies; iw Vital Signs: 09:27 BP 131 / 73; Pulse 84; Resp 16; Temp 98.2; Pulse Ox 100% on R/A; Weight 134.72 kg; iw Height 5 ft. 11 in. ; 09:27 Body Mass Index 41.42 (134.72 kg, 180.34 cm) iw ED Course: 09:24 Patient arrived in ED. ra3 09:24 Cesar Palacios MD is Attending Physician. ec2 09:29 Arm band placed on. iw 09:32 Dolores Larose, RN is Primary Nurse. iw 09:32 Triage completed. iw Administered Medications: No medications were administered Outcome: 09:35 Discharge ordered by MD. ec2 09:51 Discharged to home ambulatory, iw 09:51 Condition: good 09:51 Discharge instructions given to patient, Instructed on discharge instructions, follow up and referral plans. medication usage, Demonstrated understanding of instructions, follow-up care, medications, Prescriptions given X 09:52 Patient left the ED. iw Signatures: Dolores Larose RN RN iw Cesar Palacios MD MD ec2 Stephanie Segundo ra3
[2023-10-04 10:11] VITALS: BP 131/73; TEMP 98.2; O2SAT 100
== END ==
LOC: ER 09:15
DX: N48.1 Balanitis (principal)

== ENCOUNTER → 2023-10-10 | Emergency (ER) | payer SELFPAY ==
[~2023-10-10] MED LIST: dexAMETHasone 4 MG TAB ONE
--- OUTSIDE RECORDS SUMMARY | 2023-10-10 00:54 | XMS REPORT | Continuity of Care Document ---
Author Name Unknown Address [address] [facility] [address] [place] [address] [facility] thconnect Address [address] [facility]. [address] [place] [address] Care Team Providers Care Manager Environmental Services Name Role Phone Pcp, Patient Does Not Have A Primary Care Physic nica FABIÁN POLLARD Attending Clinician Unavailable Fabián Pollard DO Attending Clinician [phone] ABHI Attending Clinician Unavailable ITZ BEARDEN Attending Clinician Unavailable Itz Raymundo Attending Clinician [phone] TELLY WEINSTEIN Attending Clinician Unavailable Telly Son Attending Clinician [phone] ABHI Admitting Clinician Unavailable Payers Payer Name Policy Type Policy Number Effective Date Expirati on Date Source [facility] PPO/POS [id number] 2022 00:00:00 [facility] STAR [id number] 2018 00:00:00 Problems Condition Name Condition Details Condition Category Status Onset Date Resolution Date Last Treatment Date Treating Clinician Comments Source No known active problems No known active problems Disease [facility] Allergies, Adverse Reactions, Alerts Allergy Name Allergy Type Status Severity Reaction(s) Onset Date Inactive Date Treating Clinician Comments Source NO KNOWN ALLERGIE S Drug Class Active [facility] Social History Social Habit Start Date Stop Date Quantity Comments Source Exposure to SARS-CoV-2 (event) 2022-04-09 00:00:00 2022-04-19 16:37:00 Unable to assess [facility] Sex Assigned At 1995 00:00:00 1995 00:00:00 [facility] Smoking Status Start Date Stop Date Source Tobacco smoking consumption unknown [facility] Medications Ordered Medication Name Filled Medication Name Start Date Stop Date Current Medication? Ordering Clinician Indication Dosage Frequency Signature (SIG) Comments Components Source acetaminoph en (TYLENOL) tablet 650 mg 04-19 21:45: 00 04-19 21:51 :00 No 650mg 650 mg, Oral, ONCE, 1 dose, On Mon04/19/22 at 1645, RAY [facility] benzocaine- menthoL (CEPACOL SORE THROAT, GREGORY-MEN,) lozenge 04-19 00:00: 00 Yes [id number] 1{lozen ge} Take 1 Lozenge by mouth every 4 (four) hours as needed for Sore throat. [facility] predniSONE (DELTASONE) tablet 40 mg 2020-08 04:15: 06-09 04:19 :00 No 40mg 40 mg, Oral, ONCE, 1 dose, On Mon06/08/21 at 2315, RAY [facility] amoxicillin (TRIMOX) capsule 500 mg 2020-08 04:15: 00 06-09 04:20 :00 No 500mg 500 mg, Oral, ONCE, 1 dose, On Mon06/08/21 at 2315, RAY
Re ason for Anti-Infec tive: Documented Infection< br>Documen thanh Infection Site: HEENT
D uration of Therapy: 7 days [facility] amoxicillin 500 mg capsule 2020-08 00:00: 00 06-16 04:59 :00 No [id number] 500mg Take 1 capsule by mouth 3 (three) times daily for 7 days. [facility] predniSONE 20 mg tablet 2020-08 00:00: 00 06-12 04:59 :00 No [id number] 20mg Take 1 tablet by mouth 2 (two) times daily for 3 days. [facility] ALBUTEROL INHALE 12-20 01:35: 50 Yes Inhale. [facility] montelukast (SINGULAIR) 10 mg tablet 12-20 01:35: 50 Yes 10mg Take 10 mg by mouth daily. [facility] ALBUTEROL INHALE 12-20 01:35: 50 Yes Inhale. [facility] montelukast (SINGULAIR) 10 mg tablet 12-20 01:35: 50 Yes 10mg Take 10 mg by mouth daily. [facility] ALBUTEROL INHALE 12-20 01:35: 50 Yes Inhale. [facility] montelukast (SINGULAIR) 10 mg tablet 12-20 01:35: 50 Yes 10mg Take 10 mg by mouth daily. [facility] benzonatate 200 mg capsule 12-20 00:00: 00 Yes [id number] 200mg Take 1 capsule by mouth 3 (three) times daily as needed for Cough. [facility] ibuprofen 800 mg tablet 12-20 00:00: 00 Yes [id number] 800mg Take 1 tablet by mouth every 8 (eight) hours as needed for Temp > 38.5 C (PAIN). [facility] benzonatate 200 mg capsule 12-20 00:00: 00 Yes [id number] 200mg Take 1 capsule by mouth 3 (three) times daily as needed for Cough. [facility] ibuprofen 800 mg tablet 12-20 00:00: 00 Yes [id number] 800mg Take 1 tablet by mouth every 8 (eight) hours as needed for Temp > 38.5 C (PAIN). [facility] benzonatate 200 mg capsule 12-20 00:00: 00 Yes [id number] 200mg Take 1 capsule by mouth 3 (three) times daily as needed for Cough. [facility] ibuprofen 800 mg tablet 12-20 00:00: 00 Yes [id number] 800mg Take 1 tablet by mouth every 8 (eight) hours as needed for Temp > 38.5 C (PAIN). [facility] Vital Signs Vital Name Observation Time Observation Value Comments [place] Body height 2022-04-19 21:43:00 180.3 cm [facility] Body weight 2022-04-19 21:43:00 149.687 kg [facility] BMI 2022-04-19 21:43:00 46.03 kg/m2 [facility] Systolic blood pressure 2022-04-19 21:42:00 142 mm[Hg] [facility] Diastolic blood pressure 2022-04-19 21:42:00 92 mm[Hg] [facility] Heart rate 2022-04-19 21:42:00 85 /min [facility] Body temperature 2022-04-19 21:42:00 36.22 Sakina [facility] Respiratory rate 2022-04-19 21:42:00 18 /min [facility] Oxygen saturation in Arterial blood by Pulse oximetry 2022-04-19 21:42:00 97 /min [facility] Systolic blood pressure 2021-06-28 15:22:00 115 mm[Hg] [facility] Diastolic blood pressure 2021-06-28 15:22:00 79 mm[Hg] [facility] Heart rate 2021-06-28 15:22:00 83 /min [facility] Body temperature 2021-06-28 15:22:00 36.78 Sakina [facility] Respiratory rate 2021-06-28 15:22:00 22 /min [facility] Body weight 2021-06-28 15:22:00 136.079 kg [facility] BMI 2021-06-28 15:22:00 41.84 kg/m2 [facility] Oxygen saturation in Arterial blood by Pulse oximetry 2021-06-28 15:22:00 97 /min [facility] Heart rate 2021-06-09 04:18:20 99 /min [facility] Body temperature 2021-06-09 04:18:20 37.33 Sakina [facility] Respiratory rate 2021-06-09 04:18:20 20 /min [facility] Oxygen saturation in Arterial blood by Pulse oximetry 2021-06-09 04:18:20 97 /min [facility] Systolic blood pressure 2021-06-09 02:25:00 139 mm[Hg] [facility] Diastolic blood pressure 2021-06-09 02:25:00 84 mm[Hg] [facility] Body height 2021-06-09 02:25:00 180.3 cm [facility] Body weight 2021-06-09 02:25:00 136.079 kg [facility] BMI 2021-06-09 02:25:00 41.84 kg/m2 [facility] Procedures Procedure Date / Time Performed Performing Clinicia n Source RAPID INFLUENZA A/B 2022-04-19 21:45:00 Huong Pollard [facility] COVID-19 (ID NOW RAPID TESTING) 2022-04-19 21:45:00 Fabián Pollard [facility] CONSENT/REFUSAL FOR DIAGNOSIS AND TREATMENT 2022-04-19 21:42:40 Doctor Unassigned, [place] [facility] RAPID STREP SCREEN FOR GROUP A 2021-06-28 16:07:00 Itz Bearden [facility] CONSENT/REFUSAL FOR DIAGNOSIS AND TREATMENT 2021-06-28 15:15:16 Doctor Unassigned, [place] [facility] RAPID STREP SCREEN FOR GROUP A 2021-06-09 02:28:00 Ismael Francois [facility] NOTICE OF PRIVACY PRACTICES 2021-06-09 02:17:09 Doctor Unassigned, [place] [facility] CONSENT/REFUSAL FOR DIAGNOSIS AND TREATMENT 2021-06-09 02:07:03 Doctor Unassigned, [place] [facility] Encounters Start Date/Time End Date/Time Encounter Type Admission Type Attending Clinicians Care Facility Care Department Encounter ID Source 2022-04-19 16:47:00 2022-04-19 18:08:00 Emergency X FABIÁN POLLARD ERT [id number] [facility] 2022-04-19 16:47:00 2022-04-19 18:08:00 Emergency Pollard, Fabián [facility] [id number] [facility] 2022-03-09 00:00:00 2022-03-09 00:00:00 Outpatient AMBREEN_CAMILA CARRILLO [facility] [id number] [place] [facility] 2021-06-28 09:24:00 2021-06-28 12:01:00 Emergency X ITZ BEARDEN [facility] ERT [id number] [facility] 2021-06-28 09:24:00 2021-06-28 12:01:00 Emergency Kristen Beardenanne [facility] [id number] [facility] 2021-06-08 21:32:00 2021-06-08 23:24:00 Emergency X TELLY WEINSTEIN [facility] ERT [id number] [facility] 2021-06-08 21:32:00 2021-06-08 23:24:00 Emergency Telly Weinstein [facility] [id number] [facility]
--- NOTE | 2023-10-10 01:10 | ER ---
Nurse's Notes [facility] Name: Nilesh Ordonez Age: 28 yrs Sex: Male : 1995 Arrival Date: 10/10/2023 Time: 00:49 Bed IW1 Private MD: Diagnosis: Balanitis;Acute pharyngitis, unspecified Presentation: 10/10 00:59 Chief complaint: Patient states: swollen tonsils and states that his genitals are not cm10 improving from his last visit. Coronavirus screen: Vaccine status: Patient reports receiving the 2nd dose of the covid vaccine. Client denies travel out of the [place] in the last 14 days. Ebola Screen: Patient denies travel to an Ebola-affected area in the 21 days before illness onset. No symptoms or risks identified at this time. Initial Sepsis Screen: Does the patient meet any 2 criteria? No. Patient's initial sepsis screen is negative. Does the patient have a suspected source of infection? No. Patient's initial sepsis screen is negative. Risk Assessment: Do you want to hurt yourself or someone else? Patient reports no desire to harm self or others. Onset of symptoms was October 10, 2023. 00:59 Method Of Arrival: Ambulatory cm10 00:59 Acuity: IRVIN 4 cm10 Triage Assessment: 01:01 General: Appears in no apparent distress. comfortable, Behavior is calm, cooperative. cm10 Pain: Complains of pain in Throat and genitals. EENT: Throat is reddened has patchy exudate. Neuro: No deficits noted. Level of Consciousness is awake, alert, obeys commands, Oriented to person, place, time, situation. Cardiovascular: No deficits noted. Capillary refill < 3 seconds Patient's skin is warm and dry. Respiratory: No deficits noted. Airway is patent Respiratory effort is even, unlabored, Respiratory pattern is regular, symmetrical. GI: No deficits noted. No signs and/or symptoms were reported involving the gastrointestinal system. : No deficits noted. Reports pain scrotum. Derm: No deficits noted. No signs and/or symptoms reported regarding the dermatologic system. Skin is intact, Skin is pink, warm \T\ dry. Musculoskeletal: No deficits noted. No signs and/or symptoms reported regarding the musculoskeletal system. Range of motion: intact in all extremities. Historical: - Allergies: 01:01 NKA; cm10 - PMHx: 01:01 Asthma; diabetes mellitus; seasonal allergies; cm10 - Immunization history:: Adult Immunizations up to date. - Social history:: Smoking status: Patient denies any tobacco usage or history of. Screenin:02 [facility] ED Fall Risk Assessment (Adult) History of falling in the last 3 months, cm10 including since admission No falls in past 3 months (0 pts) Confusion or Disorientation No (0 pts) Intoxicated or Sedated No (0 pts) Impaired Gait No (0 pts) Mobility Assist Device Used No (0 pt) Altered Elimination No (0 pt) Score/Fall Risk Level 0 - 2 = Low Risk Oriented to surroundings, Maintained a safe environment, Hourly rounding (assess needs \T\ fall precautionary measures) done. Abuse screen: Denies threats or abuse. Denies injuries from another. Nutritional screening: No deficits noted. Tuberculosis screening: No symptoms or risk factors identified. Assessment: 01:21 General: Appears in no apparent distress. comfortable, Behavior is calm, cooperative, jb4 appropriate for age. Pain: Complains of pain in throat, testicles Pain does not radiate. Pain currently is 9 out of 10 on a pain scale. Neuro: Level of Consciousness is awake, alert, obeys commands, Oriented to person, place, time, situation. Cardiovascular: Patient's skin is warm and dry. Respiratory: Airway is patent Respiratory effort is even, unlabored, Respiratory pattern is regular, symmetrical. GI: No signs and/or symptoms were reported involving the gastrointestinal system. : Reports pain in bilateral testicle. EENT: Reports nasal congestion Sore throat. Derm: No signs and/or symptoms reported regarding the dermatologic system. Vital Signs: 00:59 BP 130 / 85; Pulse 86; Resp 16; Temp 97.9(TE); Pulse Ox 97% on R/A; Weight 134.72 kg; cm10 Height 5 ft. 11 in. ; Pain 9/10; 00:59 Body Mass Index 41.42 (134.72 kg, 180.34 cm) cm10 00:59 Pain Scale: Adult cm10 ED Course: 00:53 Patient arrived in ED. gm2 00:54 Cesar Palacios MD is Attending Physician. ec2 01:01 Triage completed. cm10 01:01 Arm band placed on Patient placed in an exam room, on a stretcher. cm10 01:02 Patient has correct armband on for positive identification. Provided Education on: ER cm10 process and procedures. 01:03 Chaperoned for scrotum exam. cm10 01:21 Patient did not have IV access during this emergency room visit. jb4 Administered Medications: 01:21 Drug: Clindamycin PO 450 mg PO once Route: PO; jb4 01:21 Follow up: Response: Medication administered at discharge. jb4 01: Drug: Dexamethasone PO 10 mg PO once Route: PO; jb4 01:21 Follow up: Response: Medication administered at discharge. jb4 Medication: 01:02 VIS not applicable for this client. cm10 Outcome: 01:09 Discharge ordered by . ec2 :21 Discharged to home ambulatory, jb4 : Condition: stable 01:21 Discharge instructions given to patient, Instructed on discharge instructions, follow up and referral plans. medication usage, Demonstrated understanding of instructions, follow-up care, medications, Prescriptions given X 2, 01:23 Patient left the ED. jb4 Signatures: Sanjeev Mcneal, JOSE RN [email or web address] Tiffany Tubbs RN RN cm10 Cesar Palacios MD MD ec2 Lucia Vang 2
--- NOTE | 2023-10-10 01:10 | EDPHYS ---
Physician Documentation [facility] Name: Nilesh Ordonez Age: 28 yrs Sex: Male : 1995 Arrival Date: 10/10/2023 Time: 00:49 Bed IW1 Private MD: ED Physician Cesar Palacios HPI: 10/10 01:15 This 28 yrs old Male presents to ER via Ambulatory with complaints of Nasal ec2 Congestion, Sore Throat, private area issues, Fever. 01:15 Patient with history of balanitis arrives today for persistent penile irritation. No ec2 fevers or chills, no nausea or vomiting. Has been having some congestion as well as worsening sore throat. Patient reports no issues with fevers or chills, no abdominal pain, no issues with p.o. intake however is having pain with p.o.. 01:15 Of note patient was recently seen by me last week with diagnosed with balanitis and ec2 started on Flagyl. . Historical: - Allergies: 01:01 NKA; cm10 - PMHx: 01:01 Asthma; diabetes mellitus; seasonal allergies; cm10 - Immunization history:: Adult Immunizations up to date. - Social history:: Smoking status: Patient denies any tobacco usage or history of. ROS: 01:15 Constitutional: as per hpi ec2 Exam: 01:15 Constitutional: GEN: NAD Head: atraumatic Eyes: EOMI Ears: External ears are normal. ec2 Mouth: Posterior pharyngeal erythema without exudate. CV: regular rate LUNGS: no respiratory distress ABD: non-distended.: : Performed under supervision, white curdy discharge noted around the base of the penile head, foreskin with abrasions noted. SKIN: no evidence of rashes MSK: no evidence of trauma NEURO: moves all extremities equally Vital Signs: 00:59 BP 130 / 85; Pulse 86; Resp 16; Temp 97.9(TE); Pulse Ox 97% on R/A; Weight 134.72 kg; cm10 Height 5 ft. 11 in. ; Pain 9/10; 00:59 Body Mass Index 41.42 (134.72 kg, 180.34 cm) cm10 00:59 Pain Scale: Adult cm10 MDM: 01:09 Patient medically screened. ec2 01:15 Data reviewed: vital signs. ED course: Patient arrives today for URI symptoms along ec2 with sore throat and penile complaints. Examination remarkable for balanitis on the examination, also with pharyngeal erythema. Will change antibiotics to clindamycin, this will cover both as well as possible strep. Accordingly will defer strep testing. Will discharge home. Return precautions given. Patient otherwise with reassuring vital signs and generally well-appearing, will defer doing lab test such as CBC or BMP.. Administered Medications: : Drug: Clindamycin PO 450 mg PO once Route: PO; jb4 : Follow up: Response: Medication administered at discharge. jb4 : Drug: Dexamethasone PO 10 mg PO once Route: PO; jb4 : Follow up: Response: Medication administered at discharge. jb4 Disposition Summary: 10/10/23 01:09 Discharge Ordered Notes: Location: Home ec2 Condition: Stable ec2 Diagnosis - Balanitis ec2 - Acute pharyngitis, unspecified ec2 Followup: ec2 - With: Private Physician - When: - Reason: Re-evaluation by your physician Discharge Instructions: - Discharge Summary Sheet ec2 - Balanitis ec2 - Pharyngitis, [id number] ec2 Forms: - Medication Reconciliation Form ec2 - Thank You Letter ec2 - Antibiotic Education ec2 - Prescription Opioid Use ec2 - Patient Portal Instructions ec2 - Leadership Thank You Letter ec2 Prescriptions: - mupirocin 2 % Topical ointment - apply 1 application TOPICAL route 3 times per day for 5 days; 1 unit; Refills: ec2 0, Product Selection Permitted - Clindamycin HCl 150 mg Oral capsule - take 3 capsule ORAL route every 8 hours for 7 days; 63 capsule; Refills: 0, ec2 Product Selection Permitted Signatures: Sanjeev Mcneal RN RN jb4 Tiffany Tubbs RN RN cm10 Cesar Palacios MD MD ec2
[2023-10-10 01:48] VITALS: BP 130/85; TEMP 97.9; O2SAT 97
== END ==
LOC: ER 00:49
DX: N48.1 Balanitis (principal); J02.9 Acute pharyngitis, unspecified
CPT/HCPCS: J8540

== ENCOUNTER 2024-04-04 07:03 | Emergency (ER) | payer OTHER ==
--- OUTSIDE RECORDS SUMMARY | 2024-04-04 07:06 | XMS REPORT | Continuity of Care Document ---
Author Name Unknown Address [address] [place] [address] [facility] thconnect Address [address] [place] [address] Care Team Providers Care Relief Driller Name Role Phone Pcp, Patient Does Not Have A Primary Care Physic nica FABIÁN POLLARD Attending Clinician Unavailable Fabián Pollard DO Attending Clinician ABHI Attending Clinician Unavailable ITZ BEARDEN Attending Clinician Unavailable Itz Raymundo Attending Clinician [phone] TELLY WEINSTEIN Attending Clinician Unavailable Telly Son Attending Clinician [phone] ABHI Admitting Clinician Unavailable Payers Payer Name Policy Type Policy Number Effective Date Expirati on Date Source [facility] PPO/POS [id number] 2022 00:00:00 [facility] STAR [id number] 2018 00:00:00 Problems Condition Name Condition Details Condition Category Status Onset Date Resolution Date Last Treatment Date Treating Clinician Comments Source No known active problems No known active problems Disease [facility] Allergies, Adverse Reactions, Alerts Allergy Name Allergy Type Status Severity Reaction(s) Onset Date Inactive Date Treating Clinician Comments Source NO KNOWN ALLERGIE S Drug Class Active [facility] Social History Social Habit Start Date Stop Date Quantity Comments Source Exposure to SARS-CoV-2 (event) 2022-04-09 00:00:00 2022-04-19 16:37:00 Unable to assess [facility] Sex Assigned At 1995 00:00:00 1995 00:00:00 [facility] Smoking Status Start Date Stop Date Source Tobacco smoking consumption unknown [facility] Medications Ordered Medication Name Filled Medication Name Start Date Stop Date Current Medication? Ordering Clinician Indication Dosage Frequency Signature (SIG) Comments Components Source acetaminoph en (TYLENOL) tablet 650 mg 04-19 21:45: 00 04-19 21:51 :00 No 650mg 650 mg, Oral, ONCE, 1 dose, On Mon04/19/22 at 1645, RAY [facility] benzocaine- menthoL (CEPACOL SORE THROAT, GREGORY-MEN,) lozenge 04-19 00:00: 00 Yes [id number] 1{lozen ge} Take 1 Lozenge by mouth every 4 (four) hours as needed for Sore throat. [facility] predniSONE (DELTASONE) tablet 40 mg 2020-08 04:15: 06-09 04:19 :00 No 40mg 40 mg, Oral, ONCE, 1 dose, On Mon06/08/21 at 2315, RAY [facility] amoxicillin (TRIMOX) capsule 500 mg 2020-08 04:15: 00 06-09 04:20 :00 No 500mg 500 mg, Oral, ONCE, 1 dose, On Mon06/08/21 at 2315, RAY
Re ason for Anti-Infec tive: Documented Infection< br>Documen thanh Infection Site: HEENT
D uration of Therapy: 7 days [facility] amoxicillin 500 mg capsule 2020-08 00:00: 00 06-16 04:59 :00 No [id number] 500mg Take 1 capsule by mouth 3 (three) times daily for 7 days. [facility] predniSONE 20 mg tablet 2020-08 00:00: 00 06-12 04:59 :00 No [id number] 20mg Take 1 tablet by mouth 2 (two) times daily for 3 days. [facility] ALBUTEROL INHALE 12-20 01:35: 50 Yes Inhale. [facility] montelukast (SINGULAIR) 10 mg tablet 12-20 01:35: 50 Yes 10mg Take 10 mg by mouth daily. [facility] benzonatate 200 mg capsule 12-20 00:00: 00 Yes [id number] 200mg Take 1 capsule by mouth 3 (three) times daily as needed for Cough. [facility] ibuprofen 800 mg tablet 12-20 00:00: 00 Yes [id number] 800mg Take 1 tablet by mouth every 8 (eight) hours as needed for Temp > 38.5 C (PAIN). [facility] Vital Signs Vital Name Observation Time Observation Value Comments [place] Body height 2022-04-19 21:43:00 180.3 cm [facility] Body weight 2022-04-19 21:43:00 149.687 kg [facility] BMI 2022-04-19 21:43:00 46.03 kg/m2 [facility] Systolic blood pressure 2022-04-19 21:42:00 142 mm[Hg] [facility] Diastolic blood pressure 2022-04-19 21:42:00 92 mm[Hg] [facility] Heart rate 2022-04-19 21:42:00 85 /min [facility] Body temperature 2022-04-19 21:42:00 36.22 Sakina [facility] Respiratory rate 2022-04-19 21:42:00 18 /min [facility] Oxygen saturation in Arterial blood by Pulse oximetry 2022-04-19 21:42:00 97 /min [facility] Systolic blood pressure 2021-06-28 15:22:00 115 mm[Hg] [facility] Diastolic blood pressure 2021-06-28 15:22:00 79 mm[Hg] [facility] Heart rate 2021-06-28 15:22:00 83 /min [facility] Body temperature 2021-06-28 15:22:00 36.78 Sakina [facility] Respiratory rate 2021-06-28 15:22:00 22 /min [facility] Body weight 2021-06-28 15:22:00 136.079 kg [facility] BMI 2021-06-28 15:22:00 41.84 kg/m2 [facility] Oxygen saturation in Arterial blood by Pulse oximetry 2021-06-28 15:22:00 97 /min [facility] Heart rate 2021-06-09 04:18:20 99 /min [facility] Body temperature 2021-06-09 04:18:20 37.33 Sakina [facility] Respiratory rate 2021-06-09 04:18:20 20 /min [facility] Oxygen saturation in Arterial blood by Pulse oximetry 2021-06-09 04:18:20 97 /min [facility] Systolic blood pressure 2021-06-09 02:25:00 139 mm[Hg] [facility] Diastolic blood pressure 2021-06-09 02:25:00 84 mm[Hg] [facility] Body height 2021-06-09 02:25:00 180.3 cm [facility] Body weight 2021-06-09 02:25:00 136.079 kg [facility] BMI 2021-06-09 02:25:00 41.84 kg/m2 [facility] Procedures Procedure Date / Time Performed Performing Clinicia n Source RAPID INFLUENZA A/B 2022-04-19 21:45:00 Huong Pollard [facility] COVID-19 (ID NOW RAPID TESTING) 2022-04-19 21:45:00 Fabián Pollard [facility] CONSENT/REFUSAL FOR DIAGNOSIS AND TREATMENT 2022-04-19 21:42:40 Doctor Unassigned, [place] [facility] RAPID STREP SCREEN FOR GROUP A 2021-06-28 16:07:00 Itz Bearden [facility] CONSENT/REFUSAL FOR DIAGNOSIS AND TREATMENT 2021-06-28 15:15:16 Doctor Unassigned, [place] [facility] RAPID STREP SCREEN FOR GROUP A 2021-06-09 02:28:00 Ismael Francois [facility] NOTICE OF PRIVACY PRACTICES 2021-06-09 02:17:09 Doctor Unassigned, [place] [facility] CONSENT/REFUSAL FOR DIAGNOSIS AND TREATMENT 2021-06-09 02:07:03 Doctor Unassigned, [place] [facility] Encounters Start Date/Time End Date/Time Encounter Type Admission Type Attending [facility] Care Department Encounter ID Source 2022-04-19 16:47:00 2022-04-19 18:08:00 Emergency X POLLARDFABIÁN [facility] ERT [id number] [facility] 2022-04-19 16:47:00 2022-04-19 18:08:00 Emergency PollardFabián [facility] 1..[id number] [facility] 2022-03-09 00:00:00 2022-03-09 00:00:00 Outpatient [facility] [id number] [facility] Program 2021-06-28 09:24:00 2021-06-28 12:01:00 Emergency X SULEIMAN ITZ [facility] ERT [id number] [facility] 2021-06-28 09:24:00 2021-06-28 12:01:00 Emergency Itz Bearden [facility] 1..[id number] [facility] 2021-06-08 21:32:00 2021-06-08 23:24:00 Emergency TELLY ABBOTT [facility] ERT [id number] [facility] 2021-06-08 21:32:00 2021-06-08 23:24:00 Emergency Telly Weinstein [facility] 1..840.114 [id number] [facility]
--- NOTE | 2024-04-04 07:22 | ER ---
Nurse's Notes [facility] Name: Nilesh Ordonez Age: 29 yrs Sex: Male : 1995 Arrival Date: 04/04/2024 Time: 07:03 Bed 13 Private MD: Diagnosis: Acute serous otitis media, right ear Presentation: 04/04 07:18 Chief complaint: Patient states: right jaw pain X 1 week, right ear pain since last iw night. Coronavirus screen: At this time, the client does not indicate any symptoms associated with coronavirus-19. Ebola Screen: No symptoms or risks identified at this time. Initial Sepsis Screen: Does the patient meet any 2 criteria? No. Patient's initial sepsis screen is negative. Does the patient have a suspected source of infection? No. Patient's initial sepsis screen is negative. Risk Assessment: Do you want to hurt yourself or someone else? Patient reports no desire to harm self or others. Onset of symptoms was March 28, 2024. 07:18 Method Of Arrival: Ambulatory iw 07:18 Acuity: IRVIN 4 iw Historical: - Allergies: 07:20 NKA; iw - PMHx: 07:20 diabetes mellitus; Asthma; seasonal allergies; Diabetes mellitus; iw - PSHx: 07:20 None; iw - Immunization history:: Adult Immunizations. - Infectious Disease History:: Denies. - Family history:: not pertinent. - Social history:: Smoking status: Patient denies any tobacco usage or history of. Screenin:39 [facility] ED Fall Risk Assessment (Adult) History of falling in the last 3 months, dd2 including since admission No falls in past 3 months (0 pts) Confusion or Disorientation No (0 pts) Intoxicated or Sedated No (0 pts) Impaired Gait No (0 pts) Mobility Assist Device Used No (0 pt) Altered Elimination No (0 pt) Score/Fall Risk Level 0 - 2 = Low Risk. Abuse screen: Denies threats or abuse. Nutritional screening: No deficits noted. Tuberculosis screening: No symptoms or risk factors identified. Assessment: 07:39 General: Appears uncomfortable, Behavior is calm, cooperative. Pain: Complains of pain dd2 in right ear and left ear. Neuro: No deficits noted. Cardiovascular: No deficits noted. Respiratory: No deficits noted. GI: No deficits noted. : No deficits noted. EENT: Reports pain in right ear and left ear. Derm: No deficits noted. Musculoskeletal: No deficits noted. Vital Signs: 07:18 BP 128 / 91; Pulse 87; Resp 16; Temp 98; Pulse Ox 98% ; Weight 133.81 kg; Height 5 ft. iw 11 in. ; Pain 10/10; 07:39 BP 125 / 87; Pulse 83; Resp 17; Pulse Ox 98% ; dd2 07:18 Body Mass Index 41.14 (133.81 kg, 180.34 cm) iw 07:18 Pain Scale: Adult ED Course: 07:07 Patient arrived in ED. mg5 07:08 Tenzin Altamirano MD is Attending Physician. rt 07:14 EL TSANG, RN is Primary Nurse. dd2 07:20 Triage completed. iw 07:20 Arm band placed on. iw 07:39 Patient has correct armband on for positive identification. Bed in low position. Call dd2 light in reach. Side rails up X 1. Provided Education on: CALL LIGHT, MEDICATIONS. 07:39 No provider procedures requiring assistance completed. Patient did not have IV access dd2 during this emergency room visit. Administered Medications: 07:35 Drug: Ketorolac IM 15 mg IM once Route: IM; Site: left deltoid; dd2 07:45 Follow up: Response: Medication administered at discharge. dd2 07:35 Drug: Amoxicillin PO 875 mg PO once Route: PO; dd2 07:45 Follow up: Response: Medication administered at discharge. dd2 Medication: 07:39 VIS not applicable for this client. dd2 Outcome: 07:21 Discharge ordered by . rt 07:42 Discharged to home ambulatory, dd2 07:42 Condition: stable 07:42 Discharge instructions given to patient, Instructed on discharge instructions, follow up and referral plans. medication usage, Demonstrated understanding of instructions, follow-up care, medications, Prescriptions given X 1, 07:43 Patient left the ED. dd2 Signatures: Dolores Larose RN RN Tenzin Altamirano MD MD rt Meggan Huff mg5 EL TSANG RN RN dd2 Corrections: (The following items were deleted from the chart) 07:23 07:18 BP 128 / 91; Pulse 87bpm; Resp 16bpm; Pulse Ox 98%; iw iw
--- NOTE | 2024-04-04 07:22 | EDPHYS ---
Physician Documentation [facility] Name: Nilesh Ordonez Age: 29 yrs Sex: Male : 1995 Arrival Date: 04/04/2024 Time: 07:03 Bed 13 Private MD: ED Physician Tenzin Altamirano HPI: 04/04 07:22 This 29 yrs old Male presents to ER via Ambulatory with complaints of Ear Pain. rt 07:22 Patient presents to the ED with 1 week of right ear pain. Denies drainage. States the rt pain radiates to the jaw. No relief with ibuprofen. Denies other acute complaints at this time, symptoms are moderate severity, aching nature, no other aggravating or alleviating factors.. Historical: - Allergies: 07: NKA; iw - PMHx: 07:20 diabetes mellitus; Asthma; seasonal allergies; Diabetes mellitus; iw - PSHx: 07:20 None; iw - Immunization history:: Adult Immunizations. - Infectious Disease History:: Denies. - Family history:: not pertinent. - Social history:: Smoking status: Patient denies any tobacco usage or history of. ROS: 07:22 Constitutional: Negative for fever, chills, and weight loss, Cardiovascular: Negative rt for chest pain, palpitations, and edema, Respiratory: Negative for shortness of breath, cough, wheezing, and pleuritic chest pain, Abdomen/GI: Negative for abdominal pain, nausea, vomiting, diarrhea, and constipation, Skin: Negative for injury, rash, and discoloration, Neuro: Negative for headache, weakness, numbness, tingling, and seizure, 07:22 ENT: Positive for dental pain, ear pain, Exam: 07:22 Constitutional: This is a well developed, well nourished patient who is awake, alert, rt and in no acute distress. Head/Face: Normocephalic, atraumatic. Chest/axilla: Normal chest wall appearance and motion. Nontender with no deformity. No lesions are appreciated. Cardiovascular: Regular rate and rhythm with a normal S1 and S2. No gallops, murmurs, or rubs. Normal PMI, no JVD. No pulse deficits. Respiratory: Lungs have equal breath sounds bilaterally, clear to auscultation and percussion. No rales, rhonchi or wheezes noted. No increased work of breathing, no retractions or nasal flaring. Abdomen/GI: Soft, non-tender, with normal bowel sounds. No distension or tympany. No guarding or rebound. No evidence of tenderness throughout. Skin: Warm, dry with normal turgor. Normal color with no rashes, no lesions, and no evidence of cellulitis. MS/ Extremity: Pulses equal, no cyanosis. Neurovascular intact. Full, normal range of motion. Neuro: Awake and alert, GCS 15, oriented to person, place, time, and situation. Cranial nerves II-XII grossly intact. Motor strength 5/5 in all extremities. Sensory grossly intact. Cerebellar exam normal. Normal gait. 07:22 ENT: Effusion, erythema to the right TM, mild cerumen impaction, left TM is clear, no signs of mastoiditis, dental caries noted, no posterior pharyngeal erythema. Vital Signs: 07:18 BP 128 / 91; Pulse 87; Resp 16; Temp 98; Pulse Ox 98% ; Weight 133.81 kg; Height 5 ft. iw 11 in. ; Pain 10/10; 07:39 BP 125 / 87; Pulse 83; Resp 17; Pulse Ox 98% ; dd2 07:18 Body Mass Index 41.14 (133.81 kg, 180.34 cm) iw 07:18 Pain Scale: Adult iw MDM: 07:16 Patient medically screened. rt 07:25 Differential diagnosis: otitis media, otitis externa, Dental caries. Data reviewed: rt vital signs, nurses notes. Test considered but Not performed: Other Details Stable vital signs, no signs of mastoiditis, CT scan not indicated. Care significantly affected by the following chronic conditions: Diabetes. Counseling: I had a detailed discussion with the patient and/or guardian regarding the historical points, exam findings, and any diagnostic results supporting the discharge/admit diagnosis, the need for outpatient follow up, to return to the emergency department if symptoms worsen or persist or if there are any questions or concerns that arise at home. Administered Medications: 07:35 Drug: Ketorolac IM 15 mg IM once Route: IM; Site: left deltoid; dd2 07:45 Follow up: Response: Medication administered at discharge. dd2 07:35 Drug: Amoxicillin PO 875 mg PO once Route: PO; dd2 07:45 Follow up: Response: Medication administered at discharge. dd2 Disposition Summary: 04/04/24 07:21 Discharge Ordered Notes: Location: Home rt Problem: new rt Symptoms: are unchanged rt Condition: Stable rt Diagnosis - Acute serous otitis media, right ear rt Followup: rt - With: Private Physician - When: 2 - 3 days - Reason: Discharge Instructions: - Discharge Summary Sheet rt - Otitis Media, Adult rt Forms: - Medication Reconciliation Form rt - Antibiotic Education rt - Prescription Opioid Use rt - Patient Portal Instructions rt - Leadership Thank You Letter rt Prescriptions: - Amoxicillin 875 mg Oral Tablet - take 1 tablet ORAL route every 12 hours for 10 days; 20 tablet; Refills: 0, rt Product Selection Permitted Signatures: Dolores Larose, JOSE GARCIA iw Tenzin Altamirano MD MD rt EL TSANG RN RN dd2
[2024-04-04] MEDS ORDERED: AMOX/K CLAV 875 MG TAB ONE (07:33)
[2024-04-04] MEDS ORDERED: KETOROLAC 30 MG/ML INJ ONE (07:33)
[2024-04-04 07:48] VITALS: TEMP 98; O2SAT 98
[2024-04-04 07:49] VITALS: BP 125/87
== END 2024-04-04 07:43 | disposition home or self-care (01) ==
LOC: ER 07:03
DX: H65.01 Acute serous otitis media, right ear (principal)
CPT/HCPCS: 96372; 99284

== ENCOUNTER 2024-05-25 20:48 | Emergency (ER) | payer OTHER ==
--- OUTSIDE RECORDS SUMMARY | 2024-05-25 20:50 | XMS REPORT | Continuity of Care Document ---
Author Name Unknown Address [address] [place] [address] [facility] thconnect Address [address] [place] [address] Care Team Providers Care Lone Lead Lineman Name Role Phone Pcp, Patient Does Not Have A Primary Care Physic nica FABIÁN POLLARD Attending Clinician Unavailable Fabián Pollard DO Attending Clinician [phone] ABHI Attending Clinician Unavailable ITZ BEARDEN Attending Clinician Unavailable Itz Raymundo Attending Clinician [phone] TELLY WEINSTEIN Attending Clinician Unavailable Telly Son Attending Clinician [phone] ABHI Admitting Clinician Unavailable Payers Payer Name Policy Type Policy Number Effective Date Expirati on Date Source [facility] PPO/POS [id number] 2022 00:00:00 [facility] STAR [id number] 2018 00:00:00 Problems Condition Name Condition Details Condition Category Status Onset Date Resolution Date Last Treatment Date Treating Clinician Comments Source No known active problems No known active problems Disease [facility] Allergies, Adverse Reactions, Alerts Allergy Name Allergy Type Status Severity Reaction(s) Onset Date Inactive Date Treating Clinician Comments Source NO KNOWN ALLERGIE S Drug Class Active [facility] Social History Social Habit Start Date Stop Date Quantity Comments Source Exposure to SARS-CoV-2 (event) 2022-04-09 00:00:00 2022-04-19 16:37:00 Unable to assess [facility] Sex Assigned At 1995 00:00:00 1995 00:00:00 [facility] Smoking Status Start Date Stop Date Source Tobacco smoking consumption unknown [facility] Medications Ordered Medication Name Filled Medication Name Start Date Stop Date Current Medication? Ordering Clinician Indication Dosage Frequency Signature (SIG) Comments Components Source acetaminoph en (TYLENOL) tablet 650 mg 04-19 21:45: 00 04-19 21:51 :00 No 650mg 650 mg, Oral, ONCE, 1 dose, On Mon04/19/22 at 1645, RAY [facility] benzocaine- menthoL (CEPACOL SORE THROAT, GREGORY-MEN,) lozenge 04-19 00:00: 00 Yes [id number] 1{lozen ge} Take 1 Lozenge by mouth every 4 (four) hours as needed for Sore throat. [facility] predniSONE (DELTASONE) tablet 40 mg 2020-08 04:15: 06-09 04:19 :00 No 40mg 40 mg, Oral, ONCE, 1 dose, On Mon06/08/21 at 2315, RAY [facility] amoxicillin (TRIMOX) capsule 500 mg 2020-08 04:15: 00 06-09 04:20 :00 No 500mg 500 mg, Oral, ONCE, 1 dose, On Mon06/08/21 at 2315, RAY
Re ason for Anti-Infec tive: Documented Infection< br>Documen thanh Infection Site: HEENT
D uration of Therapy: 7 days [facility] amoxicillin 500 mg capsule 2020-08 00:00: 00 06-16 04:59 :00 No [id number] 500mg Take 1 capsule by mouth 3 (three) times daily for 7 days. [facility] predniSONE 20 mg tablet 2020-08 00:00: 00 06-12 04:59 :00 No [id number] 20mg Take 1 tablet by mouth 2 (two) times daily for 3 days. [facility] ALBUTEROL INHALE 12-20 01:35: 50 Yes Inhale. [facility] montelukast (SINGULAIR) 10 mg tablet 12-20 01:35: 50 Yes 10mg Take 10 mg by mouth daily. [facility] benzonatate 200 mg capsule 12-20 00:00: 00 Yes [id number] 200mg Take 1 capsule by mouth 3 (three) times daily as needed for Cough. [facility] ibuprofen 800 mg tablet 12-20 00:00: 00 Yes [id number] 800mg Take 1 tablet by mouth every 8 (eight) hours as needed for Temp > 38.5 C (PAIN). [facility] Vital Signs Vital Name Observation Time Observation Value Comments [place] Body height 2022-04-19 21:43:00 180.3 cm [facility] Body weight 2022-04-19 21:43:00 149.687 kg [facility] BMI 2022-04-19 21:43:00 46.03 kg/m2 [facility] Systolic blood pressure 2022-04-19 21:42:00 142 mm[Hg] [facility] Diastolic blood pressure 2022-04-19 21:42:00 92 mm[Hg] [facility] Heart rate 2022-04-19 21:42:00 85 /min [facility] Body temperature 2022-04-19 21:42:00 36.22 Sakina [facility] Respiratory rate 2022-04-19 21:42:00 18 /min [facility] Oxygen saturation in Arterial blood by Pulse oximetry 2022-04-19 21:42:00 97 /min [facility] Systolic blood pressure 2021-06-28 15:22:00 115 mm[Hg] [facility] Diastolic blood pressure 2021-06-28 15:22:00 79 mm[Hg] [facility] Heart rate 2021-06-28 15:22:00 83 /min [facility] Body temperature 2021-06-28 15:22:00 36.78 Sakina [facility] Respiratory rate 2021-06-28 15:22:00 22 /min [facility] Body weight 2021-06-28 15:22:00 136.079 kg [facility] BMI 2021-06-28 15:22:00 41.84 kg/m2 [facility] Oxygen saturation in Arterial blood by Pulse oximetry 2021-06-28 15:22:00 97 /min [facility] Heart rate 2021-06-09 04:18:20 99 /min [facility] Body temperature 2021-06-09 04:18:20 37.33 Sakina [facility] Respiratory rate 2021-06-09 04:18:20 20 /min [facility] Oxygen saturation in Arterial blood by Pulse oximetry 2021-06-09 04:18:20 97 /min [facility] Systolic blood pressure 2021-06-09 02:25:00 139 mm[Hg] [facility] Diastolic blood pressure 2021-06-09 02:25:00 84 mm[Hg] [facility] Body height 2021-06-09 02:25:00 180.3 cm [facility] Body weight 2021-06-09 02:25:00 136.079 kg [facility] BMI 2021-06-09 02:25:00 41.84 kg/m2 [facility] Procedures Procedure Date / Time Performed Performing Clinicia n Source RAPID INFLUENZA A/B 2022-04-19 21:45:00 Huong Pollard [facility] COVID-19 (ID NOW RAPID TESTING) 2022-04-19 21:45:00 Fabián Pollard [facility] CONSENT/REFUSAL FOR DIAGNOSIS AND TREATMENT 2022-04-19 21:42:40 Doctor Unassigned, Prentiss [facility] RAPID STREP SCREEN FOR GROUP A 2021-06-28 16:07:00 Itz Bearden [facility] CONSENT/REFUSAL FOR DIAGNOSIS AND TREATMENT 2021-06-28 15:15:16 Doctor Unassigned, [facility] RAPID STREP SCREEN FOR GROUP A 2021-06-09 02:28:00 Ismael Francois [facility] NOTICE OF PRIVACY PRACTICES 2021-06-09 02:17:09 Doctor Unassigned, [facility] CONSENT/REFUSAL FOR DIAGNOSIS AND TREATMENT 2021-06-09 02:07:03 Doctor Unassigned, [facility] Encounters Start Date/Time End Date/Time Encounter Type Admission Type Attending [facility] Facility Care Department Encounter ID Source 2022-04-19 16:47:00 2022-04-19 18:08:00 Emergency X POLLARDFABIÁN RUST ERT [id number] [facility] 2022-04-19 16:47:00 2022-04-19 18:08:00 Emergency PollardFabián [facility] 1..[id number] [facility] 2022-03-09 00:00:00 2022-03-09 00:00:00 Outpatient [facility] [id number] [facility] 2021-06-28 09:24:00 2021-06-28 12:01:00 Emergency X SULEIMAN ITZ RUST ERT [id number] [facility] 2021-06-28 09:24:00 2021-06-28 12:01:00 Emergency Itz Bearden [facility] 1..[id number] [facility] 2021-06-08 21:32:00 2021-06-08 23:24:00 Emergency TELLY ABBOTT RUST ERT [id number] [facility] 2021-06-08 21:32:00 2021-06-08 23:24:00 Emergency Telly Weinstein [facility] 1..840.114 [id number] [facility]
[2024-05-25] MEDS ORDERED: HYDROCODONE/APAP 7.5/325 MG TAB ONE (21:20)
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
[2024-05-26 01:48] VITALS: TEMP 97.8
[2024-05-26 01:50] VITALS: BP 121/74; O2SAT 98
== END 2024-05-25 22:21 | disposition home or self-care (01) ==
LOC: ER 20:48
DX: M54.50 Low back pain, unspecified (principal); M54.9 Dorsalgia, unspecified; V59.49XA Driver of pick-up truck or van injured in collision with other motor vehicles in traffic accident, initial encounter; E11.9 Type 2 diabetes mellitus without complications
CPT/HCPCS: 71250; 74176

== ENCOUNTER 2024-09-01 15:53 | Emergency (ER) | payer OTHER ==
--- OUTSIDE RECORDS SUMMARY | 2024-09-01 15:56 | XMS REPORT | Continuity of Care Document ---
Author Name Unknown Address [address] [place] [address] [facility] thconnect Address [address] [place] [address] Care Team Providers Care Insurance Business Analyst Name Role Phone Pcp, Patient Does Not Have A Primary Care Physic nica FABIÁN POLLARD Attending Clinician Unavailable Fabián Pollard DO Attending Clinician [phone] ABHI Attending Clinician Unavailable ITZ BEARDEN Attending Clinician Unavailable Itz Raymundo Attending Clinician [phone] TELLY WEINSTEIN Attending Clinician Unavailable Telly Son Attending Clinician ABHI Admitting Clinician Unavailable Payers Payer Name Policy Type Policy Number Effective Date Expirati on Date Source [facility] PPO/POS [id number] 2022 00:00:00 [facility] STAR [id number] 2018 00:00:00 Problems Condition Name Condition Details Condition Category Status Onset Date Resolution Date Last Treatment Date Treating Clinician Comments Source No known active problems No known active problems Disease [facility] Allergies, Adverse Reactions, Alerts Allergy Name Allergy Type Status Severity Reaction(s) Onset Date Inactive Date Treating Clinician Comments Source NO KNOWN ALLERGIE S Drug Class Active [facility] Social History Social Habit Start Date Stop Date Quantity Comments Source Exposure to SARS-CoV-2 (event) 2022-04-09 00:00:00 2022-04-19 16:37:00 Unable to assess [facility] Sex Assigned At 1995 00:00:00 1995 00:00:00 [facility] Smoking Status Start Date Stop Date Source Tobacco smoking consumption unknown [facility] Medications Ordered Medication Name Filled Medication Name Start Date Stop Date Current Medication? Ordering Clinician Indication Dosage Frequency Signature (SIG) Comments Components Source acetaminoph en (TYLENOL) tablet 650 mg 04-19 21:45: 00 04-19 21:51 :00 No 650mg 650 mg, Oral, ONCE, 1 dose, On Mon04/19/22 at 1645, RAY [facility] benzocaine- menthoL (CEPACOL SORE THROAT, GREGORY-MEN,) lozenge 04-19 00:00: 00 Yes [id number] 1{lozen ge} Take 1 Lozenge by mouth every 4 (four) hours as needed for Sore throat. [facility] predniSONE (DELTASONE) tablet 40 mg 2020-08 04:15: 06-09 04:19 :00 No 40mg 40 mg, Oral, ONCE, 1 dose, On Mon06/08/21 at 2315, RAY [facility] amoxicillin (TRIMOX) capsule 500 mg 2020-08 04:15: 00 06-09 04:20 :00 No 500mg 500 mg, Oral, ONCE, 1 dose, On Mon06/08/21 at 2315, RAY
Re ason for Anti-Infec tive: Documented Infection< br>Documen thanh Infection Site: HEENT
D uration of Therapy: 7 days [facility] amoxicillin 500 mg capsule 2020-08 00:00: 00 06-16 04:59 :00 No [id number] 500mg Take 1 capsule by mouth 3 (three) times daily for 7 days. [facility] predniSONE 20 mg tablet 2020-08 00:00: 00 06-12 04:59 :00 No [id number] 20mg Take 1 tablet by mouth 2 (two) times daily for 3 days. [facility] ALBUTEROL INHALE 12-20 01:35: 50 Yes Inhale. [facility] montelukast (SINGULAIR) 10 mg tablet 12-20 01:35: 50 Yes 10mg Take 10 mg by mouth daily. [facility] benzonatate 200 mg capsule 12-20 00:00: 00 Yes [id number] 200mg Take 1 capsule by mouth 3 (three) times daily as needed for Cough. [facility] ibuprofen 800 mg tablet 12-20 00:00: 00 Yes [id number] 800mg Take 1 tablet by mouth every 8 (eight) hours as needed for Temp > 38.5 C (PAIN). [facility] Vital Signs Vital Name Observation Time Observation Value Comments [place] Body height 2022-04-19 21:43:00 180.3 cm [facility] Body weight 2022-04-19 21:43:00 149.687 kg [facility] BMI 2022-04-19 21:43:00 46.03 kg/m2 [facility] Systolic blood pressure 2022-04-19 21:42:00 142 mm[Hg] [facility] Diastolic blood pressure 2022-04-19 21:42:00 92 mm[Hg] [facility] Heart rate 2022-04-19 21:42:00 85 /min [facility] Body temperature 2022-04-19 21:42:00 36.22 Sakina [facility] Respiratory rate 2022-04-19 21:42:00 18 /min [facility] Oxygen saturation in Arterial blood by Pulse oximetry 2022-04-19 21:42:00 97 /min [facility] Systolic blood pressure 2021-06-28 15:22:00 115 mm[Hg] [facility] Diastolic blood pressure 2021-06-28 15:22:00 79 mm[Hg] [facility] Heart rate 2021-06-28 15:22:00 83 /min [facility] Body temperature 2021-06-28 15:22:00 36.78 Sakina [facility] Respiratory rate 2021-06-28 15:22:00 22 /min [facility] Body weight 2021-06-28 15:22:00 136.079 kg [facility] BMI 2021-06-28 15:22:00 41.84 kg/m2 [facility] Oxygen saturation in Arterial blood by Pulse oximetry 2021-06-28 15:22:00 97 /min [facility] Heart rate 2021-06-09 04:18:20 99 /min [facility] Body temperature 2021-06-09 04:18:20 37.33 Sakina [facility] Respiratory rate 2021-06-09 04:18:20 20 /min [facility] Oxygen saturation in Arterial blood by Pulse oximetry 2021-06-09 04:18:20 97 /min [facility] Systolic blood pressure 2021-06-09 02:25:00 139 mm[Hg] [facility] Diastolic blood pressure 2021-06-09 02:25:00 84 mm[Hg] [facility] Body height 2021-06-09 02:25:00 180.3 cm [facility] Body weight 2021-06-09 02:25:00 136.079 kg [facility] BMI 2021-06-09 02:25:00 41.84 kg/m2 [facility] Procedures Procedure Date / Time Performed Performing Clinicia n Source RAPID INFLUENZA A/B 2022-04-19 21:45:00 Huong Pollard [facility] COVID-19 (ID NOW RAPID TESTING) 2022-04-19 21:45:00 Fabián Pollard [facility] CONSENT/REFUSAL FOR DIAGNOSIS AND TREATMENT 2022-04-19 21:42:40 Doctor Unassigned, Fossil [facility] RAPID STREP SCREEN FOR GROUP A 2021-06-28 16:07:00 Itz Bearden [facility] CONSENT/REFUSAL FOR DIAGNOSIS AND TREATMENT 2021-06-28 15:15:16 Doctor Unassigned, Fossil [facility] RAPID STREP SCREEN FOR GROUP A 2021-06-09 02:28:00 Ismael Francois [facility] NOTICE OF PRIVACY PRACTICES 2021-06-09 02:17:09 Doctor Unassigned, Fossil [facility] CONSENT/REFUSAL FOR DIAGNOSIS AND TREATMENT 2021-06-09 02:07:03 Doctor Unassigned, Fossil [facility] Encounters Start Date/Time End Date/Time Encounter Type Admission Type Attending [facility] Care Department Encounter ID Source 2022-04-19 16:47:00 2022-04-19 18:08:00 Emergency X POLLARDFABI[facility]N [facility] [id number] [facility] 2022-04-19 16:47:00 2022-04-19 18:08:[address] [facility] 1..[id number] [facility] 2022-03-09 00:00:00 2022-03-09 00:00:00 Outpatient [facility] [id number] [facility] Program 2021-06-28 09:24:00 2021-06-28 12:01:00 Emergency X SULEIMAN ITZ [facility] E[facility] [id number] [facility] 2021-06-28 09:24:00 2021-06-28 12:01:[address] [facility] 1..[id number] [facility] 2021-06-08 21:32:00 2021-06-08 23:24:00 Emergency TELLY ABBOTT [facility] ERT [id number] [facility] 2021-06-08 21:32:00 2021-06-08 23:24:00 Emergency Telly Weinstein [facility] 1..[id number] [facility]
--- NOTE | 2024-09-01 17:28 | EDPHYS ---
Physician Documentation [facility] Name: Nilesh Ordonez Age: 29 yrs Sex: Male : 1995 Arrival Date: 09/01/2024 Time: 15:53 Bed 20 Private MD: SHARLENE Physician Foster Morris HPI: 09/01 17:22 This 29 yrs old Male presents to ER via Ambulatory with complaints of padmini Itching, Skin Tear(s). 17:22 The patient presents with abrasion, swelling, tenderness. Onset: The symptoms/episode padmini began/occurred 1 week(s) ago. Modifying factors: The symptoms are alleviated by nothing, the symptoms are aggravated by urinating. Associated signs and symptoms: The patient has no apparent associated signs or symptoms. Severity of symptoms: At their worst the symptoms were mild, in the emergency department the symptoms are unchanged. The patient has not experienced similar symptoms in the past. Historical: - Allergies: 16:22 NKA; ap3 - Home Meds: 16:22 Jardiance oral [Active]; Mounjaro subcutaneous [Active]; ap3 - PMHx: 16:22 Asthma; diabetes mellitus; seasonal allergies; Diabetes mellitus; Asthma; ap3 - PSHx: 16:22 None; ap3 - Immunization history:: Adult Immunizations up to date. - Infectious Disease History:: Denies. - Social history:: Smoking status: Patient denies any tobacco usage or history of. ROS: 17:23 Constitutional: Negative for fever, chills, and weight loss, Eyes: Negative for injury, padmini pain, redness, and discharge, ENT: Negative for injury, pain, and discharge, Neck: Negative for injury, pain, and swelling, Cardiovascular: Negative for chest pain, palpitations, and edema, Respiratory: Negative for shortness of breath, cough, wheezing, and pleuritic chest pain, Abdomen/GI: Negative for abdominal pain, nausea, vomiting, diarrhea, and constipation, Back: Negative for injury and pain, MS/Extremity: Negative for injury and deformity, Skin: Negative for injury, rash, and discoloration, Neuro: Negative for headache, weakness, numbness, tingling, and seizure, Psych: Negative for depression, anxiety, suicide ideation, homicidal ideation, and hallucinations, Allergy/Immunology: Negative for hives, rash, and allergies, Hematologic/Lymphatic: Negative for swollen nodes, abnormal bleeding, and unusual bruising, 17:23 Skin: Positive for cellulitis, rash, swelling, CANDIDIASIS, 17:23 Endocrine: Positive for HYPERGLYCEMIA, Exam: 17:23 Constitutional: This is a well developed, well nourished patient who is awake, alert, padmini and in no acute distress. Head/Face: Normocephalic, atraumatic. Eyes: Pupils equal round and reactive to light, extra-ocular motions intact. Lids and lashes normal. Conjunctiva and sclera are non-icteric and not injected. Cornea within normal limits. Periorbital areas with no swelling, redness, or edema. ENT: Nares patent. No nasal discharge, no septal abnormalities noted. Tympanic membranes are normal and external auditory canals are clear. Oropharynx with no redness, swelling, or masses, exudates, or evidence of obstruction, uvula midline. Mucous membranes moist. Neck: Trachea midline, no thyromegaly or masses palpated, and no cervical lymphadenopathy. Supple, full range of motion without nuchal rigidity, or vertebral point tenderness. No Meningismus. Chest/axilla: Normal chest wall appearance and motion. Nontender with no deformity. No lesions are appreciated. Cardiovascular: Regular rate and rhythm with a normal S1 and S2. No gallops, murmurs, or rubs. Normal PMI, no JVD. No pulse deficits. Respiratory: Lungs have equal breath sounds bilaterally, clear to auscultation and percussion. No rales, rhonchi or wheezes noted. No increased work of breathing, no retractions or nasal flaring. Abdomen/GI: Soft, non-tender, with normal bowel sounds. No distension or tympany. No guarding or rebound. No evidence of tenderness throughout. Back: No spinal tenderness. No costovertebral tenderness. Full range of motion. Skin: Warm, dry with normal turgor. Normal color with no rashes, no lesions, and no evidence of cellulitis. MS/ Extremity: Pulses equal, no cyanosis. Neurovascular intact. Full, normal range of motion., bilateral aka Neuro: Awake and alert, GCS 15, oriented to person, place, time, and situation. Cranial nerves II-XII grossly intact. Motor strength 5/5 in all extremities. Sensory grossly intact. Cerebellar exam normal. Normal gait. Psych: Awake, alert, with orientation to person, place and time. Behavior, mood, and affect are within normal limits. 17:23 : Male external genitalia: Patient is not circumisioned. erythema, laceration, superficial, swelling: tenderness, Bladder: is normal, Sexual behavior: the patient is not sexually active, 17:23 Skin: cellulitis, that is minimal, induration, that is mild is noted, CANDIDIASIS, Vital Signs: 16:18 BP 121 / 79; Pulse 88; Resp 16; Temp 97.4; Pulse Ox 99% ; ap3 17:58 BP 123 / 76; Pulse 78; Resp 20; Temp 98; Pulse Ox 100% on R/A; kj2 MDM: 16:00 Medical Screening Exam initiated [facility] 17:25 Differential diagnosis: UTI, urinary retention, [place] catheter problem, prostatitis, padmini urethritis. Data reviewed: vital signs, nurses notes, lab test result(s), urinalysis. Consideration of Admission/Observation Escalation of care including admission/observation considered. I considered the following discharge prescriptions or medication management in the emergency department Medications were administered in the Emergency Department. See MAR. Independent interpretation of the following test(s) in the Emergency Department. Test considered but Not performed: Labs: NO CBC, NO COMP MET. Historians other than the Patient: PT WELL INFORMED. Care significantly affected by the following chronic conditions: Diabetes, Obesity. Counseling: I had a detailed discussion with the patient and/or guardian regarding the historical points, exam findings, and any diagnostic results supporting the discharge/admit diagnosis, lab results, the need for outpatient follow up, for definitive care, a family practitioner, a urologist. 09/01 17:53 Order name: Glucose, Ancillary Testing [facility] 09/01 17:21 Order name: Blood Glucose Level; Complete Time: 17:41 [facility] Administered Medications: 17:40 Drug: nystatin Topical Ointment 1 application Topical once Route: Topical; Site: kj2 affected area; 17:42 Follow up: Response: No adverse reaction kj2 17:41 Drug: Cephalexin PO 500 mg PO once Route: PO; kj2 17:42 Follow up: Response: No adverse reaction kj2 17:57 Drug: Fluconazole PO 200 mg PO once Route: PO; kj2 17:59 Follow up: Response: Medication administered at discharge. kj2 Disposition Summary: 09/01/24 17:28 Discharge Ordered Notes: Location: Home [facility] Problem: new [facility] Symptoms: have improved padmini Condition: Stable [facility] Diagnosis - Balanoposthitis padmini - Candidal balanitis padmini - Type 2 diabetes mellitus with hyperglycemia padmini - Obesity due to excess calories [facility] Followup: padmini - With: Private Physician - When: 2 - 3 days - Reason: Recheck today's complaints, Continuance of care, Re-evaluation by your physician Followup: padmini - With: Miguel Gutierrez MD - When: 2 - 3 days - Reason: Recheck today's complaints, Re-evaluation by your physician Discharge Instructions: - Discharge Summary Sheet padmini - Balanitis padmini - Hyperglycemia padmini - Blood Glucose Monitoring, Adult padmini - Diabetes Mellitus and Nutrition, Adult padmini - Hyperglycemia, [id number] padmini - Genital Yeast Infection, Male [facility] - Preventing Diabetes Mellitus Complications [facility] Forms: - Medication Reconciliation Form [facility] - Antibiotic Education padmini - Prescription Opioid Use padmini - Patient Portal Instructions [facility] - Leadership Thank You Letter [facility] Prescriptions: - nystatin 100,000 unit/gram Topical ointment - apply 1 application TOPICAL route 3 times per day; 22 gram tube; Refills: 0, [facility] Product Selection Permitted - Cephalexin 500 mg Oral Capsule - take 1 capsule ORAL route every 6 hours for 10 days; 40 capsule; Refills: 0, [facility] Product Selection Permitted - Fluconazole 200 mg Oral tablet - take 1 tablet ORAL route once wkly; 3 tablet; Refills: 0, Product Selection [facility] Permitted Signatures: Dispatcher [employer] Foster Ahn MD MD cha Prokisch, Amanda RN RN ap3 Yoselin Kowalski RN RN kj2 Corrections: (The following items were deleted from the chart) 16:24 16:22 Home Meds: [place] Oral; ap3 ap3
--- NOTE | 2024-09-01 17:28 | ER ---
Nurse's Notes [facility] Name: Nilesh Ordonez Age: 29 yrs Sex: Male : 1995 Arrival Date: 09/01/2024 Time: 15:53 Bed 20 Private MD: Diagnosis: Balanoposthitis;Candidal balanitis;Type 2 diabetes mellitus with hyperglycemia;Obesity due to excess calories Presentation: 09/01 16:18 Chief complaint: Patient states: penis has sore area, has had it before. Coronavirus ap3 screen: At this time, the client does not indicate any symptoms associated with coronavirus-19. Ebola Screen: No symptoms or risks identified at this time. Onset: The symptoms/episode began/occurred gradually. Anaphylaxis evaluation, no signs or symptoms of anaphylaxis were noted. Initial Sepsis Screen: Does the patient meet any 2 criteria? No. Patient's initial sepsis screen is negative. Does the patient have a suspected source of infection? No. Patient's initial sepsis screen is negative. Risk Assessment: Do you want to hurt yourself or someone else? Patient reports no desire to harm self or others. Onset of symptoms is unknown. 16:18 Method Of Arrival: Ambulatory ap3 16:18 Acuity: IRVIN 4 ap3 Triage Assessment: 16:22 General: Appears in no apparent distress. Behavior is calm, cooperative, appropriate ap3 for age. Pain: Complains of pain in head of penis. Historical: - Allergies: 16:22 NKA; ap3 - Home Meds: 16:22 Jardiance oral [Active]; Mounjaro subcutaneous [Active]; ap3 - PMHx: 16:22 Asthma; diabetes mellitus; seasonal allergies; Diabetes mellitus; Asthma; ap3 - PSHx: 16:22 None; ap3 - Immunization history:: Adult Immunizations up to date. - Infectious Disease History:: Denies. - Social history:: Smoking status: Patient denies any tobacco usage or history of. Screenin:45 [facility] ED Fall Risk Assessment (Adult) History of falling in the last 3 months, kj2 including since admission No falls in past 3 months (0 pts) Confusion or Disorientation No (0 pts) Intoxicated or Sedated No (0 pts) Impaired Gait No (0 pts) Mobility Assist Device Used No (0 pt) Altered Elimination No (0 pt) Score/Fall Risk Level 0 - 2 = Low Risk Maintained a safe environment, Hourly rounding (assess needs \T\ fall precautionary measures) done. Abuse screen: Denies threats or abuse. Denies injuries from another. Nutritional screening: No deficits noted. Tuberculosis screening: No symptoms or risk factors identified. Assessment: 16:40 General: Appears in no apparent distress. Behavior is calm, cooperative. Pain: kj2 Complains of pain in pelvis and head of penis and groin Pain currently is 4 out of 10 on a pain scale. Neuro: Level of Consciousness is awake, alert, obeys commands, Oriented to person, place, time, situation. Cardiovascular: Patient's skin is warm and dry. Respiratory: Airway is patent Respiratory effort is unlabored. GI: No signs and/or symptoms were reported involving the gastrointestinal system. : No signs and/or symptoms were reported regarding the genitourinary system. 17:57 Reassessment: Patient appears in no apparent distress at this time. Patient and/or kj2 family updated on plan of care and expected duration. Pain level reassessed. Patient is alert, oriented x 3, equal unlabored respirations, skin warm/dry/pink. Respiratory: Breath sounds are clear bilaterally. Vital Signs: 16:18 BP 121 / 79; Pulse 88; Resp 16; Temp 97.4; Pulse Ox 99% ; ap3 17:58 BP 123 / 76; Pulse 78; Resp 20; Temp 98; Pulse Ox 100% on R/A; kj2 ED Course: 15:57 Patient arrived in ED. sj2 16:00 Foster Morris MD is Attending Physician. [facility] 16:22 Triage completed. ap3 16:22 Arm band placed on right wrist. Patient placed in waiting room, Patient notified of ap3 wait time. 16:45 Patient has correct armband on for positive identification. Bed in low position. Call kj2 light in reach. Provided Education on: call light. 17:02 Yoselin Kowalski, JOSE is Primary Nurse. kj2 17:05 No provider procedures requiring assistance completed. kj2 17:27 Miguel Gutierrez MD is Referral Physician. [facility] 17:57 Patient did not have IV access during this emergency room visit. kj2 Administered Medications: 17:40 Drug: nystatin Topical Ointment 1 application Topical once Route: Topical; Site: kj2 affected area; 17:42 Follow up: Response: No adverse reaction kj2 17:41 Drug: Cephalexin PO 500 mg PO once Route: PO; kj2 17:42 Follow up: Response: No adverse reaction kj2 17:57 Drug: Fluconazole PO 200 mg PO once Route: PO; kj2 17:59 Follow up: Response: Medication administered at discharge. kj2 Medication: 17:05 VIS not applicable for this client. kj2 Outcome: 17:28 Discharge ordered by . padmini 17:28 Discharged to home ambulatory, kj2 17:28 Condition: stable 17:28 Discharge instructions given to patient, Instructed on discharge instructions, follow up and referral plans. Demonstrated understanding of instructions, follow-up care, medications, 18:05 Patient left the ED. kj2 Signatures: Foster Morris MD MD cha Prokisch, Amanda, RN RN ap3 Yoselin Kowalski, RN RN kj2 Katty Omalley sj2 Corrections: (The following items were deleted from the chart) 16:24 16:22 Home Meds: [place] Oral; ap3 ap3
[2024-09-01] MEDS ORDERED: CEPHALEXIN 250 MG CAP ONE (17:35)
[2024-09-01] MEDS ORDERED: NYSTATIN 100MU/GM CREAM 15GM TOP ONE (17:36)
[2024-09-01] MEDS ORDERED: FLUCONAZOLE 100 MG TAB ONE (17:55)
[2024-09-01 18:52] VITALS: BP 123/76; TEMP 98; O2SAT 100
== END 2024-09-01 18:05 | disposition home or self-care (01) ==
LOC: ER 15:53
DX: B37.42 Candidal balanitis (principal); E11.65 Type 2 diabetes mellitus with hyperglycemia; J45.909 Unspecified asthma, uncomplicated; E66.09 Other obesity due to excess calories
CPT/HCPCS: 82947; 99283

== ENCOUNTER 2025-03-28 08:33 | Emergency (ER) | payer OTHER ==
--- OUTSIDE RECORDS SUMMARY | 2025-03-28 08:37 | XMS REPORT | Continuity of Care Document ---
Author Name Unknown Address [address] [place] [address] Organization [facility] [place] Address [address] [facility] [place] [address] Care Team Providers Care Mother Superior Name Role Phone Pcp, Patient Does Not Have A Primary Care Physic nica FABIÁN POLLARD Attending Clinician Unavailable Fabián Pollard DO Attending Clinician [phone] ABHI Attending Clinician Unavailable ITZ BEARDEN Attending Clinician Unavailable Itz Raymundo Attending Clinician [phone] TELLY WEINSTEIN Attending Clinician Unavailable Telly Son Attending Clinician [phone] ABHI Admitting Clinician Unavailable Payers Payer Name Policy Type Policy Number Effective Date Expirati on Date Source [facility] PPO/POS [id number] 2022 00:00:00 [facility] STAR [id number] 2018 00:00:00 Problems Condition Name Condition Details Condition Category Status Onset Date Resolution Date Last Treatment Date Treating Clinician Comments Source No known active problems No known active problems Disease [facility] Allergies, Adverse Reactions, Alerts Allergy Name Allergy Type Status Severity Reaction(s) Onset Date Inactive Date Treating Clinician Comments Source NO KNOWN ALLERGIE S Drug Class Active [facility] Social History Social Habit Start Date Stop Date Quantity Comments Source Exposure to SARS-CoV-2 (event) 2022-04-09 00:00:00 2022-04-19 16:37:00 Unable to assess [facility] Sex Assigned At 1995 00:00:00 1995 00:00:00 [facility] Smoking Status Start Date Stop Date Source Tobacco smoking consumption unknown [facility] Medications Ordered Medication Name Filled Medication Name Start Date Stop Date Current Medication? Ordering Clinician Indication Dosage Frequency Signature (SIG) Comments Components Source acetaminoph en (TYLENOL) tablet 650 mg 04-19 21:45: 00 04-19 21:51 :00 No 650mg 650 mg, Oral, ONCE, 1 dose, On Mon04/19/22 at 1645, RAY [facility] benzocaine- menthoL (CEPACOL SORE THROAT, GREGORY-MEN,) lozenge 04-19 00:00: 00 Yes [id number] 1{lozen ge} Take 1 Lozenge by mouth every 4 (four) hours as needed for Sore throat. [facility] predniSONE (DELTASONE) tablet 40 mg 2020-08 04:15: 06-09 04:19 :00 No 40mg 40 mg, Oral, ONCE, 1 dose, On Mon06/08/21 at 2315, RAY [facility] amoxicillin (TRIMOX) capsule 500 mg 2020-08 04:15: 00 06-09 04:20 :00 No 500mg 500 mg, Oral, ONCE, 1 dose, On Mon06/08/21 at 2315, RAY
Re ason for Anti-Infec tive: Documented Infection< br>Documen thanh Infection Site: HEENT
D uration of Therapy: 7 days [facility] amoxicillin 500 mg capsule 2020-08 00:00: 00 06-16 04:59 :00 No [id number] 500mg Take 1 capsule by mouth 3 (three) times daily for 7 days. [facility] predniSONE 20 mg tablet 2020-08 00:00: 00 06-12 04:59 :00 No [id number] 20mg Take 1 tablet by mouth 2 (two) times daily for 3 days. [facility] ALBUTEROL INHALE 12-20 01:35: 50 Yes Inhale. [facility] montelukast (SINGULAIR) 10 mg tablet 12-20 01:35: 50 Yes 10mg Take 10 mg by mouth daily. [facility] benzonatate 200 mg capsule 12-20 00:00: 00 Yes [id number] 200mg Take 1 capsule by mouth 3 (three) times daily as needed for Cough. [facility] ibuprofen 800 mg tablet 12-20 00:00: 00 Yes [id number] 800mg Take 1 tablet by mouth every 8 (eight) hours as needed for Temp > 38.5 C (PAIN). [facility] Vital Signs Vital Name Observation Time Observation Value Comments [place] Body height 2022-04-19 21:43:00 180.3 cm [facility] Body weight 2022-04-19 21:43:00 149.687 kg [facility] BMI 2022-04-19 21:43:00 46.03 kg/m2 [facility] Systolic blood pressure 2022-04-19 21:42:00 142 mm[Hg] [facility] Diastolic blood pressure 2022-04-19 21:42:00 92 mm[Hg] [facility] Heart rate 2022-04-19 21:42:00 85 /min [facility] Body temperature 2022-04-19 21:42:00 36.22 Sakina [facility] Respiratory rate 2022-04-19 21:42:00 18 /min [facility] Oxygen saturation in Arterial blood by Pulse oximetry 2022-04-19 21:42:00 97 /min [facility] Systolic blood pressure 2021-06-28 15:22:00 115 mm[Hg] [facility] Diastolic blood pressure 2021-06-28 15:22:00 79 mm[Hg] [facility] Heart rate 2021-06-28 15:22:00 83 /min [facility] Body temperature 2021-06-28 15:22:00 36.78 Sakina [facility] Respiratory rate 2021-06-28 15:22:00 22 /min [facility] Body weight 2021-06-28 15:22:00 136.079 kg [facility] BMI 2021-06-28 15:22:00 41.84 kg/m2 [facility] Oxygen saturation in Arterial blood by Pulse oximetry 2021-06-28 15:22:00 97 /min [facility] Heart rate 2021-06-09 04:18:20 99 /min [facility] Body temperature 2021-06-09 04:18:20 37.33 Sakina [facility] Respiratory rate 2021-06-09 04:18:20 20 /min [facility] Oxygen saturation in Arterial blood by Pulse oximetry 2021-06-09 04:18:20 97 /min [facility] Systolic blood pressure 2021-06-09 02:25:00 139 mm[Hg] [facility] Diastolic blood pressure 2021-06-09 02:25:00 84 mm[Hg] [facility] Body height 2021-06-09 02:25:00 180.3 cm [facility] Body weight 2021-06-09 02:25:00 136.079 kg [facility] BMI 2021-06-09 02:25:00 41.84 kg/m2 [facility] Procedures Procedure Date / Time Performed Performing Clinicia n Source RAPID INFLUENZA A/B 2022-04-19 21:45:00 Huong Pollard [facility] COVID-19 (ID NOW RAPID TESTING) 2022-04-19 21:45:00 Fabián Pollard [facility] CONSENT/REFUSAL FOR DIAGNOSIS AND TREATMENT 2022-04-19 21:42:40 Doctor Unassigned, [place] [facility] RAPID STREP SCREEN FOR GROUP A 2021-06-28 16:07:00 Itz Bearden [facility] CONSENT/REFUSAL FOR DIAGNOSIS AND TREATMENT 2021-06-28 15:15:16 Doctor Unassigned, [place] [facility] RAPID STREP SCREEN FOR GROUP A 2021-06-09 02:28:00 Ismael Francois [facility] NOTICE OF PRIVACY PRACTICES 2021-06-09 02:17:09 Doctor Unassigned, [place] [facility] CONSENT/REFUSAL FOR DIAGNOSIS AND TREATMENT 2021-06-09 02:07:03 Doctor Unassigned, [place] [facility] Encounters Start Date/Time End Date/Time Encounter Type Admission Type Attending [facility] Facility Care Department Encounter ID Source 2022-04-19 16:47:00 2022-04-19 18:08:00 Emergency X FABIÁN [facility] ERT [id number] [facility] 2022-04-19 16:47:00 2022-04-19 18:08:00 Delmy PollardFabián [facility] [id number] [facility] 2021-06-28 09:24:00 2021-06-28 12:01:00 Emergency X ITZ BEARDEN [facility] ERT [id number] [facility] 2021-06-28 09:24:00 2021-06-28 12:01:00 Emergency Itz Bearden [facility] [id number] [facility] 2021-06-08 21:32:00 2021-06-08 23:24:00 Emergency X JS TELLY [facility] ERT [id number] [facility] 2021-06-08 21:32:00 2021-06-08 23:24:[address] [facility] [id number] [facility]
[2025-03-28 11:03] LABS: Influenza A Ag Negative; Influenza B Ag Negative
[2025-03-28 11:04] LABS: SARS-CoV-2 Antigen Rapid Res Positive (Negative)
--- NOTE | 2025-03-28 11:06 | ER ---
Nurse's Notes [facility] Name: Nilesh Ordonez Age: 30 yrs Sex: Male : 1995 Arrival Date: 03/28/2025 Time: 08:33 Bed 20 Private MD: Diagnosis: SARS-associated coronavirus as the cause of diseases classified elsewhere Presentation: 03/28 08:45 Chief complaint: Patient states: Cough, fever, runny nose, body aches x 2 days, Aunt is jl7 at home with Covid. Coronavirus screen: cough unrelated to allergies, fever, Client presents with at least one sign or symptom that may indicate coronavirus-19. Ebola Screen: No symptoms or risks identified at this time. Initial Sepsis Screen: Does the patient meet any 2 criteria? No. Patient's initial sepsis screen is negative. Does the patient have a suspected source of infection? No. Patient's initial sepsis screen is negative. Risk Assessment: Do you want to hurt yourself or someone else? Patient reports no desire to harm self or others. Onset of symptoms was March 26, 2025. 08:45 Method Of Arrival: Ambulatory [facility] 08:45 Acuity: IRVIN 4 jl7 Triage Assessment: 08:47 General: Appears in no apparent distress. uncomfortable, Behavior is calm, cooperative, jl7 appropriate for age. Pain: Complains of pain in sore throat, body aches. Neuro: Level of Consciousness is awake, alert, obeys commands, Oriented to person, place, time, situation. Cardiovascular: Patient's skin is warm and dry. Respiratory: Airway is patent Respiratory effort is even, unlabored, Respiratory pattern is regular, symmetrical. Derm: Skin is pink, warm \T\ dry. Historical: - Allergies: 08:47 NKA; jl7 - Home Meds: 08:47 Jardiance oral [Active]; Mounjaro subcutaneous [Active]; jl7 - PMHx: 08:47 Asthma; diabetes mellitus; seasonal allergies; jl7 - Immunization history:: Adult Immunizations unknown. - Infectious Disease History:: Denies. - Social history:: Smoking status: Patient denies any tobacco usage or history of. Screenin:13 [facility] ED Fall Risk Assessment (Adult) History of falling in the last 3 months, jl7 including since admission No falls in past 3 months (0 pts) Confusion or Disorientation No (0 pts) Intoxicated or Sedated No (0 pts) Impaired Gait No (0 pts) Mobility Assist Device Used No (0 pt) Altered Elimination No (0 pt) Score/Fall Risk Level 0 - 2 = Low Risk Oriented to surroundings, Maintained a safe environment. Abuse screen: Denies threats or abuse. Denies injuries from another. Nutritional screening: No deficits noted. Tuberculosis screening: No symptoms or risk factors identified. Assessment: 10:10 Reassessment: Patient and/or family updated on plan of care and expected duration. Pain ll1 level reassessed. 10:12 General: Appears uncomfortable, well groomed, well developed, well nourished, Behavior me1 is calm, cooperative, appropriate for age, Reports Cough, fever, runny nose, body aches x 2 days, Aunt is at home with Covid. Pain: Complains of pain in generalized body Pain does not radiate. Pain currently is 5 out of 10 on a pain scale. Quality of pain is described as aching, Pain began 2-3 days ago. Is continuous. Neuro: Level of Consciousness is awake, alert, obeys commands, Oriented to person, place, time, situation, Appropriate for age. Cardiovascular: Patient's skin is warm and dry. Respiratory: Airway is patent Respiratory effort is even, unlabored, Respiratory pattern is regular, symmetrical. Respiratory: Reports cough that is persistent. GI: No signs and/or symptoms were reported involving the gastrointestinal system. : No signs and/or symptoms were reported regarding the genitourinary system. EENT: Reports nasal discharge that is watery since 2 days ago. Derm: Skin is intact, is healthy with good turgor, Skin is normal. Musculoskeletal: Circulation, motion, and sensation intact. Range of motion: intact in all extremities, Reports generalized body aches. Vital Signs: 08:45 BP 107 / 73; Pulse 87; Resp 15; Temp 98.5; Pulse Ox 99% ; Weight 150.14 kg; Height 5 jl7 ft. 11 in. ; Pain 5/10; 10:30 BP 106 / 72; Pulse 87; Resp 16; Pulse Ox 96% ; me1 11:17 BP 113 / 90; Pulse 83; Resp 16; Temp 98.5; Pulse Ox 97% ; me1 08:45 Body Mass Index 46.16 (150.14 kg, 180.34 cm) jl7 08:45 Pain Scale: Adult 7 ED Course: 08:37 Patient arrived in ED. al6 08:41 [facility] 08:41 Foster Morris MD is Attending Physician. dr5 08:46 Triage completed. jl7 08:47 Arm band placed on right wrist. jl7 09:10 Group A Streptococcus Rapid Sent. nh2 09:10 COVID-19 Ag + Flu A+B Ag Sent. nh2 09:11 Group A Streptococcus Rapid Sent. nh2 09:11 COVID-19 Ag + Flu A+B Ag Sent. nh2 09:13 Patient has correct armband on for positive identification. jl7 09:13 COVID swab sent to lab. Flu and/or RSV swab sent to lab. Strep swab sent to lab. jl7 10:10 Mattie Rangel, RN is Primary Nurse. me1 10:10 Patient placed in an exam room, on a stretcher. 1 10:12 Provided Education on: POC. Verbalized understanding.. Client placed on continuous me1 cardiac and pulse oximetry monitoring. NIBP monitoring applied. Pulse ox on. NIBP on. 10:12 No provider procedures requiring assistance completed. me1 11:21 Patient did not have IV access during this emergency room visit. me1 Administered Medications: No medications were administered Medication: 09:13 VIS not applicable for this client. 7 Outcome: 11:05 Discharge ordered by . dr5 11:21 Discharged to home ambulatory, with significant other, me1 11:21 Condition: stable 11:21 Instructed on discharge instructions, follow up and referral plans. medication usage, Demonstrated understanding of instructions, follow-up care, medications, Prescriptions given X 2, 11:22 Patient left the ED. me1 Signatures: Marylou Smiley RN RN jl7 Roldan Suarez RN RN 1 Mattie Rangel RN RN pr1 Rashid Witt Jr, RN RN nh2 Fred Woosd FNP-C FNP-Cdr5 Mireille Rubin al6 Corrections: (The following items were deleted from the chart) 08:47 08:47 PMHx: Asthma; 7 jl7 08:47 08:47 PMHx: diabetes mellitus; [facility] 10:12 08:45 Chief complaint: Patient states: Cough, fever, runny nose, body aches x 2 days, me1 Aunt is at home with Covid jl7
--- NOTE | 2025-03-28 11:06 | EDPHYS ---
Physician Documentation [facility] Name: Nilesh Ordonez Age: 30 yrs Sex: Male : 1995 Arrival Date: 03/28/2025 Time: 08:33 Bed 20 Private MD: ED Physician Foster Morris HPI: 03/28 08:51 This 30 yrs old Male presents to ER via Ambulatory with complaints of Flu dr5 Symptoms. 08:51 Onset: The symptoms/episode began/occurred 2 day(s) ago. Patient reports that he has dr5 been sick with fever, body aches, cough, congestion for the past two days. Patient reports Aunt at home has COVID.. Historical: - Allergies: 08:47 NKA; jl7 - Home Meds: 08:47 Jardiance oral [Active]; Mounjaro subcutaneous [Active]; jl7 - PMHx: 08:47 Asthma; diabetes mellitus; seasonal allergies; jl7 - Immunization history:: Adult Immunizations unknown. - Infectious Disease History:: Denies. - Social history:: Smoking status: Patient denies any tobacco usage or history of. ROS: 08:51 Constitutional: as per hpi dr5 Exam: 08:51 Constitutional: This is a well developed, well nourished patient who is awake, alert, dr5 and in no acute distress. Head/Face: Normocephalic, atraumatic. Eyes: Pupils equal round and reactive to light, extra-ocular motions intact. Lids and lashes normal. Conjunctiva and sclera are non-icteric and not injected. Cornea within normal limits. Periorbital areas with no swelling, redness, or edema. Neck: Trachea midline, no thyromegaly or masses palpated, and no cervical lymphadenopathy. Supple, full range of motion without nuchal rigidity, or vertebral point tenderness. No Meningismus. Chest/axilla: Normal chest wall appearance and motion. Nontender with no deformity. No lesions are appreciated. Cardiovascular: Regular rate and rhythm with a normal S1 and S2. Normal PMI, no JVD. No pulse deficits. Respiratory: Lungs have equal breath sounds bilaterally, clear to auscultation. No rales, rhonchi or wheezes noted. No increased work of breathing, no retractions or nasal flaring. Back: No spinal tenderness. No costovertebral tenderness. Full range of motion. Skin: Warm, dry with normal turgor. Normal color with no rashes, no lesions, and no evidence of cellulitis. MS/ Extremity: Pulses equal, no cyanosis. Neurovascular intact. Full, normal range of motion. Neuro: Awake and alert, GCS 15, oriented to person, place, time, and situation. Cranial nerves II-XII grossly intact. Motor strength 5/5 in all extremities. Sensory grossly intact. Cerebellar exam normal. Normal gait. Vital Signs: 08:45 BP 107 / 73; Pulse 87; Resp 15; Temp 98.5; Pulse Ox 99% ; Weight 150.14 kg; Height 5 jl7 ft. 11 in. ; Pain 5/10; 10:30 BP 106 / 72; Pulse 87; Resp 16; Pulse Ox 96% ; me1 11:17 BP 113 / 90; Pulse 83; Resp 16; Temp 98.5; Pulse Ox 97% ; me1 08:45 Body Mass Index 46.16 (150.14 kg, 180.34 cm) 7 08:45 Pain Scale: Adult jl7 MDM: 08:41 Medical Screening Exam initiated dr5 10:50 Awaiting: labs results, Lab reports there was a misunderstanding and needs a COVID / dr5 Flu lab recollect.. 11:07 Differential diagnosis: viral Infection, bacterial infection, Influenza, strep. Data dr5 reviewed: vital signs, nurses notes, lab test result(s), Flu: negative Strep negative, COVID-positive. Consideration of Admission/Observation Escalation of care including admission/observation considered. Escalation considered patient found to have COVID requiring supplemental oxygen. I considered the following discharge prescriptions or medication management in the emergency department I discussed and recommended Over The Counter medications, Medications were administered in the Emergency Department. See MAR. Care significantly affected by the following chronic conditions: Diabetes, Asthma. Care significantly affected by the following Social Determinants of Health: Poor access to healthcare and/or lack of insurance, Poor access to transportation, Problems related to employment. Counseling: I had a detailed discussion with the patient and/or guardian regarding the historical points, exam findings, and any diagnostic results supporting the discharge/admit diagnosis, the presence of at least one elevated blood pressure reading (>120/80) during this emergency department visit, lab results, the need for outpatient follow up, for definitive care, a family practitioner, to return to the emergency department if symptoms worsen or persist or if there are any questions or concerns that arise at home. Special discussion: I have referred the patient to see his PCP for further evaluation of high blood pressure. I discussed with the patient/guardian in detail that at this point there is no indication for admission to the hospital. It is understood, however, that if the symptoms persist or worsen the patient needs to return immediately for re-evaluation. Based on the history and exam findings, there is no indication for further emergent testing or inpatient evaluation. I discussed with the patient/guardian the need to see the primary care provider for further evaluation of the symptoms. ED course: Patient's COVID was positive. Will give patient Paxlovid and short course of steroids. Work note given. Recommended patient stay home and quarantine at home with aunt. All questions answered. Strict ER precautions given. 03/28 08:52 Order name: COVID-19 Ag + Flu A+B Ag; Complete Time: 11:07 [facility] 03/28 08:52 Order name: Group A Streptococcus Rapid; Complete Time: 09:22 [facility] 03/28 09:24 Order name: Throat Culture EDMS Administered Medications: No medications were administered Disposition Summary: 03/28/25 11:05 Discharge Ordered Notes: Location: Home dr5 Condition: Stable dr5 Diagnosis - SARS-associated coronavirus as the cause of diseases classified elsewhere dr5 Followup: dr5 - With: Emergency Department - When: As needed - Reason: Worsening of condition Followup: dr5 - With: Private Physician - When: 1 - 2 days - Reason: Recheck today's complaints, Continuance of care, Re-evaluation by your physician Discharge Instructions: - Discharge Summary Sheet jl7 - COVID-19 dr5 Forms: - Work release form jl7 - Medication Reconciliation Form dr5 - Prescription Opioid Use dr5 - Patient Portal Instructions dr5 - Leadership Thank You Letter dr5 Prescriptions: - Paxlovid 300 mg (150 mg x 2)-100 mg Oral Tablet, Dose Pack - take 1 dose pack ORAL route per package directions; 1 packet; Refills: 0, dr5 Product Selection Permitted - Medrol (Soham) 4 mg Oral Tablets, Dose Pack - take 1 tablet ORAL route as directed - follow package instructions; 1 packet; dr5 Refills: 0, Product Selection Permitted Addendum: 04/01/2025 14:01 Co-signature as Attending Physician, Foster Morris MD I agree with the assessment and c gaston plan of care. Signatures: Dispatcher [employer] Foster Ahn MD MD cha Leal, Jahala, RN RN jl7 Fred Woods, ACQUISITION LEAD-C ACQUISITION LEAD-[facility]5 Corrections: (The following items were deleted from the chart) 03/28 08:47 08:47 PMHx: Asthma; [facility] jl7 08:47 08:47 PMHx: diabetes mellitus; [place] [id number]
[2025-03-28 13:12] VITALS: TEMP 98.5
[2025-03-28 13:16] VITALS: BP 113/90; O2SAT 97
== END 2025-03-28 11:22 | disposition home or self-care (01) ==
LOC: ER 08:33
DX: U07.1 COVID-19 (principal)
CPT/HCPCS: 36415; 87070; 87428; 99284

== ENCOUNTER 2025-04-04 20:20 | Emergency (ER) | payer OTHER ==
--- NOTE | 2025-04-04 21:17 | ER ---
Nurse's Notes [facility] Name: Nilesh Ordonez Age: 30 yrs Sex: Male : 1995 Arrival Date: 04/04/2025 Time: 20:20 Bed 4 Private MD: Osman Foster Diagnosis: Balanitis Presentation: 04/04 20:51 Chief complaint: Patient states: It is hard to pull the skin back, the heads red, with vc1 some yeast and mild discomfort. Coronavirus screen: Client denies travel out of the [place] in the last 14 days. At this time, the client does not indicate any symptoms associated with coronavirus-19. Ebola Screen: Patient negative for fever greater than or equal to 101.5 degrees Fahrenheit, and additional compatible Ebola Virus Disease symptoms Patient denies exposure to infectious person. Patient denies travel to an Ebola-affected area in the 21 days before illness onset. No symptoms or risks identified at this time. Initial Sepsis Screen: Does the patient meet any 2 criteria? HR > 90 bpm. No. Patient's initial sepsis screen is negative. Does the patient have a suspected source of infection? No. Patient's initial sepsis screen is negative. Risk Assessment: Do you want to hurt yourself or someone else? Patient reports no desire to harm self or others. Onset of symptoms is unknown. 20:51 Method Of Arrival: Ambulatory vc1 20:51 Acuity: IRVIN 4 vc1 Triage Assessment: 21:04 General: Appears in no apparent distress. uncomfortable. General: Behavior is calm, vc1 cooperative, appropriate for age. Pain: Complains of pain in head of penis and meatus Pain currently is 4 out of 10 on a pain scale. Neuro: Level of Consciousness is awake, alert, obeys commands, Oriented to person, place, time, situation, Appropriate for age. Respiratory: Airway is patent Respiratory effort is even, unlabored, Respiratory pattern is regular, symmetrical. : Reports yeast, redness, discomfort to penis. Historical: - Allergies: 21:04 NKA; vc1 - Home Meds: 21:04 Jardiance 10 mg oral tablet daily [Active]; vc1 - PMHx: 21:04 Asthma; diabetes mellitus; seasonal allergies; vc1 - PSHx: 21:04 None; vc1 - Immunization history:: Client reports receiving the 2nd dose of the Covid vaccine. - Infectious Disease History:: Denies. - Social history:: Smoking status: Patient denies any tobacco usage or history of. Screenin:00 [facility] ED Fall Risk Assessment (Adult) History of falling in the last 3 months, cp4 including since admission No falls in past 3 months (0 pts) Confusion or Disorientation No (0 pts) Intoxicated or Sedated No (0 pts) Impaired Gait No (0 pts) Mobility Assist Device Used No (0 pt) Altered Elimination No (0 pt) Score/Fall Risk Level 0 - 2 = Low Risk Oriented to surroundings, Maintained a safe environment, Assessed \T\ reinforced patient's understanding of fall precautions, Hourly rounding (assess needs \T\ fall precautionary measures) done. Abuse screen: Denies threats or abuse. Denies injuries from another. Nutritional screening: No deficits noted. Tuberculosis screening: No symptoms or risk factors identified. Never had TB. Assessment: 21:00 General: Appears in no apparent distress. comfortable, Behavior is calm, cooperative, cp4 appropriate for age. Pain: Complains of pain in pelvis. Neuro: Level of Consciousness is awake, alert, obeys commands, Oriented to person, place, time, situation. Cardiovascular: Patient's skin is warm and dry. Respiratory: Airway is patent Respiratory effort is even, unlabored. GI: No signs and/or symptoms were reported involving the gastrointestinal system. : Reports red, swollen penis. EENT: No signs and/or symptoms were reported regarding the EENT system. Derm: No signs and/or symptoms reported regarding the dermatologic system. Musculoskeletal: No signs and/or symptoms reported regarding the musculoskeletal system. Vital Signs: 20:51 BP 125 / 79; Pulse 107; Resp 18; Temp 98.3; Pulse Ox 97% ; Weight 150.14 kg; Height 5 vc1 ft. 11 in. ; Pain 4/10; 20:51 Body Mass Index 46.16 (150.14 kg, 180.34 cm) vc1 20:51 Pain Scale: Adult vc1 ED Course: 20:21 Patient arrived in ED. 6 20:21 Osman Foster MD is Private Physician. 6 20:25 Foster Garcia PA-C is [facility]. cp 20:25 Foster Morris MD is Attending Physician. cp 20:46 Ileana Cerrato, RN is Primary Nurse. kd3 21:00 Bed in low position. Call light in reach. Side rails up X 1. cp4 21:04 Triage completed. vc1 21:05 Arm band placed on right wrist. vc1 21:16 Miguel Gutierrez MD is Referral Physician. cp 21:20 No provider procedures requiring assistance completed. Patient did not have IV access cp4 during this emergency room visit. 21:26 Provided Education on: balanitis. cp4 Administered Medications: 21:20 Drug: Fluconazole PO 400 mg PO once Route: PO; cp4 21:21 Follow up: Response: No adverse reaction cp4 21:20 Drug: Cephalexin PO 500 mg PO once Route: PO; cp4 21:21 Follow up: Response: No adverse reaction cp4 Medication: 21:00 VIS not applicable for this client. cp4 Outcome: 21:16 Discharge ordered by MD. cp 21:26 Discharged to home ambulatory, cp4 21:26 Condition: stable 21:26 Discharge instructions given to patient, Instructed on discharge instructions, follow up and referral plans. medication usage, Demonstrated understanding of instructions, follow-up care, medications, Prescriptions given X 2, 21:27 Patient left the ED. cp4 Signatures: Foster Garcia, ANASTASIIA PAHariC Nisa Gibbons jj6 Ileana Cerrato, RN RN kd3 Gisell Silva RN RN vc1 Rafia Salazar cp4 Corrections: (The following items were deleted from the chart) 21:04 21:04 PMHx: Diabetes mellitus; vc1 vc1
--- NOTE | 2025-04-04 21:17 | EDPHYS ---
Physician Documentation [facility] Name: Nilesh Ordonez Age: 30 yrs Sex: Male : 1995 Arrival Date: 04/04/2025 Time: 20:20 Bed 4 Private MD: Osman Foster ED Physician Foster Morris HPI: 04/04 21:10 This 30 yrs old Male presents to ER via Ambulatory with complaints of Penile Problem. cp 21:10 The patient presents with swelling, that is mild, of the head of penis, erythema. cp 21:10 Onset: The symptoms/episode began/occurred gradually, and became worse today. cp Associated signs and symptoms: Pertinent negatives: abdominal pain, dysuria, fever, urinary symptoms, penile discharge. 21:10 The patient has experienced similar episodes in the past, several times. cp Historical: - Allergies: 21:04 NKA; vc1 - Home Meds: 21:04 Jardiance 10 mg oral tablet daily [Active]; vc1 - PMHx: 21:04 Asthma; diabetes mellitus; seasonal allergies; vc1 - PSHx: 21:04 None; vc1 - Immunization history:: Client reports receiving the 2nd dose of the Covid vaccine. - Infectious Disease History:: Denies. - Social history:: Smoking status: Patient denies any tobacco usage or history of. ROS: 21:12 Constitutional: Negative for fever, cp 21:12 Abdomen/GI: Negative for abdominal pain, vomiting, diarrhea, constipation, cp Exam: 21:14 Head/Face: Normocephalic, atraumatic. cp 21:14 Constitutional: The patient appears in no acute distress, alert, awake, non-toxic, well developed, well nourished, obese, 21:14 Cardiovascular: Rate: tachycardic, cp 21:14 Respiratory: the patient does not display signs of respiratory distress, Respirations: normal, no use of accessory muscles, no retractions, labored breathing, is not present, 21:14 Abdomen/GI: Inspection: obese Palpation: abdomen is soft and non-tender, in all quadrants, 21:14 : Male external genitalia: Patient is not circumisioned. erythema, of the head of penis is seen, that is mild, swelling: of the head of penis is noted, whitish discharge, Vital Signs: 20:51 BP 125 / 79; Pulse 107; Resp 18; Temp 98.3; Pulse Ox 97% ; Weight 150.14 kg; Height 5 vc1 ft. 11 in. ; Pain 4/10; 20:51 Body Mass Index 46.16 (150.14 kg, 180.34 cm) vc1 20:51 Pain Scale: Adult vc1 MDM: 20:49 Medical Screening Exam initiated cp 21:16 Data reviewed: vital signs, nurses notes, and as a result, I will discharge patient. cp Administered Medications: 21:20 Drug: Fluconazole PO 400 mg PO once Route: PO; cp4 21:21 Follow up: Response: No adverse reaction cp4 21:20 Drug: Cephalexin PO 500 mg PO once Route: PO; cp4 21:21 Follow up: Response: No adverse reaction cp4 Disposition: 22:58 Co-signature as Attending Physician, Foster Morris MD I agree with the assessment and the [facility] plan of care. 04/05 16:37 Chart complete. cp Disposition Summary: 04/04/25 21:16 Discharge Ordered Notes: Location: Home cp Problem: an ongoing problem cp Symptoms: have improved cp Condition: Stable cp Diagnosis - Balanitis cp Followup: cp - With: Miguel Gutierrez MD - When: 5 - 6 days - Reason: Worsening of condition Discharge Instructions: - Discharge Summary Sheet cp - Balanitis cp Forms: - Medication Reconciliation Form cp - Antibiotic Education cp - Prescription Opioid Use cp - Patient Portal Instructions cp - Leadership Thank You Letter cp Prescriptions: - nystatin 100,000 unit/gram Topical cream - apply 1 application TOPICAL route 3 times per day for 8-10 days; 30 gram tube; cp Refills: 0, Product Selection Permitted - Cephalexin 500 mg Oral Capsule - take 1 capsule ORAL route every 6 hours for 10 days; 40 capsule; Refills: 0, cp Product Selection Permitted Signatures: Foster Morris MD MD cha Page, Corey, PA-C PA-C cp Calcote, Vanessa, RN RN vc1 Rafia Salazar cp4 Corrections: (The following items were deleted from the chart) 04/04 21:04 21:04 PMHx: Diabetes mellitus; vc1 vc1 04/05 16:37 04/04 21:10 Associated signs and symptoms: Pertinent negatives: dysuria, fever, cp cp
[2025-04-04] MEDS ORDERED: CEPHALEXIN 250 MG CAP ONE (21:18)
[2025-04-04] MEDS ORDERED: FLUCONAZOLE 100 MG TAB ONE (21:18)
[2025-04-04 21:40] VITALS: BP 125/79; TEMP 98.3; O2SAT 97
== END 2025-04-04 21:27 | disposition home or self-care (01) ==
LOC: ER 20:20
DX: N48.1 Balanitis (principal)
CPT/HCPCS: 99283

== ENCOUNTER 2025-04-06 14:11 | Emergency (ER) | payer OTHER ==
--- NOTE | 2025-04-06 14:47 | EDPHYS ---
Physician Documentation [facility] Name: Nilesh Ordonez Age: 30 yrs Sex: Male : 1995 Arrival Date: 04/06/2025 Time: 14:11 Bed 14 Private MD: ED Physician Kole Ballard HPI: 04/06 15:10 This 30 yrs old Male presents to ER via Ambulatory with complaints of Penile dr5 Problem. 15:10 Onset: The symptoms/episode began/occurred 2 day(s) ago. Patient is a 30-year-old male dr5 with history of asthma, diabetes, allergies coming in with continued rash on glans of penis. Patient reports he has been putting nystatin on it with mild relief. Patient denies dysuria and is on cephalexin. Patient reports unable to have sexual intercourse due to pain.. Historical: - Allergies: 14:54 NKA; jb4 - PMHx: 14:54 Asthma; diabetes mellitus; seasonal allergies; jb4 - Immunization history:: Adult Immunizations up to date. - Infectious Disease History:: Denies. - Social history:: Smoking status: Patient denies any tobacco usage or history of. ROS: 15:10 Constitutional: as per hpi dr5 Exam: 15:10 Constitutional: This is a well developed, well nourished patient who is awake, alert, dr5 and in no acute distress. Head/Face: Normocephalic, atraumatic. Eyes: Pupils equal round and reactive to light, extra-ocular motions intact. Lids and lashes normal. Conjunctiva and sclera are non-icteric and not injected. Cornea within normal limits. Periorbital areas with no swelling, redness, or edema. Neck: Trachea midline, no thyromegaly or masses palpated, and no cervical lymphadenopathy. Supple, full range of motion without nuchal rigidity, or vertebral point tenderness. No Meningismus. Chest/axilla: Normal chest wall appearance and motion. Nontender with no deformity. No lesions are appreciated. Cardiovascular: Regular rate and rhythm with a normal S1 and S2. Normal PMI, no JVD. No pulse deficits. Respiratory: Lungs have equal breath sounds bilaterally, clear to auscultation. No rales, rhonchi or wheezes noted. No increased work of breathing, no retractions or nasal flaring. Abdomen/GI: Soft, non-tender, non-distended Male : Normal genitalia with no discharge or lesions. Balanitis noted to glans of penis. No discharge. Cremasteric reflex intact Skin: Warm, dry with normal turgor. Normal color with no rashes, no lesions, and no evidence of cellulitis. MS/ Extremity: Pulses equal, no cyanosis. Neurovascular intact. Full, normal range of motion. Neuro: Awake and alert, GCS 15, oriented to person, place, time, and situation. Cranial nerves II-XII grossly intact. Motor strength 5/5 in all extremities. Sensory grossly intact. Cerebellar exam normal. Normal gait. 15:10 : Male external genitalia: Patient is not circumisioned. Sexual behavior: the patient is sexually active, and reports a single partner, Se Hendricks present during examination, Vital Signs: 14:53 Weight 150.14 kg (R); Height 5 ft. 11 in. ; jb4 14:53 Body Mass Index 46.16 (150.14 kg, 180.34 cm) jb4 14:53 Pt refused vitals jb4 MDM: 14:15 Medical Screening Exam initiated dr5 15:10 Differential diagnosis: urethritis, Balanitis, urinary tract infection. Data reviewed: dr5 vital signs, nurses notes. Consideration of Admission/Observation Escalation of care including admission/observation considered. Admission considered patient found to have paraphimosis. Historians other than the Patient: Spouse/Significant Other: . Care significantly affected by the following chronic conditions: Diabetes. Care significantly affected by the following Social Determinants of Health: Poor access to healthcare and/or lack of insurance, Poor access to transportation, Problems related to employment. Counseling: I had a detailed discussion with the patient and/or guardian regarding the historical points, exam findings, and any diagnostic results supporting the discharge/admit diagnosis, the presence of at least one elevated blood pressure reading (>120/80) during this emergency department visit, the need for outpatient follow up, for definitive care, a family practitioner, to return to the emergency department if symptoms worsen or persist or if there are any questions or concerns that arise at home. Special discussion: I discussed with the patient/guardian in detail that at this point there is no indication for admission to the hospital. It is understood, however, that if the symptoms persist or worsen the patient needs to return immediately for re-evaluation. Based on the history and exam findings, there is no indication for further emergent testing or inpatient evaluation. I discussed with the patient/guardian the need to see the primary care provider for further evaluation of the symptoms. ED course: Balanitis likely secondary to diabetes. Will prescribe the patient antifungal cream. Recommended follow-up primary care doctor. Recommended keeping blood sugars under control, diet and exercise. Also recommended to complete antibiotics. Strict ER precautions given.. Administered Medications: No medications were administered Disposition: 17:49 Co-signature as Attending Physician, Kole Ballard MD I reviewed the patient's care rn provided by the [facility] Practice Provider and agree with the diagnosis and treatment plan. Disposition Summary: 04/06/25 14:47 Discharge Ordered Notes: Location: Home dr5 Condition: Stable dr5 Diagnosis - Candidal balanitis dr5 Followup: dr5 - With: Emergency Department - When: As needed - Reason: Worsening of condition Followup: dr5 - With: Private Physician - When: 1 - 2 days - Reason: Recheck today's complaints, Continuance of care, Re-evaluation by your physician Discharge Instructions: - Discharge Summary Sheet dr5 - Balanitis dr5 Forms: - Medication Reconciliation Form dr5 - Patient Portal Instructions dr5 - Leadership Thank You Letter dr5 Prescriptions: - Clotrimazole 1 % Topical Cream - Apply to affected area 1 application TOPICAL route every 12 hours; 15 gram; dr5 Refills: 0, Product Selection Permitted Signatures: Kole Ballard MD MD rn Bryson, James, RN RN jb4 Fred Woods, SCARFER OPERATOR-C SCARFER OPERATOR-Cdr5
--- NOTE | 2025-04-06 14:57 | ER ---
Nurse's Notes [facility] Name: Nilesh Ordonez Age: 30 yrs Sex: Male : 1995 Arrival Date: 04/06/2025 Time: 14:11 Bed 14 Private MD: Diagnosis: Candidal balanitis Presentation: 04/06 14:53 Chief complaint: Patient states: I have yeast growing on my penis that started 2 days jb4 ago. Coronavirus screen: At this time, the client does not indicate any symptoms associated with coronavirus-19. Ebola Screen: No symptoms or risks identified at this time. Initial Sepsis Screen: Does the patient meet any 2 criteria? No. Patient's initial sepsis screen is negative. Does the patient have a suspected source of infection? No. Patient's initial sepsis screen is negative. Risk Assessment: Do you want to hurt yourself or someone else? Patient reports no desire to harm self or others. Onset of symptoms was April 04, 2025. Transition of care: patient was not received from another setting of care. 14:53 Method Of Arrival: Ambulatory jb4 14:53 Acuity: IRVIN 5 jb4 Historical: - Allergies: 14:54 NKA; jb4 - PMHx: 14:54 Asthma; diabetes mellitus; seasonal allergies; jb4 - Immunization history:: Adult Immunizations up to date. - Infectious Disease History:: Denies. - Social history:: Smoking status: Patient denies any tobacco usage or history of. Screenin:55 [facility] ED Fall Risk Assessment (Adult) History of falling in the last 3 months, jb4 including since admission No falls in past 3 months (0 pts) Confusion or Disorientation No (0 pts) Intoxicated or Sedated No (0 pts) Impaired Gait No (0 pts) Mobility Assist Device Used No (0 pt) Altered Elimination No (0 pt) Score/Fall Risk Level 0 - 2 = Low Risk Oriented to surroundings, Maintained a safe environment. Abuse screen: Denies threats or abuse. Nutritional screening: No deficits noted. Tuberculosis screening: No symptoms or risk factors identified. Assessment: 14:55 General: Appears in no apparent distress. comfortable, Behavior is calm, cooperative, jb4 appropriate for age. Pain: Denies pain. Neuro: Level of Consciousness is awake, alert, obeys commands, Oriented to person, place, time, situation. Cardiovascular: Patient's skin is warm and dry. Respiratory: Airway is patent Respiratory effort is even, unlabored, Respiratory pattern is regular, symmetrical. Derm: Skin is intact, Skin is pink, warm \T\ dry. Musculoskeletal: Circulation, motion, and sensation intact. Range of motion: intact in all extremities. Vital Signs: 14:53 Weight 150.14 kg (R); Height 5 ft. 11 in. ; jb4 14:53 Body Mass Index 46.16 (150.14 kg, 180.34 cm) jb4 14:53 Pt refused vitals jb4 ED Course: 14:14 Patient arrived in ED. ts1 14:15 [facility]C [facility]5 14:15 Kole Ballard MD is Attending Physician. dr5 14:54 Triage completed. jb4 14:54 Arm band placed on right wrist. jb4 14:55 Patient has correct armband on for positive identification. Bed in low position. Call jb4 light in reach. Side rails up X 1. Provided Education on: discharge instructions.. 14:55 No provider procedures requiring assistance completed. Patient did not have IV access jb4 during this emergency room visit. Administered Medications: No medications were administered Medication: 14:55 VIS not applicable for this client. jb4 Outcome: 14:47 Discharge ordered by . dr5 14:55 Discharged to home ambulatory, jb4 14:55 Condition: stable 14:55 Discharge instructions given to patient, Instructed on discharge instructions, follow up and referral plans. medication usage, Demonstrated understanding of instructions, follow-up care, medications, Prescriptions given X 1, 14:57 Patient left the ED. jb4 Signatures: Sanjeev Mcneal, RN RN jb4 Aura Modi PAS PAS ts1 Fred Woods FNP-C AIRLINE ATTENDANT-Cdr5
== END 2025-04-06 14:57 | disposition home or self-care (01) ==
LOC: ER 14:11
DX: B37.42 Candidal balanitis (principal)
CPT/HCPCS: 99283